=== PATIENT | male | born 1950 | race Caucasian/White ===

== ENCOUNTER 2017-05-08 17:14 | Inpatient (IN) | payer BC, OTHER ==
[2017-05-08 17:19] VITALS: BMI 38.3
--- NOTE | 2017-05-08 17:24 | PDOC ---
History of Present Illness - General History Source: Patient Exam Limitations: No Limitations - History of Present Illness Initial Comments: 67 yo M history HTN, HL, CAD s/p [place] x2 (one in distant past, one 5 years ago) presents with abrupt onset of SOB, started while he was exerting himself lifting something heavy and moving it around. Denies cp, nausea, vomiting, sweating, fever. No cough or recent illness. He contacted Dr. Calderon (his client services assistant is Dr. Olmos), who advised him to present to ED. He has chronic leg ulcers, but has recently noticed progressively worsening BLE edema. He had outpatient DVT studies this week, negative as per Dr. Calderon. <Shweta Dixon - Last Filed: 05/08/17 19:26> <Janey Castle - Last Filed: 05/08/17 20:37> - General Chief Complaint: Shortness of Breath Stated Complaint: SOB Time Seen by Provider: 05/08/17 17:24 Past History - Past Medical History Cardiac Disorders: Yes (X 2) COPD: No HTN: Yes Hypercholesterolemia: Yes - Surgical History Cardiac Surgery: Yes - Suicide/Smoking/Psychosocial Hx Smoking History: Never smoked Hx Alcohol Use: No Drug/Substance Use Hx: No Substance Use Type: None <Shweta Dixon - Last Filed: 05/08/17 19:26> <Janey Castle - Last Filed: 05/08/17 20:37> - Past Medical History Allergies/Adverse Reactions: Allergies Allergy/AdvReac Type Severity Reaction Status Date / Time No Known Allergies Allergy Verified 05/08/17 17:19 Review of Systems - Review of Systems Able to Perform ROS?: Yes Comments:: GENERAL/CONSTITUTIONAL: No fever or chills. No weakness. HEAD, EYES, EARS, NOSE AND THROAT: No change in vision. No ear pain or discharge. No sore throat. CARDIOVASCULAR: No chest pain. +Shortness of breath. RESPIRATORY: No cough, wheezing, or hemoptysis. GASTROINTESTINAL: No nausea, vomiting, diarrhea or constipation. GENITOURINARY: No dysuria, frequency, or change in urination. MUSCULOSKELETAL: No joint or muscle swelling or pain. No neck or back pain. + BLE swellling. SKIN: No rash NEUROLOGIC: No headache, vertigo, loss of consciousness, or change in strength/ sensation. ENDOCRINE: No increased thirst. No abnormal weight change. HEMATOLOGIC/LYMPHATIC: No anemia, easy bleeding, or history of blood clots. ALLERGIC/IMMUNOLOGIC: No hives or skin allergy. <Shweta Dixon - Last Filed: 05/08/17 19:26> *Physical Exam - Vital Signs Last Vital Signs Temp Pulse Resp BP Pulse Ox 98.2 F 83 20 128/79 99 05/08/17 17:15 05/08/17 17:15 05/08/17 17:15 05/08/17 17:15 05/08/17 17:15 - Physical Exam Comments: GENERAL: Awake, alert, and fully oriented. +Mild tachypnea. HEAD: No signs of trauma EYES: PERRLA, EOMI, sclera anicteric, conjunctiva clear ENT: Auricles normal inspection, hearing grossly normal, nares patent, oropharynx clear without exudates. Moist mucosa NECK: Normal ROM, supple, no lymphadenopathy, JVD, or masses LUNGS: +Crackles at bases B/L. Distant lung sounds secondary to body habitus. No wheezes. HEART: Regular rate and rhythm, normal S1 and S2, no murmurs, rubs or gallops ABDOMEN: Soft, nontender, normoactive bowel sounds. No guarding, no rebound. No masses EXTREMITIES: Normal range of motion, 3+ pitting edema to BLE. Patient refused examination of the lower legs, did not want the ulcer dressings removed. No clubbing or cyanosis. No cords, erythema, or tenderness. NEUROLOGICAL: Cranial nerves II through XII grossly intact. Normal speech. Motor and sensation intact. SKIN: Warm, Dry, normal turgor, no rashes or lesions noted. <Shweta Dixon - Last Filed: 05/08/17 19:26> - Vital Signs Last Vital Signs Temp Pulse Resp BP Pulse Ox 98.2 F 83 20 128/79 99 05/08/17 17:15 05/08/17 17:15 05/08/17 17:15 05/08/17 17:15 05/08/17 17:15 <Janey Castle - Last Filed: 05/08/17 20:37> ED Treatment Course - LABORATORY CBC & Chemistry Diagram: 05/08/17 17:55 05/08/17 17:55 <Shweta Dixon - Last Filed: 05/08/17 19:26> - LABORATORY CBC & Chemistry Diagram: 05/08/17 17:55 05/08/17 17:55 - ADDITIONAL ORDERS Additional order review: Laboratory Results 05/08/17 12 17:55 17:55 PT with INR 12.90 H INR 1.14 Sodium 139 Potassium 4.4 Chloride 105 Carbon Dioxide 26 Anion Gap 8 BUN 14 Creatinine 1.0 Creat Clearance w eGFR > 60 Random Glucose 86 Calcium 8.7 Total Bilirubin 0.8 AST 16 ALT 31 Alkaline Phosphatase 86 Creatine Kinase 58 Troponin I 0.02 B-Natriuretic Peptide 1586.62 H Total Protein 6.5 Albumin 3.5 05/08/17 17:55 RBC 3.97 L MCV 91.5 MCHC 33.7 RDW 14.2 MPV 9.1 Neutrophils % 84.2 H Lymphocytes % 5.9 L Monocytes % 7.6 Eosinophils % 2.0 Basophils % 0.3 - Medications Given in the ED: ED Medications Discontinued Medications Generic Name Dose Route Start Last Admin Trade Name Freq PRN Reason Stop Dose Admin Furosemide 40 mg 05/08/17 19:05 05/08/17 19:37 Lasix Injection - IVPUSH 05/08/17 19:06 40 mg ONCE ONE Administration <Janey Castle - Last Filed: 05/08/17 20:37> Medical Decision Making - Medical Decision Making 05/08/17 19:23 Late entry. Patient was sent in by Dr. Calderon for SOB. Found to have pulm venous congestion on XR of chest. Elevated BNP. Will admit for new onset CHF. Lasix 40 mg IVP as per Dr. Calderon. Patient's PMD is Dr. Singh, usually admits to Dr. Carballo, however, Dr. Carballo patients go to hospitalist after 5pm. <Shweta Dixon - Last Filed: 05/08/17 19:26> *DC/Admit/Observation/Transfer <Shweta Dixon - Last Filed: 05/08/17 19:26> - Discharge Dispostion Admit: Yes <Janey Castle - Last Filed: 05/08/17 20:37> Diagnosis at time of Disposition: CHF (congestive heart failure), Dyspnea - Discharge Dispostion Condition at time of disposition: Guarded - Referrals Referrals: Roosevelt Singh MD [Primary Care Provider] -
[2017-05-08 18:04] LABS: BASO % 0.3 % (0-2.0); MCH 30.8 pg (25.7-33.7); MCHC 33.7 g/dl (32.0-35.9); MEAN CELL VOLUME 91.5 fl (80-96); MEAN PLT VOLUME 9.1 fl (7.5-11.1); NEUT % 84.2 % (42.8-82.8); PLATELET COUNT 136 K/MM3 (134-434); RDW 14.2 % (11.9-15.9); WHITE BLOOD COUNT 8.5 K/mm3 (4.0-10.0)
[2017-05-08 18:17] LABS: INR 1.14 (0.82-1.09); PROTHROMBIN TIME (PATIENT) 12.9 SEC (9.98-11.88)
[2017-05-08 18:35] LABS: ALBUMIN 3.5 g/dl (3.4-5.0); ANION GAP 8 (8-16); BILIRUBIN,TOTAL 0.8 mg/dL (0.2-1.0); CALCIUM 8.7 mg/dL (8.5-10.1); CO2 26 mmol/L (21-32); GLUCOSE,RANDOM 86 mg/dL (74-106); SGOT/AST 16 U/L (15-37); SGPT/ALT 31 U/L (12-78); TOT PROT 6.5 g/dl (6.4-8.2)
[2017-05-08 18:39] LABS: ALK PHOS 86 U/L (45-117); CPK 58 IU/L (39-308); TROPONIN I 0.02 ng/ml (0.00-0.05)
[2017-05-08] MEDS ORDERED: FUROSEMIDE 40 MG/4 ML INJECTABLE VIAL IVPUSH ONE (19:05)
[2017-05-08] MEDS ORDERED: FUROSEMIDE 40 MG/4 ML INJECTABLE VIAL ONE (19:33)
--- NOTE | 2017-05-08 21:06 | HP ---
CHIEF COMPLAINT: Acute onset of SOB PCP: Dr. Singh Sap Ppm Consultant: Dr. Olmos HISTORY OF PRESENT ILLNESS: 67 year old M with pmh of HTN, HLD, CAD s/p [place] x2 with several stents placed presents with acute onset SOB 15 hrs prior to admission while exerting himself. Patient contacted Dr. Calderon who covers for Dr. lOmos and told him to come to the ED. Patient denies fever, chills, chest pain, abdominal pain. Patient states he has had increased b/l EDEN over the past few weeks. Patient has chronic leg ulcers for which he follows with a wound clinic. He states he had DVT studies done on but states they were negative. ER course was notable for: (1) VS- unremarkable (2) CBC, CMP unremarkable, elevated BNP (3) D-Dimer 429, CXR reveals congestion Recent Travel: denies PAST MEDICAL HISTORY: as per hpi PAST SURGICAL HISTORY: Stent placement Social History: Smoking: Denies Alcohol: Denies Drugs: Denies Family History: Allergies No Known Allergies Allergy (Verified 05/08/17 17:19) HOME MEDICATIONS: REVIEW OF SYSTEMS CONSTITUTIONAL: Absent: fever, chills, diaphoresis, generalized weakness, malaise, loss of appetite, weight change HEENT: Absent: rhinorrhea, nasal congestion, throat pain, throat swelling, difficulty swallowing, mouth swelling, ear pain, eye pain, visual changes CARDIOVASCULAR: Absent: chest pain, syncope, palpitations, irregular heart rate, lightheadedness , peripheral edema RESPIRATORY: Absent: cough, shortness of breath, dyspnea with exertion, orthopnea, wheezing, stridor, hemoptysis GASTROINTESTINAL: Absent: abdominal pain, abdominal distension, nausea, vomiting, diarrhea, constipation, melena, hematochezia GENITOURINARY: Absent: dysuria, frequency, urgency, hesitancy, hematuria, flank pain, genital pain MUSCULOSKELETAL: Absent: myalgia, arthralgia, joint swelling, back pain, neck pain SKIN: Absent: rash, itching, pallor HEMATOLOGIC/IMMUNOLOGIC: Absent: easy bleeding, easy bruising, lymphadenopathy, frequent infections ENDOCRINE: Absent: unexplained weight gain, unexplained weight loss, heat intolerance, cold intolerance NEUROLOGIC: Absent: headache, focal weakness or paresthesias, dizziness, unsteady gait, seizure, mental status changes, bladder or bowel incontinence PSYCHIATRIC: Absent: anxiety, depression, suicidal or homicidal ideation, hallucinations. PHYSICAL EXAMINATION Vital Signs - 24 hr 05/08/17 17:15 Temperature 98.2 F Pulse Rate 83 Respiratory 20 Rate Blood Pressure 128/79 O2 Sat by Pulse 99 Oximetry (%) GENERAL: Awake, alert, and fully oriented, in no acute distress. HEAD: Normal with no signs of trauma. EYES: Extraocular movements intact, sclera anicteric, conjunctiva clear. No lid lag. EARS, NOSE, THROAT: Oropharynx clear without exudates. Moist mucous membranes. NECK: Normal range of motion, supple without lymphadenopathy, JVD, or masses. LUNGS: Crackles at B/l bases. No wheezes. No accessory muscle use. +Tachypnea HEART: Regular rate and rhythm, normal S1 and S2 without murmur, rub or gallop. ABDOMEN: Soft, nontender, not distended, normoactive bowel sounds, no guarding, no rebound, no masses. No hepatomegaly or splenomegaly. MUSCULOSKELETAL: Normal range of motion at all joints. No bony deformities or tenderness. No CVA tenderness. LOWER EXTREMITIES: No calf tenderness. 2+ pitting edema to BLE. Patient refused examination of the lower legs. Ulcers wrapped NEUROLOGICAL: Cranial nerves II-XII intact. Normal speech. PSYCHIATRIC: Cooperative. Good eye contact. Appropriate mood and affect. SKIN: Warm, dry, normal turgor, no rashes or lesions noted, normal capillary refill. Laboratory Results - last 24 hr 05/08/17 05/08/17 05/08/17 17:55 17:55 17:55 WBC 8.5 RBC 3.97 L Hgb 12.2 Hct 36.4 MCV 91.5 MCH 30.8 MCHC 33.7 RDW 14.2 Plt Count 136 MPV 9.1 Neutrophils % 84.2 H Lymphocytes % 5.9 L Monocytes % 7.6 Eosinophils % 2.0 Basophils % 0.3 PT with INR 12.90 H INR 1.14 Sodium 139 Potassium 4.4 Chloride 105 Carbon Dioxide 26 Anion Gap 8 BUN 14 Creatinine 1.0 Creat Clearance w eGFR > 60 Random Glucose 86 Calcium 8.7 Total Bilirubin 0.8 AST 16 ALT 31 Alkaline Phosphatase 86 Creatine Kinase 58 Troponin I 0.02 B-Natriuretic Peptide 1586.62 H Total Protein 6.5 Albumin 3.5 ASSESSMENT/PLAN: 67 year old M with pmh of HTN, HLD, CAD s/p [place] x2 with several stents placed presents with acute onset SOB 15 hrs prior to admission placed into obs for acute CHF exacerbation. #Acute onset SOB, CHF exacerbation vs possible PE -BNP elevated -Last echo 6 months ago, patient is unsure results -Recent B/l venous duplex performed on , Obtain results from straightening machine feeder -D-Dimer pending, if elevated will obtain CTA -IV lasix 40mg BID -Echocardiogram pending -Strict I/O -Daily Weights -Trend troponins -EKG in AM #HTN, stable -Continue home medications #HLD -Continue lipitor 40 mg po hs #CAD s/p [place] x2 -Continue aspirin 81 mg po daily #GABBY -Continue CPAP #Chronic leg wounds -Recommend wound care consult in the AM #FEN/GI -No fluids at this time -WNL -Sodium controlled diet #PPx -Heparin 5000 U q8h for dvt ppx -No GI ppx Case discussed with team Home meds need to be confirmed Visit type - Emergency Visit Emergency Visit: Yes ED Registration Date: 05/08/17 Care time: The patient presented to the Emergency Department on the above date and was hospitalized for further evaluation of their emergent condition. - New Patient This patient is new to me today: Yes Date on this admission: 05/08/17 - Critical Care Critical Care patient: No
[2017-05-08] MEDS ORDERED: ATORVASTATIN CA 40 MG TABLET (FP) PO SCH (22:00)
--- NOTE | 2017-05-08 22:24 | PN ---
Teaching Attending Note Name of Resident: Duke Christie ATTENDING PHYSICIAN STATEMENT I saw and evaluated the patient. I reviewed the resident's note and discussed the case with the resident. I agree with the resident's findings and plan as documented. SUBJECTIVE: 67 year old male that presents to the ED c/o of rather acute ( 15 HRS ago ) onset of SOB. This is associated with dizziness. He denies chest pain . Denies syncope. PMH is relevant for prior history of CAD, CA with most recent ccah in 2010 , most recent ECHO and stress test 6 month ago . Does not recall history of CHF . He has been having increasing leg edema over the past 3 month , RLE ulcer for which he is managed in wound care center He has history of Obesity, Sleep apnea and arthritis and uses CPAP at home OBJECTIVE: Vital Signs Temperature 98.2 F 05/08/17 17:15 Pulse Rate 88 05/08/17 19:30 Respiratory Rate 20 05/08/17 17:15 Blood Pressure 128/79 05/08/17 17:15 O2 Sat by Pulse Oximetry (%) 100 05/08/17 19:30 HEAD: Normal with no signs of trauma. EYES: Extraocular movements intact, sclera anicteric, conjunctiva clear. No lid lag. EARS, NOSE, THROAT: Oropharynx clear without exudates. Moist mucous membranes. NECK: Normal range of motion, supple without lymphadenopathy, JVD, or masses. LUNGS: Crackles at B/l bases. No wheezes. No accessory muscle use. +Tachypnea HEART: Regular rate and rhythm, normal S1 and S2 without murmur, rub or gallop. ABDOMEN: Soft, nontender, not distended, normoactive bowel sounds, no guarding, no rebound, no masses. No hepatomegaly or splenomegaly. MUSCULOSKELETAL: Normal range of motion at all joints. No bony deformities or tenderness. No CVA tenderness. LOWER EXTREMITIES: No calf tenderness. 2+ pitting edema to BLE. Patient refused examination of the lower legs. Ulcers wrapped. There is an ulcer of RLE that is 2 inches in diameter as per patient NEUROLOGICAL: Cranial nerves II-XII intact. Normal speech. CBC, BMP 05/08/17 17:55 05/08/17 17:55 CXR - mild pulmonary vascular congestion ASSESSMENT AND PLAN: 1. Acute onset of SOB - secondary to acute CHF ( history of CAD ) . PE is also a possibility considering obesity, poor functional status and acute onset of symptoms. - cardiac monitoring - cardiac enzymes - will obtain recent echo - cardiology evaluation - I& O and diurese with IV lasix - Ddimer - US doppler LE - CT chest if dimer is high 2. Sleep apnea - will order CPAP at night 3. RLE wound - wound care consult 4. DVT PPX - heparin SC Discussed with patient in extent
[2017-05-08] MEDS ORDERED: METOPROLOL SUCCINATE 50 MG TAB.SR.24H (FP) ONE (22:46)
[2017-05-08] MEDS ORDERED: HEPARIN NA (PORCINE) 5,000 UNITS/ML 1ML VIAL ONE (22:46)
[2017-05-08] MEDS ORDERED: ATORVASTATIN CA 40 MG TABLET (FP) ONE (22:46)
[2017-05-08] MEDS: HEPARIN NA (PORCINE) 5,000 UNITS/ML 1ML VIAL SQ SCH (22:58)
[2017-05-08] MEDS: METOPROLOL SUCCINATE 25 MG TAB.SR.24H (FP) PO SCH (22:58)
[2017-05-09] MEDS ORDERED: METHADONE HCL 10 MG TABLET PO PRN (00:36)
[2017-05-09] MEDS ORDERED: clonazePAM 0.5 MG TABLET ONE (00:49)
[2017-05-09] MEDS ORDERED: HEPARIN NA (PORCINE) 5,000 UNITS/ML 1ML VIAL ONE (06:02)
[2017-05-09] MEDS ORDERED: FUROSEMIDE 40 MG/4 ML INJECTABLE VIAL ONE (06:02)
[2017-05-09] MEDS: FUROSEMIDE 40 MG/4 ML INJECTABLE VIAL IVPUSH SCH ×2 (06:14→13:38)
[2017-05-09] MEDS: HEPARIN NA (PORCINE) 5,000 UNITS/ML 1ML VIAL SQ SCH ×2 (06:14→13:38)
[2017-05-09 06:23] LABS: BASO % 0.4 % (0-2.0); EOS % 4.9 % (0-4.5); MCH 30.9 pg (25.7-33.7); MCHC 33.6 g/dl (32.0-35.9); MEAN PLT VOLUME 8.7 fl (7.5-11.1); NEUT % 74.8 % (42.8-82.8); PLATELET COUNT 136 K/MM3 (134-434); RDW 14.5 % (11.9-15.9); WHITE BLOOD COUNT 7.4 K/mm3 (4.0-10.0)
[2017-05-09 07:30] LABS: ANION GAP 5 (8-16); CALCIUM 8.2 mg/dL (8.5-10.1); CO2 30 mmol/L (21-32); CREATININE 1.1 mg/dL (0.7-1.3); GLUCOSE,RANDOM 98 mg/dL (74-106); MAGNESIUM 2.3 mg/dL (1.8-2.4); PHOSPHOROUS 3.8 mg/dL (2.5-4.9)
[2017-05-09 07:33] LABS: TROPONIN I < 0.02 ng/ml (0.00-0.05)
--- NOTE | 2017-05-09 09:39 | PN ---
Progress Note (short form) - Note Progress Note: pt seen/ examined in er. chart reviewed. admitted for chf exac denies cp. afebrile on i/v lasix. Vital Signs Temp 98.1 F 05/09/17 06:32 Pulse 61 05/09/17 06:32 Resp 20 05/09/17 06:32 BP 116/66 05/09/17 06:32 Pulse Ox 96 05/09/17 06:32 Intake & Output 05/08/17 05/08/17 05/09/17 11:59 23:59 11:59 Weight 245 lb Other: Height 5 ft 7 in Body Mass Index (BMI) 38.3 Active Medications Aspirin (Asa -) 81 mg PO DAILY [facility] Atorvastatin Calcium (Lipitor -) 40 mg PO HS [facility] Last Admin: 05/08/17 22:58 Dose: 40 mg Clonazepam (Klonopin -) 1 mg PO TID [facility] Last Admin: 05/09/17 05:59 Dose: Not Given Furosemide (Lasix Injection -) 40 mg IVPUSH BID@0600,1400 [facility] Last Admin: 05/09/17 06:14 Dose: 40 mg Heparin Sodium (Porcine) (Heparin -) 5,000 unit SQ TID [facility] Last Admin: 05/09/17 06:14 Dose: 5,000 unit Isosorbide Mononitrate (Imdur -) 60 mg PO DAILY [facility] Methadone HCl (Dolophine -) 10 mg PO DAILY PRN PRN Reason: PAIN Last Admin: 05/09/17 00:53 Dose: 10 mg Metoprolol Succinate (Toprol Xl -) 25 mg PO BID [facility] Last Admin: 05/08/17 22:58 Dose: 25 mg CBC, BMP 05/09/17 05:44 05/09/17 05:44 Physical Exam. Conscious / cooperative--obese neck - no jvd lungs- diminished at bases cvs- s1, s2 rrr Abd- soft/obese EXt- Nikhil Bandage + A/P Chf exac with h/o cad--s/p mi-- several stents. obesity. chronic leg ulcers hypertension continue i/v lasix tele admit echo cardiology to follow. will follow. Problem List - Problems (1) Obesity Code(s): E66.9 - OBESITY, UNSPECIFIED (2) Coronary artery disease Code(s): I25.10 - ATHSCL HEART DISEASE OF [place] CORONARY ARTERY W/O ANG PCTRS (3) CHF (congestive heart failure) Code(s): I50.9 - HEART FAILURE, UNSPECIFIED (4) Dyspnea Code(s): R06.00 - DYSPNEA, UNSPECIFIED
[2017-05-09] MEDS ORDERED: ISOSORBIDE MONONITRATE 60 MG TAB.SR.24H (FP) PO SCH (10:00)
[2017-05-09] MEDS ORDERED: ASPIRIN 81 MG CHEWABLE TABLETS PO SCH (10:00)
[2017-05-09] MEDS: METOPROLOL SUCCINATE 25 MG TAB.SR.24H (FP) PO SCH (10:01)
--- NOTE | 2017-05-09 10:15 | CON.CARD ---
Consult Consult Specialty:: Cardiology Referred by:: ER Reason for Consultation:: SOB/edema - History of Present Illness Chief Complaint: SOB/edema History of Present Illness: 67 year old man with a h/o HTN, HLD, CAD h/o [place] x 2, several years ago and most recently 2012 s/p PCI ANSLEY pLAD and RCA at that time, moderate LV systolic dysfunction at that time, has not been to the office in a few years, last echo 2013. Pt called service yesterday stating that he has had a few day history of severe dyspnea with minimal exertion and approx 1 week of b/l LE. He was seen last week by Vascular Dr. Crum for LE wounds and as per pt had a doppler US that showed no DVT. He had stated that up until late last week he was feeling well (for the past 4 years) and has not had any sob or perez. He was advised to go to the ER yesterday afternoon which he did. He was seen and examined this am in [facility]. He denies any chest pain, no palpitations, no pnd, orthopnea. No ligtheadedness, dizziness, syncope, or near syncope. - History Source History Provided By: Patient, Medical Record Limitations to Obtaining History: No Limitations - Past Medical History Cardio/Vascular: Yes: CAD, HTN, Hyperlipdemia, TX - Past Surgical History Past Surgical History: Yes: Stent - Alcohol/Substance Use Hx Alcohol Use: No - Smoking History Smoking history: Never smoked - Social History ADL: Independent History of Recent Travel: No Home Medications - Allergies Allergies/Adverse Reactions: Allergies Allergy/AdvReac Type Severity Reaction Status Date / Time No Known Allergies Allergy Verified 05/08/17 17:19 - Home Medications Home Medications: Ambulatory Orders Aspirin [ASA -] 81 mg PO DAILY 05/08/17 Atorvastatin Ca [Lipitor] 40 mg PO HS 05/08/17 Clonazepam [Klonopin] 1 mg PO TID 05/08/17 Furosemide [Lasix -] 40 mg PO DAILY 05/08/17 Isosorbide Mononitrate [Imdur -] 60 mg PO DAILY 05/08/17 Methadone [Dolophine -] 10 mg PO DAILY PRN 05/08/17 Methadone [Dolophine -] 10 mg PO Q12H 05/08/17 Metoprolol Succinate [Toprol Xl -] 25 mg PO BID 05/08/17 Family Disease History - Family Disease History Family History: Denies Review of Systems - Review of Systems Constitutional: denies: No Symptoms, Chills, Diaphoresis, Fever, Lethargy, Loss of Appetite, Malaise, Night Sweats, Unintentional Wgt. Loss, Weakness, Other Eyes: denies: No Symptoms, Blind Spots, Blurred Vision, Double Vision, Eye Pain , Floaters, Photophobia, Recent Change in Vision, Other HENT: denies: No Symptoms, Difficult Swallowing, Ear Discharge, Ear Pain, Epistaxis, Gingival Bleeding, Hearing Loss, Mouth Swelling, Nasal Congestion, Ocular Prosthesis, Throat Pain, Toothache, Ringing in Ears, Other Neck: denies: No Symptoms, Decreased ROM, Lumps, Pain on Movement, Stiffness, Swollen Glands, Tenderness, Other Cardiovascular: reports: Edema, Shortness of Breath. denies: No Symptoms, Chest Pain, Palpitations, Other Respiratory: reports: Exercise Intolerance, SOB, SOB on Exertion. denies: No Symptoms, Cough, Hemoptysis, Orthopnea, PND, Snoring, Wheezing, Other Gastrointestinal: denies: No Symptoms, Abdominal Pain, Bloating, Constipation, Diarrhea, Dysphagia, Indigestion, Melena, Nausea, Rectal Bleeding, Vomiting, Vomiting Blood, Other Genitourinary: denies: No Symptoms, Burning, Discharge, Dysuria, Flank Pain, Frequency, Hematuria, Incontinence, Lesions, Menses, Pain, Testicular Mass, Testicular Pain, Testicular Swelling, Urgency, Vaginal Bleeding, Other Breasts: denies: No Symptoms Reported, See HPI, Breast Implants, Discharge from Nipple, Lumps, Pain, Skin Changes, Other Musculoskeletal: denies: No Symptoms, Back Pain, Crepitus, Decreased ROM, Extremity Pain, Joint Pain, Joint Swelling, Muscle Pain, Muscle Cramps, Muscle Weakness, Other Integumentary: denies: No Symptoms, Blister, Bruising, Change in Color, Eczema, Erythema, Incision, Lesions, Lump, Pallor, Pruritis, Rash, Wound, Other Neurological: denies: No Symptoms, Change in LOC, Change in Speech, Confusion, Dizziness, Headache, Incoordination, Numbness, Parasthesia, Pre-Existing Deficit , Seizure, Syncope, Tremors, Unsteady Gait, Weakness, Other Endocrine: denies: No Symptoms, Excessive Sweating, Flushing, Increased Hunger, Increased Thirst, Intolerance to Cold, Intolerance to Heat, Unexplained Weight Gain, Unexplained Weight Loss, Other Hematology/Lymphatic: denies: No Symptoms, Easily Bruised, Excessive Bleeding, Swollen Glands, Other Psychiatric: denies: No Symptoms, Altered Sleep Pattern, Anxiety, Depression, Hallucinations, Panic, Paranoia, Suicidal, Other - Risk Factors Known Risk Factors: Yes: Hypercholesterolemia, Hypertension, Prior TX /Emb Stroke Vital Signs: Vital Signs Temperature 98.1 F 05/09/17 06:32 Pulse Rate 61 05/09/17 06:32 Respiratory Rate 20 05/09/17 06:32 Blood Pressure 116/66 05/09/17 06:32 O2 Sat by Pulse Oximetry (%) 96 05/09/17 06:32 Constitutional: Yes: No Distress, Calm, Obese Eyes: Yes: WNL, Conjunctiva Clear, EOM Intact, PERRL HENT: Yes: WNL, Atraumatic, Normocephalic Neck: Yes: WNL, Supple, Trachea Midline Respiratory: Yes: WNL, Regular, CTA Bilaterally. No: Rales, Rhonchi, Wheezes Gastrointestinal: Yes: WNL, Normal Bowel Sounds, Soft. No: Distention, Tenderness Renal/: Yes: WNL Cardiovascular: Yes: Regular Rate and Rhythm. No: Bradycardia, Tachycardia, Pulse Irregular, Gallop, Rub, Varicosities JVD: No Carotid Bruit: No PMI: Non-Displaced Heart Sounds: Yes: S1, S2. No: Split S2, S3, S4, Clicks, Gallop, Rub, Bruit Murmur: No: Systolic Murmur, Diastolic Murmur Musculoskeletal: Yes: WNL Extremities: Yes: WNL Edema: Yes Edema: LLE: 2+, RLE: 2+ Peripheral Pulses WNL: Yes Peripheral Pulses: 2+ Left Doralis Pedis, 2+ Right Dorsalis Pedis Integumentary: Yes: WNL Neurological: Yes: Alert, Oriented, Cran Nerves II-XII Intact Psychiatric: Yes: Alert, Oriented - Other Data Labs, Other Data: CBC, BMP 05/09/17 05:44 05/09/17 05:44 INR, PTT INR 1.14 (0.82-1.09) 05/08/17 17:55 Troponin, BNP 05/08/17 05/09/17 17:55 05:44 Troponin I 0.02 < 0.02 B-Natriuretic Peptide 1586.62 H Troponin, BNP 05/08/17 05/09/17 17:55 05:44 Troponin I 0.02 < 0.02 B-Natriuretic Peptide 1586.62 H EKG-NSR 61bpm, 1st deg AVB, septal infarct age indeterminate, nonspecific ST abnl, st depressions V5, V6, II, III, aVF Echo: Report Reviewed Prior Cardiac Procedures: PTCA with Stent Imaging - Results Chest X-ray: Report Reviewed, Image Reviewed EKG: Report Reviewed, Image Reviewed Other: Report Reviewed, Image Reviewed (tele-in er, no sig arrhythmias seen) Assessment/Plan 67 year old man with a h/o HTN, HLD, CAD h/o [place] x 2, several years ago and most recently 2013 s/p PCI ANSLEY pLAD and RCA at that time, moderate LV systolic dysfunction at that time, has not been to the office in a few years, last echo 2013. Pt called service yesterday stating that he has had a few day history of severe dyspnea with minimal exertion and approx 1 week of b/l LE. He was seen last week by Vascular Dr. Crum for LE wounds and as per pt had a doppler US that showed no DVT. He had stated that up until late last week he was feeling well (for the past 4 years) and has not had any sob or perez. He was advised to go to the ER yesterday afternoon which he did. He was seen and examined this am in [facility]. He denies any chest pain, no palpitations, no pnd, orthopnea. No ligtheadedness, dizziness, syncope, or near syncope. SOB-likely acute on chronic systolic CHF -echo reviewed from 2012 showed moderate LV systolic dysfunction, unkown LV function from 2012 to 2017 -echo today showed moderate LV systolic dysfunction -plan to continue diuresis with IV Lasix -monitor strict I/Os and daily weights -monitor bun/creat, electrolytes and replete as needed -concern that pt developed recurrent obstructive CAD as etiology of current acute decompensation thus will plan to transfer for cardiac cath during this admission. -cont other current medical regimen, ASA, Toprol, Lipitor CAD-prior TX's as above and PCI's as above -cont ASA, Lipitor, Toprol as above -cardiac cath planned as above -cardiac enzymes wnl thus far -ekg showed abnormalities as listed, septal infarct, nonspecific ST abnl HTN-adequately controlled -cont current medical regimen HLD -cont Lipitor
[2017-05-09] MEDS ORDERED: oxyCODONE HCL 5 MG TABLET PO PRN (15:20)
[2017-05-09] MEDS ORDERED: ACETAMINOPHEN 325 MG TABLET (FP) PO PRN (15:20)
[2017-05-09] MEDS ORDERED: ZINC OXIDE 20% TOPICAL OINTMENT 30 GM TUBE TP SCH (15:30)
[2017-05-09 19:01] VITALS: BP 115/48; PULSE 58; TEMP 98
--- NOTE | 2017-05-10 01:23 | EKG ---
Test Reason : Blood Pressure : / mmHG Vent. Rate : 061 BPM Atrial Rate : 061 BPM P-R Int : 212 ms QRS Dur : 122 ms QT Int : 454 ms P-R-T Axes : 073 089 093 degrees QTc Int : 457 ms SINUS RHYTHM WITH 1ST DEGREE A-V BLOCK SEPTAL INFARCT , AGE UNDETERMINED ABNORMAL ECG WHEN COMPARED WITH ECG OF 08-MAY-2017 17:49, SEPTAL INFARCT IS NOW PRESENT Confirmed by KUSH MCNALLY, ENRIQUE ([id number]) on 05/10/2017 1:23:18 AM Referred By: Confirmed By:ENRIQUE CURRIE MD
--- NOTE | 2017-05-10 01:31 | EKG ---
Test Reason : Blood Pressure : / mmHG Vent. Rate : 072 BPM Atrial Rate : 072 BPM P-R Int : 222 ms QRS Dur : 116 ms QT Int : 404 ms P-R-T Axes : 052 -37 099 degrees QTc Int : 442 ms SINUS RHYTHM WITH 1ST DEGREE A-V BLOCK LEFT AXIS DEVIATION LEFT VENTRICULAR HYPERTROPHY WITH QRS WIDENING ABNORMAL ECG WHEN COMPARED WITH ECG OF 06-OCT-2002 08:38, VENT. RATE HAS INCREASED Confirmed by ENRIQUE CURRIE MD ([id number]) on 05/10/2017 1:31:14 AM Referred By: Confirmed By:ENRIQUE CURRIE MD
--- NOTE | 2017-05-10 10:13 | DS ---
Physical Examination Vital Signs: Vital Signs Temperature 98 F 05/09/17 19:00 Pulse Rate 58 L 05/09/17 19:00 Respiratory Rate 18 05/09/17 19:00 Blood Pressure 115/48 05/09/17 19:00 O2 Sat by Pulse Oximetry (%) 99 05/09/17 10:25 Findings/Remarks: see progress note 05/09 Labs: CBC, BMP 05/09/17 05:44 05/09/17 05:44 Discharge Summary Reason For Visit: CHF DYSPNEA Hospital Course: patient transferred to [facility]--- for further management. Condition: Guarded - Instructions Referrals: Roosevelt Singh MD [Primary Care Provider] - Disposition: TRANSFER ACUTE CARE/OTHER HOSP - Home Medications Comprehensive Discharge Medication List: Ambulatory Orders Aspirin [ASA -] 81 mg PO DAILY 05/08/17 Atorvastatin Ca [Lipitor] 40 mg PO HS 05/08/17 Clonazepam [Klonopin] 1 mg PO TID 05/08/17 Furosemide [Lasix -] 40 mg PO DAILY 05/08/17 Isosorbide Mononitrate [Imdur -] 60 mg PO DAILY 05/08/17 Methadone [Dolophine -] 10 mg PO DAILY PRN 05/08/17 Methadone [Dolophine -] 10 mg PO Q12H 05/08/17 Metoprolol Succinate [Toprol Xl -] 25 mg PO BID 05/08/17
== END 2017-05-09 20:57 | disposition short-term general hospital (02) | DRG 194 ==
LOC: JER 17:14 → JERBED 20:37 → J4S 05-09 11:12
PROVIDERS: ADMIT Internal Medicine; ATTEND Internal Medicine
DX: I11.0 Hypertensive heart disease with heart failure (principal); E78.5 Hyperlipidemia, unspecified; I25.10 Atherosclerotic heart disease of native coronary artery without angina pectoris; Z98.61 Coronary angioplasty status; I50.23 Acute on chronic systolic (congestive) heart failure; E66.9 Obesity, unspecified; Z68.38 Body mass index [BMI] 38.0-38.9, adult; G47.30 Sleep apnea, unspecified
CPT/HCPCS: 36415; 71010-TC; 80048; 80053; 82550; 83036; 83735; 83880; 84100; 84484; 85025; 85379; 85610; 93005; 93010; 93306-TC; 99285-25; J1644

== ENCOUNTER 2018-01-06 15:19 | Inpatient (IN) | payer OTHER ==
[2018-01-06 15:51] VITALS: BMI 37.5
--- NOTE | 2018-01-06 16:08 | PDOC ---
Rapid Medical Evaluation Chief Complaint: Wound Time Seen by Provider: 01/06/18 16:05 Medical Evaluation: Allergies Allergy/AdvReac Type Severity Reaction Status Date / Time No Known Allergies Allergy Verified 01/06/18 15:47 Vital Signs Temp Pulse Resp BP Pulse Ox 98.5 F 66 19 119/58 100 01/06/18 15:47 01/06/18 15:47 01/06/18 15:47 01/06/18 15:47 01/06/18 15:47 01/06/18 16:05 PT presents for admission for IV abx for b/l LLE wounds Exam: VSS, Afebrile Orders: Labs, Cultures, Urine, IV insert Pt to proceed to ED for further evaluation Discharge Disposition - Diagnosis Wound infection - Referrals - Patient Instructions - Post Discharge Activity
--- NOTE | 2018-01-06 17:08 | PDOC ---
History of Present Illness - General Chief Complaint: Wound Stated Complaint: SENT BY DR Brito Seen by Provider: 01/06/18 16:05 History Source: Patient - History of Present Illness Initial Comments: 01/06/18 17:35 Patient is a 67 year old male with a PMH of HLD, CAD (s/p [place] x2), CHF, chronic pain (on methadone) presents to our ED c/o B/L LE pain as well as RLE erythema. Follows @ wound clinic for the last 5 weeks. Recent h/o treatment with Cephalexin with dermatologic allergic reaction. Currently on an antibiotic but cannot recall name. Denies fevers/chills. Notes he was evaluated at wound clinic today and they instructed patient to come to the ED. Patient states he first noted changes to his RLE following a RLE meninscus repair 4 years previous. Five weeks previous he noted purulent discharge from his R calf prompting his visit to the wound clinic. Also notes he had DVT studies two days previous - he is unsure of the result. NKDA Surgical: B/L meniscus repair Social: former smoker, denies toxic habits PMD: Dr. Singh; ID: Dr. Her As per EMR, patient last evaluated in our ED 04/2017 for CHF exacerbation. Past History - Past Medical History Allergies/Adverse Reactions: Allergies Allergy/AdvReac Type Severity Reaction Status Date / Time cephalexin [From Keflex] Allergy Verified 01/06/18 19:49 Home Medications: Ambulatory Orders Aspirin [Aspirin EC] 81 mg PO DAILY 01/06/18 Furosemide [Lasix] 40 mg PO DAILY 01/06/18 Isosorbide Mononitrate [Imdur -] 60 mg PO DAILY 01/06/18 Levothyroxine [Synthroid -] 125 mcg PO DAILY 01/06/18 Metoprolol Tartrate [Lopressor -] 25 mg PO BID 01/06/18 Cardiac Disorders: Yes (X 2) COPD: No HTN: Yes Hypercholesterolemia: Yes - Surgical History Cardiac Surgery: Yes - Suicide/Smoking/Psychosocial Hx Smoking History: Never smoked Hx Alcohol Use: No Drug/Substance Use Hx: No Substance Use Type: None Review of Systems - Review of Systems Constitutional: No: Chills, Fever HEENTM: No: Blurred Vision, Double Vision Respiratory: No: Cough, Shortness of Breath Cardiac (ROS): No: Chest Pain, Lightheadedness, Palpitations, Syncope ABD/GI: No: Constipated, Diarrhea, Nausea, Vomiting : No: Burning, Dysuria Integumentary: Yes: Erythema Neurological: No: Numbness, Tingling *Physical Exam - Vital Signs Last Vital Signs Temp Pulse Resp BP Pulse Ox 98.5 F 66 19 119/58 100 01/06/18 15:47 01/06/18 15:47 01/06/18 15:47 01/06/18 15:47 01/06/18 15:47 - Physical Exam General Appearance: Yes: Nourished, Appropriately Dressed HEENT: positive: EOMI, HAIM Neck: positive: Trachea midline, Supple Respiratory/Chest: positive: Wheezing (Bibasilar wheezing). negative: Labored Respiration, Rapid RR, Crackles, Rales Cardiovascular: positive: S1, S2, Other (B/L LE chronic venous stasis changes) Vascular Pulses: Dorsalis-Pedis (R): 2+, Doralis-Pedis (L): 2+ Gastrointestinal/Abdominal: positive: Normal Bowel Sounds, Soft. negative: Guarding, Rebound Musculoskeletal: negative: CVA Tenderness (R), CVA Tenderness (L) Extremity: positive: Other (RLE chronic venous stasis changes; RLE erythema with two open ulcers on the ventral surface 1-2 cm in diameter; R sided lateral ulcer w/purulent discharge) Neurologic: positive: Fully Oriented, Alert ED Treatment Course - LABORATORY CBC & Chemistry Diagram: 01/06/18 17:20 01/06/18 17:20 Medical Decision Making - Medical Decision Making 01/06/18 19:15 67 year old male with erythematous, edematous, warm RLE extremity superimposed on venous stasis changes. Afebrile, VS unremarkable. H/o failed antibiotic therapy (possible allergic reaction) w/Keflex. Will obtain wound culture in addition to basic labs, blood cultures for presumptive cellulitis changes. 01/06/18 19:44 CBC shows no leukocytosis. Wound culture pending. Paged hospitalist medicine service for admission. 01/06/18 19:45 Tylenol for pain control. CXR pending. EKG shows HR 62, new TWI in V1, new LAD - not consistent with prior ECG dated 04/2107 - will repeat ECG to confirm changes vs. lead placement. 01/06/18 19:48 Patient admitted to inpatient medicine service. Patient counseled on plan of care. Patient signed out to Dr. Adams (Resident) and Dr. Hodges (Attending). *DC/Admit/Observation/Transfer Diagnosis at time of Disposition: Wound infection - Referrals - Patient Instructions - Post Discharge Activity
[2018-01-06 17:57] LABS: BASO % 0.4 % (0-2.0); EOS % 4.3 % (0-4.5); HEMATOCRIT 36.7 % (35.4-49); HEMOGLOBIN 12.5 GM/dL (11.7-16.9); LYMPH % 13.1 % (8-40); MCH 30.2 pg (25.7-33.7); MCHC 34.1 g/dl (32.0-35.9); MEAN CELL VOLUME 88.8 fl (80-96); MEAN PLT VOLUME 8.8 fl (7.5-11.1); NEUT % 74.2 % (42.8-82.8); PLATELET COUNT 163 K/MM3 (134-434); RBC 4.13 M/mm3 (4.00-5.60); RDW 13.8 % (11.9-15.9); WHITE BLOOD COUNT 6.7 K/mm3 (4.0-10.0)
[2018-01-06 18:20] LABS: INR 1.07 (0.83-1.09); PROTHROMBIN TIME (PATIENT) 12.1 SEC (9.7-13.0)
[2018-01-06 18:31] LABS: ALBUMIN 3.9 g/dl (3.4-5.0); ALK PHOS 105 U/L (45-117); ANION GAP 6 (8-16); BILIRUBIN,TOTAL 0.7 mg/dL (0.2-1.0); BLOOD UREA NITROGEN 21 mg/dL (7-18); CALCIUM 8.8 mg/dL (8.5-10.1); CHLORIDE 105 mmol/L (98-107); CO2 30 mmol/L (21-32); CREATININE 1.3 mg/dL (0.7-1.3); GLUCOSE,RANDOM 72 mg/dL (74-106); POTASSIUM 4.5 mmol/L (3.5-5.1); SGOT/AST 20 U/L (15-37); SGPT/ALT 32 U/L (12-78); SODIUM 141 mmol/L (136-145); TOT PROT 6.7 g/dl (6.4-8.2)
[2018-01-06] MEDS ORDERED: ACETAMINOPHEN 1000 MG/100 ML VIAL (NON FORMULARY) IVPB ONE ×2 (18:49→20:07)
[2018-01-06] MEDS ORDERED: VANCOMYCIN 1,000 MG in DEXTROSE 5%-WATER - 250 ML IVPB ONE (18:50)
[2018-01-06] MEDS ORDERED: PIPERACILLIN/TAZOB 3.375 GM 3.375 GM in DEXTROSE 5%-WATER - 50 ML IVPB ONE (18:50)
--- NOTE | 2018-01-06 18:55 | PDOC ---
Attending Attestation - Resident Resident Name: Carina Jean Baptiste - ED Attending Attestation I have performed the following: I have examined & evaluated the patient, The case was reviewed & discussed with the resident, I agree w/resident's findings & plan, Exceptions are as noted - HPI HPI: 01/06/18 18:51 67 yo male with h/o chf, venous stasis, chronic leg wounds followed at wound clinic here c/o bilateral leg swelling, now redness and skin breakdown. was recently treated as outpt with keflex for possible cellulitis but developed a rash. was seen in clinic today, concerned for cellulitis sent for admission and iv antiobiotocs. also c/o leg pain, worse on right. did have doppler on 01/03 which was negative for dvt. pcp is dr. gaines no cp no sob. - Physicial Exam PE: 01/06/18 18:53 awake alert lungs clear bilaterally heart rrr no mrg. bilat lower ext with brawning edema. right leg with lower leg erythema, warmth, small areas of break down 1.5 cm x 1.5 cm. good pulses bilaterally. nuero alert oriented x 3. - Medical Decision Making 01/06/18 18:54 differential: recently r/o dvt , concerns for cellulitis, nosxs of worsening chf. plan cxr labd ekg, cultures. will treat with vanco and zosyn. pt follows with dr. rodríguez. will require admission,
[2018-01-06] MEDS ORDERED: ACETAMINOPHEN INJECTION 100 ML IVPB ONE (19:25)
[2018-01-06] MEDS ORDERED: VANCOMYCIN 1 GRAM (PRE-DOCKED) 1,000 MG/250 ML BAG IVPB ONE (19:25)
--- NOTE | 2018-01-06 19:37 | PN ---
Teaching Attending Note Name of Resident: He Benoit ATTENDING PHYSICIAN STATEMENT I saw and evaluated the patient. I reviewed the resident's note and discussed the case with the resident. I agree with the resident's findings and plan as documented. SUBJECTIVE: Patient is a 67 year old man with a PMH of HLD, CAD (s/p [place] x2), CHF presents to thr ER with complaint of bilateral lower extremity pain as well as RLE erythema. Followed at wound clinic for the last 5 weeks. Recent history of treatment with Cephalexin with dermatologic allergic reaction. Currently on an antibiotic but cannot recall name. Denies fevers/chills. Notes he was evaluated at wound clinic today and they instructed patient to come to the ER. Patient states he first noted changes to his RLE following a RLE meninscus repair 4 years previous. Five weeks previous he noted purulent discharge from his R calf prompting his visit to the wound clinic. OBJECTIVE: Alert Vital Signs Period Temp Pulse Resp BP Sys/Kaufman Pulse Ox Last 24 Hr 98.5 F 66 19 119/58 100 HEENT: No Jaundice, eye redness or discharge, PERRLA, EOMI. Normocephalic, atraumatic. External ears are normal and hearing is grossly intact. No nasal discharge. Neck: Supple, nontender. No palpable adenopathy or thyromegaly. No JVD Chest: Good effort. Clear to auscultation and percussion. Heart: Regular. No S3, rub or murmur Abdomen: Not distended, soft, nontender and no HSM. No rebound or guarding. Normoactive bowel sounds. Ext: Chronic venous dermatitis changes on RLE; Has RLE erythema with ulcers with purulent discharge Skin: Warm and dry. No petechiae, rash or ecchymosis. Neuro: Alert. Oriented x3. CN 2-12 grossly intact. Sensation grossly intact in all four extremities and DTR are symmetric. Current Medications Generic Name Dose Route Start Last Admin Trade Name Freq PRN Reason Stop Dose Admin Vancomycin HCl 1,000 mg/ 250 mls @ 166.667 mls/hr 01/06/18 18:50 01/06/18 19: 35 Dextrose IVPB 01/06/18 20:19 166.667 mls/hr ONCE ONE Administration Protocol Home Medications Medication Instructions Recorded Aspirin [Aspirin EC] 81 mg PO DAILY 01/06/18 Furosemide [Lasix] 40 mg PO DAILY 01/06/18 Isosorbide Mononitrate [Imdur -] 60 mg PO DAILY 01/06/18 Levothyroxine [Synthroid -] 125 mcg PO DAILY 01/06/18 Metoprolol Tartrate [Lopressor -] 25 mg PO BID 01/06/18 Abnormal Lab Results 01/06/18 17:20 Anion Gap 6 L BUN 21 H Random Glucose 72 L D ASSESSMENT AND PLAN: 1. Right leg ulcers with cellulitis - Wound cultures being sent. Will treat with IV vancomycin, provide daily wound care and consult ID, vascular surgery and podiatry. Get doppler scan of his legs. Continue comprehensive care of all his comorbid issues. 2. Obesity - Will provide patient all the necessary assistance , counseling and positive reinforcement to facilitate weight loss. Consult flying shear operator. 3. DVT prophylaxis - Lovenox 40 mg SQ q 24 hours. 4. Advance directives - Full code
[2018-01-06] MEDS ORDERED: PIPERACILLIN/TAZOB 3.375 GM 3.375 GM/50 ML BAG IVPB ONE (19:54)
[2018-01-06] MEDS ORDERED: IBUPROFEN 400 MG TABLET (FP) PO ONE (21:20)
[2018-01-06] MEDS ORDERED: morphine SULFATE 4 MG/ML VIAL ONE (22:10)
[2018-01-06] MEDS ORDERED: morphine SULFATE 4 MG/ML VIAL IVPUSH ONE (22:19)
--- NOTE | 2018-01-06 23:03 | HP ---
CHIEF COMPLAINT: RLE cellulitis PCP: Dr. Param Carballo HISTORY OF PRESENT ILLNESS: 67M w/ pmhx of HLD, CAD (s/p SC x3, stent placement x5), CHF, spondylolisthesis presented to the ED with RLE cellulitis. Pt reports a history of venous stasis in his RLE that started 6 months ago. He states over the past couple of months, his RLE became more red and warm to the touch. Of note, he goes to a weekly wound clinic for a wound on the posterior aspect of his R lower leg. In addition, he reports 2 areas of skin breakdown on his R [place] that developed several weeks ago. He denies n/v, f/c, singh/d, urinary symptoms. Additionally, he reports difficulty having a bowel movement and hard stool. ER course was notable for: (1) 1 dose of Vanc and Zosyn given (2) wound cx pending (3) IV Acetaminophen, 1 dose of Morphine/Lidocaine/Ibuprofen given Recent Travel: PAST MEDICAL HISTORY: HLD CAD (s/p SC x3, stent placement x5) CHF spondylolisthesis PAST SURGICAL HISTORY: b/l meniscus repair anal fistulectomy stent placement x5 Social History: Smoking: Denies Alcohol: Denies Drugs: Denies Family History: Father - SC, at 58 Mother - SC, at 93 Sister - hx of SC, alive and well Allergies cephalexin [From Keflex] Allergy (Verified 01/06/18 19:49) HOME MEDICATIONS: Home Medications Medication Instructions Recorded Aspirin [Aspirin EC] 81 mg PO DAILY 01/06/18 Furosemide [Lasix] 40 mg PO DAILY 01/06/18 Isosorbide Mononitrate [Imdur -] 60 mg PO DAILY 01/06/18 Levothyroxine [Synthroid -] 125 mcg PO DAILY 01/06/18 Metoprolol Tartrate [Lopressor -] 25 mg PO BID 01/06/18 REVIEW OF SYSTEMS CONSTITUTIONAL: Absent: fever, chills, weight loss HEENT: Absent: eye pain, vision changes, headache CARDIOVASCULAR: Absent: chest pain, syncope, palpitations, irregular heart rate RESPIRATORY: Absent: cough, shortness of breath, dyspnea with exertion, orthopnea, wheezing, stridor, hemoptysis GASTROINTESTINAL: Admits to hard stool Absent: abdominal pain, abdominal distension, nausea, vomiting, diarrhea, melena , hematochezia GENITOURINARY: Absent: dysuria, frequency, urgency, hesitancy, hematuria, flank pain, genital pain MUSCULOSKELETAL: chronic back pain, chronic b/l knee pain Absent: myalgia, arthralgia, joint swelling, neck pain SKIN: multiple scabs in bilateral upper extremities Absent: pallor HEMATOLOGIC/IMMUNOLOGIC: Absent: easy bleeding, easy bruising, lymphadenopathy, frequent infections ENDOCRINE: Absent: unexplained weight gain, unexplained weight loss, heat intolerance, cold intolerance NEUROLOGIC: decreased sensation in LLE > RLE Absent: headache, focal weakness or paresthesias, dizziness, unsteady gait, seizure, mental status changes, bladder or bowel incontinence, PHYSICAL EXAMINATION Vital Signs - 24 hr 01/06/18 15:47 Temperature 98.5 F Pulse Rate 66 Respiratory 19 Rate Blood Pressure 119/58 O2 Sat by Pulse 100 Oximetry (%) GENERAL: AAOx3. NAD. Walks with a cane. HEENT: AT/NC. EOMI. Moist mucus membranes. NECK: Supple. No JVD or LAD. LUNGS: CTA B/L. No wheezes, rhonchi, rales noted. HEART: RRR. Normal S1, S2. No murmurs, rubs or gallop noted. ABDOMEN: Soft, nondistended, nontender. Obese. +BS MUSCULOSKELETAL: 5/5 muscle strength b/l u/l extremities. UPPER EXTREMITIES: 2+ pulses, warm, well-perfused. No cyanosis. No clubbing. multiple scabs scattered on b/l extremities. LOWER EXTREMITIES: 2+ pulses, warm, well-perfused. +RLE cellulitis, skin breakdown on posterior R leg, b/l tenderness to palpation in lower legs NEUROLOGICAL: Cranial nerves II-XII intact. Normal speech. Antalgic gait. PSYCHIATRIC: Cooperative. Good eye contact. Appropriate mood and affect. SKIN: +RLE cellulitis, non-draining, nonerythematous wound posterior R leg above Achilles' tendon Laboratory Results - last 24 hr 01/06/18 01/06/18 01/06/18 17:20 17:20 17:20 WBC 6.7 RBC 4.13 Hgb 12.5 Hct 36.7 MCV 88.8 MCH 30.2 MCHC 34.1 RDW 13.8 Plt Count 163 MPV 8.8 Absolute Neuts (auto) 5.0 Neutrophils % 74.2 Lymphocytes % 13.1 Monocytes % 8.0 Eosinophils % 4.3 Basophils % 0.4 Nucleated RBC % 0 PT with INR INR Sodium 141 Potassium 4.5 Chloride 105 Carbon Dioxide 30 Anion Gap 6 L BUN 21 H Creatinine 1.3 Creat Clearance w eGFR 55.40 Random Glucose 72 L D Lactic Acid 1.1 Calcium 8.8 Total Bilirubin 0.7 AST 20 D ALT 32 Alkaline Phosphatase 105 Total Protein 6.7 Albumin 3.9 01/06/18 17:20 WBC RBC Hgb Hct MCV MCH MCHC RDW Plt Count MPV Absolute Neuts (auto) Neutrophils % Lymphocytes % Monocytes % Eosinophils % Basophils % Nucleated RBC % PT with INR 12.10 INR 1.07 Sodium Potassium Chloride Carbon Dioxide Anion Gap BUN Creatinine Creat Clearance w eGFR Random Glucose Lactic Acid Calcium Total Bilirubin AST ALT Alkaline Phosphatase Total Protein Albumin Active Medications Acetaminophen (Tylenol -) 650 mg PO Q6H PRN PRN Reason: PAIN LEVEL 6-10 Aspirin (Ecotrin -) 81 mg PO DAILY [facility]ONG Furosemide (Lasix -) 40 mg PO DAILY [facility] Heparin Sodium (Porcine) (Heparin -) 5,000 unit SQ TID [facility] Vancomycin HCl 1,500 mg/ (Dextrose) 500 mls @ 250 mls/hr IVPB ONCE ONE; Protocol Stop: 01/07/18 21:59 Isosorbide Mononitrate (Imdur -) 60 mg PO DAILY [facility] Levothyroxine Sodium (Synthroid -) 125 mcg PO DAILY@0700 [facility] Metoprolol Tartrate (Lopressor -) 25 mg PO BID [facility] ASSESSMENT/PLAN: 67M w/ pmhx of HLD, CAD s/p MIx3 and stents x5, CHF, spondylolisthesis presented with RLE erythema and pain. #RLE cellulitis; Pt stable, afebrile with no leukocytosis. -1 dose of Vanc/Zosyn given in ED -f/u ID recs -cont Vanc 1500mg IVPB -await blood and wound cx -cont Tylenol 650 mg PO Q6H PRN for pain -doppler of b/l LE recently done on 01/03; f/u report to r/o DVT #CHF -cont Lasix 40 mg PO QD -cont Metoprolol 25 mg PO BID #CAD -cont Aspirin 81 mg PO QD -cont Imdur 60 mg PO QD #Hypothyroidism -cont Levothyroxine 125 mcg PO QD #DVT Ppx -cont Heparin 5000U SQ TID #FEN -no IVf -recheck lytes in AM -low chol diet dispo -admit to med-surg -from home Visit type - Emergency Visit Emergency Visit: Yes ED Registration Date: 01/06/18 Care time: The patient presented to the Emergency Department on the above date and was hospitalized for further evaluation of their emergent condition. - New Patient This patient is new to me today: Yes Date on this admission: 01/07/18 - Critical Care Critical Care patient: No Hospitalist Screening - Colonoscopy Questionnaire Colonoscopy Questionnaire: Colonoscopy Questionnaire - Patient: 50 - 75 years old and never had a screening colonoscopy: Unknown History of colon or rectal polyps, or CA: Unknown History of IBD, Crohn's disease or UC: Unknown History of abdominal radiation therapy as a child: Unknown - Relative: 1 with colon or rectal CA, or polyps at age 60 or younger: Unknown Colon or rectal CA diagnosed at age 45 or younger: Unknown Multiple relatives with colon or rectal CA: Unknown - Outcome: Screening Result: Negative Screen
[2018-01-06] MEDS ORDERED: LIDOCAINE 2.5%/PRILOCAINE 2.5% (5 Gram/TUBE) TP ONE ×2 (23:08→23:09)
[2018-01-07] MEDS ORDERED: ACETAMINOPHEN 325 MG TABLET (FP) PO PRN (02:10)
[2018-01-07] MEDS: LEVOTHYROXINE NA 125 MCG TABLET (FP) PO SCH (06:46)
[2018-01-07] MEDS: HEPARIN NA (PORCINE) 5,000 UNITS/ML 1ML VIAL SQ SCH ×3 (06:46→22:06)
[2018-01-07 07:41] LABS: BASO % 0.2 % (0-2.0); EOS % 5.2 % (0-4.5); HEMATOCRIT 34.9 % (35.4-49); LYMPH % 9.9 % (8-40); MCH 30.7 pg (25.7-33.7); MCHC 34.3 g/dl (32.0-35.9); MEAN CELL VOLUME 89.4 fl (80-96); MONO % 9.7 % (3.8-10.2); PLATELET COUNT 147 K/MM3 (134-434); RBC 3.91 M/mm3 (4.00-5.60); RDW 13.8 % (11.9-15.9)
[2018-01-07 08:58] LABS: ALBUMIN 3.6 g/dl (3.4-5.0); ANION GAP 8 (8-16); BLOOD UREA NITROGEN 21 mg/dL (7-18); CALCIUM 8.7 mg/dL (8.5-10.1); CHLORIDE 105 mmol/L (98-107); CO2 28 mmol/L (21-32); GLUCOSE,RANDOM 89 mg/dL (74-106); POTASSIUM 4.8 mmol/L (3.5-5.1); SODIUM 141 mmol/L (136-145)
[2018-01-07 09:02] LABS: ALK PHOS 95 U/L (45-117); BILIRUBIN,TOTAL 0.8 mg/dL (0.2-1.0); CREATININE 1.4 mg/dL (0.7-1.3); SGOT/AST 21 U/L (15-37); SGPT/ALT 30 U/L (12-78); TOT PROT 6.5 g/dl (6.4-8.2)
[2018-01-07 09:16] LABS: URINE APPEARANCE CLEAR; URINE BILIRUBIN NEGATIVE (<2.0 mg/dL); URINE COLOR YELLOW; URINE GLUCOSE (UA) NEGATIVE (NEGATIVE); URINE KETONE NEGATIVE (NEGATIVE); URINE LEUK ESTERASE NEGATIVE (NEGATIVE); URINE NITRITE NEGATIVE (NEGATIVE); URINE PROTEIN NEGATIVE (NEGATIVE); URINE UROBILINOGEN NEGATIVE mg/dL (0.2-1.0)
--- NOTE | 2018-01-07 10:36 | CON.ID ---
Consult - History of Present Illness History of Present Illness: Asked to evaluate this 67 y.o. male with PMH of CAD s/p GA, CHF, HLD and RLE ulcers presenting with c/o pain/erythema in Rt lower leg that has been progressively worsening. Pt has been following at the wound care clinic for about 2 months for his leg ulcers which had been oozing fluid and has recently been on Keflex. In addition he states he has a long history of facial rash/and generalized pruritis and has been evaluated by dermatology in the past. Pt denies any recent fever or chills and currently denies having any other specific complaints. 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: Alzheimer's, CVA, Dementia, Migraine, Multiple Sclerosis, Peripheral Neuropathy, Parkinson's, Seizure, Syncope, TIA, Vertigo, Other Cardio/Vascular: Yes: CAD, HTN, Hyperlipdemia, GA Pulmonary: No: Asthma, Bronchitis, Cancer, COPD, O2 Dependent, Pneumonia, Previously Intubated, Pulmonary Embolus, Pulmonary Fibrosis, Sleep Apnea, Other Gastrointestinal: No: Ascites, Cancer, Constipation, Crohn's Disease, Diverticulitis, Diverticulosis, Esophageal Varices, Gastritis, GERD, GI Bleed, Hemorrhoids, Hiatal Hernia, Inflamatory Bowel Disease, Irritable Bowel Disease, Pancreatitis, Peptic Ulcer Disease, Ulcerative Colitis, Other Hepatobiliary: No: Cirrhosis, Cholelithiasis, Cholecystitis, Choledocholithiasis , Hepatitis A, Hepatitis B, Hepatitis C, Other Renal/: No: Renal Failure, Renal Inusuff, BPH, Cancer, Hematuria, Hemodialysis , Neurogenic Bladder, Renal Calculi, UTI, Other Heme/Onc: No: Anemia, B12 Deficiency, Bleeding Disorder, Cancer, Current Chemotherapy, Current Radiation Therapy, Hemochromatosis, Hypercoaguable State, Myeloproliferative Synd, Sickle Cell Disease, Sickle Cell Trait, Thrombocytopenia, Other Infectious Disease: Yes: MRSA (RLE wounds) Psych: No: Addictions, Anxiety, Bipolar, Depression, Panic, Psychosis, Schizophrenia, Other Musculoskeletal: No: Bursitis, Chronic low back pain, Hemiparesis, Hemiplegia, Osteoarthritis, Paraplegia, Other Rheumatology: No: Fibromyalgia, Gout, Lupus, Rheumatoid Arthritis, Sarcoidosis, Vasculitis, Other ENT: No: Allergic Rhinitis, Sinusitis, Other Endocrine: No: [place]'s Disease, Maryan's Disease, Diabetes Insipidus, Diabetes Mellitus, Hyperparathyroidism, Hyperthyroidism, Hypothyroidism, Osteopenia, SIADH, Other Dermatology: Yes: Other (facial rash). No: Basal Cell, Cellulitis, Eczema, Melanoma, Psoriasis, Squamous Cell - Past Surgical History Past Surgical History: Yes: Stent - Alcohol/Substance Use Hx Alcohol Use: No - Smoking History Smoking history: Never smoked Have you smoked in the past 12 months: No - Social History ADL: Independent History of Recent Travel: No Home Medications - Allergies Allergies/Adverse Reactions: Allergies Allergy/AdvReac Type Severity Reaction Status Date / Time cephalexin [From Keflex] Allergy Verified 01/06/18 19:49 - Home Medications Home Medications: Ambulatory Orders Aspirin [Aspirin EC] 81 mg PO DAILY 01/06/18 Furosemide [Lasix] 40 mg PO DAILY 01/06/18 Isosorbide Mononitrate [Imdur -] 60 mg PO DAILY 01/06/18 Levothyroxine [Synthroid -] 125 mcg PO DAILY 01/06/18 Metoprolol Tartrate [Lopressor -] 25 mg PO BID 01/06/18 Review of Systems - Review of Systems Constitutional: reports: No Symptoms. denies: Chills, Diaphoresis, Fever, Lethargy, Loss of Appetite, Malaise, Night Sweats, Unintentional Wgt. Loss, Weakness, Other Eyes: reports: No Symptoms. denies: Blind Spots, Blurred Vision, Double Vision , Eye Pain, Floaters, Photophobia, Recent Change in Vision, Other HENT: reports: No Symptoms. denies: Difficult Swallowing, Ear Discharge, Ear Pain, Epistaxis, Gingival Bleeding, Hearing Loss, Mouth Swelling, Nasal Congestion, Ocular Prosthesis, Throat Pain, Toothache, Ringing in Ears, Other Neck: reports: No Symptoms. denies: Decreased ROM, Lumps, Pain on Movement, Stiffness, Swollen Glands, Tenderness, Other Cardiovascular: reports: No Symptoms. denies: Chest Pain, Edema, Palpitations, Shortness of Breath, Other Respiratory: reports: No Symptoms. denies: Cough, Exercise Intolerance, Hemoptysis, Orthopnea, PND, Snoring, SOB, SOB on Exertion, Wheezing, Other Gastrointestinal: reports: No Symptoms. denies: Abdominal Pain, Bloating, Constipation, Diarrhea, Dysphagia, Indigestion, Melena, Nausea, Rectal Bleeding , Vomiting, Vomiting Blood, Other Genitourinary: reports: No Symptoms. denies: Burning, Discharge, Dysuria, Flank Pain, Frequency, Hematuria, Incontinence, Lesions, Menses, Pain, Testicular Mass, Testicular Pain, Testicular Swelling, Urgency, Vaginal Bleeding , Other Breasts: reports: No Symptoms Reported. denies: See HPI, Breast Implants, Discharge from Nipple, Lumps, Pain, Skin Changes, Other Musculoskeletal: reports: No Symptoms. denies: Back Pain, Crepitus, Decreased ROM, Extremity Pain, Joint Pain, Joint Swelling, Muscle Pain, Muscle Cramps, Muscle Weakness, Other Integumentary: reports: Erythema, Pruritis (RLE erythema/warmth/tenderness), Rash Neurological: reports: No Symptoms. denies: Change in LOC, Change in Speech, Confusion, Dizziness, Headache, Incoordination, Numbness, Parasthesia, Pre- Existing Deficit, Seizure, Syncope, Tremors, Unsteady Gait, Weakness, Other Endocrine: reports: No Symptoms. denies: Excessive Sweating, Flushing, Increased Hunger, Increased Thirst, Intolerance to Cold, Intolerance to Heat, Unexplained Weight Gain, Unexplained Weight Loss, Other Hematology/Lymphatic: reports: No Symptoms. denies: Easily Bruised, Excessive Bleeding, Swollen Glands, Other Psychiatric: reports: No Symptoms. denies: Altered Sleep Pattern, Anxiety, Depression, Hallucinations, Panic, Paranoia, Suicidal, Other Physical Exam Vital Signs: Vital Signs Temperature 98.6 F 01/07/18 06:00 Pulse Rate 57 L 01/07/18 06:00 Respiratory Rate 20 01/07/18 06:00 Blood Pressure 106/57 01/07/18 06:00 O2 Sat by Pulse Oximetry (%) 97 01/07/18 02:29 Constitutional: Yes: No Distress, Calm HENT: Yes: Atraumatic Neck: Yes: Supple Cardiovascular: Yes: Regular Rate and Rhythm Respiratory: Yes: CTA Bilaterally Gastrointestinal: Yes: Normal Bowel Sounds, Soft Renal/: Yes: WNL Breast(s): Yes: WNL Musculoskeletal: Yes: WNL Extremities: Yes: Erythema (RLE erythema, mildly warm to touch, +tenderness RLE currently dry/scabbed) Edema: Yes Edema: RLE: 1+ Peripheral Pulses WNL: Yes Integumentary: Yes: Rash (facial rash/flaking scant maculopapular rash UE/LE) Neurological: Yes: Alert, Oriented Psychiatric: Yes: Alert, Oriented Labs: CBC, BMP 01/07/18 07:00 01/07/18 07:00 Imaging - Results Chest X-ray: Report Reviewed Problem List - Problems (1) Cellulitis Code(s): L03.90 - CELLULITIS, UNSPECIFIED (2) Wound infection Code(s): T14.8XXA - OTHER INJURY OF UNSPECIFIED BODY REGION, INITIAL ENCOUNTER; L08.9 - LOCAL INFECTION OF THE SKIN AND SUBCUTANEOUS TISSUE, UNSP (3) CHF (congestive heart failure) Code(s): I50.9 - HEART FAILURE, UNSPECIFIED (4) Coronary artery disease Code(s): I25.10 - ATHSCL HEART DISEASE OF [place] CORONARY ARTERY W/O ANG PCTRS (5) Obesity Code(s): E66.9 - OBESITY, UNSPECIFIED Assessment/Plan 67 y.o. male with CAD s/p GA/stent, CHF, HLD, LE ulcers presenting with RLE erythema,warmth, tenderness and draining ulcers. Generalized rash likely due to cephalexin allergy. RLE Cellulitis Chronic RLE ulcers -- continue Vancomycin IV -- monitor renal function, Vancomycin trough prior to 4th dose -- ketoconazole cream to facial rash -- LE dopplers -- wound care will f/u Thank you
--- NOTE | 2018-01-07 10:46 | PN ---
Physical Exam: SUBJECTIVE: Patient seen and examined Patient is feeling well but c/o having itchy skin and c/o of his gate. OBJECTIVE: Vital Signs Temperature 98.6 F 01/07/18 06:00 Pulse Rate 57 L 01/07/18 06:00 Respiratory Rate 20 01/07/18 06:00 Blood Pressure 106/57 01/07/18 06:00 O2 Sat by Pulse Oximetry (%) 97 01/07/18 02:29 GENERAL: The patient is awake, alert, and fully oriented, in no acute distress. HEAD: Normal with no signs of trauma. EYES: PERRL, extraocular movements intact, sclera anicteric, conjunctiva clear. ENT: Ears normal, oropharynx clear without exudates, moist mucous membranes. NECK: Trachea midline, full range of motion, supple. LUNGS: Breath sounds equal, clear to auscultation bilaterally, no wheezes, no crackles, no accessory muscle use. HEART: Regular rate and rhythm, S1, S2 without murmur, rub or gallop. ABDOMEN: Soft, nontender, nondistended, normoactive bowel sounds, no guarding, no rebound, no hepatosplenomegaly, no masses. EXTREMITIES: 2+ pulses, warm, 3 plus edema of LEs, RLE fungus crust on his lesion. and gacial seborrhic dermatitis. NEUROLOGICAL: Cranial nerves II through XII grossly intact. Normal speech, gait is unsteady. PSYCH: Normal mood, normal affect. SKIN: Warm, dry, normal turgor, positive for seborric dermatitis CBCD WBC 7.0 K/mm3 (4.0-10.0) 01/07/18 07:00 RBC 3.91 M/mm3 (4.00-5.60) L 01/07/18 07:00 Hgb 12.0 GM/dL (11.7-16.9) 01/07/18 07:00 Hct 34.9 % (35.4-49) L 01/07/18 07:00 MCV 89.4 fl (80-96) 01/07/18 07:00 MCHC 34.3 g/dl (32.0-35.9) 01/07/18 07:00 RDW 13.8 % (11.9-15.9) 01/07/18 07:00 Plt Count 147 K/MM3 (134-434) 01/07/18 07:00 MPV 9.0 fl (7.5-11.1) 01/07/18 07:00 CMP Sodium 141 mmol/L (136-145) 01/07/18 07:00 Potassium 4.8 mmol/L (3.5-5.1) 01/07/18 07:00 Chloride 105 mmol/L (98-107) 01/07/18 07:00 Carbon Dioxide 28 mmol/L (21-32) 01/07/18 07:00 Anion Gap 8 (8-16) 01/07/18 07:00 BUN 21 mg/dL (7-18) H 01/07/18 07:00 Creatinine 1.4 mg/dL (0.7-1.3) H 01/07/18 07:00 Creat Clearance w eGFR 50.86 (>60) 01/07/18 07:00 Random Glucose 89 mg/dL (74-106) D 01/07/18 07:00 Calcium 8.7 mg/dL (8.5-10.1) 01/07/18 07:00 Total Bilirubin 0.8 mg/dL (0.2-1.0) 01/07/18 07:00 AST 21 U/L (15-37) 01/07/18 07:00 ALT 30 U/L (12-78) 01/07/18 07:00 Alkaline Phosphatase 95 U/L (45-117) D 01/07/18 07:00 Total Protein 6.5 g/dl (6.4-8.2) 01/07/18 07:00 Albumin 3.6 g/dl (3.4-5.0) 01/07/18 07:00 Active Medications Generic Name Dose Route Start Last Admin Trade Name Freq PRN Reason Stop Dose Admin Acetaminophen 650 mg 01/07/18 02:10 Tylenol - PO Q6H PRN PAIN LEVEL 6-10 Aspirin 81 mg 01/07/18 10:00 Ecotrin - PO DAILY TONG Furosemide 40 mg 01/07/18 10:00 Lasix - PO DAILY TONG Heparin Sodium (Porcine) 5,000 unit 01/07/18 06:00 01/07/18 06:46 Heparin - SQ 5,000 unit TID TONG Administration Vancomycin HCl 1,500 mg/ 500 mls @ 250 mls/hr 01/07/18 20:00 Dextrose IVPB 01/07/18 21:59 ONCE ONE Protocol Isosorbide Mononitrate 60 mg 01/07/18 10:00 Imdur - PO DAILY [facility]1983 Levothyroxine Sodium 125 mcg 01/07/18 07:00 01/07/18 06:46 Synthroid - PO 125 mcg DAILY@0700 TONG Administration Metoprolol Tartrate 25 mg 01/07/18 10:00 Lopressor - PO BID [facility] Home Medications Medication Instructions Recorded Aspirin [Aspirin EC] 81 mg PO DAILY 01/06/18 Furosemide [Lasix] 40 mg PO DAILY 01/06/18 Isosorbide Mononitrate [Imdur -] 60 mg PO DAILY 01/06/18 Levothyroxine [Synthroid -] 125 mcg PO DAILY 01/06/18 Metoprolol Tartrate [Lopressor -] 25 mg PO BID 01/06/18 ASSESSMENT/PLAN: Patient is a 67 year old man with a PMH of HLD, CAD (s/p [place] x2), CHF presents to [facility] ER c/o having bilateral lower extremity pain as well as RLE erythema. # Right leg ulcers with cellulitis - On IV abx as per Jacky Vazquez. Wound cultures are pending, Ux and Bx is pending, daily wound care and consult ID, vascular surgery and podiatry. 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 # Gait unsteadiness: neuro evaluation as per primary. #ARF cr 1.4 will monitor . #Hx of Hypothyroidism on levoxyl continue # Obesity - discussed weight loss. Dietary consulted. DVT prophylaxis - Lovenox 40 mg SQ q 24 hours. Advance directives - Full code Patient is a patient of Dr.Singh Virgen. Doppler result is pending Visit type - Emergency Visit Emergency Visit: Yes ED Registration Date: 01/06/18 Care time: The patient presented to the Emergency Department on the above date and was hospitalized for further evaluation of their emergent condition. - New Patient This patient is new to me today: Yes Date on this admission: 01/07/18 - Critical Care Critical Care patient: No - Discharge Referral Referred to [facility] Med [facility].C.: No
[2018-01-07] MEDS: FUROSEMIDE 40 MG TABLET (FP) PO SCH (11:30)
[2018-01-07] MEDS: ISOSORBIDE MONONITRATE 60 MG TAB.SR.24H (FP) PO SCH (11:30)
[2018-01-07] MEDS: ASPIRIN COATED 81 MG TABLET.EC PO SCH (11:30)
[2018-01-07] MEDS: METOPROLOL TARTRATE 25 MG TABLET (FP) PO SCH ×2 (11:30→22:06)
[2018-01-07] MEDS: VANCOMYCIN 1,500 MG in DEXTROSE 5%-WATER - 500 ML IVPB SCH (18:30)
[2018-01-07] MEDS ORDERED: VANCOMYCIN 1,000 MG in DEXTROSE 5%-WATER - 250 ML IVPB ONE (18:50)
--- NOTE | 2018-01-07 18:59 | EKG ---
Test Reason : Blood Pressure : / mmHG Vent. Rate : 061 BPM Atrial Rate : 061 BPM P-R Int : 244 ms QRS Dur : 120 ms QT Int : 464 ms P-R-T Axes : 061 -36 -12 degrees QTc Int : 467 ms SINUS RHYTHM WITH 1ST DEGREE A-V BLOCK LEFT AXIS DEVIATION LEFT VENTRICULAR HYPERTROPHY WITH QRS WIDENING NONSPECIFIC ST ABNORMALITY ABNORMAL ECG WHEN COMPARED WITH ECG OF 09-MAY-2017 09:33, QRS AXIS SHIFTED LEFT CRITERIA FOR SEPTAL INFARCT ARE NO LONGER PRESENT ST NOW DEPRESSED IN INFERIOR LEADS Confirmed by MD MARIA GUADALUPE, RAMONA ([id number]) on 01/07/2018 6:59:37 PM Referred By: Confirmed By:RAMONA LERMA MD
--- NOTE | 2018-01-07 19:01 | EKG ---
Test Reason : Blood Pressure : / mmHG Vent. Rate : 062 BPM Atrial Rate : 062 BPM P-R Int : 244 ms QRS Dur : 120 ms QT Int : 484 ms P-R-T Axes : 066 -34 -23 degrees QTc Int : 491 ms SINUS RHYTHM WITH 1ST DEGREE A-V BLOCK LEFT AXIS DEVIATION LEFT VENTRICULAR HYPERTROPHY WITH QRS WIDENING NONSPECIFIC ST ABNORMALITY ABNORMAL ECG WHEN COMPARED WITH ECG OF 09-MAY-2017 09:33, QRS AXIS SHIFTED LEFT CRITERIA FOR SEPTAL INFARCT ARE NO LONGER PRESENT ST NOW DEPRESSED IN INFERIOR LEADS NONSPECIFIC T WAVE ABNORMALITY NO LONGER EVIDENT IN LATERAL LEADS Confirmed by MD MARIA GUADALUPE, RAMONA ([id number]) on 01/07/2018 7:01:29 PM Referred By: Confirmed By:RAMONA LERMA MD
[2018-01-07] MEDS ORDERED: VANCOMYCIN 1,500 MG in DEXTROSE 5%-WATER - 500 ML IVPB ONE (20:00)
[2018-01-07] MEDS: DOCUSATE SODIUM 100 MG CAPSULE (FP) PO SCH (22:06)
[2018-01-08] MEDS: HEPARIN NA (PORCINE) 5,000 UNITS/ML 1ML VIAL SQ SCH ×3 (06:50→22:44)
[2018-01-08] MEDS: LEVOTHYROXINE NA 125 MCG TABLET (FP) PO SCH (06:50)
[2018-01-08] MEDS ORDERED: MINERAL OIL/PET HY-PHL TOPICAL OINTMENT 454 GM JAR TP SCH (10:00)
[2018-01-08] MEDS: METOPROLOL TARTRATE 25 MG TABLET (FP) PO SCH ×2 (10:41→22:44)
[2018-01-08] MEDS: ISOSORBIDE MONONITRATE 60 MG TAB.SR.24H (FP) PO SCH (10:41)
[2018-01-08] MEDS: FUROSEMIDE 40 MG TABLET (FP) PO SCH (10:41)
[2018-01-08] MEDS: ASPIRIN COATED 81 MG TABLET.EC PO SCH (10:41)
--- NOTE | 2018-01-08 10:56 | PN ---
Progress Note, Physician History of Present Illness: Pt seen/ examined . Chart reviewed awake and comfortable - Current Medication List Current Medications: Active Medications Acetaminophen (Tylenol -) 650 mg PO Q6H PRN PRN Reason: PAIN LEVEL 6-10 Aspirin (Ecotrin -) 81 mg PO DAILY [facility] Last Admin: 01/08/18 10:41 Dose: 81 mg Docusate Sodium (Colace -) 300 mg PO HS [facility] Last Admin: 01/07/18 22:06 Dose: 300 mg Emollient Ointment (Aquaphor -) 1 applic TP BID [facility] Last Admin: 01/08/18 10:40 Dose: 1 appful Furosemide (Lasix -) 40 mg PO DAILY [facility] Last Admin: 01/08/18 10:41 Dose: 40 mg Heparin Sodium (Porcine) (Heparin -) 5,000 unit SQ TID [facility] Last Admin: 01/08/18 06:50 Dose: 5,000 unit Vancomycin HCl 1,500 mg/ (Dextrose) 500 mls @ 250 mls/hr IVPB Q24H [facility]; Protocol Last Admin: 01/07/18 18:30 Dose: 250 mls/hr Isosorbide Mononitrate (Imdur -) 60 mg PO DAILY [facility] Last Admin: 01/08/18 10:41 Dose: 60 mg Levothyroxine Sodium (Synthroid -) 125 mcg PO DAILY@0700 [facility] Last Admin: 01/08/18 06:50 Dose: 125 mcg Metoprolol Tartrate (Lopressor -) 25 mg PO BID [facility] Last Admin: 01/08/18 10:41 Dose: 25 mg - Objective Vital Signs: Vital Signs Temperature 98.6 F 01/08/18 09:00 Pulse Rate 60 01/08/18 09:00 Respiratory Rate 18 01/08/18 09:00 Blood Pressure 150/70 01/08/18 09:00 O2 Sat by Pulse Oximetry (%) 97 01/07/18 02:29 Constitutional: Yes: No Distress, Obese Eyes: Yes: Conjunctiva Clear Neck: Yes: Supple Cardiovascular: Yes: Regular Rate and Rhythm Respiratory: Yes: Diminished Gastrointestinal: Yes: Soft, Abdomen, Obese Extremities: Yes: Erythema (Right lower extremity--- ulcers/and venous stasis) Edema: LLE: 1+, RLE: 1+ Neurological: Yes: Alert Labs: CBC, BMP 01/07/18 07:00 01/07/18 07:00 INR, PTT INR 1.07 (0.83-1.09) 01/06/18 17:20 - ....Imaging Chest X-ray: Report Reviewed EKG: Report Reviewed Problem List - Problems (1) Cellulitis Code(s): L03.90 - CELLULITIS, UNSPECIFIED (2) Wound infection Code(s): T14.8XXA - OTHER INJURY OF UNSPECIFIED BODY REGION, INITIAL ENCOUNTER; L08.9 - LOCAL INFECTION OF THE SKIN AND SUBCUTANEOUS TISSUE, UNSP (3) Coronary artery disease Code(s): I25.10 - ATHSCL HEART DISEASE OF [place] CORONARY ARTERY W/O ANG PCTRS (4) Obesity Code(s): E66.9 - OBESITY, UNSPECIFIED Assessment/Plan discussed with patient continue antibiotics Local care Continue Lasix Follow-up labs Patient also would like to see manager nicu Daily out of bed to chair Ultrasound of lower extremities----rule out DVT Patient also reports he is on methadone 10 mg twice a day for many years--- continue Will follow DVT prophylaxis
[2018-01-08] MEDS: METHADONE HCL 10 MG TABLET PO SCH ×2 (12:45→22:43)
--- NOTE | 2018-01-08 14:00 | PN ---
Progress Note, Physician History of Present Illness: Pt c/o pain in RLE. Remains afebrile, without acute distress. Wishes to see a medical equipment repair technician for skin lesions including on his face. - Current Medication List Current Medications: Active Medications Acetaminophen (Tylenol -) 650 mg PO Q6H PRN PRN Reason: PAIN LEVEL 6-10 Aspirin (Ecotrin -) 81 mg PO DAILY REPLACED BY [facility] Last Admin: 01/08/18 10:41 Dose: 81 mg Docusate Sodium (Colace -) 300 mg PO HS REPLACED BY [facility] Last Admin: 01/07/18 22:06 Dose: 300 mg Emollient Ointment (Aquaphor -) 1 applic TP DAILY REPLACED BY [facility] Furosemide (Lasix -) 40 mg PO DAILY REPLACED BY [facility] Last Admin: 01/08/18 10:41 Dose: 40 mg Heparin Sodium (Porcine) (Heparin -) 5,000 unit SQ TID REPLACED BY [facility] Last Admin: 01/08/18 06:50 Dose: 5,000 unit Vancomycin HCl 1,500 mg/ (Dextrose) 500 mls @ 250 mls/hr IVPB Q24H REPLACED BY [facility]; Protocol Last Admin: 01/07/18 18:30 Dose: 250 mls/hr Isosorbide Mononitrate (Imdur -) 60 mg PO DAILY REPLACED BY [facility] Last Admin: 01/08/18 10:41 Dose: 60 mg Levothyroxine Sodium (Synthroid -) 125 mcg PO DAILY@0700 REPLACED BY [facility] Last Admin: 01/08/18 06:50 Dose: 125 mcg Methadone HCl (Dolophine -) 10 mg PO Q12H REPLACED BY [facility] Last Admin: 01/08/18 12:45 Dose: 10 mg Metoprolol Tartrate (Lopressor -) 25 mg PO BID REPLACED BY [facility] Last Admin: 01/08/18 10:41 Dose: 25 mg - Objective Vital Signs: Vital Signs Temperature 98.6 F 01/08/18 09:00 Pulse Rate 60 01/08/18 09:00 Respiratory Rate 18 01/08/18 09:00 Blood Pressure 150/70 01/08/18 09:00 O2 Sat by Pulse Oximetry (%) 97 01/07/18 02:29 Constitutional: Yes: No Distress Cardiovascular: Yes: Regular Rate and Rhythm Respiratory: Yes: Regular Gastrointestinal: Yes: Normal Bowel Sounds, Soft Edema: Yes (b/l LE) Integumentary: Yes: Erythema (RLE erythema/mild warmth/tenderness, lesions appear dry) Neurological: Yes: Alert, Oriented Labs: CBC, BMP 01/07/18 07:00 01/07/18 07:00 INR, PTT INR 1.07 (0.83-1.09) 01/06/18 17:20 Microbiology 01/06/18 17:55 Leg - Right Lower Gram Stain - Final 01/06/18 17:55 Leg - Right Lower Wound Culture - Preliminary Staphylococcus Latex Coag Pos 01/07/18 07:00 Urine - Urine Clean Catch Urine Culture - Final NO GROWTH OBTAINED 01/06/18 17:20 Blood - Peripheral Venous Blood Culture - Preliminary NO GROWTH OBTAINED AFTER 24 HOURS, INCUBATION TO CONTINUE FOR 4 DAYS. 01/06/18 17:20 Blood - Peripheral Venous Blood Culture - Preliminary NO GROWTH OBTAINED AFTER 24 HOURS, INCUBATION TO CONTINUE FOR 4 DAYS. Problem List - Problems (1) Cellulitis Code(s): L03.90 - CELLULITIS, UNSPECIFIED (2) Wound infection Code(s): T14.8XXA - OTHER INJURY OF UNSPECIFIED BODY REGION, INITIAL ENCOUNTER; L08.9 - LOCAL INFECTION OF THE SKIN AND SUBCUTANEOUS TISSUE, UNSP (3) CHF (congestive heart failure) Code(s): I50.9 - HEART FAILURE, UNSPECIFIED (4) Coronary artery disease Code(s): I25.10 - ATHSCL HEART DISEASE OF [place] CORONARY ARTERY W/O ANG PCTRS (5) Obesity Code(s): E66.9 - OBESITY, UNSPECIFIED Assessment/Plan 67 y.o. male with CAD s/p VT/stent, CHF, HLD, LE ulcers presenting with RLE erythema,warmth, tenderness and draining ulcers. Generalized rash possibly due to cephalexin allergy RLE Cellulitis Chronic RLE ulcers - Staph isolated in wound cultures -- continue Vancomycin IV -- monitor renal function, creatinine slightly elevated since yesterday - follow Vancomycin level -- wound culture isolating Staph, f/u susceptibilities -- ketoconazole cream order -- pt requesting dermatology evaluation of skin -- LE dopplers -- wound care
[2018-01-08] MEDS: VANCOMYCIN 1,500 MG in DEXTROSE 5%-WATER - 500 ML IVPB SCH (18:41)
[2018-01-08] MEDS: DOCUSATE SODIUM 100 MG CAPSULE (FP) PO SCH (22:44)
[2018-01-09] MEDS: LEVOTHYROXINE NA 125 MCG TABLET (FP) PO SCH (07:14)
[2018-01-09] MEDS: HEPARIN NA (PORCINE) 5,000 UNITS/ML 1ML VIAL SQ SCH ×3 (07:15→21:16)
[2018-01-09 08:47] LABS: BASO % 0.4 % (0-2.0); EOS % 7.1 % (0-4.5); HEMATOCRIT 32.2 % (35.4-49); HEMOGLOBIN 11.5 GM/dL (11.7-16.9); LYMPH % 15.5 % (8-40); MCHC 35.6 g/dl (32.0-35.9); MEAN PLT VOLUME 9.1 fl (7.5-11.1); MONO % 8.9 % (3.8-10.2); NEUT % 68.1 % (42.8-82.8); PLATELET COUNT 119 K/MM3 (134-434); RBC 3.71 M/mm3 (4.00-5.60); RDW 13.7 % (11.9-15.9); WHITE BLOOD COUNT 4.1 K/mm3 (4.0-10.0)
[2018-01-09 09:05] LABS: ALBUMIN 3.4 g/dl (3.4-5.0); ANION GAP 8 (8-16); BLOOD UREA NITROGEN 24 mg/dL (7-18); CALCIUM 8.3 mg/dL (8.5-10.1); CHLORIDE 104 mmol/L (98-107); CO2 27 mmol/L (21-32); GLUCOSE,RANDOM 89 mg/dL (74-106); POTASSIUM 4.3 mmol/L (3.5-5.1); SODIUM 139 mmol/L (136-145)
[2018-01-09 09:17] LABS: ALK PHOS 88 U/L (45-117); BILIRUBIN,TOTAL 0.5 mg/dL (0.2-1.0); CREATININE 1.1 mg/dL (0.7-1.3); SGOT/AST 18 U/L (15-37); SGPT/ALT 27 U/L (12-78); TOT PROT 6.2 g/dl (6.4-8.2)
--- NOTE | 2018-01-09 10:48 | PN ---
Progress Note (short form) - Note Progress Note: Comfortable says takes methadone 3 times/ day for pain-- Confirmed with hs pmd Dr. Singh Vital Signs Temp 98.0 F 01/09/18 10:00 Pulse 50 L 01/09/18 10:00 Resp 18 01/09/18 10:00 BP 114/70 01/09/18 10:00 Pulse Ox 96 01/09/18 05:17 Intake & Output 01/08/18 01/08/18 01/09/18 11:59 23:59 11:59 Intake Total 580 1500 200 Output Total 602 400 300 Balance -22 1100 -100 Weight 240 lb Intake: IVPB 500 Oral 580 1000 200 Output: Urine 602 400 300 Void 602 400 300 Other: Voiding Method Urinal Urinal # Unmeasured Voids Void 1 Bowel Movement No No No Height 5 ft 7 in Body Mass Index (BMI) 37.5 Active Medications Acetaminophen (Tylenol -) 650 mg PO Q6H PRN PRN Reason: PAIN LEVEL 6-10 Aspirin (Ecotrin -) 81 mg PO DAILY [facility] Last Admin: 01/08/18 10:41 Dose: 81 mg Docusate Sodium (Colace -) 300 mg PO [facility] Last Admin: 01/08/18 22:44 Dose: 300 mg Emollient Ointment (Aquaphor -) 1 applic TP DAILY [facility] Furosemide (Lasix -) 40 mg PO DAILY [facility] Last Admin: 01/08/18 10:41 Dose: 40 mg Heparin Sodium (Porcine) (Heparin -) 5,000 unit SQ TID [facility] Last Admin: 01/09/18 07:15 Dose: 5,000 unit Vancomycin HCl 1,500 mg/ (Dextrose) 500 mls @ 250 mls/hr IVPB Q24H [facility]; Protocol Last Admin: 01/08/18 18:41 Dose: 250 mls/hr Isosorbide Mononitrate (Imdur -) 60 mg PO DAILY [facility] Last Admin: 01/08/18 10:41 Dose: 60 mg Levothyroxine Sodium (Synthroid -) 125 mcg PO DAILY@0700 [facility] Last Admin: 01/09/18 07:14 Dose: 125 mcg Methadone HCl (Dolophine -) 10 mg PO TID [facility] Metoprolol Tartrate (Lopressor -) 25 mg PO BID [facility] Last Admin: 01/08/18 22:44 Dose: 25 mg CBC, BMP 08/20/18 07:30 01/09/18 07:30 Microbiology 01/06/18 17:20 Blood Culture - Preliminary Blood - Peripheral Venous NO GROWTH OBTAINED AFTER 48 HOURS, INCUBATION TO CONTINUE FOR 3 DAYS. 01/06/18 17:20 Blood Culture - Preliminary Blood - Peripheral Venous NO GROWTH OBTAINED AFTER 48 HOURS, INCUBATION TO CONTINUE FOR 3 DAYS. 01/06/18 17:55 Gram Stain - Final Leg - Right Lower Wound Culture - Preliminary Staphylococcus Latex Coag Pos 01/07/18 07:00 Urine Culture - Final Urine - Urine Clean Catch NO GROWTH OBTAINED u/s -ve for dvt' Physical Exam. Constitutional: Yes: No Distress, Obese Eyes: Yes: Conjunctiva Clear Neck: Yes: Supple Cardiovascular: Yes: Regular Rate and Rhythm Respiratory: Yes: Diminished Gastrointestinal: Yes: Soft, Abdomen, Obese Extremities: Yes: Erythema (Right lower extremity--- ulcers/and venous stasis) Edema: LLE: 1+, RLE: 1+ Neurological: Yes: Alert - ....Imaging Chest X-ray: Report Reviewed EKG: Report Reviewed Problem List - Problems (1) Cellulitis Code(s): L03.90 - CELLULITIS, UNSPECIFIED (2) Wound infection Code(s): T14.8XXA - OTHER INJURY OF UNSPECIFIED BODY REGION, INITIAL ENCOUNTER; L08.9 - LOCAL INFECTION OF THE SKIN AND SUBCUTANEOUS TISSUE, UNSP (3) Coronary artery disease Code(s): I25.10 - ATHSCL HEART DISEASE OF [place] CORONARY ARTERY W/O ANG PCTRS (4) Obesity Code(s): E66.9 - OBESITY, UNSPECIFIED Assessment/Plan Continue present care continue antibiotics Local care Continue Lasix Will follow DVT prophylaxis Problem List - Problems (1) Cellulitis Code(s): L03.90 - CELLULITIS, UNSPECIFIED (2) Wound infection Code(s): T14.8XXA - OTHER INJURY OF UNSPECIFIED BODY REGION, INITIAL ENCOUNTER; L08.9 - LOCAL INFECTION OF THE SKIN AND SUBCUTANEOUS TISSUE, UNSP (3) Coronary artery disease Code(s): I25.10 - ATHSCL HEART DISEASE OF [place] CORONARY ARTERY W/O ANG PCTRS (4) Obesity Code(s): E66.9 - OBESITY, UNSPECIFIED
[2018-01-09] MEDS: ISOSORBIDE MONONITRATE 60 MG TAB.SR.24H (FP) PO SCH (11:05)
[2018-01-09] MEDS: MINERAL OIL/PET HY-PHL TOPICAL OINTMENT 454 GM JAR TP SCH (11:05)
[2018-01-09] MEDS: ASPIRIN COATED 81 MG TABLET.EC PO SCH (11:05)
[2018-01-09] MEDS: METOPROLOL TARTRATE 25 MG TABLET (FP) PO SCH ×2 (11:05→21:16)
[2018-01-09] MEDS: FUROSEMIDE 40 MG TABLET (FP) PO SCH (11:05)
[2018-01-09] MEDS: METHADONE HCL 10 MG TABLET PO SCH ×4 (11:06→21:16)
--- NOTE | 2018-01-09 12:24 | PN ---
Progress Note, Physician History of Present Illness: patient stable redness slightly better - Current Medication List Current Medications: Active Medications Acetaminophen (Tylenol -) 650 mg PO Q6H PRN PRN Reason: PAIN LEVEL 6-10 Aspirin (Ecotrin -) 81 mg PO DAILY [facility] Last Admin: 01/09/18 11:05 Dose: 81 mg Docusate Sodium (Colace -) 300 mg PO HS [facility] Last Admin: 01/08/18 22:44 Dose: 300 mg Emollient Ointment (Aquaphor -) 1 applic TP DAILY [facility] Last Admin: 01/09/18 11:05 Dose: 1 appful Furosemide (Lasix -) 40 mg PO DAILY [facility] Last Admin: 01/09/18 11:05 Dose: 40 mg Heparin Sodium (Porcine) (Heparin -) 5,000 unit SQ TID [facility] Last Admin: 01/09/18 07:15 Dose: 5,000 unit Vancomycin HCl 1,500 mg/ (Dextrose) 500 mls @ 250 mls/hr IVPB Q24H [facility]; Protocol Last Admin: 01/08/18 18:41 Dose: 250 mls/hr Isosorbide Mononitrate (Imdur -) 60 mg PO DAILY [facility] Last Admin: 01/09/18 11:05 Dose: 60 mg Levothyroxine Sodium (Synthroid -) 125 mcg PO DAILY@0700 [facility] Last Admin: 01/09/18 07:14 Dose: 125 mcg Methadone HCl (Dolophine -) 10 mg PO TID [facility] Metoprolol Tartrate (Lopressor -) 25 mg PO BID [facility] Last Admin: 01/09/18 11:05 Dose: 25 mg - Objective Vital Signs: Vital Signs Temperature 98.0 F 01/09/18 10:00 Pulse Rate 50 L 01/09/18 10:00 Respiratory Rate 18 01/09/18 10:00 Blood Pressure 114/70 01/09/18 10:00 O2 Sat by Pulse Oximetry (%) 96 01/09/18 05:17 Constitutional: Yes: Calm, Mild Distress, Obese Cardiovascular: Yes: Regular Rate and Rhythm Respiratory: Yes: Regular, CTA Bilaterally Gastrointestinal: Yes: Normal Bowel Sounds, Soft Musculoskeletal: Yes: WNL Extremities: Yes: Erythema, Other Integumentary: Yes: Erythema, Venous Stasis Changes, Other Neurological: Yes: Alert, Oriented Psychiatric: Yes: Alert, Oriented Labs: CBC, BMP 01/09/18 07:30 01/09/18 07:30 INR, PTT INR 1.07 (0.83-1.09) 01/06/18 17:20 Assessment/Plan Problem List - Problems (1) Cellulitis Code(s): L03.90 - CELLULITIS, UNSPECIFIED (2) Wound infection Code(s): T14.8XXA - OTHER INJURY OF UNSPECIFIED BODY REGION, INITIAL ENCOUNTER; L08.9 - LOCAL INFECTION OF THE SKIN AND SUBCUTANEOUS TISSUE, UNSP (3) CHF (congestive heart failure) Code(s): I50.9 - HEART FAILURE, UNSPECIFIED (4) Coronary artery disease Code(s): I25.10 - ATHSCL HEART DISEASE OF [place] CORONARY ARTERY W/O ANG PCTRS (5) Obesity Code(s): E66.9 - OBESITY, UNSPECIFIED Assessment/Plan 67 y.o. male with CAD s/p DE/stent, CHF, HLD, LE ulcers presenting with RLE erythema,warmth, tenderness and draining ulcers. Generalized rash possibly due to cephalexin allergy RLE Cellulitis Chronic RLE ulcers - Staph isolated in wound cultures -- continue Vancomycin IV -- monitor renal function, creatinine slightly elevated since yesterday - follow Vancomycin level -- wound culture isolating Staph, f/u susceptibilities -- ketoconazole cream order -- pt requesting dermatology evaluation of skin -- LE dopplers -- wound care will check vanco level tomorrow
[2018-01-09] MEDS: VANCOMYCIN 1,500 MG in DEXTROSE 5%-WATER - 500 ML IVPB SCH (18:43)
[2018-01-09] MEDS: DOCUSATE SODIUM 100 MG CAPSULE (FP) PO SCH (21:16)
[2018-01-10] MEDS: METHADONE HCL 10 MG TABLET PO SCH ×3 (06:29→22:23)
[2018-01-10] MEDS: LEVOTHYROXINE NA 125 MCG TABLET (FP) PO SCH (06:30)
[2018-01-10] MEDS: HEPARIN NA (PORCINE) 5,000 UNITS/ML 1ML VIAL SQ SCH ×3 (06:30→22:25)
--- NOTE | 2018-01-10 08:56 | PN ---
Progress Note (short form) - Note Progress Note: Pt see/ examined with BILINGUAL PATIENT SUPPORT CASEWORKER Radha Case discussed comfortable Vital Signs Temp 97.5 F L 01/10/18 07:14 Pulse 53 L 01/10/18 07:14 Resp 20 01/10/18 07:14 BP 114/56 01/10/18 07:14 Pulse Ox 98 01/09/18 21:00 Intake & Output 01/09/18 01/09/18 01/10/18 11:59 23:59 11:59 Intake Total 200 1140 120 Output Total 300 200 Balance -100 940 120 Intake: IVPB 500 Oral 200 640 120 Output: Urine 300 200 Void 300 200 Other: Voiding Method Urinal Urinal # Unmeasured Voids Void 1 Bowel Movement No Yes No Active Medications Acetaminophen (Tylenol -) 650 mg PO Q6H PRN PRN Reason: PAIN LEVEL 6-10 Aspirin (Ecotrin -) 81 mg PO DAILY [facility] Last Admin: 01/09/18 11:05 Dose: 81 mg Docusate Sodium (Colace -) 300 mg PO HS [facility] Last Admin: 01/09/18 21:16 Dose: 300 mg Emollient Ointment (Aquaphor -) 1 applic TP DAILY [facility] Last Admin: 01/09/18 11:05 Dose: 1 appful Furosemide (Lasix -) 40 mg PO DAILY [facility] Last Admin: 01/09/18 11:05 Dose: 40 mg Heparin Sodium (Porcine) (Heparin -) 5,000 unit SQ TID [facility] Last Admin: 01/10/18 06:30 Dose: 5,000 unit Vancomycin HCl 1,500 mg/ (Dextrose) 500 mls @ 250 mls/hr IVPB Q24H [facility]; Protocol Last Admin: 01/09/18 18:43 Dose: 250 mls/hr Isosorbide Mononitrate (Imdur -) 60 mg PO DAILY [facility] Last Admin: 01/09/18 11:05 Dose: 60 mg Levothyroxine Sodium (Synthroid -) 125 mcg PO DAILY@0700 [facility] Last Admin: 01/10/18 06:30 Dose: 125 mcg Methadone HCl (Dolophine -) 10 mg PO TID [facility] Last Admin: 01/10/18 06:29 Dose: 10 mg Metoprolol Tartrate (Lopressor -) 25 mg PO BID [facility] Last Admin: 01/09/18 21:16 Dose: 25 mg Polyethylene Glycol (Miralax (For Daily Use) -) 17 gm PO DAILY PRN PRN Reason: CONSTIPATION CBC, BMP 01/09/18 07:30 01/09/18 07:30 Microbiology 01/06/18 17:20 Blood Culture - Preliminary Blood - Peripheral Venous NO GROWTH OBTAINED AFTER 72 HOURS, INCUBATION TO CONTINUE FOR 2 DAYS. 01/06/18 17:20 Blood Culture - Preliminary Blood - Peripheral Venous NO GROWTH OBTAINED AFTER 72 HOURS, INCUBATION TO CONTINUE FOR 2 DAYS. 01/06/18 17:55 Gram Stain - Final Leg - Right Lower Wound Culture - Final Mr Rowell Aureus Physical Exam. Constitutional: Yes: No Distress, Obese Eyes: Yes: Conjunctiva Clear Neck: Yes: Supple Cardiovascular: Yes: Regular Rate and Rhythm Respiratory: Yes: Diminished Gastrointestinal: Yes: Soft, Abdomen, Obese Extremities: Yes: Erythema (Right lower extremity--- ulcers/and venous stasis) Edema: LLE: 1+, RLE: 1+ Neurological: Yes: Alert - ....Imaging Chest X-ray: Report Reviewed EKG: Report Reviewed Assessment/Plan RLE cellulitis CAD- h/o stenting chronic systolic CHF htn constipation antibiotics lasix Contact precautions i/d to follow will follow - Problem List - Problems (1) Cellulitis Code(s): L03.90 - CELLULITIS, UNSPECIFIED (2) Wound infection Code(s): T14.8XXA - OTHER INJURY OF UNSPECIFIED BODY REGION, INITIAL ENCOUNTER; L08.9 - LOCAL INFECTION OF THE SKIN AND SUBCUTANEOUS TISSUE, UNSP (3) Coronary artery disease Code(s): I25.10 - ATHSCL HEART DISEASE OF [place] CORONARY ARTERY W/O ANG PCTRS (4) Obesity Code(s): E66.9 - OBESITY, UNSPECIFIED
[2018-01-10] MEDS ORDERED: PT OWN MED DRAWER 7, Y5N ONE (10:43)
[2018-01-10] MEDS: ASPIRIN COATED 81 MG TABLET.EC PO SCH (10:51)
[2018-01-10] MEDS: ISOSORBIDE MONONITRATE 60 MG TAB.SR.24H (FP) PO SCH (10:51)
[2018-01-10] MEDS: FUROSEMIDE 40 MG TABLET (FP) PO SCH (10:51)
[2018-01-10] MEDS: METOPROLOL TARTRATE 25 MG TABLET (FP) PO SCH ×2 (10:51→22:23)
[2018-01-10] MEDS: POLYETHYLENE GLYCOL 3350 119 GM BTL PO PRN (10:52)
[2018-01-10] MEDS: MINERAL OIL/PET HY-PHL TOPICAL OINTMENT 454 GM JAR TP SCH (10:54)
--- NOTE | 2018-01-10 12:08 | PN ---
Progress Note, Physician History of Present Illness: patient stable doing well rash clearing up still with facial rash - Current Medication List Current Medications: Active Medications Acetaminophen (Tylenol -) 650 mg PO Q6H PRN PRN Reason: PAIN LEVEL 6-10 Aspirin (Ecotrin -) 81 mg PO DAILY [facility] Last Admin: 01/10/18 10:51 Dose: 81 mg Docusate Sodium (Colace -) 300 mg PO HS [facility] Last Admin: 01/09/18 21:16 Dose: 300 mg Emollient Ointment (Aquaphor -) 1 applic TP DAILY [facility] Last Admin: 01/10/18 10:54 Dose: 1 applic Furosemide (Lasix -) 40 mg PO DAILY [facility] Last Admin: 01/10/18 10:51 Dose: 40 mg Heparin Sodium (Porcine) (Heparin -) 5,000 unit SQ TID [facility] Last Admin: 01/10/18 06:30 Dose: 5,000 unit Vancomycin HCl 1,500 mg/ (Dextrose) 500 mls @ 250 mls/hr IVPB Q24H [facility]; Protocol Last Admin: 01/09/18 18:43 Dose: 250 mls/hr Isosorbide Mononitrate (Imdur -) 60 mg PO DAILY [facility] Last Admin: 01/10/18 10:51 Dose: 60 mg Levothyroxine Sodium (Synthroid -) 125 mcg PO DAILY@0700 [facility] Last Admin: 01/10/18 06:30 Dose: 125 mcg Methadone HCl (Dolophine -) 10 mg PO TID [facility] Last Admin: 01/10/18 06:29 Dose: 10 mg Metoprolol Tartrate (Lopressor -) 25 mg PO BID [facility] Last Admin: 01/10/18 10:51 Dose: 25 mg Polyethylene Glycol (Miralax (For Daily Use) -) 17 gm PO DAILY PRN PRN Reason: CONSTIPATION Last Admin: 01/10/18 10:52 Dose: 17 grams - Objective Vital Signs: Vital Signs Temperature 97.5 F L 01/10/18 07:14 Pulse Rate 53 L 01/10/18 07:14 Respiratory Rate 20 01/10/18 07:14 Blood Pressure 114/56 01/10/18 07:14 O2 Sat by Pulse Oximetry (%) 98 01/09/18 21:00 Constitutional: Yes: No Distress, Calm, Obese Cardiovascular: Yes: Regular Rate and Rhythm Respiratory: Yes: Regular, CTA Bilaterally Gastrointestinal: Yes: Normal Bowel Sounds, Soft Musculoskeletal: Yes: WNL Extremities: Yes: Other Neurological: Yes: Alert, Oriented Psychiatric: Yes: Alert, Oriented Labs: CBC, BMP 01/09/18 07:30 01/09/18 07:30 INR, PTT INR 1.07 (0.83-1.09) 01/06/18 17:20 Assessment/Plan Problem List - Problems (1) Cellulitis Code(s): L03.90 - CELLULITIS, UNSPECIFIED (2) Wound infection Code(s): T14.8XXA - OTHER INJURY OF UNSPECIFIED BODY REGION, INITIAL ENCOUNTER; L08.9 - LOCAL INFECTION OF THE SKIN AND SUBCUTANEOUS TISSUE, UNSP (3) CHF (congestive heart failure) Code(s): I50.9 - HEART FAILURE, UNSPECIFIED (4) Coronary artery disease Code(s): I25.10 - ATHSCL HEART DISEASE OF [place] CORONARY ARTERY W/O ANG PCTRS (5) Obesity Code(s): E66.9 - OBESITY, UNSPECIFIED Assessment/Plan 67 y.o. male with CAD s/p [place]/stent, CHF, HLD, LE ulcers presenting with RLE erythema,warmth, tenderness and draining ulcers. Generalized rash possibly due to cephalexin allergy RLE Cellulitis Chronic RLE ulcers - Staph isolated in wound cultures -- continue Vancomycin IV -- wound care rest as per the team patient stable
--- NOTE | 2018-01-10 13:14 | PN ---
Progress Note (short form) - Note Progress Note: patient seen this am along with Dr Haris SCHAEFFER pain better c/o constipation Vital Signs Period Temp Pulse Resp BP Sys/Kaufman Pulse Ox Last 24 Hr 97.4 F-98.7 F 51-55 18-20 114-143/56-68 98 Active Medications Acetaminophen (Tylenol -) 650 mg PO Q6H PRN PRN Reason: PAIN LEVEL 6-10 Aspirin (Ecotrin -) 81 mg PO DAILY [facility] Last Admin: 01/10/18 10:51 Dose: 81 mg Docusate Sodium (Colace -) 300 mg PO HS [facility] Last Admin: 01/09/18 21:16 Dose: 300 mg Emollient Ointment (Aquaphor -) 1 applic TP DAILY [facility] Last Admin: 01/10/18 10:54 Dose: 1 applic Furosemide (Lasix -) 40 mg PO DAILY [facility] Last Admin: 01/10/18 10:51 Dose: 40 mg Heparin Sodium (Porcine) (Heparin -) 5,000 unit SQ TID [facility] Last Admin: 01/10/18 06:30 Dose: 5,000 unit Vancomycin HCl 1,500 mg/ (Dextrose) 500 mls @ 250 mls/hr IVPB Q24H [facility]; Protocol Last Admin: 01/09/18 18:43 Dose: 250 mls/hr Isosorbide Mononitrate (Imdur -) 60 mg PO DAILY [facility] Last Admin: 01/10/18 10:51 Dose: 60 mg Levothyroxine Sodium (Synthroid -) 125 mcg PO DAILY@0700 [facility] Last Admin: 01/10/18 06:30 Dose: 125 mcg Methadone HCl (Dolophine -) 10 mg PO TID [facility] Last Admin: 01/10/18 06:29 Dose: 10 mg Metoprolol Tartrate (Lopressor -) 25 mg PO BID [facility] Last Admin: 01/10/18 10:51 Dose: 25 mg Polyethylene Glycol (Miralax (For Daily Use) -) 17 gm PO DAILY PRN PRN Reason: CONSTIPATION Last Admin: 01/10/18 10:52 Dose: 17 grams CBC,CMP WBC 4.1 K/mm3 (4.0-10.0) 01/09/18 07:30 RBC 3.71 M/mm3 (4.00-5.60) L 01/09/18 07:30 Hgb 11.5 GM/dL (11.7-16.9) L 01/09/18 07:30 Hct 32.2 % (35.4-49) L 01/09/18 07:30 MCV 87.0 fl (80-96) 01/09/18 07:30 MCH 31.0 pg (25.7-33.7) 01/09/18 07:30 MCHC 35.6 g/dl (32.0-35.9) 01/09/18 07:30 RDW 13.7 % (11.9-15.9) 01/09/18 07:30 Plt Count 119 K/MM3 (134-434) L 01/09/18 07:30 MPV 9.1 fl (7.5-11.1) 01/09/18 07:30 Absolute Neuts (auto) 2.8 K/mm3 (1.5-8.0) 01/09/18 07:30 Neutrophils % 68.1 % (42.8-82.8) 01/09/18 07:30 Lymphocytes % 15.5 % (8-40) D 01/09/18 07:30 Monocytes % 8.9 % (3.8-10.2) 01/09/18 07:30 Eosinophils % 7.1 % (0-4.5) H 01/09/18 07:30 Basophils % 0.4 % (0-2.0) 01/09/18 07:30 Nucleated RBC % 0 % (0-0) 01/09/18 07:30 Sodium 139 mmol/L (136-145) 01/09/18 07:30 Potassium 4.3 mmol/L (3.5-5.1) 01/09/18 07:30 Chloride 104 mmol/L (98-107) 01/09/18 07:30 Carbon Dioxide 27 mmol/L (21-32) 01/09/18 07:30 Anion Gap 8 (8-16) 01/09/18 07:30 BUN 24 mg/dL (7-18) H 01/09/18 07:30 Creatinine 1.1 mg/dL (0.7-1.3) 01/09/18 07:30 Creat Clearance w eGFR > 60 (>60) 01/09/18 07:30 Random Glucose 89 mg/dL (74-106) 01/09/18 07:30 Lactic Acid 1.1 mmol/L (0.0-2.0) 01/06/18 17:20 Calcium 8.3 mg/dL (8.5-10.1) L 01/09/18 07:30 Total Bilirubin 0.5 mg/dL (0.2-1.0) 01/09/18 07:30 AST 18 U/L (15-37) 01/09/18 07:30 ALT 27 U/L (12-78) 01/09/18 07:30 Alkaline Phosphatase 88 U/L (45-117) 01/09/18 07:30 Total Protein 6.2 g/dl (6.4-8.2) L 01/09/18 07:30 Albumin 3.4 g/dl (3.4-5.0) 01/09/18 07:30 TSH 0.20 uIU/ml (0.358-3.74) L 01/09/18 07:30 Physical Exam. Constitutional: Yes: No Distress, Obese Eyes: Yes: Conjunctiva Clear Neck: Yes: Supple Cardiovascular: Yes: Regular Rate and Rhythm Respiratory: Yes: Diminished Gastrointestinal: Yes: Soft, Abdomen, Obese Extremities: Yes: Erythema (Right lower extremity--- ulcers/and venous stasis) Edema: LLE: 1+, RLE: 1+ Neurological: Yes: Alert - ....Imaging Chest X-ray: Report Reviewed EKG: Report Reviewed Problem List - Problems (1) Cellulitis Code(s): L03.90 - CELLULITIS, UNSPECIFIED (2) Wound infection Code(s): T14.8XXA - OTHER INJURY OF UNSPECIFIED BODY REGION, INITIAL ENCOUNTER; L08.9 - LOCAL INFECTION OF THE SKIN AND SUBCUTANEOUS TISSUE, UNSP (3) Coronary artery disease Code(s): I25.10 - ATHSCL HEART DISEASE OF [place] CORONARY ARTERY W/O ANG PCTRS (4) Obesity Code(s): E66.9 - OBESITY, UNSPECIFIED Assessment/Plan RLE cellulitis CAD- h/o stenting chronic systolic CHF htn constipation antibiotics lasix Contact precautions -
[2018-01-10] MEDS ORDERED: IBUPROFEN 600 MG TABLET (FP) PO ONE (19:00)
[2018-01-10] MEDS: VANCOMYCIN 1,500 MG in DEXTROSE 5%-WATER - 500 ML IVPB SCH (19:14)
[2018-01-10] MEDS: DOCUSATE SODIUM 100 MG CAPSULE (FP) PO SCH (22:23)
[2018-01-11] MEDS: METHADONE HCL 10 MG TABLET PO SCH ×3 (05:46→22:53)
[2018-01-11] MEDS: HEPARIN NA (PORCINE) 5,000 UNITS/ML 1ML VIAL SQ SCH ×3 (05:49→22:55)
[2018-01-11] MEDS: LEVOTHYROXINE NA 125 MCG TABLET (FP) PO SCH (06:40)
--- NOTE | 2018-01-11 08:45 | PN ---
Progress Note (short form) - Note Progress Note: patient seen this am RLE pain better requesting motrin for pain also requesting letter for job- stating he is staying in hospital also concern of rash in his wrists Vital Signs Period Temp Pulse Resp BP Sys/Kaufman Pulse Ox Last 24 Hr 97.4 F-98.7 F 51-55 18-20 114-143/56-68 98 Active Medications Acetaminophen (Tylenol -) 650 mg PO Q6H PRN PRN Reason: PAIN LEVEL 6-10 Aspirin (Ecotrin -) 81 mg PO DAILY [facility] Last Admin: 01/10/18 10:51 Dose: 81 mg Docusate Sodium (Colace -) 300 mg PO HS [facility] Last Admin: 01/10/18 22:23 Dose: 300 mg Emollient Ointment (Aquaphor -) 1 applic TP DAILY [facility] Last Admin: 01/10/18 10:54 Dose: 1 applic Furosemide (Lasix -) 40 mg PO DAILY [facility] Last Admin: 01/10/18 10:51 Dose: 40 mg Heparin Sodium (Porcine) (Heparin -) 5,000 unit SQ TID [facility] Last Admin: 01/11/18 05:49 Dose: 5,000 unit Vancomycin HCl 1,500 mg/ (Dextrose) 500 mls @ 250 mls/hr IVPB Q24H [facility]; Protocol Last Admin: 01/10/18 19:14 Dose: 250 mls/hr Ibuprofen (Motrin -) 400 mg PO BID PRN PRN Reason: PAIN LEVEL 1-5 Stop: 01/13/18 22:00 Isosorbide Mononitrate (Imdur -) 60 mg PO DAILY [facility] Last Admin: 01/10/18 10:51 Dose: 60 mg Levothyroxine Sodium (Synthroid -) 125 mcg PO DAILY@0700 [facility] Last Admin: 01/11/18 06:40 Dose: 125 mcg Methadone HCl (Dolophine -) 10 mg PO TID [facility] Last Admin: 01/11/18 05:46 Dose: 10 mg Metoprolol Tartrate (Lopressor -) 25 mg PO BID [facility] Last Admin: 01/10/18 22:23 Dose: 25 mg Polyethylene Glycol (Miralax (For Daily Use) -) 17 gm PO DAILY PRN PRN Reason: CONSTIPATION Last Admin: 01/10/18 10:52 Dose: 17 grams Triamcinolone Acetonide (Aristocort 0.1% Cream -) 1 applic TP BID [facility] CBC,CMP WBC 4.1 K/mm3 (4.0-10.0) 01/09/18 07:30 RBC 3.71 M/mm3 (4.00-5.60) L 01/09/18 07:30 Hgb 11.5 GM/dL (11.7-16.9) L 01/09/18 07:30 Hct 32.2 % (35.4-49) L 01/09/18 07:30 MCV 87.0 fl (80-96) 01/09/18 07:30 MCH 31.0 pg (25.7-33.7) 01/09/18 07:30 MCHC 35.6 g/dl (32.0-35.9) 01/09/18 07:30 RDW 13.7 % (11.9-15.9) 01/09/18 07:30 Plt Count 119 K/MM3 (134-434) L 01/09/18 07:30 MPV 9.1 fl (7.5-11.1) 01/09/18 07:30 Absolute Neuts (auto) 2.8 K/mm3 (1.5-8.0) 01/09/18 07:30 Neutrophils % 68.1 % (42.8-82.8) 01/09/18 07:30 Lymphocytes % 15.5 % (8-40) D 01/09/18 07:30 Monocytes % 8.9 % (3.8-10.2) 01/09/18 07:30 Eosinophils % 7.1 % (0-4.5) H 01/09/18 07:30 Basophils % 0.4 % (0-2.0) 01/09/18 07:30 Nucleated RBC % 0 % (0-0) 01/09/18 07:30 Sodium 139 mmol/L (136-145) 01/09/18 07:30 Potassium 4.3 mmol/L (3.5-5.1) 01/09/18 07:30 Chloride 104 mmol/L (98-107) 01/09/18 07:30 Carbon Dioxide 27 mmol/L (21-32) 01/09/18 07:30 Anion Gap 8 (8-16) 01/09/18 07:30 BUN 24 mg/dL (7-18) H 01/09/18 07:30 Creatinine 1.1 mg/dL (0.7-1.3) 01/09/18 07:30 Creat Clearance w eGFR > 60 (>60) 01/09/18 07:30 Random Glucose 89 mg/dL (74-106) 01/09/18 07:30 Lactic Acid 1.1 mmol/L (0.0-2.0) 01/06/18 17:20 Calcium 8.3 mg/dL (8.5-10.1) L 01/09/18 07:30 Total Bilirubin 0.5 mg/dL (0.2-1.0) 01/09/18 07:30 AST 18 U/L (15-37) 01/09/18 07:30 ALT 27 U/L (12-78) 01/09/18 07:30 Alkaline Phosphatase 88 U/L (45-117) 01/09/18 07:30 Total Protein 6.2 g/dl (6.4-8.2) L 01/09/18 07:30 Albumin 3.4 g/dl (3.4-5.0) 01/09/18 07:30 TSH 0.20 uIU/ml (0.358-3.74) L 01/09/18 07:30 Physical Exam. Constitutional: Yes: No Distress, Obese Eyes: Yes: Conjunctiva Clear Neck: Yes: Supple Cardiovascular: Yes: Regular Rate and Rhythm Respiratory: Yes: Diminished Gastrointestinal: Yes: Soft, Abdomen, Obese Extremities: Yes: Erythema (Right lower extremity--- ulcers/and venous stasis) Edema: LLE: 1+, RLE: 1+, redness resolving Neurological: Yes: Alert, oriented rash - macular- both wrists, few, c/o itching - ....Imaging Chest X-ray: Report Reviewed EKG: Report Reviewed Problem List - Problems (1) Cellulitis Code(s): L03.90 - CELLULITIS, UNSPECIFIED (2) Wound infection Code(s): T14.8XXA - OTHER INJURY OF UNSPECIFIED BODY REGION, INITIAL ENCOUNTER; L08.9 - LOCAL INFECTION OF THE SKIN AND SUBCUTANEOUS TISSUE, UNSP (3) Coronary artery disease Code(s): I25.10 - ATHSCL HEART DISEASE OF [place] CORONARY ARTERY W/O ANG PCTRS (4) Obesity Code(s): E66.9 - OBESITY, UNSPECIFIED Assessment/Plan RLE cellulitis CAD- h/o stenting chronic systolic CHF htn constipation rash- ? contact dermatitis from wrist bands trial of traimcinolone cream dermatology eval pending- to recall-discussed with nursing antibiotics lasix Contact precautions cbc, cmp, vanco trough today evening monitor plts motrin low dose for pain prn letter signed for job discussed with dr keys
[2018-01-11] MEDS: ASPIRIN COATED 81 MG TABLET.EC PO SCH (11:18)
[2018-01-11] MEDS: ISOSORBIDE MONONITRATE 60 MG TAB.SR.24H (FP) PO SCH (11:18)
[2018-01-11] MEDS: FUROSEMIDE 40 MG TABLET (FP) PO SCH (11:18)
[2018-01-11] MEDS: IBUPROFEN 400 MG TABLET (FP) PO PRN (11:18)
[2018-01-11] MEDS: TRIAMCINOLONE ACET 0.1% CREAM 15 GM TUBE TP SCH ×2 (11:19→23:01)
[2018-01-11] MEDS: METOPROLOL TARTRATE 25 MG TABLET (FP) PO SCH ×2 (11:19→22:54)
[2018-01-11] MEDS: MINERAL OIL/PET HY-PHL TOPICAL OINTMENT 454 GM JAR TP SCH (11:21)
[2018-01-11] MEDS: POLYETHYLENE GLYCOL 3350 119 GM BTL PO PRN (11:22)
--- NOTE | 2018-01-11 11:38 | PN ---
Progress Note, Physician History of Present Illness: patient complaining of leg pain leg slightly swollen tender no warmth vanco level noted--vanco level was collected wrongly - Current Medication List Current Medications: Active Medications Acetaminophen (Tylenol -) 650 mg PO Q6H PRN PRN Reason: PAIN LEVEL 6-10 Aspirin (Ecotrin -) 81 mg PO DAILY [facility] Last Admin: 01/11/18 11:18 Dose: 81 mg Docusate Sodium (Colace -) 300 mg PO HS [facility] Last Admin: 01/10/18 22:23 Dose: 300 mg Emollient Ointment (Aquaphor -) 1 applic TP DAILY [facility] Last Admin: 01/11/18 11:21 Dose: 1 applic Furosemide (Lasix -) 40 mg PO DAILY [facility] Last Admin: 01/11/18 11:18 Dose: 40 mg Heparin Sodium (Porcine) (Heparin -) 5,000 unit SQ TID [facility] Last Admin: 01/11/18 05:49 Dose: 5,000 unit Ibuprofen (Motrin -) 400 mg PO Q12H PRN PRN Reason: PAIN LEVEL 1-5 Last Admin: 01/11/18 11:18 Dose: 400 mg Isosorbide Mononitrate (Imdur -) 60 mg PO DAILY [facility] Last Admin: 01/11/18 11:18 Dose: 60 mg Levothyroxine Sodium (Synthroid -) 125 mcg PO DAILY@0700 [facility] Last Admin: 01/11/18 06:40 Dose: 125 mcg Methadone HCl (Dolophine -) 10 mg PO TID [facility] Last Admin: 01/11/18 05:46 Dose: 10 mg Metoprolol Tartrate (Lopressor -) 25 mg PO BID [facility] Last Admin: 01/11/18 11:19 Dose: 25 mg Polyethylene Glycol (Miralax (For Daily Use) -) 17 gm PO DAILY PRN PRN Reason: CONSTIPATION Last Admin: 01/11/18 11:22 Dose: 17 grams Triamcinolone Acetonide (Aristocort 0.1% Cream -) 1 applic TP BID [facility] Last Admin: 01/11/18 11:19 Dose: 1 applic - Objective Vital Signs: Vital Signs Temperature 97.6 F 01/11/18 06:00 Pulse Rate 51 L 01/11/18 06:00 Respiratory Rate 18 01/11/18 06:00 Blood Pressure 121/59 01/11/18 06:00 O2 Sat by Pulse Oximetry (%) 98 01/10/18 21:00 Constitutional: Yes: Calm, Mild Distress Cardiovascular: Yes: Regular Rate and Rhythm Respiratory: Yes: Regular, CTA Bilaterally Gastrointestinal: Yes: Normal Bowel Sounds, Soft Musculoskeletal: Yes: Other Extremities: Yes: Other (pain in the rt calf muscles) Integumentary: Yes: Other (patients skin is improving) Neurological: Yes: Alert, Oriented Psychiatric: Yes: Alert, Oriented Labs: CBC, BMP 01/09/18 07:30 01/09/18 07:30 INR, PTT INR 1.07 (0.83-1.09) 01/06/18 17:20 Assessment/Plan Problem List - Problems (1) Cellulitis Code(s): L03.90 - CELLULITIS, UNSPECIFIED (2) Wound infection Code(s): T14.8XXA - OTHER INJURY OF UNSPECIFIED BODY REGION, INITIAL ENCOUNTER; L08.9 - LOCAL INFECTION OF THE SKIN AND SUBCUTANEOUS TISSUE, UNSP (3) CHF (congestive heart failure) Code(s): I50.9 - HEART FAILURE, UNSPECIFIED (4) Coronary artery disease Code(s): I25.10 - ATHSCL HEART DISEASE OF [place] CORONARY ARTERY W/O ANG PCTRS (5) Obesity Code(s): E66.9 - OBESITY, UNSPECIFIED Assessment/Plan 67 y.o. male with CAD s/p [place]/stent, CHF, HLD, LE ulcers presenting with RLE erythema,warmth, tenderness and draining ulcers. Generalized rash possibly due to cephalexin allergy RLE Cellulitis Chronic RLE ulcers - Staph isolated in wound cultures -- continue Vancomycin IV -- wound care will order a ct scan of he leg repeat vanco trough once we have vanco level will decide further management
[2018-01-11 20:16] LABS: HEMATOCRIT 38.2 % (35.4-49); HEMOGLOBIN 13.2 GM/dL (11.7-16.9); MCH 30.8 pg (25.7-33.7); MCHC 34.6 g/dl (32.0-35.9); MEAN PLT VOLUME 9.3 fl (7.5-11.1); PLATELET COUNT 175 K/MM3 (134-434); RBC 4.29 M/mm3 (4.00-5.60); RDW 13.8 % (11.9-15.9); WHITE BLOOD COUNT 5.3 K/mm3 (4.0-10.0)
[2018-01-11] MEDS ORDERED: PT OWN MED DRAWER 7, Y5N ONE (22:36)
[2018-01-11] MEDS: VANCOMYCIN 1,500 MG in DEXTROSE 5%-WATER - 500 ML IVPB SCH (22:52)
[2018-01-11] MEDS: DOCUSATE SODIUM 100 MG CAPSULE (FP) PO SCH (22:54)
[2018-01-12] MEDS: METHADONE HCL 10 MG TABLET PO SCH ×3 (06:41→21:38)
[2018-01-12] MEDS: LEVOTHYROXINE NA 125 MCG TABLET (FP) PO SCH (06:41)
[2018-01-12] MEDS: HEPARIN NA (PORCINE) 5,000 UNITS/ML 1ML VIAL SQ SCH ×3 (06:42→21:39)
[2018-01-12] MEDS: FUROSEMIDE 40 MG TABLET (FP) PO SCH (10:39)
[2018-01-12] MEDS: METOPROLOL TARTRATE 25 MG TABLET (FP) PO SCH ×2 (10:39→21:39)
[2018-01-12] MEDS: ISOSORBIDE MONONITRATE 60 MG TAB.SR.24H (FP) PO SCH (10:39)
[2018-01-12] MEDS: ASPIRIN COATED 81 MG TABLET.EC PO SCH (10:39)
[2018-01-12] MEDS: TRIAMCINOLONE ACET 0.1% CREAM 15 GM TUBE TP SCH ×2 (10:40→21:44)
[2018-01-12] MEDS: POLYETHYLENE GLYCOL 3350 119 GM BTL PO PRN (10:41)
--- NOTE | 2018-01-12 10:42 | PN ---
Progress Note (short form) - Note Progress Note: comfortable anxious Vital Signs Temp 98.2 F 01/12/18 07:34 Pulse 48 L 01/12/18 07:34 Resp 20 01/12/18 07:34 BP 132/60 01/12/18 07:34 Pulse Ox 94 L 01/12/18 07:25 Intake & Output 01/11/18 01/11/18 01/12/18 11:59 23:59 11:59 Intake Total 0 1800 Output Total 1100 Balance 0 700 Intake: IV 0 Saline Lock 0 IVPB 500 Oral 1300 Output: Urine 1100 Void 1100 Other: Voiding Method Urinal Urinal Bowel Movement No No Active Medications Acetaminophen (Tylenol -) 650 mg PO Q6H PRN PRN Reason: PAIN LEVEL 6-10 Aspirin (Ecotrin -) 81 mg PO DAILY [facility] Last Admin: 01/11/18 11:18 Dose: 81 mg Docusate Sodium (Colace -) 300 mg PO HS [facility] Last Admin: 01/11/18 22:54 Dose: 300 mg Emollient Ointment (Aquaphor -) 1 applic TP DAILY [facility] Last Admin: 01/11/18 11:21 Dose: 1 applic Furosemide (Lasix -) 40 mg PO DAILY [facility] Last Admin: 01/11/18 11:18 Dose: 40 mg Heparin Sodium (Porcine) (Heparin -) 5,000 unit SQ TID [facility] Last Admin: 01/12/18 06:42 Dose: 5,000 unit Vancomycin HCl 1,500 mg/ (Dextrose) 500 mls @ 250 mls/hr IVPB Q24H [facility]; Protocol Last Admin: 01/11/18 22:52 Dose: 250 mls/hr Ibuprofen (Motrin -) 400 mg PO Q12H PRN PRN Reason: PAIN LEVEL 1-5 Last Admin: 01/11/18 11:18 Dose: 400 mg Isosorbide Mononitrate (Imdur -) 60 mg PO DAILY [facility] Last Admin: 01/11/18 11:18 Dose: 60 mg Levothyroxine Sodium (Synthroid -) 125 mcg PO DAILY@0700 [facility] Last Admin: 01/12/18 06:41 Dose: 125 mcg Methadone HCl (Dolophine -) 10 mg PO TID [facility] Last Admin: 01/12/18 06:41 Dose: 10 mg Metoprolol Tartrate (Lopressor -) 25 mg PO BID [facility] Last Admin: 08/22/18 22:54 Dose: 25 mg Polyethylene Glycol (Miralax (For Daily Use) -) 17 gm PO DAILY PRN PRN Reason: CONSTIPATION Last Admin: 01/11/18 11:22 Dose: 17 grams Triamcinolone Acetonide (Aristocort 0.1% Cream -) 1 applic TP BID [facility] Last Admin: 01/11/18 23:01 Dose: 1 applic CBC, BMP 01/11/18 19:20 01/09/18 07:30 Microbiology 01/06/18 17:20 Blood Culture - Final Blood - Peripheral Venous NO GROWTH AFTER 5 DAYS INCUBATION 01/06/18 17:20 Blood Culture - Final Blood - Peripheral Venous NO GROWTH AFTER [address] -- lower extremity=--Pending report Physical Exam. Constitutional: Yes: No Distress,Comfortable. Eyes: Yes: Conjunctiva Clear Neck: Yes: Supple Cardiovascular: Yes: Regular Rate and Rhythm Respiratory: Yes: Diminished Gastrointestinal: Yes: Soft, Abdomen, Obese Extremities: Yes: Erythema (Right lower extremity--- ulcers/and venous stasis) Edema: LLE: 1+, RLE: 1+, redness resolving Neurological: Yes: Alert, oriented rash - macular- both wrists, few, c/o itching - ....Imaging Chest X-ray: Report Reviewed EKG: Report Reviewed Problem List - Problems (1) Cellulitis Code(s): L03.90 - CELLULITIS, UNSPECIFIED (2) Wound infection Code(s): T14.8XXA - OTHER INJURY OF UNSPECIFIED BODY REGION, INITIAL ENCOUNTER; L08.9 - LOCAL INFECTION OF THE SKIN AND SUBCUTANEOUS TISSUE, UNSP (3) Coronary artery disease Code(s): I25.10 - ATHSCL HEART DISEASE OF [place] CORONARY ARTERY W/O ANG PCTRS (4) Obesity Code(s): E66.9 - OBESITY, UNSPECIFIED Assessment/Plan overall stable 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 local care will discs with i/d Problem List - Problems (1) Cellulitis Code(s): L03.90 - CELLULITIS, UNSPECIFIED (2) Wound infection Code(s): T14.8XXA - OTHER INJURY OF UNSPECIFIED BODY REGION, INITIAL ENCOUNTER; L08.9 - LOCAL INFECTION OF THE SKIN AND SUBCUTANEOUS TISSUE, UNSP (3) Coronary artery disease Code(s): I25.10 - ATHSCL HEART DISEASE OF [place] CORONARY ARTERY W/O ANG PCTRS (4) Obesity Code(s): E66.9 - OBESITY, UNSPECIFIED
[2018-01-12] MEDS: IBUPROFEN 400 MG TABLET (FP) PO PRN (10:44)
--- NOTE | 2018-01-12 13:50 | PN ---
Progress Note, Physician History of Present Illness: stable still with leg swelling and pain erythema improving vanco trough noted - Current Medication List Current Medications: Active Medications Acetaminophen (Tylenol -) 650 mg PO Q6H PRN PRN Reason: PAIN LEVEL 6-10 Aspirin (Ecotrin -) 81 mg PO DAILY [facility] Last Admin: 01/12/18 10:39 Dose: 81 mg Docusate Sodium (Colace -) 300 mg PO HS [facility] Last Admin: 01/11/18 22:54 Dose: 300 mg Emollient Ointment (Aquaphor -) 1 applic TP DAILY [facility] Last Admin: 01/11/18 11:21 Dose: 1 applic Furosemide (Lasix -) 40 mg PO DAILY [facility] Last Admin: 01/12/18 10:39 Dose: 40 mg Heparin Sodium (Porcine) (Heparin -) 5,000 unit SQ TID [facility] Last Admin: 01/12/18 06:42 Dose: 5,000 unit Vancomycin HCl 1,500 mg/ (Dextrose) 500 mls @ 250 mls/hr IVPB Q24H [facility]; Protocol Last Admin: 01/11/18 22:52 Dose: 250 mls/hr Ibuprofen (Motrin -) 400 mg PO Q12H PRN PRN Reason: PAIN LEVEL 1-5 Last Admin: 01/12/18 10:44 Dose: 400 mg Isosorbide Mononitrate (Imdur -) 60 mg PO DAILY [facility] Last Admin: 01/12/18 10:39 Dose: 60 mg Levothyroxine Sodium (Synthroid -) 125 mcg PO DAILY@0700 [facility] Last Admin: 01/12/18 06:41 Dose: 125 mcg Methadone HCl (Dolophine -) 10 mg PO TID [facility] Last Admin: 01/12/18 06:41 Dose: 10 mg Metoprolol Tartrate (Lopressor -) 25 mg PO BID [facility] Last Admin: 01/12/18 10:39 Dose: 25 mg Polyethylene Glycol (Miralax (For Daily Use) -) 17 gm PO DAILY PRN PRN Reason: CONSTIPATION Last Admin: 01/12/18 10:41 Dose: 17 grams Triamcinolone Acetonide (Aristocort 0.1% Cream -) 1 applic TP BID [facility] Last Admin: 01/12/18 10:40 Dose: 1 applic - Objective Vital Signs: Vital Signs Temperature 98.2 F 01/12/18 07:34 Pulse Rate 48 L 01/12/18 07:34 Respiratory Rate 20 01/12/18 07:34 Blood Pressure 132/60 01/12/18 07:34 O2 Sat by Pulse Oximetry (%) 94 L 01/12/18 07:25 Constitutional: Yes: No Distress, Calm Cardiovascular: Yes: Regular Rate and Rhythm Respiratory: Yes: Regular, CTA Bilaterally Gastrointestinal: Yes: Normal Bowel Sounds, Soft Musculoskeletal: Yes: WNL Extremities: Yes: Erythema, Other Neurological: Yes: Alert, Oriented Psychiatric: Yes: Alert, Oriented Labs: CBC, BMP 01/11/18 19:20 01/09/18 07:30 INR, PTT INR 1.07 (0.83-1.09) 01/06/18 17:20 - ....Imaging Cat Scan: Report Reviewed, Image Reviewed Assessment/Plan Problem List - Problems (1) Cellulitis Code(s): L03.90 - CELLULITIS, UNSPECIFIED (2) Wound infection Code(s): T14.8XXA - OTHER INJURY OF UNSPECIFIED BODY REGION, INITIAL ENCOUNTER; L08.9 - LOCAL INFECTION OF THE SKIN AND SUBCUTANEOUS TISSUE, UNSP (3) CHF (congestive heart failure) Code(s): I50.9 - HEART FAILURE, UNSPECIFIED (4) Coronary artery disease Code(s): I25.10 - ATHSCL HEART DISEASE OF [place] CORONARY ARTERY W/O ANG PCTRS (5) Obesity Code(s): E66.9 - OBESITY, UNSPECIFIED Assessment/Plan 67 y.o. male with CAD s/p [place]/stent, CHF, HLD, LE ulcers presenting with RLE erythema,warmth, tenderness and draining ulcers. Generalized rash possibly due to cephalexin allergy RLE Cellulitis Chronic RLE ulcers - Staph isolated in wound cultures -- continue Vancomycin IV -- wound care if patients leg swelling does not improve will broaden the coverage
[2018-01-12] MEDS: MINERAL OIL/PET HY-PHL TOPICAL OINTMENT 454 GM JAR TP SCH (14:00)
[2018-01-12] MEDS: VANCOMYCIN 1,500 MG in DEXTROSE 5%-WATER - 500 ML IVPB SCH (21:33)
[2018-01-12] MEDS: DOCUSATE SODIUM 100 MG CAPSULE (FP) PO SCH (21:40)
[2018-01-13] MEDS: LEVOTHYROXINE NA 125 MCG TABLET (FP) PO SCH (06:28)
[2018-01-13] MEDS: METHADONE HCL 10 MG TABLET PO SCH ×3 (06:28→22:56)
[2018-01-13] MEDS: HEPARIN NA (PORCINE) 5,000 UNITS/ML 1ML VIAL SQ SCH ×2 (06:28→15:14)
[2018-01-13] MEDS ORDERED: POLYETHYLENE GLYCOL 3350 119 GM BTL PO SCH (10:00)
--- NOTE | 2018-01-13 10:19 | PN ---
Progress Note (short form) - Note Progress Note: comfortable anxious no distress Vital Signs Temp 98.5 F 01/12/18 22:00 Pulse 57 L 01/12/18 22:00 Resp 22 01/12/18 22:00 BP 121/66 01/12/18 22:00 Pulse Ox 94 L 01/12/18 21:00 Intake & Output 01/12/18 01/12/18 01/13/18 11:59 23:59 11:59 Intake Total 200 Output Total 2300 Balance -2300 200 Intake: IVPB 200 Output: Urine 2300 Void 2300 Other: Voiding Method Urinal Bowel Movement No No No Body Mass Index (BMI) 37.5 Active Medications Acetaminophen (Tylenol -) 650 mg PO Q6H PRN PRN Reason: PAIN LEVEL 6-10 Aspirin (Ecotrin -) 81 mg PO DAILY [facility] Last Admin: 01/12/18 10:39 Dose: 81 mg Docusate Sodium (Colace -) 300 mg PO HS [facility] Last Admin: 01/12/18 21:40 Dose: 300 mg Emollient Ointment (Aquaphor -) 1 applic TP DAILY [facility] Last Admin: 01/12/18 14:00 Dose: 1 applic Furosemide (Lasix -) 40 mg PO DAILY [facility] Last Admin: 01/12/18 10:39 Dose: 40 mg Heparin Sodium (Porcine) (Heparin -) 5,000 unit SQ TID [facility] Last Admin: 01/13/18 06:28 Dose: 5,000 unit Vancomycin HCl 1,500 mg/ (Dextrose) 500 mls @ 250 mls/hr IVPB Q24H [facility]; Protocol Last Admin: 01/12/18 21:33 Dose: 250 mls/hr Ibuprofen (Motrin -) 400 mg PO Q12H PRN PRN Reason: PAIN LEVEL 1-5 Last Admin: 01/12/18 10:44 Dose: 400 mg Isosorbide Mononitrate (Imdur -) 60 mg PO DAILY [facility] Last Admin: 01/12/18 10:39 Dose: 60 mg Levothyroxine Sodium (Synthroid -) 125 mcg PO DAILY@0700 [facility] Last Admin: 01/13/18 06:28 Dose: 125 mcg Methadone HCl (Dolophine -) 10 mg PO TID [facility] Last Admin: 01/13/18 06:28 Dose: 10 mg Metoprolol Tartrate (Lopressor -) 25 mg PO BID [facility] Last Admin: 01/12/18 21:39 Dose: 25 mg Polyethylene Glycol (Miralax (For Daily Use) -) 17 gm PO DAILY [facility] Triamcinolone Acetonide (Aristocort 0.1% Cream -) 1 applic TP BID [facility] Last Admin: 01/12/18 21:44 Dose: 1 applic CBC, BMP 01/11/18 19:20 01/09/18 07:30 Physical Exam. Constitutional: Yes: No Distress,Comfortable. Eyes: Yes: Conjunctiva Clear Neck: Yes: Supple Cardiovascular: Yes: Regular Rate and Rhythm Respiratory: Yes: Diminished Gastrointestinal: Yes: Soft, Abdomen, Obese Extremities: Yes: Erythema (Right lower extremity--- ulcers/and venous stasis) Edema: LLE: 1+, RLE: 1+, redness resolving Neurological: Yes: Alert, oriented rash - macular- both wrists, few, c/o itching Assessment/Plan overall stable abx discussed with i/d-- will follow local care will follow Problem List - Problems (1) Cellulitis Code(s): L03.90 - CELLULITIS, UNSPECIFIED (2) Wound infection Code(s): T14.8XXA - OTHER INJURY OF UNSPECIFIED BODY REGION, INITIAL ENCOUNTER; L08.9 - LOCAL INFECTION OF THE SKIN AND SUBCUTANEOUS TISSUE, UNSP (3) Coronary artery disease Code(s): I25.10 - ATHSCL HEART DISEASE OF [place] CORONARY ARTERY W/O ANG PCTRS (4) Obesity Code(s): E66.9 - OBESITY, UNSPECIFIED
[2018-01-13] MEDS ORDERED: PT OWN MED DRAWER 7, Y5N ONE (11:32)
[2018-01-13] MEDS: MINERAL OIL/PET HY-PHL TOPICAL OINTMENT 454 GM JAR TP SCH (11:40)
[2018-01-13] MEDS: TRIAMCINOLONE ACET 0.1% CREAM 15 GM TUBE TP SCH ×2 (11:40→22:55)
[2018-01-13] MEDS: ISOSORBIDE MONONITRATE 60 MG TAB.SR.24H (FP) PO SCH (11:41)
[2018-01-13] MEDS: ASPIRIN COATED 81 MG TABLET.EC PO SCH (11:41)
[2018-01-13] MEDS: IBUPROFEN 400 MG TABLET (FP) PO PRN (11:41)
[2018-01-13] MEDS: FUROSEMIDE 40 MG TABLET (FP) PO SCH (11:41)
[2018-01-13] MEDS: METOPROLOL TARTRATE 25 MG TABLET (FP) PO SCH ×2 (11:41→22:56)
--- NOTE | 2018-01-13 12:36 | PN ---
Progress Note, Physician History of Present Illness: stable still with leg swelling and pain erythema improving patient wound mrsa - Current Medication List Current Medications: Active Medications Acetaminophen (Tylenol -) 650 mg PO Q6H PRN PRN Reason: PAIN LEVEL 6-10 Aspirin (Ecotrin -) 81 mg PO DAILY [facility] Last Admin: 01/13/18 11:41 Dose: 81 mg Docusate Sodium (Colace -) 300 mg PO HS [facility] Last Admin: 01/12/18 21:40 Dose: 300 mg Emollient Ointment (Aquaphor -) 1 applic TP DAILY [facility] Last Admin: 01/13/18 11:40 Dose: Not Given Furosemide (Lasix -) 40 mg PO DAILY [facility] Last Admin: 01/13/18 11:41 Dose: 40 mg Heparin Sodium (Porcine) (Heparin -) 5,000 unit SQ TID [facility] Last Admin: 01/13/18 06:28 Dose: 5,000 unit Vancomycin HCl 1,500 mg/ (Dextrose) 500 mls @ 250 mls/hr IVPB Q24H [facility]; Protocol Last Admin: 01/12/18 21:33 Dose: 250 mls/hr Ibuprofen (Motrin -) 400 mg PO Q12H PRN PRN Reason: PAIN LEVEL 1-5 Last Admin: 01/13/18 11:41 Dose: 400 mg Isosorbide Mononitrate (Imdur -) 60 mg PO DAILY [facility] Last Admin: 01/13/18 11:41 Dose: 60 mg Levothyroxine Sodium (Synthroid -) 125 mcg PO DAILY@0700 [facility] Last Admin: 01/13/18 06:28 Dose: 125 mcg Methadone HCl (Dolophine -) 10 mg PO TID [facility] Last Admin: 01/13/18 06:28 Dose: 10 mg Metoprolol Tartrate (Lopressor -) 25 mg PO BID [facility] Last Admin: 01/13/18 11:41 Dose: 25 mg Polyethylene Glycol (Miralax (For Daily Use) -) 17 gm PO DAILY [facility] Last Admin: 01/13/18 11:41 Dose: 17 gm Triamcinolone Acetonide (Aristocort 0.1% Cream -) 1 applic TP BID [facility] Last Admin: 01/13/18 11:40 Dose: 1 applic - Objective Vital Signs: Vital Signs Temperature 98.3 F 01/13/18 10:00 Pulse Rate 76 01/13/18 10:00 Respiratory Rate 16 01/13/18 10:00 Blood Pressure 119/71 01/13/18 10:00 O2 Sat by Pulse Oximetry (%) 94 L 01/12/18 21:00 Constitutional: Yes: No Distress, Calm Cardiovascular: Yes: Regular Rate and Rhythm Respiratory: Yes: Regular, CTA Bilaterally Gastrointestinal: Yes: Normal Bowel Sounds, Soft Musculoskeletal: Yes: WNL Extremities: Yes: Other Integumentary: Yes: Rash, Other Neurological: Yes: Alert, Oriented Psychiatric: Yes: Alert, Oriented Labs: CBC, BMP 01/11/18 19:20 01/09/18 07:30 INR, PTT INR 1.07 (0.83-1.09) 01/06/18 17:20 Assessment/Plan Problem List - Problems (1) Cellulitis Code(s): L03.90 - CELLULITIS, UNSPECIFIED (2) Wound infection Code(s): T14.8XXA - OTHER INJURY OF UNSPECIFIED BODY REGION, INITIAL ENCOUNTER; L08.9 - LOCAL INFECTION OF THE SKIN AND SUBCUTANEOUS TISSUE, UNSP (3) CHF (congestive heart failure) Code(s): I50.9 - HEART FAILURE, UNSPECIFIED (4) Coronary artery disease Code(s): I25.10 - ATHSCL HEART DISEASE OF [place] CORONARY ARTERY W/O ANG PCTRS (5) Obesity Code(s): E66.9 - OBESITY, UNSPECIFIED Assessment/Plan 67 y.o. male with CAD s/p [place]/stent, CHF, HLD, LE ulcers presenting with RLE erythema,warmth, tenderness and draining ulcers. Generalized rash possibly due to cephalexin allergy RLE Cellulitis Chronic RLE ulcers - Staph isolated in wound cultures -- continue Vancomycin IV -- wound care swelling has improved tenderness still improving
[2018-01-13] MEDS ORDERED: PICC LINE 8 ML FLUSH PROTOCOL IVPUSH PRN (14:57)
[2018-01-13] MEDS ORDERED: ENOXAPARIN NA (PORCINE) 40 MG/0.4 ML DISP.SYRIN SQ SCH (16:00)
[2018-01-13] MEDS ORDERED: VANCOMYCIN 1,500 MG in DEXTROSE 5%-WATER - 500 ML IVPB ONE (17:00)
[2018-01-13 21:45] VITALS: BP 137/61; PULSE 56; TEMP 98.1
[2018-01-13] MEDS: DOCUSATE SODIUM 100 MG CAPSULE (FP) PO SCH (22:56)
--- NOTE | 2018-01-16 10:00 | DS ---
Physical Examination Vital Signs: Vital Signs Temperature 98.1 F 01/13/18 18:00 Pulse Rate 56 L 01/13/18 18:00 Respiratory Rate 18 01/13/18 18:00 Blood Pressure 137/61 01/13/18 18:00 O2 Sat by Pulse Oximetry (%) 94 L 01/13/18 09:00 Findings/Remarks: see progress note 01/13/18 Labs: CBC, BMP 01/11/18 19:20 01/09/18 07:30 Discharge Summary Reason For Visit: CELLULITIS Hospital Course: admitted for cellulitis treated with abx picc line inserted pt d/c on i/v abx-- home - arrangements made pt to follow with his pmd. Condition: Improved - Instructions Disposition: HOME - Home Medications Comprehensive Discharge Medication List: Ambulatory Orders Aspirin [Aspirin EC] 81 mg PO DAILY 01/06/18 Furosemide [Lasix] 40 mg PO DAILY 01/06/18 Isosorbide Mononitrate [Imdur -] 60 mg PO DAILY 01/06/18 Levothyroxine [Synthroid -] 125 mcg PO DAILY 01/06/18 Metoprolol Tartrate [Lopressor -] 25 mg PO BID 01/06/18
== END 2018-01-13 22:58 | disposition home or self-care (01) | DRG 383 ==
LOC: JER 15:19 → JERBED 19:48 → J8W 01-07 00:48
PROVIDERS: ADMIT Internal Medicine; ATTEND Internal Medicine
PROC: 02HV33Z Insertion of Infusion Device into Superior Vena Cava, Percutaneous Approach (ICD-10-PCS; principal; 2018-01-13)
PROC: B518ZZA Fluoroscopy of Superior Vena Cava, Guidance (ICD-10-PCS; 2018-01-13)
DX: L03.115 Cellulitis of right lower limb (principal); I50.22 Chronic systolic (congestive) heart failure; E78.5 Hyperlipidemia, unspecified; I25.2 Old myocardial infarction; L97.818 Non-pressure chronic ulcer of other part of right lower leg with other specified severity; Z68.37 Body mass index [BMI] 37.0-37.9, adult; E66.8 Other obesity; M43.00 Spondylolysis, site unspecified; E03.9 Hypothyroidism, unspecified; S81.801A Unspecified open wound, right lower leg, initial encounter; B95.61 Methicillin susceptible Staphylococcus aureus infection as the cause of diseases classified elsewhere; L08.9 Local infection of the skin and subcutaneous tissue, unspecified; N17.9 Acute kidney failure, unspecified; R26.81 Unsteadiness on feet; L21.9 Seborrheic dermatitis, unspecified; K59.00 Constipation, unspecified; I25.10 Atherosclerotic heart disease of native coronary artery without angina pectoris; I11.0 Hypertensive heart disease with heart failure; Z95.5 Presence of coronary angioplasty implant and graft
CPT/HCPCS: 36415; 36569; 71045-TC-FY; 73700-TC-RT; 80048; 80053; 81003; 83605; 84443; 85025; 85027; 85610; 87040; 87070; 87086; 87186; 87205; 93005; 93010; 93970-TC; 94660; 97116-GP; 97162-GP; 99285-25; C1751; G0480; J0131; J1644

== ENCOUNTER → 2018-01-20 | Day surgery (SDC) | payer OTHER | END | disposition home or self-care (01) | LOC: JRADIR 11:31 | PROVIDERS: ATTEND Internal Medicine | PROC: 02HV33Z Insertion of Infusion Device into Superior Vena Cava, Percutaneous Approach (ICD-10-PCS; principal; 2018-01-20) | DX: Z79.2 Long term (current) use of antibiotics (principal); R78.81 Bacteremia | CPT/HCPCS: 36569; 77001-TC-FY; C1751 ==

== ENCOUNTER 2018-04-14 07:28 | Inpatient (IN) | payer OTHER ==
--- NOTE | 2018-04-14 08:14 | PDOC ---
Attending Attestation - Resident Resident Name: Cecille Joseph - ED Attending Attestation I have performed the following: I have examined & evaluated the patient, The case was reviewed & discussed with the resident, I agree w/resident's findings & plan, Exceptions are as noted - HPI HPI: 04/14/18 08:10 68y M HL, CAD sp stents, CHF, presents with worsening RLE redness/celluitis and LLE wound x 2 weeks. Was recently admitted for MRSA cellulitis on vancomycin in december. Pt follows up at Wound care with dr. Her, was told to come in for IV abx on tuesday. Pt notes increased pain to the LLE and RLE. Pt denies any fever/chlls, n/v, cp, sob, Pt had a fall several weeks ago, and notes some mild lower back pain, unchanged from prior. no associated numnbess/tingling/weakness, urinary or bowel incontinence. - Physicial Exam PE: 04/14/18 08:29 GENERAL: The patient is awake, alert, and fully oriented, Nontoxic - in no acute distress. HEAD: Normocephalic, atraumatic. EYES: extraocular movements intact, sclera anicteric, conjunctiva clear. ENT: Normal voice, Moist mucous membranes. NECK: Normal range of motion, supple LUNGS: Breath sounds equal, clear to auscultation bilaterally. No wheezes, no rhonchi, no rales. HEART: Regular rate and rhythm, normal S1 and S2 without murmur, rub or gallop. ABDOMEN: Soft, nontender, no rebound/guarding, obese abdomen EXTREMITIES: Normal range of motion, bl LE edema, +erythema on RLE with mild warmth, +open wound on L [place] wiht surrounding eryema and tenderness, no streaking noted. +scant serous discharge NEUROLOGICAL: No facial assymetry, Normal speech, moving all 4 extremities spontaneously and symmetrically PSYCH: Normal mood, normal affect. SKIN: Warm, Dry, normal turgor, - Medical Decision Making 04/14/18 08:32 suspect cellulitis will r/o dvt woill obtain blood work, cx will start vanc zosyn anticipate admission for iv abx
[2018-04-14] MEDS ORDERED: VANCOMYCIN 1,500 MG in DEXTROSE 5%-WATER - 500 ML IVPB ONE (08:27)
[2018-04-14] MEDS ORDERED: ACETAMINOPHEN 1000 MG/100 ML VIAL (NON FORMULARY) IVPB ONE (08:32)
--- NOTE | 2018-04-14 08:32 | PDOC ---
History of Present Illness - General Chief Complaint: Edema Stated Complaint: PCP SENT Time Seen by Provider: 04/14/18 07:39 - History of Present Illness Initial Comments: 04/14/18 08:36 Patient is a 68 year old male with past medical history of HLD, CAD (s/p [place] x 3 , stent placement x5), CHF and spondylolisthesis, presented with worsening right leg wound and swelling, and a new-onset left lower leg wound and redness that started 2 weeks ago. Patient was recently admitted in December for RLE cellulitis, which was positive for MRSA. He was treated with IV vancomycin. Patient reports improvement of the cellulitis since he was discharged, until about 2 weeks ago where he noted worsening of the redness and swelling of the RLE and now present on the left lower leg. Denies fever, chills, headaches, dizziness, nausea, vomiting, chest pain, SOB, palpitations, abdominal pain, bowel or bladder incontinence, numbness or weakness. Past History - Past Medical History Allergies/Adverse Reactions: Allergies Allergy/AdvReac Type Severity Reaction Status Date / Time cephalexin [From Keflex] Allergy Verified 04/14/18 07:39 lactose AdvReac Verified 04/14/18 07:41 Home Medications: Ambulatory Orders Aspirin [Aspirin EC] 81 mg PO DAILY 01/06/18 Furosemide [Lasix] 40 mg PO DAILY 01/06/18 Isosorbide Mononitrate [Imdur -] 60 mg PO DAILY 01/06/18 Levothyroxine [Synthroid -] 125 mcg PO DAILY 01/06/18 Metoprolol Tartrate [Lopressor -] 25 mg PO BID 01/06/18 Atorvastatin Ca [Lipitor] 40 mg PO HS 04/14/18 Clopidogrel Bisulfate [Plavix -] 75 mg PO DAILY 04/14/18 Lactaid 2 tab PO ASDIR PRN 04/14/18 Multivitamin [Multiple Vitamins] 1 each PO DAILY 04/14/18 Cardiac Disorders: Yes (X 2) COPD: No HTN: Yes Hypercholesterolemia: Yes - Surgical History Cardiac Surgery: Yes - Suicide/Smoking/Psychosocial Hx Smoking History: Unknown if ever smoked Have you smoked in the past 12 months: No 'Breaking Loose' booklet given: 01/07/18 Hx Alcohol Use: No Drug/Substance Use Hx: No Substance Use Type: None Review of Systems - Review of Systems Constitutional: No: Chills, Fever, Night Sweats, Weakness HEENTM: No: Eye Pain, Blurred Vision, Double Vision, Nose Congestion, Difficulty Swallowing Respiratory: No: Cough, Shortness of Breath Cardiac (ROS): No: Chest Pain, Palpitations ABD/GI: No: Abdominal Distended, Blood Streaked Bowels, Constipated, Diarrhea : No: Burning, Dysuria Musculoskeletal: Yes: Back Pain Integumentary: Yes: See HPI Neurological: No: Headache, Numbness, Tingling, Weakness *Physical Exam - Vital Signs Last Vital Signs Temp Pulse Resp BP Pulse Ox 97.9 F 60 18 121/60 99 04/14/18 07:39 04/14/18 07:39 04/14/18 07:39 04/14/18 07:39 04/14/18 07:39 - Physical Exam General Appearance: Yes: Obese. No: Apparent Distress HEENT: positive: EOMI, HAIM, Normal ENT Inspection, Pharynx Normal Neck: positive: Trachea midline, Normal Thyroid, Supple Respiratory/Chest: positive: Lungs Clear, Normal Breath Sounds Cardiovascular: positive: Regular Rhythm, Regular Rate, S1, S2 Gastrointestinal/Abdominal: positive: Normal Bowel Sounds, Soft. negative: Distended, Tenderness ED Treatment Course - LABORATORY CBC & Chemistry Diagram: 04/14/18 08:25 04/14/18 08:25 - RADIOLOGY Radiology Studies Ordered: Category Date Time Status CHEST - PA [RAD] Stat Radiology 04/14/18 08:25 Ordered LEG TIB/FIB-LEFT [RAD] Stat Radiology 04/14/18 08:23 Ordered LEG TIB/FIB-RIGHT [RAD] Stat Radiology 04/14/18 08:23 Ordered DUPLEX VASCUL US-1 LEG [US] Stat Ultrasound 04/14/18 08:29 Ordered Medical Decision Making - Medical Decision Making 04/14/18 08:53 Patient is a 68 year old male with past medical history of HLD, CAD (s/p [place] x 3 , stent placement x5), CHF and spondylolisthesis, presented with worsening right leg wound and swelling, and a new-onset left lower leg wound and redness that started 2 weeks ago. Patient was recently admitted in December for RLE cellulitis, which was positive for MRSA. He was treated with IV vancomycin. General: awake, alert, oriented, not in acute distress Head: no signs of head trauma HEENT: PERRLA, EOMI, +erythema, nontender wound on the R orbital area Neck: supple, trachea midline without LAD Lung: clear to auscultation bilaterally Heart: regular rate and rhythm, S1/S2 normal Abdomen: soft, nontender, nondistended, NABS Upper extremities: erythema, multiple scabs scattered LUE>RUE RLE: +circumferential erythema, warmth, tenderness with scant serous-draining wounds extending from above the level of the Achilles tendon to below the knee, +decreased sensation on the area LLE: +circumferential erythema, warmth, tenderness extending from above the level of the Achilles tendon to midway between knee and foot, +open bleeding wound on the anterior [place] DDx: include but not limited to bilateral LE cellulitis, DVT, osteomyelitis Plan> CBC CMP Lactic acid CXR EKG UA, urine culture blood cultures wound culture b/l xray of LE RLE duplex us IV vancomycin 1500mg IV tylenol for pain 04/14/18 10:[address] Carballo/Dr. De La Vega for admission 04/14/18 13:38 *DC/Admit/Observation/Transfer Diagnosis at time of Disposition: ИРИНА (acute kidney injury) Cellulitis Qualifiers: Site of cellulitis: extremity Site of cellulitis of extremity: lower extremity Laterality: right Qualified Code(s): L03.115 - Cellulitis of right lower limb - Discharge Dispostion Condition at time of disposition: Stable Decision to Admit order: Yes - Referrals - Patient Instructions - Post Discharge Activity
[2018-04-14] MEDS ORDERED: VANCOMYCIN 500 MG VIAL (RESTRICTED TO ID ONLY) ONE (08:33)
[2018-04-14] MEDS ORDERED: VANCOMYCIN 1 GRAM (PRE-DOCKED) 1,000 MG/250 ML BAG IVPB ONE (08:33)
[2018-04-14] MEDS ORDERED: ACETAMINOPHEN INJECTION 100 ML IVPB ONE (08:34)
[2018-04-14 08:59] LABS: HEMATOCRIT 32.2 % (35.4-49); HEMOGLOBIN 11.6 GM/dL (11.7-16.9); MCH 31.9 pg (25.7-33.7); MCHC 36.1 g/dl (32.0-35.9); MEAN CELL VOLUME 88.4 fl (80-96); MEAN PLT VOLUME 8.9 fl (7.5-11.1); PLATELET COUNT 150 K/MM3 (134-434); RBC 3.64 M/mm3 (4.00-5.60); RDW 14.1 % (11.9-15.9); WHITE BLOOD COUNT 5.5 K/mm3 (4.0-10.0)
[2018-04-14] MEDS ORDERED: PIPERACILLIN/TAZOB 3.375 GM 3.375 GM in DEXTROSE 5%-WATER - 50 ML IVPB ONE (09:17)
[2018-04-14] MEDS ORDERED: PIPERACILLIN/TAZOB 3.375 GM 3.375 GM/50 ML BAG IVPB ONE (09:24)
--- NOTE | 2018-04-14 09:54 | EKG ---
Test Reason : Blood Pressure : / mmHG Vent. Rate : 064 BPM Atrial Rate : 064 BPM P-R Int : 256 ms QRS Dur : 128 ms QT Int : 476 ms P-R-T Axes : 064 -34 084 degrees QTc Int : 491 ms SINUS RHYTHM WITH 1ST DEGREE A-V BLOCK POSSIBLE LEFT ATRIAL ENLARGEMENT LEFT AXIS DEVIATION LEFT VENTRICULAR HYPERTROPHY WITH QRS WIDENING AND REPOLARIZATION ABNORMALITY CANNOT RULE OUT SEPTAL INFARCT , AGE UNDETERMINED ABNORMAL ECG Confirmed by OBED OLMOS MD ([id number]) on 04/14/2018 9:54:09 AM Referred By: Confirmed By:OBED OLMOS MD
[2018-04-14 10:16] LABS: ALBUMIN 3.6 g/dl (3.4-5.0); ALK PHOS 118 U/L (45-117); ANION GAP 10 MMOL/L (8-16); BILIRUBIN,TOTAL 0.5 mg/dL (0.2-1); BLOOD UREA NITROGEN 34 mg/dL (7-18); CALCIUM 8.6 mg/dL (8.5-10.1); CHLORIDE 99 mmol/L (98-107); CO2 28 mmol/L (21-32); CREATININE 1.4 mg/dL (0.55-1.3); GLUCOSE,RANDOM 89 mg/dL (74-106); POTASSIUM 3.9 mmol/L (3.5-5.1); SGOT/AST 18 U/L (15-37); SGPT/ALT 25 U/L (13-61); SODIUM 136 mmol/L (136-145); TOT PROT 6.3 g/dl (6.4-8.2)
--- NOTE | 2018-04-14 11:07 | HP ---
Admitting History and Physical - Primary Care Physician PCP: Roosevelt Singh - Admission Chief Complaint: right leg cellulitits History of Present Illness: ER HISTORY 04/14/18 08:36 Patient is a 68 year old male with past medical history of HLD, CAD (s/p [place] x 3 , stent placement x5), CHF and spondylolisthesis, presented with worsening right leg wound and swelling, and a new-onset left lower leg wound and redness that started 2 weeks ago. Patient was recently admitted in December for RLE cellulitis, which was positive for MRSA. He was treated with IV vancomycin. Patient reports improvement of the cellulitis since he was discharged, until about 2 weeks ago where he noted worsening of the redness and swelling of the RLE and now present on the left lower leg. Denies fever, chills, headaches, dizziness, nausea, vomiting, chest pain, SOB, palpitations, abdominal pain, bowel or bladder incontinence, numbness or weakness. Pt examined by me in ER- Examined with Dr Her - ID- admitted for worsening right leg cellulitis- right leg more swollen , erythematous and oozing. Denies fever and chills. History Source: Patient Limitations to Obtaining History: No Limitations - Past Medical History Cardiovascular: Yes: CAD, HTN, [place], Hyperlipdemia Infectious Disease: Yes: MRSA (RLE wounds) Dermatology: Yes: Other (facial rash). No: Basal Cell, Cellulitis, Eczema, Melanoma, Psoriasis, Squamous Cell - Past Surgical History Past Surgical History: Yes: Stent - Smoking History Smoking history: Unknown if ever smoked Have you smoked in the past 12 months: No - Alcohol/Substance Use Hx Alcohol Use: No - Social History ADL: Independent History of Recent Travel: No Home Medications - Allergies Allergies/Adverse Reactions: Allergies Allergy/AdvReac Type Severity Reaction Status Date / Time cephalexin [From Keflex] Allergy Verified 04/14/18 07:39 lactose AdvReac Verified 04/14/18 07:41 - Home Medications Home Medications: Ambulatory Orders Aspirin [Aspirin EC] 81 mg PO DAILY 01/06/18 Furosemide [Lasix] 40 mg PO DAILY 01/06/18 Isosorbide Mononitrate [Imdur -] 60 mg PO DAILY 01/06/18 Levothyroxine [Synthroid -] 125 mcg PO DAILY 01/06/18 Metoprolol Tartrate [Lopressor -] 25 mg PO BID 01/06/18 Atorvastatin Ca [Lipitor] 40 mg PO HS 04/14/18 Clopidogrel Bisulfate [Plavix -] 75 mg PO DAILY 04/14/18 Lactaid 2 tab PO ASDIR PRN 04/14/18 Multivitamin [Multiple Vitamins] 1 each PO DAILY 04/14/18 Review of Systems - Review of Systems Constitutional: denies: Chills, Fever Integumentary: reports: Erythema, Rash, Wound Physical Examination Vital Signs: Vital Signs Temperature 97.9 F 04/14/18 07:39 Pulse Rate 60 04/14/18 07:39 Respiratory Rate 18 04/14/18 07:39 Blood Pressure 121/60 04/14/18 07:39 O2 Sat by Pulse Oximetry (%) 99 04/14/18 07:39 Constitutional: Yes: No Distress, Calm Cardiovascular: Yes: Regular Rate and Rhythm Respiratory: Yes: CTA Bilaterally Gastrointestinal: Yes: Normal Bowel Sounds, Soft, Abdomen, Obese. No: Tenderness Extremities: Yes: Erythema Edema: Yes Edema: LLE: 2+, RLE: 3+ Neurological: Yes: Alert, Oriented Labs: CBC, BMP 04/14/18 08:25 04/14/18 08:25 Imaging - Results Chest X-ray: Image Reviewed (no infiltrates) X-ray: Report Reviewed Ultrasound: Report Reviewed EKG: Image Reviewed (NSR) Problem List - Problems (1) Peripheral vascular disease Assessment/Plan: Previous study - Navix noted may need Vascular evaluation after inflammation is less Code(s): I73.9 - PERIPHERAL VASCULAR DISEASE, UNSPECIFIED (2) ИРИНА (acute kidney injury) Assessment/Plan: Hold off Lasix monitor renal function Code(s): N17.9 - ACUTE KIDNEY FAILURE, UNSPECIFIED (3) Cellulitis Assessment/Plan: spoke with ID IV antibiotics Wound cultures, blood cultures drawn Code(s): L03.90 - CELLULITIS, UNSPECIFIED Qualifiers: Site of cellulitis: extremity Site of cellulitis of extremity: lower extremity Laterality: right Qualified Code(s): L03.115 - Cellulitis of right lower limb (4) Coronary artery disease Assessment/Plan: clinically stable on meds DVT prophylaxis-- Heparin sc Code(s): I25.10 - ATHSCL HEART DISEASE OF [place] CORONARY ARTERY W/O ANG PCTRS
[2018-04-14] MEDS ORDERED: LACTAID PO PRN (11:24)
[2018-04-14] MEDS ORDERED: ERTAPENEM SODIUM 1 GM in SODIUM CHLORIDE 50 ML IVPB SCH (11:45)
[2018-04-14] MEDS ORDERED: oxyCODONE HCL 5 MG TABLET ONE (12:06)
[2018-04-14] MEDS: oxyCODONE HCL 5 MG TABLET PO PRN (12:09)
[2018-04-14 12:31] LABS: ANISOCYTOSIS 1+; MACROCYTOSIS 0; PLATELET ESTIMATE NORMAL
[2018-04-14] MEDS: ERTAPENEM SODIUM 1 GM in SODIUM CHLORIDE 50 ML IVPB SCH (17:27)
[2018-04-14] MEDS ORDERED: oxyCODONE HCL 5 MG TABLET PO ONE (19:15)
[2018-04-14] MEDS: METOPROLOL TARTRATE 25 MG TABLET (FP) PO SCH (21:50)
[2018-04-14] MEDS: ATORVASTATIN CA 40 MG TABLET (FP) PO SCH (21:50)
[2018-04-14] MEDS: DOCUSATE SODIUM 100 MG CAPSULE (FP) PO SCH ×2 (21:50)
[2018-04-14] MEDS: HEPARIN NA (PORCINE) 5,000 UNITS/ML 1ML VIAL SQ SCH (22:03)
[2018-04-15] MEDS: oxyCODONE HCL 5 MG TABLET PO PRN (01:39)
[2018-04-15] MEDS: DOCUSATE SODIUM 100 MG CAPSULE (FP) PO SCH ×3 (06:41→23:07)
[2018-04-15] MEDS: LEVOTHYROXINE NA 125 MCG TABLET (FP) PO SCH (06:41)
--- NOTE | 2018-04-15 07:34 | CON.ID ---
Consult Consult Specialty:: infectious diseases Referred by:: Reyna Rivas Reason for Consultation:: b/l cellulitis of the leg,rash - History of Present Illness Chief Complaint: swelling and redness of the leg History of Present Illness: 68 year old male with past medical history of HLD, CAD (s/p [place] x 3, stent placement x5), CHF and spondylolisthesis, presented with worsening right leg wound and swelling, and a new-onset left lower leg wound and redness that started 2 weeks ago. Patient was recently admitted in December for RLE cellulitis , which was positive for MRSA. He was treated with IV vancomycin. Patient reports improvement of the cellulitis since he was discharged, until about 2 weeks ago where he noted worsening of the redness and swelling of the RLE and now present on the left lower leg. Denies fever, chills, headaches, dizziness, nausea, vomiting, chest pain, SOB, palpitations, abdominal pain, bowel or bladder incontinence, numbness or weakness. also of note is the discharge of the wound from the leg and small blisters on the rt leg - History Source History Provided By: Patient Limitations to Obtaining History: No Limitations - Past Medical History Cardio/Vascular: Yes: CAD, HTN, [place], Hyperlipdemia Infectious Disease: Yes: MRSA (RLE wounds) Dermatology: Yes: Other (facial rash). No: Basal Cell, Cellulitis, Eczema, Melanoma, Psoriasis, Squamous Cell - Past Surgical History Past Surgical History: Yes: Stent - Alcohol/Substance Use Hx Alcohol Use: No - Smoking History Smoking history: Unknown if ever smoked Have you smoked in the past 12 months: No Aproximately how many cigarettes per day: 0 If you are a former smoker, when did you quit?: jun 2010 - Social History ADL: Independent History of Recent Travel: No Home Medications - Allergies Allergies/Adverse Reactions: Allergies Allergy/AdvReac Type Severity Reaction Status Date / Time cephalexin [From Keflex] Allergy Verified 04/14/18 07:39 lactose AdvReac Verified 04/14/18 07:41 - Home Medications Home Medications: Ambulatory Orders Aspirin [Aspirin EC] 81 mg PO DAILY 01/06/18 Furosemide [Lasix] 40 mg PO DAILY 01/06/18 Isosorbide Mononitrate [Imdur -] 60 mg PO DAILY 01/06/18 Levothyroxine [Synthroid -] 125 mcg PO DAILY 01/06/18 Metoprolol Tartrate [Lopressor -] 25 mg PO BID 01/06/18 Atorvastatin Ca [Lipitor] 40 mg PO HS 04/14/18 Clopidogrel Bisulfate [Plavix -] 75 mg PO DAILY 04/14/18 Lactaid 2 tab PO ASDIR PRN 04/14/18 Multivitamin [Multiple Vitamins] 1 each PO DAILY 04/14/18 Review of Systems - Review of Systems Constitutional: reports: No Symptoms Eyes: reports: No Symptoms HENT: reports: No Symptoms Neck: reports: No Symptoms Cardiovascular: reports: No Symptoms Respiratory: reports: No Symptoms Gastrointestinal: reports: No Symptoms Genitourinary: reports: No Symptoms Musculoskeletal: reports: Other Integumentary: reports: Blister, Change in Color, Erythema, Rash (all over face and back), Other (redness of both legs) Neurological: reports: No Symptoms Endocrine: reports: No Symptoms Hematology/Lymphatic: reports: No Symptoms Psychiatric: reports: No Symptoms Physical Exam Vital Signs: Vital Signs Temperature 98.1 F 04/15/18 07:17 Pulse Rate 65 04/15/18 07:17 Respiratory Rate 18 04/15/18 07:17 Blood Pressure 120/77 04/15/18 07:17 O2 Sat by Pulse Oximetry (%) 96 04/14/18 21:00 Constitutional: Yes: Well Nourished, Calm, Mild Distress Eyes: Yes: Conjunctiva Clear HENT: Yes: Atraumatic, Normocephalic Neck: Yes: Supple, Trachea Midline Cardiovascular: Yes: Regular Rate and Rhythm Respiratory: Yes: Regular, CTA Bilaterally Gastrointestinal: Yes: Normal Bowel Sounds, Soft Musculoskeletal: Yes: WNL Extremities: Yes: Erythema (of both legs), Other (swelling and redness with small blisters of rt leg) Edema: RLE: 1+ Integumentary: Yes: Erythema (b/l lower ext), Rash (on the face and back) Wound/Incision: Yes: Other (minimal oozing from the rt leg) Neurological: Yes: Alert, Oriented Psychiatric: Yes: Alert, Oriented Labs: CBC, BMP 04/14/18 08:25 04/14/18 08:25 Imaging - Results Chest X-ray: Report Reviewed, Image Reviewed X-ray: Report Reviewed, Image Reviewed Assessment/Plan Problem List - Problems (1) Peripheral vascular disease Code(s): I73.9 - PERIPHERAL VASCULAR DISEASE, UNSPECIFIED (2) ИРИНА (acute kidney injury) Code(s): N17.9 - ACUTE KIDNEY FAILURE, UNSPECIFIED (3) Cellulitis Code(s): L03.90 - CELLULITIS, UNSPECIFIED Qualifiers: Site of cellulitis: extremity Site of cellulitis of extremity: lower extremity Laterality: right Qualified Code(s): L03.115 - Cellulitis of right lower limb (4) Coronary artery disease DVT prophylaxis-- Heparin sc Code(s): I25.10 - ATHSCL HEART DISEASE OF [place] CORONARY ARTERY W/O ANG PCTRS plan will start iv abx on the patient await for all cx reports elevation of the leg rest as per the teams
[2018-04-15 09:07] LABS: BASO % 0.5 % (0-2.0); EOS % 8.7 % (0-4.5); HEMATOCRIT 33.6 % (35.4-49); HEMOGLOBIN 12.1 GM/dL (11.7-16.9); LYMPH % 9.4 % (8-40); MCH 31.8 pg (25.7-33.7); MCHC 36.1 g/dl (32.0-35.9); MEAN CELL VOLUME 88.1 fl (80-96); MEAN PLT VOLUME 8.9 fl (7.5-11.1); NEUT % 73.4 % (42.8-82.8); PLATELET COUNT 150 K/MM3 (134-434); RBC 3.81 M/mm3 (4.00-5.60); RDW 13.9 % (11.9-15.9); WHITE BLOOD COUNT 5.4 K/mm3 (4.0-10.0)
[2018-04-15 10:05] LABS: ALBUMIN 3.9 g/dl (3.4-5.0); ALK PHOS 125 U/L (45-117); ANION GAP 10 MMOL/L (8-16); BILIRUBIN,TOTAL 0.9 mg/dL (0.2-1); BLOOD UREA NITROGEN 25 mg/dL (7-18); CALCIUM 8.8 mg/dL (8.5-10.1); CHLORIDE 97 mmol/L (98-107); CO2 30 mmol/L (21-32); CREATININE 1.4 mg/dL (0.55-1.3); GLUCOSE,RANDOM 96 mg/dL (74-106); POTASSIUM 3.6 mmol/L (3.5-5.1); SGOT/AST 17 U/L (15-37); SGPT/ALT 22 U/L (13-61); SODIUM 137 mmol/L (136-145); TOT PROT 6.9 g/dl (6.4-8.2)
[2018-04-15] MEDS: ERTAPENEM SODIUM 1 GM in SODIUM CHLORIDE 50 ML IVPB SCH (10:25)
[2018-04-15] MEDS: ISOSORBIDE MONONITRATE 60 MG TAB.SR.24H (FP) PO SCH (10:26)
[2018-04-15] MEDS: ASPIRIN COATED 81 MG TABLET.EC PO SCH (10:26)
[2018-04-15] MEDS: MULTIVITAMINS (DAILY MVI) TABLET (FP) PO SCH (10:26)
[2018-04-15] MEDS: METOPROLOL TARTRATE 25 MG TABLET (FP) PO SCH ×2 (10:26→23:07)
[2018-04-15] MEDS: CLOPIDOGREL BISULFATE 75 MG TABLET (FP) PO SCH (10:26)
[2018-04-15] MEDS: HEPARIN NA (PORCINE) 5,000 UNITS/ML 1ML VIAL SQ SCH ×2 (10:29→23:07)
--- NOTE | 2018-04-15 12:30 | PN ---
Progress Note, Physician History of Present Illness: Pt seen and examined, events noted. With RLE edema/erythema, LLE ulcers with mild pain. c/o rash developing in LUE/RUE with pruritis. Remains afebrile. - Current Medication List Current Medications: Active Medications Aspirin (Ecotrin -) 81 mg PO DAILY [facility] Last Admin: 04/15/18 10:26 Dose: 81 mg Atorvastatin Calcium (Lipitor -) 40 mg PO HS [facility] Last Admin: 04/14/18 21:50 Dose: 40 mg Clopidogrel Bisulfate (Plavix -) 75 mg PO DAILY [facility] Last Admin: 04/15/18 10:26 Dose: 75 mg Docusate Sodium (Colace -) 100 mg PO TID [facility] Last Admin: 04/15/18 06:41 Dose: 100 mg Heparin Sodium (Porcine) (Heparin -) 5,000 unit SQ BID [facility] Last Admin: 04/15/18 10:29 Dose: 5,000 unit Ertapenem 1 gm/ Sodium (Chloride) 50 mls @ 100 mls/hr IVPB DAILY [facility]; Protocol Last Admin: 04/15/18 10:25 Dose: 100 mls/hr Isosorbide Mononitrate (Imdur -) 60 mg PO DAILY [facility] Last Admin: 04/15/18 10:26 Dose: 60 mg Levothyroxine Sodium (Synthroid -) 125 mcg PO AM [facility] Last Admin: 04/15/18 06:41 Dose: 125 mcg Metoprolol Tartrate (Lopressor -) 25 mg PO BID [facility] Last Admin: 04/15/18 10:26 Dose: 25 mg Multivitamins/Minerals/Vitamin C (Tab-A-Vit -) 1 tab PO DAILY [facility] Last Admin: 04/15/18 10:26 Dose: 1 tab Oxycodone HCl (Roxicodone -) 10 mg PO Q8H PRN PRN Reason: PAIN LEVEL 6-10 Last Admin: 04/15/18 01:39 Dose: 10 mg - Objective Vital Signs: Vital Signs Temperature 98.5 F 04/15/18 10:21 Pulse Rate 66 04/15/18 10:21 Respiratory Rate 18 04/15/18 10:21 Blood Pressure 111/65 04/15/18 10:21 O2 Sat by Pulse Oximetry (%) 96 04/14/18 21:00 Constitutional: Yes: No Distress, Calm Cardiovascular: Yes: Regular Rate and Rhythm Respiratory: Yes: Regular Gastrointestinal: Yes: Normal Bowel Sounds, Soft, Abdomen, Obese Extremities: Yes: Erythema (RLE erythema/warmth) Edema: Yes Edema: RLE: 1+ Integumentary: Yes: Erythema (RLE edema/erythema LLE mild erythema, ulcers with drainage) Neurological: Yes: Alert, Oriented Psychiatric: Yes: Alert, Oriented Labs: CBC, BMP 04/15/18 08:00 04/15/18 08:00 Microbiology 04/14/18 08:25 Wound Gram Stain - Final 04/14/18 08:25 Wound Wound Culture - Preliminary Presumptive Mrsa (Pbp2a Pos) 04/14/18 07:30 Blood - Peripheral Venous Blood Culture - Preliminary NO GROWTH OBTAINED AFTER 24 HOURS, INCUBATION TO CONTINUE FOR 4 DAYS. 04/14/18 08:25 Blood - Peripheral Venous Blood Culture - Preliminary NO GROWTH OBTAINED AFTER 24 HOURS, INCUBATION TO CONTINUE FOR 4 DAYS. 04/14/18 12:20 Urine - Urine Clean Catch Urine Culture - Final NO GROWTH OBTAINED Problem List - Problems (1) ИРИНА (acute kidney injury) Code(s): N17.9 - ACUTE KIDNEY FAILURE, UNSPECIFIED (2) Cellulitis Code(s): L03.90 - CELLULITIS, UNSPECIFIED Qualifiers: Site of cellulitis: extremity Site of cellulitis of extremity: lower extremity Laterality: right Qualified Code(s): L03.115 - Cellulitis of right lower limb (3) Peripheral vascular disease Code(s): I73.9 - PERIPHERAL VASCULAR DISEASE, UNSPECIFIED (4) CHF (congestive heart failure) Code(s): I50.9 - HEART FAILURE, UNSPECIFIED (5) Coronary artery disease Code(s): I25.10 - ATHSCL HEART DISEASE OF [place] CORONARY ARTERY W/O ANG PCTRS (6) Wound infection Code(s): T14.8XXA - OTHER INJURY OF UNSPECIFIED BODY REGION, INITIAL ENCOUNTER; L08.9 - LOCAL INFECTION OF THE SKIN AND SUBCUTANEOUS TISSUE, UNSP Assessment/Plan Recurrent RLE cellulitis LLE infected ulcer/cellulitis Rash - possible drug allergy CAD s/p [place] HTN HLD ИРИНА -- wound culture result noted +MRSA -- d/c Ertapenem -- will adjust dose of Vancomycin with close monitoring of renal function -- Vancomycin Trough prior to 4th dose, and daily BMP -- continue wound care
--- NOTE | 2018-04-15 12:39 | PN ---
Progress Note (short form) - Note Progress Note: c/o itching - ?due to ertapenum Vital Signs - 24 hr 04/14/18 04/14/18 04/14/18 14:21 15:43 16:22 Temperature 97.7 F Pulse Rate 54 L Pulse Rate [ 57 L Right Radial] Respiratory 18 20 Rate Blood Pressure 118/79 Blood Pressure 115/61 [Left Arm] O2 Sat by Pulse 98 96 Oximetry (%) 04/14/18 04/14/18 04/15/18 19:04 21:00 07:17 Temperature 98.0 F 98.1 F Pulse Rate 63 65 Pulse Rate [ Right Radial] Respiratory 18 18 Rate Blood Pressure 127/74 120/77 Blood Pressure [Left Arm] O2 Sat by Pulse 96 Oximetry (%) 04/15/18 10:21 Temperature 98.5 F Pulse Rate 66 Pulse Rate [ Right Radial] Respiratory 18 Rate Blood Pressure 111/65 Blood Pressure [Left Arm] O2 Sat by Pulse Oximetry (%) Current Medications Generic Name Dose Route Start Last Admin Trade Name Freq PRN Reason Stop Dose Admin Aspirin 81 mg 04/15/18 10:00 04/15/18 10:26 Ecotrin - PO 81 mg DAILY TONG Administration Atorvastatin Calcium 40 mg 04/14/18 22:00 04/14/18 21:50 Lipitor - PO 40 mg HS TONG Administration Clopidogrel Bisulfate 75 mg 04/15/18 10:00 04/15/18 10:26 Plavix - PO 75 mg DAILY TONG Administration Docusate Sodium 100 mg 04/14/18 14:00 04/15/18 06:41 Colace - PO 100 mg TID TONG Administration Heparin Sodium (Porcine) 5,000 unit 04/14/18 22:00 04/15/18 10:29 Heparin - SQ 5,000 unit BID TONG Administration Vancomycin HCl 1,000 mg in 250 mls @ 166.667 mls/hr 04/15/18 12:45 Vancomycin (Pre-Docked) IVPB Q12H [facility] Protocol Isosorbide Mononitrate 60 mg 04/15/18 10:00 04/15/18 10:26 Imdur - PO 60 mg DAILY TONG Administration Levothyroxine Sodium 125 mcg 04/15/18 07:00 04/15/18 06:41 Synthroid - PO 125 mcg AM TONG Administration Metoprolol Tartrate 25 mg 04/14/18 22:00 04/15/18 10:26 Lopressor - PO 25 mg BID TONG Administration Multivitamins/Minerals/Vitamin C 1 tab 04/15/18 10:00 04/15/18 10:26 Tab-A-Vit - PO 1 tab DAILY TONG Administration Oxycodone HCl 10 mg 04/14/18 11:44 04/15/18 01:39 Roxicodone - PO 10 mg Q8H PRN Administration PAIN LEVEL 6-10 Laboratory Results - last 24 hr 04/15/18 04/15/18 08:00 08:00 WBC 5.4 RBC 3.81 L Hgb 12.1 Hct 33.6 L MCV 88.1 MCH 31.8 MCHC 36.1 H RDW 13.9 Plt Count 150 MPV 8.9 Absolute Neuts (auto) 3.9 Neutrophils % 73.4 Lymphocytes % 9.4 D Monocytes % 8.0 Eosinophils % 8.7 H Basophils % 0.5 Nucleated RBC % 0 Sodium 137 Potassium 3.6 Chloride 97 L Carbon Dioxide 30 Anion Gap 10 BUN 25 H Creatinine 1.4 H Creat Clearance w eGFR 50.70 Random Glucose 96 Calcium 8.8 Total Bilirubin 0.9 AST 17 ALT 22 Alkaline Phosphatase 125 H Total Protein 6.9 Albumin 3.9 S1 S2 RRR Lungs clear Abd- soft,obese, NT edema+ rash on elbows PLAN IV Vanco BID spoke with ID renal function about the same continue with meds Problem List - Problems (1) Peripheral vascular disease Code(s): I73.9 - PERIPHERAL VASCULAR DISEASE, UNSPECIFIED (2) ИРИНА (acute kidney injury) Code(s): N17.9 - ACUTE KIDNEY FAILURE, UNSPECIFIED (3) Cellulitis Code(s): L03.90 - CELLULITIS, UNSPECIFIED Qualifiers: Site of cellulitis: extremity Site of cellulitis of extremity: lower extremity Laterality: right Qualified Code(s): L03.115 - Cellulitis of right lower limb (4) Coronary artery disease Code(s): I25.10 - ATHSCL HEART DISEASE OF [place] CORONARY ARTERY W/O ANG PCTRS
[2018-04-15] MEDS: VANCOMYCIN 1 GRAM (PRE-DOCKED) 1,000 MG/250 ML BAG IVPB SCH (13:39)
[2018-04-15] MEDS: ATORVASTATIN CA 40 MG TABLET (FP) PO SCH (23:06)
[2018-04-16] MEDS: VANCOMYCIN 1 GRAM (PRE-DOCKED) 1,000 MG/250 ML BAG IVPB SCH ×2 (00:38→11:58)
[2018-04-16] MEDS: DOCUSATE SODIUM 100 MG CAPSULE (FP) PO SCH ×3 (06:39→23:16)
[2018-04-16] MEDS: LEVOTHYROXINE NA 125 MCG TABLET (FP) PO SCH (06:39)
[2018-04-16 08:39] LABS: BASO % 0.7 % (0-2.0); EOS % 7.2 % (0-4.5); HEMOGLOBIN 12.7 GM/dL (11.7-16.9); LYMPH % 12.9 % (8-40); MCH 29.8 pg (25.7-33.7); MCHC 33.3 g/dl (32.0-35.9); MEAN CELL VOLUME 89.3 fl (80-96); MEAN PLT VOLUME 8.8 fl (7.5-11.1); MONO % 8.3 % (3.8-10.2); NEUT % 70.9 % (42.8-82.8); PLATELET COUNT 172 K/MM3 (134-434); RBC 4.26 M/mm3 (4.00-5.60); WHITE BLOOD COUNT 6.9 K/mm3 (4.0-10.0)
[2018-04-16 09:11] LABS: ANION GAP 11 MMOL/L (8-16); BLOOD UREA NITROGEN 22 mg/dL (7-18); CALCIUM 8.9 mg/dL (8.5-10.1); CHLORIDE 101 mmol/L (98-107); CO2 27 mmol/L (21-32); CREATININE 1.3 mg/dL (0.55-1.3); GLUCOSE,RANDOM 85 mg/dL (74-106); SODIUM 139 mmol/L (136-145)
--- NOTE | 2018-04-16 09:17 | PN ---
Progress Note (short form) - Note Progress Note: c/o itching over body rash is more today no SOB - ?due to ertapenum Vital Signs - 24 hr 04/15/18 04/15/18 04/15/18 18:00 21:00 23:50 Temperature 98.0 F Pulse Rate 96 H 55 L Respiratory 20 20 20 Rate Blood Pressure 107/57 L 134/72 O2 Sat by Pulse 96 Oximetry (%) 04/16/18 04/16/18 04/16/18 06:00 09:00 14:27 Temperature 98.5 F 98.5 F 98.2 F Pulse Rate 53 L 55 L 62 Respiratory 20 20 20 Rate Blood Pressure 114/68 120/59 L 102/52 L O2 Sat by Pulse 93 L Oximetry (%) Current Medications Generic Name Dose Route Start Last Admin Trade Name Freq PRN Reason Stop Dose Admin Aspirin 81 mg 04/15/18 10:00 04/16/18 10:21 Ecotrin - PO 81 mg DAILY TONG Administration Atorvastatin Calcium 40 mg 04/14/18 22:00 04/15/18 23:06 Lipitor - PO 40 mg HS TONG Administration Clopidogrel Bisulfate 75 mg 04/15/18 10:00 04/16/18 10:21 Plavix - PO 75 mg DAILY TONG Administration Diphenhydramine HCl 25 mg 04/16/18 09:16 04/16/18 10:21 Benadryl - PO 25 mg Q6H PRN Administration FOR ITCHING Docusate Sodium 100 mg 04/14/18 14:00 04/16/18 13:17 Colace - PO 100 mg TID TONG Administration Heparin Sodium (Porcine) 5,000 unit 04/14/18 22:00 04/16/18 10:21 Heparin - SQ 5,000 unit BID TONG Administration Vancomycin HCl 1,000 mg in 250 mls @ 166.667 mls/hr 04/15/18 12:45 04/16/18 11:58 Vancomycin (Pre-Docked) IVPB 166.667 mls/hr Q12H TONG Administration Protocol Isosorbide Mononitrate 60 mg 04/15/18 10:00 04/16/18 10:21 Imdur - PO 60 mg DAILY TONG Administration Levothyroxine Sodium 125 mcg 04/15/18 07:00 04/16/18 06:39 Synthroid - PO 125 mcg AM TONG Administration Metoprolol Tartrate 25 mg 04/14/18 22:00 04/16/18 10:35 Lopressor - PO Not Given BID TONG Multivitamins/Minerals/Vitamin C 1 tab 04/16/18 10:36 Tab-A-Vit - PO HS [facility] Oxycodone HCl 10 mg 04/14/18 11:44 04/15/18 01:39 Roxicodone - PO 10 mg Q8H PRN Administration PAIN LEVEL 6-10 Laboratory Results - last 24 hr 04/16/18 04/16/18 08:05 08:05 WBC 6.9 RBC 4.26 Hgb 12.7 Hct 38.0 MCV 89.3 MCH 29.8 MCHC 33.3 RDW 14.0 Plt Count 172 MPV 8.8 Absolute Neuts (auto) 4.9 Neutrophils % 70.9 Lymphocytes % 12.9 D Monocytes % 8.3 Eosinophils % 7.2 H Basophils % 0.7 Nucleated RBC % 0 Sodium 139 Potassium 4.0 Chloride 101 Carbon Dioxide 27 Anion Gap 11 BUN 22 H Creatinine 1.3 Creat Clearance w eGFR 55.23 Random Glucose 85 Calcium 8.9 S1 S2 RRR Lungs clear Abd- soft,obese, NT edema+ jered wrap erythematous spots over body PLAN IV Vanco BID renal function improving Vascular eval jered wrap continue with meds Problem List - Problems (1) Peripheral vascular disease Code(s): I73.9 - PERIPHERAL VASCULAR DISEASE, UNSPECIFIED (2) ИРИНА (acute kidney injury) Code(s): N17.9 - ACUTE KIDNEY FAILURE, UNSPECIFIED (3) Cellulitis Code(s): L03.90 - CELLULITIS, UNSPECIFIED Qualifiers: Site of cellulitis: extremity Site of cellulitis of extremity: lower extremity Laterality: right Qualified Code(s): L03.115 - Cellulitis of right lower limb (4) Coronary artery disease Code(s): I25.10 - ATHSCL HEART DISEASE OF [place] CORONARY ARTERY W/O ANG PCTRS
[2018-04-16] MEDS ORDERED: PT OWN MED DRAWER 7, Y5N ONE ×2 (10:16→22:59)
[2018-04-16] MEDS: ASPIRIN COATED 81 MG TABLET.EC PO SCH (10:21)
[2018-04-16] MEDS: ISOSORBIDE MONONITRATE 60 MG TAB.SR.24H (FP) PO SCH (10:21)
[2018-04-16] MEDS: CLOPIDOGREL BISULFATE 75 MG TABLET (FP) PO SCH (10:21)
[2018-04-16] MEDS: HEPARIN NA (PORCINE) 5,000 UNITS/ML 1ML VIAL SQ SCH ×2 (10:21→23:16)
[2018-04-16] MEDS: diphenhydrAMINE HCL 25 MG CAPSULE (FP) PO PRN ×2 (10:21→23:17)
[2018-04-16] MEDS: METOPROLOL TARTRATE 25 MG TABLET (FP) PO SCH ×2 (10:35→23:15)
[2018-04-16] MEDS: MULTIVITAMINS (DAILY MVI) TABLET (FP) PO SCH ×2 (10:44→23:11)
--- NOTE | 2018-04-16 13:39 | PN ---
Progress Note, Physician History of Present Illness: patient has developed rash over the body no an drug reaction - Current Medication List Current Medications: Active Medications Aspirin (Ecotrin -) 81 mg PO DAILY [facility] Last Admin: 04/16/18 10:21 Dose: 81 mg Atorvastatin Calcium (Lipitor -) 40 mg PO HS [facility] Last Admin: 04/15/18 23:06 Dose: 40 mg Clopidogrel Bisulfate (Plavix -) 75 mg PO DAILY [facility] Last Admin: 04/16/18 10:21 Dose: 75 mg Diphenhydramine HCl (Benadryl -) 25 mg PO Q6H PRN PRN Reason: FOR ITCHING Last Admin: 04/16/18 10:21 Dose: 25 mg Docusate Sodium (Colace -) 100 mg PO TID [facility] Last Admin: 04/16/18 13:17 Dose: 100 mg Heparin Sodium (Porcine) (Heparin -) 5,000 unit SQ BID [facility] Last Admin: 04/16/18 10:21 Dose: 5,000 unit Vancomycin HCl (Vancomycin (Pre-Docked)) 1,000 mg in 250 mls @ 166.667 mls/hr IVPB Q12H [facility]; Protocol Last Admin: 04/16/18 11:58 Dose: 166.667 mls/hr Isosorbide Mononitrate (Imdur -) 60 mg PO DAILY [facility] Last Admin: 04/16/18 10:21 Dose: 60 mg Levothyroxine Sodium (Synthroid -) 125 mcg PO AM [facility] Last Admin: 04/16/18 06:39 Dose: 125 mcg Metoprolol Tartrate (Lopressor -) 25 mg PO BID [facility] Last Admin: 04/16/18 10:35 Dose: Not Given Multivitamins/Minerals/Vitamin C (Tab-A-Vit -) 1 tab PO [facility] Oxycodone HCl (Roxicodone -) 10 mg PO Q8H PRN PRN Reason: PAIN LEVEL 6-10 Last Admin: 04/15/18 01:39 Dose: 10 mg - Objective Vital Signs: Vital Signs Temperature 98.5 F 04/16/18 06:00 Pulse Rate 53 L 04/16/18 06:00 Respiratory Rate 20 04/16/18 06:00 Blood Pressure 114/68 04/16/18 06:00 O2 Sat by Pulse Oximetry (%) 96 11/24/18 21:00 Constitutional: Yes: No Distress, Calm, Obese Cardiovascular: Yes: Regular Rate and Rhythm Respiratory: Yes: Regular, CTA Bilaterally Gastrointestinal: Yes: Normal Bowel Sounds, Soft Musculoskeletal: Yes: WNL Extremities: Yes: Erythema, Other Integumentary: Yes: Erythema (angriness a little better) Psychiatric: Yes: Alert, Oriented Labs: CBC, BMP 04/16/18 08:05 04/16/18 08:05 Assessment/Plan Problem List - Problems (1) Peripheral vascular disease Code(s): I73.9 - PERIPHERAL VASCULAR DISEASE, UNSPECIFIED (2) ИРИНА (acute kidney injury) Code(s): N17.9 - ACUTE KIDNEY FAILURE, UNSPECIFIED (3) Cellulitis Code(s): L03.90 - CELLULITIS, UNSPECIFIED Qualifiers: Site of cellulitis: extremity Site of cellulitis of extremity: lower extremity Laterality: right Qualified Code(s): L03.115 - Cellulitis of right lower limb (4) Coronary artery disease DVT prophylaxis-- Heparin sc Code(s): I25.10 - ATHSCL HEART DISEASE OF [place] CORONARY ARTERY W/O ANG PCTRS plan continue iv abx will also start antifungal close monitoring of rash rest as per the team worry if the rash is ifungal
[2018-04-16] MEDS: ATORVASTATIN CA 40 MG TABLET (FP) PO SCH (23:16)
[2018-04-16] MEDS: oxyCODONE HCL 5 MG TABLET PO PRN (23:17)
[2018-04-17] MEDS: VANCOMYCIN 1 GRAM (PRE-DOCKED) 1,000 MG/250 ML BAG IVPB SCH ×2 (00:15→12:58)
[2018-04-17] MEDS: LEVOTHYROXINE NA 125 MCG TABLET (FP) PO SCH (06:33)
[2018-04-17] MEDS: DOCUSATE SODIUM 100 MG CAPSULE (FP) PO SCH ×3 (06:33→22:54)
[2018-04-17] MEDS: ISOSORBIDE MONONITRATE 60 MG TAB.SR.24H (FP) PO SCH (09:35)
[2018-04-17] MEDS: CLOPIDOGREL BISULFATE 75 MG TABLET (FP) PO SCH (09:35)
[2018-04-17] MEDS: HEPARIN NA (PORCINE) 5,000 UNITS/ML 1ML VIAL SQ SCH ×2 (09:35→22:54)
[2018-04-17] MEDS: diphenhydrAMINE HCL 25 MG CAPSULE (FP) PO PRN (09:35)
[2018-04-17] MEDS: ASPIRIN COATED 81 MG TABLET.EC PO SCH (09:35)
[2018-04-17] MEDS: METOPROLOL TARTRATE 25 MG TABLET (FP) PO SCH ×2 (09:38→22:54)
--- NOTE | 2018-04-17 10:30 | PN ---
Progress Note, Physician History of Present Illness: stable no new issues swelling decreasing - Current Medication List Current Medications: Active Medications Aspirin (Ecotrin -) 81 mg PO DAILY [facility] Last Admin: 04/17/18 09:35 Dose: 81 mg Atorvastatin Calcium (Lipitor -) 40 mg PO HS [facility] Last Admin: 04/16/18 23:16 Dose: 40 mg Clopidogrel Bisulfate (Plavix -) 75 mg PO DAILY [facility] Last Admin: 04/17/18 09:35 Dose: 75 mg Diphenhydramine HCl (Benadryl -) 25 mg PO Q6H PRN PRN Reason: FOR ITCHING Last Admin: 04/17/18 09:35 Dose: 25 mg Docusate Sodium (Colace -) 100 mg PO TID [facility] Last Admin: 04/17/18 06:33 Dose: 100 mg Heparin Sodium (Porcine) (Heparin -) 5,000 unit SQ BID [facility] Last Admin: 04/17/18 09:35 Dose: 5,000 unit Vancomycin HCl (Vancomycin (Pre-Docked)) 1,000 mg in 250 mls @ 166.667 mls/hr IVPB Q12H [facility]; Protocol Last Admin: 04/17/18 00:15 Dose: 166.667 mls/hr Isosorbide Mononitrate (Imdur -) 60 mg PO DAILY [facility] Last Admin: 04/17/18 09:35 Dose: 60 mg Levothyroxine Sodium (Synthroid -) 125 mcg PO AM [facility] Last Admin: 04/17/18 06:33 Dose: 125 mcg Metoprolol Tartrate (Lopressor -) 25 mg PO BID [facility] Last Admin: 04/17/18 09:38 Dose: Not Given Multivitamins/Minerals/Vitamin C (Tab-A-Vit -) 1 tab PO HS [facility] Last Admin: 04/16/18 23:11 Dose: 1 tab Oxycodone HCl (Roxicodone -) 10 mg PO Q8H PRN PRN Reason: PAIN LEVEL 6-10 Last Admin: 04/16/18 23:17 Dose: 10 mg - Objective Vital Signs: Vital Signs Temperature 97.5 F L 04/17/18 06:00 Pulse Rate 53 L 04/17/18 06:00 Respiratory Rate 20 04/17/18 06:00 Blood Pressure 121/58 L 04/17/18 06:00 O2 Sat by Pulse Oximetry (%) 95 04/16/18 21:00 Constitutional: Yes: No Distress, Calm, Obese Cardiovascular: Yes: S1, S2 Respiratory: Yes: Regular, CTA Bilaterally Gastrointestinal: Yes: Normal Bowel Sounds, Soft Musculoskeletal: Yes: Other Extremities: Yes: Erythema (improving), Other Neurological: Yes: Alert, Oriented Psychiatric: Yes: Alert, Oriented Labs: CBC, BMP 04/16/18 08:05 04/16/18 08:05 Assessment/Plan Problem List - Problems (1) Peripheral vascular disease Code(s): I73.9 - PERIPHERAL VASCULAR DISEASE, UNSPECIFIED (2) ИРИНА (acute kidney injury) Code(s): N17.9 - ACUTE KIDNEY FAILURE, UNSPECIFIED (3) Cellulitis Code(s): L03.90 - CELLULITIS, UNSPECIFIED Qualifiers: Site of cellulitis: extremity Site of cellulitis of extremity: lower extremity Laterality: right Qualified Code(s): L03.115 - Cellulitis of right lower limb (4) Coronary artery disease DVT prophylaxis-- Heparin sc Code(s): I25.10 - ATHSCL HEART DISEASE OF [place] CORONARY ARTERY W/O ANG PCTRS 5 rash plan continue iv abx will get skin biopsy r/o vasculitis rest as per the team
--- NOTE | 2018-04-17 11:25 | PN ---
Progress Note (short form) - Note Progress Note: pt seen/ examined chart reviewed discussed with Dr. Her Skin biopsy planned -- Dr. Louise consulted. complains of back pain - says has chronic issues -- also says currently taking methadone 10 mg from his pmd. Also says not helping and would like to take oxycontin 40 mg bid -- had worked in past. denies any urinary trouble. afebrile itching/ rash better Vital Signs Temp 98.3 F 04/17/18 09:00 Pulse 56 L 04/17/18 09:00 Resp 18 04/17/18 09:00 BP 129/56 L 04/17/18 09:00 Pulse Ox 95 04/16/18 21:00 Intake & Output 04/16/18 04/16/18 04/17/18 11:59 23:59 11:59 Intake Total 315 730 100 Output Total 600 300 Balance 315 130 -200 Intake: IVPB 250 Oral 315 480 100 Output: Urine 600 300 Void 600 300 Other: Voiding Method Toilet Toilet # Unmeasured Voids Void 2 Bowel Movement Yes # Bowel Movements 1 Physical Exam. alert/ awake. S1 S2 RRR Lungs clear Abd- soft,obese, NT edema+ jered wrap rash + PLAN abx skin biopsy IV Vanco BID Vascular eval jered wrap continue with meds pt wants to start lasix 40 mg daily-- monitor renal function Will consult pain management Will speak with his pmd also will follow Problem List - Problems (1) Back pain Code(s): M54.9 - DORSALGIA, UNSPECIFIED (2) Cellulitis Code(s): L03.90 - CELLULITIS, UNSPECIFIED Qualifiers: Site of cellulitis: extremity Site of cellulitis of extremity: lower extremity Laterality: right Qualified Code(s): L03.115 - Cellulitis of right lower limb (3) Peripheral vascular disease Code(s): I73.9 - PERIPHERAL VASCULAR DISEASE, UNSPECIFIED (4) Coronary artery disease Code(s): I25.10 - ATHSCL HEART DISEASE OF [place] CORONARY ARTERY W/O ANG PCTRS (5) Obesity Code(s): E66.9 - OBESITY, UNSPECIFIED (6) Wound infection Code(s): T14.8XXA - OTHER INJURY OF UNSPECIFIED BODY REGION, INITIAL ENCOUNTER; L08.9 - LOCAL INFECTION OF THE SKIN AND SUBCUTANEOUS TISSUE, UNSP
--- NOTE | 2018-04-17 12:32 | CONSULT ---
- Consultation REQUESTING PROVIDER: CONSULT REQUEST: We have been asked to surgically evaluate this patient for bilateral leg swelling/ulcer PCP:Param Carballo HISTORY OF PRESENT ILLNESS: Vascular team was contacted to evaluate pt for bilateral leg swelling and ulcer. Pt states that he has a history of leg ulcers coming and going, that he goes to the wound clinic and see's Dr. Her. Pt states that he has had compression dressings and stockings in the past, but has not worn them recently. Pt states his newest ulcer is on his LLE. Pt denies h/o of vascular disease, but had been told he had venous insufficiency in the past. Former smoker quit 2010, smoked 1ppd. PMHx: CAD s/p ND, HTN, HLD, hypothyroidism Home Medications Medication Instructions Recorded Aspirin [Aspirin EC] 81 mg PO DAILY 01/06/18 Furosemide [Lasix] 40 mg PO DAILY 01/06/18 Isosorbide Mononitrate [Imdur -] 60 mg PO DAILY 01/06/18 Levothyroxine [Synthroid -] 125 mcg PO DAILY 01/06/18 Metoprolol Tartrate [Lopressor -] 25 mg PO BID 01/06/18 Atorvastatin Ca [Lipitor] 40 mg PO HS 04/14/18 Clopidogrel Bisulfate [Plavix -] 75 mg PO DAILY 04/14/18 Lactaid 2 tab PO ASDIR PRN 04/14/18 Multivitamin [Multiple Vitamins] 1 each PO DAILY 04/14/18 Allergies Allergy/AdvReac Type Severity Reaction Status Date / Time cephalexin [From Keflex] Allergy Verified 04/14/18 07:39 lactose AdvReac Verified 04/14/18 07:41 PHYSICAL EXAM: GENERAL: Awake, alert, and fully oriented, in no acute distress. HEAD: Normal with no signs of trauma. EYES: PERRL, sclera anicteric, conjunctiva clear. NECK: Normal ROM LUNGS: Clear to auscultation bilat anteriorly. No wheezes, and no crackles. No accessory muscle use. HEART: Regular rate and rhythm. No murmurs UPPER EXTREMITIES: 2+ pulses, warm, well-perfused. No cyanosis. Cap refill <2 seconds. No peripheral edema. LOWER EXTREMITIES: dopplarable pulses, warm, well-perfused. +2 edema bilaterally , erythema noted on RLE lower leg. LLE shows 1 cm ulcer on anterior [place]. NEUROLOGICAL: Normal speech, gait not observed. PSYCH: Cooperative. Good eye contact. Appropriate mood and affect. SKIN: Warm, dry, normal turgor, no rashes or lesions noted. Vital Signs Temperature 98.3 F 04/17/18 09:00 Pulse Rate 56 L 04/17/18 09:00 Respiratory Rate 18 04/17/18 09:00 Blood Pressure 129/56 L 04/17/18 09:00 O2 Sat by Pulse Oximetry (%) 95 04/16/18 21:00 Lab Results WBC 6.9 K/mm3 (4.0-10.0) 04/16/18 08:05 RBC 4.26 M/mm3 (4.00-5.60) 04/16/18 08:05 Hgb 12.7 GM/dL (11.7-16.9) 04/16/18 08:05 Hct 38.0 % (35.4-49) 04/16/18 08:05 MCV 89.3 fl (80-96) 04/16/18 08:05 MCHC 33.3 g/dl (32.0-35.9) 04/16/18 08:05 RDW 14.0 % (11.9-15.9) 04/16/18 08:05 Plt Count 172 K/MM3 (134-434) 04/16/18 08:05 Sodium 139 mmol/L (136-145) 04/16/18 08:05 Potassium 4.0 mmol/L (3.5-5.1) 04/16/18 08:05 Chloride 101 mmol/L (98-107) 04/16/18 08:05 Carbon Dioxide 27 mmol/L (21-32) 04/16/18 08:05 Anion Gap 11 MMOL/L (8-16) 04/16/18 08:05 BUN 22 mg/dL (7-18) H 04/16/18 08:05 Creatinine 1.3 mg/dL (0.55-1.3) 04/16/18 08:05 Random Glucose 85 mg/dL (74-106) 04/16/18 08:05 Calcium 8.9 mg/dL (8.5-10.1) 04/16/18 08:05 Problem List - Problems (1) Venous stasis ulcer Assessment/Plan: Plan -recommend compression dressings, leg elevation. -abx as per ID -follow up with wound care clinic as outpatient. Code(s): I83.009 - VARICOSE VEINS OF UNSP LOWER EXTREMITY W ULCER OF UNSP SITE; L97.909 - NON-PRS CHRONIC ULC UNSP PRT OF UNSP LOW LEG W UNSP SEVERITY
[2018-04-17] MEDS ORDERED: PT OWN MED DRAWER 7, Y5N ONE (12:34)
[2018-04-17] MEDS: FUROSEMIDE 40 MG TABLET (FP) PO SCH (12:59)
--- NOTE | 2018-04-17 17:48 | CONSULT ---
Consult Consult Specialty:: Pain Management Reason for Consultation:: Back Pain - History of Present Illness Chief Complaint: Back pain History of Present Illness: 68 yr old make with h/o [id number] LBP and was taking high dosage of opioid in past ( 5-6 Yrs ago). He states that he fell and back pain got worse 03/01. He was being treated with oxycodone for pain and Abx for leg Cellulitis and MRSA. - History Source History Provided By: Patient Limitations to Obtaining History: No Limitations - Past Medical History Cardio/Vascular: Yes: CAD, HTN, Hyperlipdemia, [place] Infectious Disease: Yes: MRSA (RLE wounds) Dermatology: Yes: Other (facial rash). No: Basal Cell, Cellulitis, Eczema, Melanoma, Psoriasis, Squamous Cell - Past Surgical History Past Surgical History: Yes: Stent - Alcohol/Substance Use Hx Alcohol Use: No - Smoking History Smoking history: Unknown if ever smoked Have you smoked in the past 12 months: No Aproximately how many cigarettes per day: 0 If you are a former smoker, when did you quit?: jun 2010 - Social History ADL: Independent History of Recent Travel: No Home Medications - Allergies Allergies/Adverse Reactions: Allergies Allergy/AdvReac Type Severity Reaction Status Date / Time cephalexin [From Keflex] Allergy Verified 04/14/18 07:39 lactose AdvReac Verified 04/14/18 07:41 - Home Medications Home Medications: Ambulatory Orders Aspirin [Aspirin EC] 81 mg PO DAILY 01/06/18 Furosemide [Lasix] 40 mg PO DAILY 01/06/18 Isosorbide Mononitrate [Imdur -] 60 mg PO DAILY 01/06/18 Levothyroxine [Synthroid -] 125 mcg PO DAILY 01/06/18 Metoprolol Tartrate [Lopressor -] 25 mg PO BID 01/06/18 Atorvastatin Ca [Lipitor] 40 mg PO HS 04/14/18 Clopidogrel Bisulfate [Plavix -] 75 mg PO DAILY 04/14/18 Lactaid 2 tab PO ASDIR PRN 04/14/18 Multivitamin [Multiple Vitamins] 1 each PO DAILY 04/14/18 Review of Systems - Review of Systems Constitutional: reports: No Symptoms Eyes: reports: No Symptoms HENT: reports: No Symptoms Neck: reports: No Symptoms Cardiovascular: reports: No Symptoms Respiratory: reports: No Symptoms Gastrointestinal: reports: No Symptoms Genitourinary: reports: No Symptoms Musculoskeletal: reports: Back Pain Integumentary: reports: Rash Neurological: reports: No Symptoms Pain Intensity: 10 Physical Exam Vital Signs: Vital Signs Temperature 98.7 F 04/17/18 15:43 Pulse Rate 63 04/17/18 15:43 Respiratory Rate 20 04/17/18 15:43 Blood Pressure 109/47 L 04/17/18 15:43 O2 Sat by Pulse Oximetry (%) 99 04/17/18 09:00 Constitutional: Yes: Well Nourished, Obese Eyes: Yes: WNL HENT: Yes: WNL Neck: Yes: WNL Musculoskeletal: Yes: Back Pain Extremities: Yes: WNL Edema: No Integumentary: Yes: Rash Neurological: Yes: WNL ...Motor Strength: WNL Psychiatric: Yes: WNL Labs: CBC, BMP 04/16/18 08:05 04/16/18 08:05 Current Medications Generic Name Dose Route Start Last Admin Trade Name Freq PRN Reason Stop Dose Admin Aspirin 81 mg 04/15/18 10:00 04/17/18 09:35 Ecotrin - PO 81 mg DAILY TONG Administration Atorvastatin Calcium 40 mg 04/14/18 22:00 04/16/18 23:16 Lipitor - PO 40 mg HS TONG Administration Clopidogrel Bisulfate 75 mg 04/15/18 10:00 04/17/18 09:35 Plavix - PO 75 mg DAILY TONG Administration Diphenhydramine HCl 25 mg 04/16/18 09:16 04/17/18 09:35 Benadryl - PO 25 mg Q6H PRN Administration FOR ITCHING Docusate Sodium 100 mg 04/14/18 14:00 04/17/18 13:00 Colace - PO 100 mg TID TONG Administration Furosemide 40 mg 04/17/18 11:45 04/17/18 12:59 Lasix - PO 40 mg DAILY TONG Administration Heparin Sodium (Porcine) 5,000 unit 04/14/18 22:00 04/17/18 09:35 Heparin - SQ 5,000 unit BID TONG Administration Vancomycin HCl 1,000 mg in 250 mls @ 166.667 mls/hr 04/15/18 12:45 04/17/18 12:58 Vancomycin (Pre-Docked) IVPB 166.667 mls/hr Q12H TONG Administration Protocol Isosorbide Mononitrate 60 mg 04/15/18 10:00 04/17/18 09:35 Imdur - PO 60 mg DAILY TONG Administration Levothyroxine Sodium 125 mcg 04/15/18 07:00 04/17/18 06:33 Synthroid - PO 125 mcg AM TONG Administration Metoprolol Tartrate 25 mg 04/14/18 22:00 04/17/18 09:38 Lopressor - PO Not Given BID TONG Multivitamins/Minerals/Vitamin C 1 tab 04/16/18 10:36 04/16/18 23:11 Tab-A-Vit - PO 1 tab HS TONG Administration Oxycodone HCl 10 mg 04/14/18 11:44 04/16/18 23:17 Roxicodone - PO 10 mg Q8H PRN Administration PAIN LEVEL 6-10 Problem List - Problems (1) Spondylolisthesis Code(s): M43.10 - SPONDYLOLISTHESIS, SITE UNSPECIFIED Qualifiers: Spinal region: lumbosacral Qualified Code(s): M43.17 - Spondylolisthesis, lumbosacral region Assessment/Plan Discussed in detali and answered all his question. 1. continue current care 2. Lidoderm patch 3.Toradol 30 mg IM BID PRN 4. Physical therapy eval if cleared from Medical team 5. X-ray of L-S spine . 6. please call me if pain does not get better. Thank you very much for allowing to participate in his treatment. Dr. Hernandez [phone].
[2018-04-17] MEDS: LIDOCAINE 5% TOPICAL PATCH TP SCH (18:33)
[2018-04-17] MEDS: ATORVASTATIN CA 40 MG TABLET (FP) PO SCH (22:54)
[2018-04-17] MEDS: MULTIVITAMINS (DAILY MVI) TABLET (FP) PO SCH (22:54)
[2018-04-17] MEDS: LIDOCAINE PATCH REMOVAL MC SCH (22:54)
[2018-04-18] MEDS: VANCOMYCIN 1 GRAM (PRE-DOCKED) 1,000 MG/250 ML BAG IVPB SCH ×2 (00:17→13:22)
[2018-04-18] MEDS: LEVOTHYROXINE NA 125 MCG TABLET (FP) PO SCH (06:51)
[2018-04-18] MEDS: DOCUSATE SODIUM 100 MG CAPSULE (FP) PO SCH ×3 (06:51→21:32)
[2018-04-18] MEDS: ASPIRIN COATED 81 MG TABLET.EC PO SCH (10:36)
[2018-04-18] MEDS: ISOSORBIDE MONONITRATE 60 MG TAB.SR.24H (FP) PO SCH (10:36)
[2018-04-18] MEDS: LIDOCAINE 5% TOPICAL PATCH TP SCH (10:36)
[2018-04-18] MEDS: METOPROLOL TARTRATE 25 MG TABLET (FP) PO SCH ×2 (10:36→21:31)
[2018-04-18] MEDS: FUROSEMIDE 40 MG TABLET (FP) PO SCH (10:36)
[2018-04-18] MEDS: CLOPIDOGREL BISULFATE 75 MG TABLET (FP) PO SCH (10:37)
[2018-04-18] MEDS: oxyCODONE HCL 5 MG TABLET PO PRN (10:37)
[2018-04-18] MEDS: HEPARIN NA (PORCINE) 5,000 UNITS/ML 1ML VIAL SQ SCH ×2 (10:37→21:32)
--- NOTE | 2018-04-18 11:14 | PN ---
Progress Note (short form) - Note Progress Note: c/o back pain Xray LS spine done Seen by DR Hernandez Vital Signs - 24 hr 04/17/18 04/17/18 04/17/18 15:43 21:00 22:00 Temperature 98.7 F 97.8 F Pulse Rate 63 59 L Respiratory 20 20 20 Rate Blood Pressure 109/47 L 124/76 O2 Sat by Pulse 99 Oximetry (%) 04/18/18 04/18/18 06:00 09:00 Temperature 98.3 F 98.3 F Pulse Rate 55 L 57 L Respiratory 20 18 Rate Blood Pressure 135/76 140/76 O2 Sat by Pulse Oximetry (%) Current Medications Generic Name Dose Route Start Last Admin Trade Name Freq PRN Reason Stop Dose Admin Aspirin 81 mg 04/15/18 10:00 04/18/18 10:36 Ecotrin - PO 81 mg DAILY TONG Administration Atorvastatin Calcium 40 mg 04/14/18 22:00 04/17/18 22:54 Lipitor - PO 40 mg HS TONG Administration Clopidogrel Bisulfate 75 mg 04/15/18 10:00 04/18/18 10:37 Plavix - PO 75 mg DAILY TONG Administration Cyclobenzaprine HCl 5 mg 04/18/18 14:00 Cyclobenzaprine Hcl PO TID TONG Diphenhydramine HCl 25 mg 04/16/18 09:16 04/17/18 09:35 Benadryl - PO 25 mg Q6H PRN Administration FOR ITCHING Docusate Sodium 100 mg 04/14/18 14:00 04/18/18 06:51 Colace - PO 100 mg TID TONG Administration Furosemide 40 mg 04/17/18 11:45 04/18/18 10:36 Lasix - PO 40 mg DAILY TONG Administration Heparin Sodium (Porcine) 5,000 unit 04/14/18 22:00 04/18/18 10:37 Heparin - SQ 5,000 unit BID TONG Administration Vancomycin HCl 1,000 mg in 250 mls @ 166.667 mls/hr 04/15/18 12:45 04/18/18 00:17 Vancomycin (Pre-Docked) IVPB 166.667 mls/hr Q12H TONG Administration Protocol Isosorbide Mononitrate 60 mg 04/15/18 10:00 04/18/18 10:36 Imdur - PO 60 mg DAILY TONG Administration Levothyroxine Sodium 125 mcg 11/24/18 07:00 04/18/18 06:51 Synthroid - PO 125 mcg AM TONG Administration Lidocaine 1 patch 04/17/18 18:00 04/18/18 10:36 Lidoderm Patch - TP 1 patch DAILY TONG Administration Metoprolol Tartrate 25 mg 04/14/18 22:00 04/18/18 10:36 Lopressor - PO 25 mg BID TONG Administration Miscellaneous 1 each 04/17/18 22:00 04/17/18 22:54 Lidoderm Patch Removal MC 1 each DAILY@2200 TONG Administration Multivitamins/Minerals/Vitamin C 1 tab 04/16/18 10:36 04/17/18 22:54 Tab-A-Vit - PO 1 tab HS TONG Administration Laboratory Results - last 24 hr 04/17/18 11:20 Vancomycin Pre-Dose 17.7 L S1 S2 RRR Lungs clear Abd- soft,obese, NT edema+ jered wrap erythematous spots decreased PLAN IV Vanco BID spoke with ID today-- will need skin biopsy to R/O Vasculitis pain control-- start Flexeril jered wrap continue with meds Problem List - Problems (1) Peripheral vascular disease Code(s): I73.9 - PERIPHERAL VASCULAR DISEASE, UNSPECIFIED (2) ИРИНА (acute kidney injury) Code(s): N17.9 - ACUTE KIDNEY FAILURE, UNSPECIFIED (3) Cellulitis Code(s): L03.90 - CELLULITIS, UNSPECIFIED Qualifiers: Site of cellulitis: extremity Site of cellulitis of extremity: lower extremity Laterality: right Qualified Code(s): L03.115 - Cellulitis of right lower limb (4) Coronary artery disease Code(s): I25.10 - ATHSCL HEART DISEASE OF [place] CORONARY ARTERY W/O ANG PCTRS
--- NOTE | 2018-04-18 12:50 | PN ---
Progress Note, Physician History of Present Illness: stable no new issues swelling decreasing - Current Medication List Current Medications: Active Medications Atorvastatin Calcium (Lipitor -) 40 mg PO HS [facility] Last Admin: 04/17/18 22:54 Dose: 40 mg Cyclobenzaprine HCl (Flexeril -) 5 mg PO TID [facility] Diphenhydramine HCl (Benadryl -) 25 mg PO Q6H PRN PRN Reason: FOR ITCHING Last Admin: 04/17/18 09:35 Dose: 25 mg Docusate Sodium (Colace -) 100 mg PO TID [facility] Last Admin: 04/18/18 06:51 Dose: 100 mg Furosemide (Lasix -) 40 mg PO DAILY [facility] Last Admin: 04/18/18 10:36 Dose: 40 mg Heparin Sodium (Porcine) (Heparin -) 5,000 unit SQ BID [facility] Last Admin: 04/18/18 10:37 Dose: 5,000 unit Vancomycin HCl (Vancomycin (Pre-Docked)) 1,000 mg in 250 mls @ 166.667 mls/hr IVPB Q12H [facility]; Protocol Last Admin: 04/18/18 00:17 Dose: 166.667 mls/hr Isosorbide Mononitrate (Imdur -) 60 mg PO DAILY [facility] Last Admin: 04/18/18 10:36 Dose: 60 mg Levothyroxine Sodium (Synthroid -) 125 mcg PO AM [facility] Last Admin: 04/18/18 06:51 Dose: 125 mcg Lidocaine (Lidoderm Patch -) 1 patch TP DAILY [facility] Last Admin: 04/18/18 10:36 Dose: 1 patch Metoprolol Tartrate (Lopressor -) 25 mg PO BID [facility] Last Admin: 04/18/18 10:36 Dose: 25 mg Miscellaneous (Lidoderm Patch Removal) 1 each MC DAILY@2200 [facility] Last Admin: 04/17/18 22:54 Dose: 1 each Multivitamins/Minerals/Vitamin C (Tab-A-Vit -) 1 tab PO HS [facility] Last Admin: 04/17/18 22:54 Dose: 1 tab - Objective Vital Signs: Vital Signs Temperature 98.3 F 04/18/18 09:00 Pulse Rate 57 L 04/18/18 09:00 Respiratory Rate 18 04/18/18 09:00 Blood Pressure 140/76 04/18/18 09:00 O2 Sat by Pulse Oximetry (%) 99 04/17/18 21:00 Constitutional: Yes: No Distress, Calm Cardiovascular: Yes: S1, S2 Respiratory: Yes: Regular, CTA Bilaterally Gastrointestinal: Yes: Normal Bowel Sounds, Soft Musculoskeletal: Yes: WNL Extremities: Yes: Erythema, Other Neurological: Yes: Alert, Oriented Psychiatric: Yes: Alert, Oriented Labs: CBC, BMP 04/16/18 08:05 04/16/18 08:05 Assessment/Plan Problem List - Problems (1) Peripheral vascular disease Code(s): I73.9 - PERIPHERAL VASCULAR DISEASE, UNSPECIFIED (2) ИРИНА (acute kidney injury) Code(s): N17.9 - ACUTE KIDNEY FAILURE, UNSPECIFIED (3) Cellulitis Code(s): L03.90 - CELLULITIS, UNSPECIFIED Qualifiers: Site of cellulitis: extremity Site of cellulitis of extremity: lower extremity Laterality: right Qualified Code(s): L03.115 - Cellulitis of right lower limb (4) Coronary artery disease DVT prophylaxis-- Heparin sc Code(s): I25.10 - ATHSCL HEART DISEASE OF [place] CORONARY ARTERY W/O ANG PCTRS 5 rash plan continue iv abx mrsa noted cellulittis improving rest as per the team
[2018-04-18] MEDS: CYCLOBENZAPRINE HCL 10 MG TABLET (FP) PO SCH ×2 (13:25→21:32)
[2018-04-18] MEDS: MULTIVITAMINS (DAILY MVI) TABLET (FP) PO SCH (21:32)
[2018-04-18] MEDS: ATORVASTATIN CA 40 MG TABLET (FP) PO SCH (21:32)
[2018-04-18] MEDS: LIDOCAINE PATCH REMOVAL MC SCH (21:33)
[2018-04-19] MEDS: VANCOMYCIN 1 GRAM (PRE-DOCKED) 1,000 MG/250 ML BAG IVPB SCH ×2 (00:03→12:19)
[2018-04-19] MEDS: DOCUSATE SODIUM 100 MG CAPSULE (FP) PO SCH ×3 (06:19→23:03)
[2018-04-19] MEDS: LEVOTHYROXINE NA 125 MCG TABLET (FP) PO SCH (06:19)
[2018-04-19] MEDS: CYCLOBENZAPRINE HCL 10 MG TABLET (FP) PO SCH ×3 (06:19→23:00)
[2018-04-19 08:31] LABS: ANION GAP 7 MMOL/L (8-16); BLOOD UREA NITROGEN 21 mg/dL (7-18); CALCIUM 8.6 mg/dL (8.5-10.1); CHLORIDE 104 mmol/L (98-107); CO2 26 mmol/L (21-32); CREATININE 1.2 mg/dL (0.55-1.3); GLUCOSE,RANDOM 90 mg/dL (74-106); POTASSIUM 4.2 mmol/L (3.5-5.1); SODIUM 138 mmol/L (136-145)
[2018-04-19] MEDS: LIDOCAINE 5% TOPICAL PATCH TP SCH (09:17)
[2018-04-19] MEDS: METOPROLOL TARTRATE 25 MG TABLET (FP) PO SCH ×2 (09:17→23:03)
[2018-04-19] MEDS: ISOSORBIDE MONONITRATE 60 MG TAB.SR.24H (FP) PO SCH (09:17)
[2018-04-19] MEDS: FUROSEMIDE 40 MG TABLET (FP) PO SCH (09:18)
[2018-04-19] MEDS: HEPARIN NA (PORCINE) 5,000 UNITS/ML 1ML VIAL SQ SCH ×2 (09:25→23:05)
--- NOTE | 2018-04-19 11:09 | PN ---
Progress Note (short form) - Note Progress Note: c/o back pain Xray LS spine noted and explained to pt Vital Signs - 24 hr 04/18/18 04/18/18 04/18/18 14:25 18:30 21:00 Temperature 97.2 F L 98.1 F Pulse Rate 64 58 L 64 Respiratory 22 H 22 H 20 Rate Blood Pressure 131/98 130/67 122/62 O2 Sat by Pulse 97 Oximetry (%) 04/19/18 04/19/18 06:00 09:37 Temperature 98.3 F 98.2 F Pulse Rate 57 L 57 L Respiratory 20 20 Rate Blood Pressure 132/54 L 132/63 O2 Sat by Pulse Oximetry (%) Current Medications Generic Name Dose Route Start Last Admin Trade Name Freq PRN Reason Stop Dose Admin Atorvastatin Calcium 40 mg 04/14/18 22:00 04/18/18 21:32 Lipitor - PO 40 mg HS TONG Administration Cyclobenzaprine HCl 5 mg 04/18/18 14:00 04/19/18 06:19 Flexeril - PO 5 mg TID TONG Administration Diphenhydramine HCl 25 mg 04/16/18 09:16 04/17/18 09:35 Benadryl - PO 25 mg Q6H PRN Administration FOR ITCHING Docusate Sodium 100 mg 04/14/18 14:00 04/19/18 06:19 Colace - PO 100 mg TID TONG Administration Furosemide 40 mg 04/17/18 11:45 04/19/18 09:18 Lasix - PO 40 mg DAILY TONG Administration Heparin Sodium (Porcine) 5,000 unit 04/14/18 22:00 04/19/18 09:25 Heparin - SQ 5,000 unit BID TONG Administration Vancomycin HCl 1,000 mg in 250 mls @ 166.667 mls/hr 04/15/18 12:45 04/19/18 00:03 Vancomycin (Pre-Docked) IVPB 166.667 mls/hr Q12H TONG Administration Protocol Isosorbide Mononitrate 60 mg 04/15/18 10:00 04/19/18 09:17 Imdur - PO 60 mg DAILY TONG Administration Levothyroxine Sodium 125 mcg 04/15/18 07:00 04/19/18 06:19 Synthroid - PO 125 mcg AM TONG Administration Lidocaine 1 patch 04/17/18 18:00 04/19/18 09:17 Lidoderm Patch - TP 1 patch DAILY [facility]ONG Administration Metoprolol Tartrate 25 mg 04/14/18 22:00 04/19/18 09:17 Lopressor - PO 25 mg BID TONG Administration Miscellaneous 1 each 04/17/18 22:00 04/18/18 21:33 Lidoderm Patch Removal MC 1 each DAILY@2200 TONG Administration Multivitamins/Minerals/Vitamin C 1 tab 04/16/18 10:36 04/18/18 21:32 Tab-A-Vit - PO 1 tab HS [facility]G Administration Laboratory Results - last 24 hr 04/19/18 06:15 Sodium 138 Potassium 4.2 Chloride 104 Carbon Dioxide 26 Anion Gap 7 L BUN 21 H Creatinine 1.2 Creat Clearance w eGFR > 60 Random Glucose 90 Calcium 8.6 S1 S2 RRR Lungs clear Abd- soft,obese, NT edema+ jered wrap PLAN IV Vanco BID no need for skin biopsy-- culture positive for MRSA add Toradol jered wrap continue with meds Problem List - Problems (1) Peripheral vascular disease Code(s): I73.9 - PERIPHERAL VASCULAR DISEASE, UNSPECIFIED (2) ИРИНА (acute kidney injury) Code(s): N17.9 - ACUTE KIDNEY FAILURE, UNSPECIFIED (3) Cellulitis Code(s): L03.90 - CELLULITIS, UNSPECIFIED Qualifiers: Site of cellulitis: extremity Site of cellulitis of extremity: lower extremity Laterality: right Qualified Code(s): L03.115 - Cellulitis of right lower limb (4) Coronary artery disease Code(s): I25.10 - ATHSCL HEART DISEASE OF [place] CORONARY ARTERY W/O ANG PCTRS
--- NOTE | 2018-04-19 12:50 | PN ---
Progress Note, Physician History of Present Illness: back pain very severe rest patient stable increasing rash - Current Medication List Current Medications: Active Medications Atorvastatin Calcium (Lipitor -) 40 mg PO HS [facility] Last Admin: 04/18/18 21:32 Dose: 40 mg Cyclobenzaprine HCl (Flexeril -) 5 mg PO TID [facility] Last Admin: 04/19/18 06:19 Dose: 5 mg Diphenhydramine HCl (Benadryl -) 25 mg PO Q6H PRN PRN Reason: FOR ITCHING Last Admin: 04/17/18 09:35 Dose: 25 mg Docusate Sodium (Colace -) 100 mg PO TID [facility] Last Admin: 04/19/18 06:19 Dose: 100 mg Furosemide (Lasix -) 40 mg PO DAILY [facility] Last Admin: 04/19/18 09:18 Dose: 40 mg Heparin Sodium (Porcine) (Heparin -) 5,000 unit SQ BID [facility] Last Admin: 04/19/18 09:25 Dose: 5,000 unit Vancomycin HCl (Vancomycin (Pre-Docked)) 1,000 mg in 250 mls @ 166.667 mls/hr IVPB Q12H [facility]; Protocol Last Admin: 04/19/18 12:19 Dose: 166.667 mls/hr Isosorbide Mononitrate (Imdur -) 60 mg PO DAILY [facility] Last Admin: 04/19/18 09:17 Dose: 60 mg Levothyroxine Sodium (Synthroid -) 125 mcg PO AM [facility] Last Admin: 04/19/18 06:19 Dose: 125 mcg Lidocaine (Lidoderm Patch -) 1 patch TP DAILY [facility] Last Admin: 04/19/18 09:17 Dose: 1 patch Metoprolol Tartrate (Lopressor -) 25 mg PO BID [facility] Last Admin: 04/19/18 09:17 Dose: 25 mg Miscellaneous (Lidoderm Patch Removal) 1 each MC DAILY@2200 [facility] Last Admin: 04/18/18 21:33 Dose: 1 each Multivitamins/Minerals/Vitamin C (Tab-A-Vit -) 1 tab PO HS [facility] Last Admin: 04/18/18 21:32 Dose: 1 tab - Objective Vital Signs: Vital Signs Temperature 98.2 F 04/19/18 09:37 Pulse Rate 57 L 04/19/18 09:37 Respiratory Rate 20 04/19/18 09:37 Blood Pressure 132/63 04/19/18 09:37 O2 Sat by Pulse Oximetry (%) 97 04/18/18 21:00 Constitutional: Yes: Calm, Severe Distress (back pain), Obese Cardiovascular: Yes: S1, S2 Respiratory: Yes: Regular, Poor Air Entry (bases) Gastrointestinal: Yes: Normal Bowel Sounds, Soft Musculoskeletal: Yes: Back Pain Extremities: Yes: Erythema (erythema improving), Other (rash) Neurological: Yes: Alert, Oriented Psychiatric: Yes: Alert, Oriented Labs: CBC, BMP 04/16/18 08:05 04/19/18 06:15 Assessment/Plan Problem List - Problems (1) Peripheral vascular disease Code(s): I73.9 - PERIPHERAL VASCULAR DISEASE, UNSPECIFIED (2) ИРИНА (acute kidney injury) Code(s): N17.9 - ACUTE KIDNEY FAILURE, UNSPECIFIED (3) Cellulitis Code(s): L03.90 - CELLULITIS, UNSPECIFIED Qualifiers: Site of cellulitis: extremity Site of cellulitis of extremity: lower extremity Laterality: right Qualified Code(s): L03.115 - Cellulitis of right lower limb (4) Coronary artery disease DVT prophylaxis-- Heparin sc Code(s): I25.10 - ATHSCL HEART DISEASE OF [place] CORONARY ARTERY W/O ANG PCTRS 5 rash plan continue iv abx mrsa noted cellulittis improving rest as per the team will check vanco level wound care
[2018-04-19] MEDS ORDERED: KETOROLAC TROMETHAMINE 30 MG/1 ML VIAL IM ONE (15:45)
[2018-04-19] MEDS: KETOROLAC TROMETHAMINE 30 MG/1 ML VIAL IM SCH (19:04)
[2018-04-19] MEDS: MULTIVITAMINS (DAILY MVI) TABLET (FP) PO SCH (23:03)
[2018-04-19] MEDS: LIDOCAINE PATCH REMOVAL MC SCH (23:03)
[2018-04-19] MEDS: ATORVASTATIN CA 40 MG TABLET (FP) PO SCH (23:03)
[2018-04-20] MEDS: VANCOMYCIN 1 GRAM (PRE-DOCKED) 1,000 MG/250 ML BAG IVPB SCH ×2 (00:03→12:30)
[2018-04-20] MEDS: KETOROLAC TROMETHAMINE 30 MG/1 ML VIAL IM SCH ×3 (01:01→18:59)
[2018-04-20] MEDS: DOCUSATE SODIUM 100 MG CAPSULE (FP) PO SCH ×3 (06:30→23:04)
[2018-04-20] MEDS: LEVOTHYROXINE NA 125 MCG TABLET (FP) PO SCH (06:30)
[2018-04-20] MEDS: CYCLOBENZAPRINE HCL 10 MG TABLET (FP) PO SCH ×3 (06:30→23:06)
[2018-04-20] MEDS: FUROSEMIDE 40 MG TABLET (FP) PO SCH (09:20)
--- NOTE | 2018-04-20 11:35 | CON.ORTH ---
Consult Reason for Consultation:: LBP - Past Medical History Cardio/Vascular: Yes: CAD, HTN, Hyperlipdemia, [place] Infectious Disease: Yes: MRSA (RLE wounds) Dermatology: Yes: Other (facial rash). No: Basal Cell, Cellulitis, Eczema, Melanoma, Psoriasis, Squamous Cell - Past Surgical History Past Surgical History: Yes: Stent - Alcohol/Substance Use Hx Alcohol Use: No - Smoking History Smoking history: Unknown if ever smoked Have you smoked in the past 12 months: No Aproximately how many cigarettes per day: 0 If you are a former smoker, when did you quit?: jun 2010 - Social History ADL: Independent History of Recent Travel: No Home Medications - Allergies Allergies/Adverse Reactions: Allergies Allergy/AdvReac Type Severity Reaction Status Date / Time cephalexin [From Keflex] Allergy Verified 04/14/18 07:39 lactose AdvReac Verified 04/14/18 07:41 - Home Medications Home Medications: Ambulatory Orders Aspirin [Aspirin EC] 81 mg PO DAILY 01/06/18 Furosemide [Lasix] 40 mg PO DAILY 01/06/18 Isosorbide Mononitrate [Imdur -] 60 mg PO DAILY 01/06/18 Levothyroxine [Synthroid -] 125 mcg PO DAILY 01/06/18 Metoprolol Tartrate [Lopressor -] 25 mg PO BID 01/06/18 Atorvastatin Ca [Lipitor] 40 mg PO HS 04/14/18 Clopidogrel Bisulfate [Plavix -] 75 mg PO DAILY 04/14/18 Lactaid 2 tab PO ASDIR PRN 04/14/18 Multivitamin [Multiple Vitamins] 1 each PO DAILY 04/14/18 Physical Exam for Ortho Vital Signs: Vital Signs Temperature 98.2 F 04/20/18 11:17 Pulse Rate 64 04/20/18 11:17 Respiratory Rate 20 04/20/18 11:17 Blood Pressure 115/54 L 04/20/18 11:17 O2 Sat by Pulse Oximetry (%) 100 04/19/18 21:00 Labs: CBC, BMP 04/16/18 08:05 04/19/18 06:15 - Lower Extremity Leg: Yes: Left, Right (b/l LE wound- + MSRA) - Affected Extremity Neuro/Vascular Assessment: Yes: Warm, [place], Normal Sensation (LS spine- mild ttp , decr rom, - slr, reflexes intact, nvi) Imaging - Results X-ray: Report Reviewed, Image Reviewed Assessment/Plan 68 year old male with past medical history of HLD, CAD (s/p [place] x 3, stent placement x5), CHF and spondylolisthesis, admitted for b/l LE MRSA infections. Pt also states that 2 weeks ago he fell. Since then he has been having LBP. He has a history of lumbar spine issues. He does feel that the pain has improved slightly. Denies any numbness, tingling, bowel/bladder dysfunction. a/p L5-S1 spondylolisthesis with severe DDD Discussed diagnosis and treatment in detail with the pt given active MRSA infection, invasive treatment would not be recommended ( injection/surgery) PT eval, wbat pain control Recommend neurosurgery consult if pain does not improve d/w Dr. Ceja re-consult prn
[2018-04-20] MEDS: LIDOCAINE 5% TOPICAL PATCH TP SCH (11:50)
[2018-04-20] MEDS: METOPROLOL TARTRATE 25 MG TABLET (FP) PO SCH ×2 (11:50→23:05)
[2018-04-20] MEDS: ISOSORBIDE MONONITRATE 60 MG TAB.SR.24H (FP) PO SCH (11:50)
[2018-04-20] MEDS: HEPARIN NA (PORCINE) 5,000 UNITS/ML 1ML VIAL SQ SCH ×2 (11:50→23:05)
--- NOTE | 2018-04-20 11:56 | PN ---
Progress Note (short form) - Note Progress Note: c/o back pain Xray LS spine noted and explained to pt Spoke with Ortho PA Pt also has worsening rash-- painful around eyes, arms and legs Vital Signs - 24 hr 04/19/18 04/19/18 04/19/18 14:40 19:19 21:00 Temperature 97.6 F 98.6 F Pulse Rate 60 57 L Respiratory 20 20 18 Rate Blood Pressure 127/55 L 119/63 O2 Sat by Pulse 100 Oximetry (%) 04/19/18 04/20/18 04/20/18 22:00 06:00 11:17 Temperature 98.2 F 98.2 F Pulse Rate 64 56 L 64 Respiratory 18 18 20 Rate Blood Pressure 134/68 152/70 115/54 L O2 Sat by Pulse Oximetry (%) Current Medications Generic Name Dose Route Start Last Admin Trade Name Freq PRN Reason Stop Dose Admin Atorvastatin Calcium 40 mg 04/14/18 22:00 04/19/18 23:03 Lipitor - PO 40 mg HS TOGN Administration Chlorhexidine Gluconate 1 applic 04/20/18 22:00 Hibiclens For Decolonization - TP HS TONG Cyclobenzaprine HCl 5 mg 04/18/18 14:00 04/20/18 06:30 Flexeril - PO 5 mg TID TONG Administration Diphenhydramine HCl 25 mg 04/16/18 09:16 04/17/18 09:35 Benadryl - PO 25 mg Q6H PRN Administration FOR ITCHING Docusate Sodium 100 mg 04/14/18 14:00 04/20/18 06:30 Colace - PO 100 mg TID TONG Administration Furosemide 40 mg 04/17/18 11:45 04/19/18 09:18 Lasix - PO 40 mg DAILY [facility]ONG Administration Heparin Sodium (Porcine) 5,000 unit 04/14/18 22:00 04/19/18 23:05 Heparin - SQ 5,000 unit BID TONG Administration Vancomycin HCl 1,000 mg in 250 mls @ 166.667 mls/hr 04/15/18 12:45 04/20/18 00:03 Vancomycin (Pre-Docked) IVPB 166.667 mls/hr Q12H [facility] Administration Protocol Isosorbide Mononitrate 60 mg 04/15/18 10:00 04/19/18 09:17 Imdur - PO 60 mg DAILY TONG Administration Ketorolac Tromethamine 30 mg 04/19/18 18:00 04/20/18 01:01 Toradol Injection - IM 04/24/18 17:59 30 mg Q8H-IV TONG Administration Levothyroxine Sodium 125 mcg 04/15/18 07:00 04/20/18 06:30 Synthroid - PO 125 mcg AM [facility]ONG Administration Lidocaine 1 patch 04/17/18 18:00 04/19/18 09:17 Lidoderm Patch - TP 1 patch DAILY [facility]ONG Administration Metoprolol Tartrate 25 mg 04/14/18 22:00 04/19/18 23:03 Lopressor - PO 25 mg BID TONG Administration Miscellaneous 1 each 04/17/18 22:00 04/19/18 23:03 Lidoderm Patch Removal MC 1 each DAILY@2200 TONG Administration Multivitamins/Minerals/Vitamin C 1 tab 04/16/18 10:36 04/19/18 23:03 Tab-A-Vit - PO 1 tab HS TONG Administration Oxycodone HCl 10 mg 04/20/18 10:22 Roxicodone - PO Q4H PRN PAIN LEVEL 6-10 rash- erythema and swelling noted around eyes S1 S2 RRR Lungs clear Abd- soft,obese, NT edema+ jered wrap PLAN IV Vanco BID Derm consult Ortho eval noted Pain control no need for skin biopsy-- culture positive for MRSA add Toradol jered wrap continue with meds Problem List - Problems (1) Peripheral vascular disease Code(s): I73.9 - PERIPHERAL VASCULAR DISEASE, UNSPECIFIED (2) ИРИНА (acute kidney injury) Code(s): N17.9 - ACUTE KIDNEY FAILURE, UNSPECIFIED (3) Cellulitis Code(s): L03.90 - CELLULITIS, UNSPECIFIED Qualifiers: Site of cellulitis: extremity Site of cellulitis of extremity: lower extremity Laterality: right Qualified Code(s): L03.115 - Cellulitis of right lower limb (4) Coronary artery disease Code(s): I25.10 - ATHSCL HEART DISEASE OF [place] CORONARY ARTERY W/O ANG PCTRS
--- NOTE | 2018-04-20 13:45 | PN ---
Progress Note, Physician History of Present Illness: doing well no issues back pain better - Current Medication List Current Medications: Active Medications Atorvastatin Calcium (Lipitor -) 40 mg PO HS [facility] Last Admin: 04/19/18 23:03 Dose: 40 mg Chlorhexidine Gluconate (Hibiclens For Decolonization -) 1 applic TP HS [facility] Cyclobenzaprine HCl (Flexeril -) 5 mg PO TID [facility] Last Admin: 04/20/18 06:30 Dose: 5 mg Diphenhydramine HCl (Benadryl -) 25 mg PO Q6H PRN PRN Reason: FOR ITCHING Last Admin: 04/17/18 09:35 Dose: 25 mg Docusate Sodium (Colace -) 100 mg PO TID [facility] Last Admin: 04/20/18 06:30 Dose: 100 mg Heparin Sodium (Porcine) (Heparin -) 5,000 unit SQ BID [facility] Last Admin: 04/20/18 11:50 Dose: 5,000 unit Isosorbide Mononitrate (Imdur -) 60 mg PO DAILY [facility] Last Admin: 04/20/18 11:50 Dose: 60 mg Ketorolac Tromethamine (Toradol Injection -) 30 mg IM Q8H-IV [facility] Stop: 04/24/18 17:59 Last Admin: 04/20/18 11:55 Dose: 30 mg Levothyroxine Sodium (Synthroid -) 125 mcg PO AM [facility] Last Admin: 04/20/18 06:30 Dose: 125 mcg Lidocaine (Lidoderm Patch -) 1 patch TP DAILY [facility] Last Admin: 04/20/18 11:50 Dose: 1 patch Metoprolol Tartrate (Lopressor -) 25 mg PO BID [facility] Last Admin: 04/20/18 11:50 Dose: 25 mg Miscellaneous (Lidoderm Patch Removal) 1 each MC DAILY@2200 [facility] Last Admin: 04/19/18 23:03 Dose: 1 each Multivitamins/Minerals/Vitamin C (Tab-A-Vit -) 1 tab PO HS [facility] Last Admin: 04/19/18 23:03 Dose: 1 tab Oxycodone HCl (Roxicodone -) 10 mg PO Q4H PRN PRN Reason: PAIN LEVEL 6-10 - Objective Vital Signs: Vital Signs Temperature 98.2 F 04/20/18 11:17 Pulse Rate 64 11/29/18 11:17 Respiratory Rate 20 04/20/18 11:17 Blood Pressure 115/54 L 04/20/18 11:17 O2 Sat by Pulse Oximetry (%) 100 04/19/18 21:00 Constitutional: Yes: No Distress, Calm Cardiovascular: Yes: Regular Rate and Rhythm Respiratory: Yes: Regular, CTA Bilaterally Gastrointestinal: Yes: Normal Bowel Sounds, Soft Musculoskeletal: Yes: WNL Extremities: Yes: WNL Integumentary: Yes: Rash Neurological: Yes: Alert, Oriented Psychiatric: Yes: Alert, Oriented Labs: CBC, BMP 04/16/18 08:05 04/19/18 06:15 Assessment/Plan Problem List - Problems (1) Peripheral vascular disease Code(s): I73.9 - PERIPHERAL VASCULAR DISEASE, UNSPECIFIED (2) ИРИНА (acute kidney injury) Code(s): N17.9 - ACUTE KIDNEY FAILURE, UNSPECIFIED (3) Cellulitis Code(s): L03.90 - CELLULITIS, UNSPECIFIED Qualifiers: Site of cellulitis: extremity Site of cellulitis of extremity: lower extremity Laterality: right Qualified Code(s): L03.115 - Cellulitis of right lower limb (4) Coronary artery disease DVT prophylaxis-- Heparin sc Code(s): I25.10 - ATHSCL HEART DISEASE OF [place] CORONARY ARTERY W/O ANG PCTRS 5 rash plan continue iv abx mrsa noted cellulitis improving rest as per the team will check vanco level tomorrow wound care
[2018-04-20] MEDS: oxyCODONE HCL 5 MG TABLET PO PRN ×2 (16:31→23:17)
[2018-04-20] MEDS: ATORVASTATIN CA 40 MG TABLET (FP) PO SCH (23:04)
[2018-04-20] MEDS: MULTIVITAMINS (DAILY MVI) TABLET (FP) PO SCH (23:04)
[2018-04-20] MEDS: LIDOCAINE PATCH REMOVAL MC SCH (23:05)
[2018-04-21] MEDS: oxyCODONE HCL 5 MG TABLET PO PRN ×3 (03:14→21:31)
[2018-04-21] MEDS: KETOROLAC TROMETHAMINE 30 MG/1 ML VIAL IM SCH ×2 (03:20→10:58)
[2018-04-21] MEDS: DOCUSATE SODIUM 100 MG CAPSULE (FP) PO SCH ×3 (06:16→21:31)
[2018-04-21] MEDS: CYCLOBENZAPRINE HCL 10 MG TABLET (FP) PO SCH ×3 (06:16→21:29)
[2018-04-21] MEDS: LEVOTHYROXINE NA 125 MCG TABLET (FP) PO SCH (06:16)
[2018-04-21] MEDS: CHLORHEXIDINE GLUCONATE 4% CLEANSER FOR DECOLONIZATION TP SCH ×2 (06:27→21:01)
[2018-04-21] MEDS: HEPARIN NA (PORCINE) 5,000 UNITS/ML 1ML VIAL SQ SCH ×3 (11:04→21:32)
[2018-04-21] MEDS: LIDOCAINE 5% TOPICAL PATCH TP SCH (11:05)
[2018-04-21] MEDS: METOPROLOL TARTRATE 25 MG TABLET (FP) PO SCH ×3 (11:05→21:30)
[2018-04-21] MEDS: ISOSORBIDE MONONITRATE 60 MG TAB.SR.24H (FP) PO SCH ×2 (11:05→11:56)
--- NOTE | 2018-04-21 11:42 | PN ---
Progress Note (short form) - Note Progress Note: pt seen/ examined chart reviewed complains of back pain Vital Signs Temp 97.9 F 04/21/18 06:00 Pulse 56 L 04/21/18 06:00 Resp 22 H 04/21/18 06:00 BP 135/74 04/21/18 06:00 Pulse Ox 100 04/19/18 21:00 Intake & Output 04/20/18 04/20/18 04/21/18 11:59 23:59 11:59 Intake Total 900 1360 420 Output Total 015 536 5888 Balance 300 960 -780 Weight 218 lb 14.4 oz 218 lb 232 lb 14.4 oz Intake: IVPB 250 Oral 650 1360 420 Output: Urine 983 262 5062 Void 051 846 9408 Other: Voiding Method Urinal Toilet Toilet # Unmeasured Voids Void 2 Bowel Movement No No No # Bowel Movements 1 Height 5 ft 7 in Body Mass Index (BMI) 34.1 Weight Measurement Method Standing Scale Standing Scale Active Medications Atorvastatin Calcium (Lipitor -) 40 mg PO HS [facility] Last Admin: 04/20/18 23:04 Dose: 40 mg Chlorhexidine Gluconate (Hibiclens For Decolonization -) 1 applic TP HS [facility] Last Admin: 04/21/18 06:27 Dose: 1 applic Cyclobenzaprine HCl (Flexeril -) 5 mg PO TID [facility] Last Admin: 04/21/18 06:16 Dose: 5 mg Diphenhydramine HCl (Benadryl -) 25 mg PO Q6H PRN PRN Reason: FOR ITCHING Last Admin: 04/17/18 09:35 Dose: 25 mg Docusate Sodium (Colace -) 100 mg PO TID [facility] Last Admin: 04/21/18 06:16 Dose: 100 mg Heparin Sodium (Porcine) (Heparin -) 5,000 unit SQ BID [facility] Last Admin: 04/21/18 11:04 Dose: Not Given Isosorbide Mononitrate (Imdur -) 60 mg PO DAILY [facility] Last Admin: 04/21/18 11:05 Dose: Not Given Ketorolac Tromethamine (Toradol Injection -) 30 mg IM Q8H-IV [facility] Stop: 04/24/18 17:59 Last Admin: 04/21/18 10:58 Dose: 30 mg Levothyroxine Sodium (Synthroid -) 125 mcg PO AM [facility] Last Admin: 04/21/18 06:16 Dose: 125 mcg Lidocaine (Lidoderm Patch -) 1 patch TP DAILY [facility] Last Admin: 04/21/18 11:05 Dose: 1 patch Metoprolol Tartrate (Lopressor -) 25 mg PO BID [facility] Last Admin: 04/21/18 11:05 Dose: Not Given Miscellaneous (Lidoderm Patch Removal) 1 each MC DAILY@2200 [facility] Last Admin: 04/20/18 23:05 Dose: 1 each Multivitamins/Minerals/Vitamin C (Tab-A-Vit -) 1 tab PO HS [facility] Last Admin: 04/20/18 23:04 Dose: 1 tab Oxycodone HCl (Roxicodone -) 10 mg PO Q4H PRN PRN Reason: PAIN LEVEL 6-10 Last Admin: 04/21/18 03:14 Dose: 10 mg CBC, BMP 04/16/18 08:05 04/19/18 06:15 Physical Exam S1 S2 RRR Lungs clear Abd- soft,obese, NT edema+ jered wrap PLAN IV Vanco-- per level Derm consult- pending Ortho eval noted Pain control pain consult jered wrap continue with meds will follow Problem List - Problems (1) Back pain Code(s): M54.9 - DORSALGIA, UNSPECIFIED (2) Cellulitis Code(s): L03.90 - CELLULITIS, UNSPECIFIED Qualifiers: Site of cellulitis: extremity Site of cellulitis of extremity: lower extremity Laterality: right Qualified Code(s): L03.115 - Cellulitis of right lower limb (3) Peripheral vascular disease Code(s): I73.9 - PERIPHERAL VASCULAR DISEASE, UNSPECIFIED (4) Coronary artery disease Code(s): I25.10 - ATHSCL HEART DISEASE OF [place] CORONARY ARTERY W/O ANG PCTRS (5) Obesity Code(s): E66.9 - OBESITY, UNSPECIFIED (6) Wound infection Code(s): T14.8XXA - OTHER INJURY OF UNSPECIFIED BODY REGION, INITIAL ENCOUNTER; L08.9 - LOCAL INFECTION OF THE SKIN AND SUBCUTANEOUS TISSUE, UNSP
--- NOTE | 2018-04-21 13:05 | PN ---
Progress Note, Physician History of Present Illness: stable no complaints except sever back pain rash improving - Current Medication List Current Medications: Active Medications Atorvastatin Calcium (Lipitor -) 40 mg PO HS [facility] Last Admin: 04/20/18 23:04 Dose: 40 mg Chlorhexidine Gluconate (Hibiclens For Decolonization -) 1 applic TP HS [facility] Last Admin: 04/21/18 06:27 Dose: 1 applic Cyclobenzaprine HCl (Flexeril -) 5 mg PO TID [facility] Last Admin: 04/21/18 06:16 Dose: 5 mg Diphenhydramine HCl (Benadryl -) 25 mg PO Q6H PRN PRN Reason: FOR ITCHING Last Admin: 04/17/18 09:35 Dose: 25 mg Docusate Sodium (Colace -) 100 mg PO TID [facility] Last Admin: 04/21/18 06:16 Dose: 100 mg Heparin Sodium (Porcine) (Heparin -) 5,000 unit SQ BID [facility] Last Admin: 04/21/18 11:55 Dose: 5,000 unit Isosorbide Mononitrate (Imdur -) 60 mg PO DAILY [facility] Last Admin: 04/21/18 11:56 Dose: 60 mg Ketorolac Tromethamine (Toradol Injection -) 30 mg IVPUSH Q8H-IV [facility] Stop: 04/24/18 17:59 Levothyroxine Sodium (Synthroid -) 125 mcg PO AM [facility] Last Admin: 04/21/18 06:16 Dose: 125 mcg Lidocaine (Lidoderm Patch -) 1 patch TP DAILY [facility] Last Admin: 04/21/18 11:05 Dose: 1 patch Metoprolol Tartrate (Lopressor -) 25 mg PO BID [facility] Last Admin: 04/21/18 11:56 Dose: 25 mg Miscellaneous (Lidoderm Patch Removal) 1 each [facility] DAILY@2200 [facility] Last Admin: 04/20/18 23:05 Dose: 1 each Multivitamins/Minerals/Vitamin C (Tab-A-Vit -) 1 tab PO HS [facility] Last Admin: 04/20/18 23:04 Dose: 1 tab Oxycodone HCl (Roxicodone -) 10 mg PO Q4H PRN PRN Reason: PAIN LEVEL 6-10 Last Admin: 04/21/18 03:14 Dose: 10 mg - Objective Vital Signs: Vital Signs Temperature 98.1 F 04/21/18 11:54 Pulse Rate 56 L 04/21/18 11:54 Respiratory Rate 20 04/21/18 11:54 Blood Pressure 138/76 04/21/18 11:54 O2 Sat by Pulse Oximetry (%) 100 04/19/18 21:00 Constitutional: Yes: No Distress, Calm, Obese Cardiovascular: Yes: Regular Rate and Rhythm Respiratory: Yes: Regular, CTA Bilaterally Gastrointestinal: Yes: Normal Bowel Sounds, Soft Musculoskeletal: Yes: Back Pain (severe), Other Extremities: Yes: WNL Integumentary: Yes: Rash (improving) Neurological: Yes: Alert, Oriented Psychiatric: Yes: Alert, Oriented Labs: CBC, BMP 04/16/18 08:05 04/19/18 06:15 Assessment/Plan Problem List - Problems (1) Peripheral vascular disease Code(s): I73.9 - PERIPHERAL VASCULAR DISEASE, UNSPECIFIED (2) ИРИНА (acute kidney injury) Code(s): N17.9 - ACUTE KIDNEY FAILURE, UNSPECIFIED (3) Cellulitis Code(s): L03.90 - CELLULITIS, UNSPECIFIED Qualifiers: Site of cellulitis: extremity Site of cellulitis of extremity: lower extremity Laterality: right Qualified Code(s): L03.115 - Cellulitis of right lower limb (4) Coronary artery disease DVT prophylaxis-- Heparin sc Code(s): I25.10 - ATHSCL HEART DISEASE OF [place] CORONARY ARTERY W/O ANG PCTRS 5 rash plan continue iv abx cellulitis and rash improving monitor closely rest as per the team pain mgmt
[2018-04-21] MEDS: VANCOMYCIN 1,250 MG in DEXTROSE 5%-WATER - 250 ML IVPB SCH (16:25)
[2018-04-21] MEDS: KETOROLAC TROMETHAMINE 30 MG/1 ML VIAL IVPUSH SCH ×2 (18:00→19:06)
[2018-04-21] MEDS: ATORVASTATIN CA 40 MG TABLET (FP) PO SCH (21:30)
[2018-04-21] MEDS: MULTIVITAMINS (DAILY MVI) TABLET (FP) PO SCH (21:31)
[2018-04-21] MEDS: LIDOCAINE PATCH REMOVAL MC SCH (21:32)
[2018-04-22] MEDS: KETOROLAC TROMETHAMINE 30 MG/1 ML VIAL IVPUSH SCH ×3 (01:23→17:05)
[2018-04-22] MEDS: CYCLOBENZAPRINE HCL 10 MG TABLET (FP) PO SCH ×3 (06:17→22:03)
[2018-04-22] MEDS: LEVOTHYROXINE NA 125 MCG TABLET (FP) PO SCH (06:18)
[2018-04-22] MEDS: DOCUSATE SODIUM 100 MG CAPSULE (FP) PO SCH ×3 (06:18→22:04)
[2018-04-22] MEDS: oxyCODONE HCL 5 MG TABLET PO PRN ×3 (06:18→22:04)
[2018-04-22] MEDS: ISOSORBIDE MONONITRATE 60 MG TAB.SR.24H (FP) PO SCH (09:41)
[2018-04-22] MEDS: METOPROLOL TARTRATE 25 MG TABLET (FP) PO SCH ×2 (09:41→22:04)
[2018-04-22] MEDS: LIDOCAINE 5% TOPICAL PATCH TP SCH (09:42)
[2018-04-22] MEDS: HEPARIN NA (PORCINE) 5,000 UNITS/ML 1ML VIAL SQ SCH ×2 (09:44→22:03)
--- NOTE | 2018-04-22 12:02 | PN ---
Progress Note (short form) - Note Progress Note: pt seen/ examined pain better with i/v toradol-- but still there Vital Signs Temp 98.2 F 04/22/18 10:05 Pulse 58 L 04/22/18 10:05 Resp 20 04/22/18 10:05 BP 141/66 04/22/18 10:05 Pulse Ox 96 04/21/18 21:00 Intake & Output 04/21/18 04/22/18 04/22/18 23:59 11:59 23:59 Intake Total 680 480 Balance 680 480 Intake: IVPB 250 Oral 430 480 Other: Voiding Method Toilet Toilet # Unmeasured Voids Void 1 1 Bowel Movement No No Active Medications Atorvastatin Calcium (Lipitor -) 40 mg PO HS [facility] Last Admin: 04/21/18 21:30 Dose: 40 mg Chlorhexidine Gluconate (Hibiclens For Decolonization -) 1 applic TP HS [facility] Last Admin: 04/21/18 21:01 Dose: Not Given Cyclobenzaprine HCl (Flexeril -) 5 mg PO TID [facility] Last Admin: 04/22/18 06:17 Dose: 5 mg Diphenhydramine HCl (Benadryl -) 25 mg PO Q6H PRN PRN Reason: FOR ITCHING Last Admin: 04/17/18 09:35 Dose: 25 mg Docusate Sodium (Colace -) 100 mg PO TID [facility] Last Admin: 04/22/18 06:18 Dose: 100 mg Heparin Sodium (Porcine) (Heparin -) 5,000 unit SQ BID [facility] Last Admin: 04/22/18 09:44 Dose: 5,000 unit Vancomycin HCl 1,250 mg/ (Dextrose) 250 mls @ 166.667 mls/hr IVPB Q24H [facility]; Protocol Last Admin: 04/21/18 16:25 Dose: 166.667 mls/hr Isosorbide Mononitrate (Imdur -) 60 mg PO DAILY [facility] Last Admin: 04/22/18 09:41 Dose: 60 mg Ketorolac Tromethamine (Toradol Injection -) 30 mg IVPUSH Q8H-IV [facility] Stop: 04/24/18 17:59 Last Admin: 04/22/18 09:42 Dose: 30 mg Levothyroxine Sodium (Synthroid -) 125 mcg PO AM [facility] Last Admin: 04/22/18 06:18 Dose: 125 mcg Lidocaine (Lidoderm Patch -) 1 patch TP DAILY [facility] Last Admin: 04/22/18 09:42 Dose: 1 patch Metoprolol Tartrate (Lopressor -) 25 mg PO BID [facility] Last Admin: 04/22/18 09:41 Dose: 25 mg Miscellaneous (Lidoderm Patch Removal) 1 each [facility] DAILY@2200 [facility] Last Admin: 04/21/18 21:32 Dose: 1 each Multivitamins/Minerals/Vitamin C (Tab-A-Vit -) 1 tab PO HS [facility] Last Admin: 04/21/18 21:31 Dose: 1 tab Oxycodone HCl (Roxicodone -) 10 mg PO Q4H PRN PRN Reason: PAIN LEVEL 6-10 Last Admin: 04/22/18 06:18 Dose: 10 mg CBC, BMP 04/16/18 08:05 04/19/18 06:15 Physical S1 S2 RRR Lungs clear Abd- soft,obese, NT edema+ jered wrap PLAN IV Vanco Derm consult Pain control will order mri l-s spine pain management to follow jered wrap continue with meds will follow Problem List - Problems (1) Back pain Code(s): M54.9 - DORSALGIA, UNSPECIFIED (2) Cellulitis Code(s): L03.90 - CELLULITIS, UNSPECIFIED Qualifiers: Site of cellulitis: extremity Site of cellulitis of extremity: lower extremity Laterality: right Qualified Code(s): L03.115 - Cellulitis of right lower limb (3) Peripheral vascular disease Code(s): I73.9 - PERIPHERAL VASCULAR DISEASE, UNSPECIFIED (4) Coronary artery disease Code(s): I25.10 - ATHSCL HEART DISEASE OF [place] CORONARY ARTERY W/O ANG PCTRS (5) Obesity Code(s): E66.9 - OBESITY, UNSPECIFIED (6) Wound infection Code(s): T14.8XXA - OTHER INJURY OF UNSPECIFIED BODY REGION, INITIAL ENCOUNTER; L08.9 - LOCAL INFECTION OF THE SKIN AND SUBCUTANEOUS TISSUE, UNSP
[2018-04-22] MEDS: VANCOMYCIN 1,250 MG in DEXTROSE 5%-WATER - 250 ML IVPB SCH (12:33)
[2018-04-22] MEDS: MULTIVITAMINS (DAILY MVI) TABLET (FP) PO SCH (22:03)
[2018-04-22] MEDS: ATORVASTATIN CA 40 MG TABLET (FP) PO SCH (22:04)
[2018-04-22] MEDS: CHLORHEXIDINE GLUCONATE 4% CLEANSER FOR DECOLONIZATION TP SCH (22:05)
[2018-04-22] MEDS: LIDOCAINE PATCH REMOVAL MC SCH (22:06)
[2018-04-23] MEDS: KETOROLAC TROMETHAMINE 30 MG/1 ML VIAL IVPUSH SCH ×3 (02:07→18:39)
[2018-04-23] MEDS: oxyCODONE HCL 5 MG TABLET PO PRN ×4 (06:30→23:05)
[2018-04-23] MEDS: CYCLOBENZAPRINE HCL 10 MG TABLET (FP) PO SCH ×3 (06:30→23:04)
[2018-04-23] MEDS: LEVOTHYROXINE NA 125 MCG TABLET (FP) PO SCH (06:30)
[2018-04-23] MEDS: DOCUSATE SODIUM 100 MG CAPSULE (FP) PO SCH ×3 (06:30→23:05)
[2018-04-23 08:00] LABS: BASO % 0.7 % (0-2.0); EOS % 6.6 % (0-4.5); HEMATOCRIT 33.7 % (35.4-49); HEMOGLOBIN 11.3 GM/dL (11.7-16.9); LYMPH % 13.5 % (8-40); MCH 29.8 pg (25.7-33.7); MCHC 33.5 g/dl (32.0-35.9); MEAN PLT VOLUME 8.7 fl (7.5-11.1); NEUT % 64.2 % (42.8-82.8); PLATELET COUNT 114 K/MM3 (134-434); RBC 3.78 M/mm3 (4.00-5.60); RDW 13.6 % (11.9-15.9); WHITE BLOOD COUNT 3.9 K/mm3 (4.0-10.0)
[2018-04-23 08:30] LABS: ALBUMIN 3.2 g/dl (3.4-5.0); ALK PHOS 99 U/L (45-117); ANION GAP 8 MMOL/L (8-16); BILIRUBIN,TOTAL 0.5 mg/dL (0.2-1); BLOOD UREA NITROGEN 26 mg/dL (7-18); CALCIUM 8.3 mg/dL (8.5-10.1); CHLORIDE 108 mmol/L (98-107); CO2 25 mmol/L (21-32); CREATININE 1.2 mg/dL (0.55-1.3); GLUCOSE,RANDOM 92 mg/dL (74-106); POTASSIUM 4.1 mmol/L (3.5-5.1); SGOT/AST 23 U/L (15-37); SGPT/ALT 36 U/L (13-61); SODIUM 141 mmol/L (136-145); TOT PROT 5.8 g/dl (6.4-8.2)
[2018-04-23 09:03] LABS: ERYTHROCYTE SEDIMENTATION RATE 21 mm/hr (0-20)
[2018-04-23] MEDS: HEPARIN NA (PORCINE) 5,000 UNITS/ML 1ML VIAL SQ SCH ×2 (09:34→23:05)
[2018-04-23] MEDS: METOPROLOL TARTRATE 25 MG TABLET (FP) PO SCH ×2 (09:35→23:05)
[2018-04-23] MEDS: ISOSORBIDE MONONITRATE 60 MG TAB.SR.24H (FP) PO SCH (09:35)
[2018-04-23] MEDS: LIDOCAINE 5% TOPICAL PATCH TP SCH (09:36)
--- NOTE | 2018-04-23 12:01 | PN ---
Progress Note (short form) - Note Progress Note: sitting in chair overall condition same mri done today - report pending Vital Signs Temp 98.2 F 04/23/18 09:00 Pulse 62 04/23/18 09:00 Resp 20 04/23/18 09:00 BP 128/72 04/23/18 09:00 Pulse Ox 95 04/22/18 21:00 Intake & Output 04/22/18 04/23/18 04/23/18 23:59 11:59 23:59 Intake Total 860 780 Output Total 1000 400 Balance -140 380 Intake: Oral 860 780 Output: Urine 1000 400 Void 1000 400 Other: Voiding Method Toilet Toilet # Unmeasured Voids Void 1 1 Bowel Movement Yes No Active Medications Atorvastatin Calcium (Lipitor -) 40 mg PO HS [facility] Last Admin: 04/22/18 22:04 Dose: 40 mg Chlorhexidine Gluconate (Hibiclens For Decolonization -) 1 applic TP [facility] Last Admin: 04/22/18 22:05 Dose: Not Given Cyclobenzaprine HCl (Flexeril -) 5 mg PO TID [facility] Last Admin: 04/23/18 06:30 Dose: 5 mg Diphenhydramine HCl (Benadryl -) 25 mg PO Q6H PRN PRN Reason: FOR ITCHING Last Admin: 04/17/18 09:35 Dose: 25 mg Docusate Sodium (Colace -) 100 mg PO TID [facility] Last Admin: 04/23/18 06:30 Dose: 100 mg Heparin Sodium (Porcine) (Heparin -) 5,000 unit SQ BID [facility] Last Admin: 04/23/18 09:34 Dose: 5,000 unit Vancomycin HCl 1,250 mg/ (Dextrose) 250 mls @ 166.667 mls/hr IVPB Q24H [facility]; Protocol Last Admin: 04/22/18 12:33 Dose: 166.667 mls/hr Isosorbide Mononitrate (Imdur -) 60 mg PO DAILY [facility] Last Admin: 04/23/18 09:35 Dose: 60 mg Ketorolac Tromethamine (Toradol Injection -) 30 mg IVPUSH Q8H-IV [facility] Stop: 04/24/18 17:59 Last Admin: 04/23/18 09:36 Dose: 30 mg Levothyroxine Sodium (Synthroid -) 125 mcg PO AM [facility] Last Admin: 04/23/18 06:30 Dose: 125 mcg Lidocaine (Lidoderm Patch -) 1 patch TP DAILY [facility] Last Admin: 04/23/18 09:36 Dose: 1 patch Metoprolol Tartrate (Lopressor -) 25 mg PO BID [facility] Last Admin: 04/23/18 09:35 Dose: 25 mg Miscellaneous (Lidoderm Patch Removal) 1 each [facility] DAILY@2200 [facility] Last Admin: 04/22/18 22:06 Dose: 1 each Multivitamins/Minerals/Vitamin C (Tab-A-Vit -) 1 tab PO HS [facility] Last Admin: 04/22/18 22:03 Dose: 1 tab Oxycodone HCl (Roxicodone -) 10 mg PO Q4H PRN PRN Reason: PAIN LEVEL 6-10 CBC, BMP 04/23/18 06:35 04/23/18 06:35 mri - done - pending report . Physical S1 S2 RRR Lungs clear Abd- soft,obese, NT edema+ jered wrap PLAN IV Vanco Derm consult- pending Pain control mri l-s spine -- will review report when available. pain management to follow jered wrap continue with meds will follow. i/d to follow Problem List - Problems (1) Back pain Code(s): M54.9 - DORSALGIA, UNSPECIFIED (2) Cellulitis Code(s): L03.90 - CELLULITIS, UNSPECIFIED Qualifiers: Site of cellulitis: extremity Site of cellulitis of extremity: lower extremity Laterality: right Qualified Code(s): L03.115 - Cellulitis of right lower limb (3) Peripheral vascular disease Code(s): I73.9 - PERIPHERAL VASCULAR DISEASE, UNSPECIFIED (4) Coronary artery disease Code(s): I25.10 - ATHSCL HEART DISEASE OF [place] CORONARY ARTERY W/O ANG PCTRS (5) Obesity Code(s): E66.9 - OBESITY, UNSPECIFIED (6) Wound infection Code(s): T14.8XXA - OTHER INJURY OF UNSPECIFIED BODY REGION, INITIAL ENCOUNTER; L08.9 - LOCAL INFECTION OF THE SKIN AND SUBCUTANEOUS TISSUE, UNSP
[2018-04-23] MEDS: VANCOMYCIN 1,250 MG in DEXTROSE 5%-WATER - 250 ML IVPB SCH (12:33)
--- NOTE | 2018-04-23 13:49 | PN ---
Progress Note, Physician History of Present Illness: continues to ahve back pain says it has made him non functional - Current Medication List Current Medications: Active Medications Atorvastatin Calcium (Lipitor -) 40 mg PO HS [facility] Last Admin: 04/22/18 22:04 Dose: 40 mg Chlorhexidine Gluconate (Hibiclens For Decolonization -) 1 applic TP HS [facility] Last Admin: 04/22/18 22:05 Dose: Not Given Cyclobenzaprine HCl (Flexeril -) 5 mg PO TID [facility] Last Admin: 04/23/18 06:30 Dose: 5 mg Diphenhydramine HCl (Benadryl -) 25 mg PO Q6H PRN PRN Reason: FOR ITCHING Last Admin: 04/17/18 09:35 Dose: 25 mg Docusate Sodium (Colace -) 100 mg PO TID [facility] Last Admin: 04/23/18 06:30 Dose: 100 mg Heparin Sodium (Porcine) (Heparin -) 5,000 unit SQ BID [facility] Last Admin: 04/23/18 09:34 Dose: 5,000 unit Vancomycin HCl 1,250 mg/ (Dextrose) 250 mls @ 166.667 mls/hr IVPB Q24H [facility]; Protocol Last Admin: 04/23/18 12:33 Dose: 166.667 mls/hr Isosorbide Mononitrate (Imdur -) 60 mg PO DAILY [facility] Last Admin: 04/23/18 09:35 Dose: 60 mg Ketorolac Tromethamine (Toradol Injection -) 30 mg IVPUSH Q8H-IV [facility] Stop: 04/24/18 17:59 Last Admin: 04/23/18 09:36 Dose: 30 mg Levothyroxine Sodium (Synthroid -) 125 mcg PO AM [facility] Last Admin: 04/23/18 06:30 Dose: 125 mcg Lidocaine (Lidoderm Patch -) 1 patch TP DAILY [facility] Last Admin: 04/23/18 09:36 Dose: 1 patch Metoprolol Tartrate (Lopressor -) 25 mg PO BID [facility] Last Admin: 04/23/18 09:35 Dose: 25 mg Miscellaneous (Lidoderm Patch Removal) 1 each [facility] DAILY@2200 [facility] Last Admin: 04/22/18 22:06 Dose: 1 each Multivitamins/Minerals/Vitamin C (Tab-A-Vit -) 1 tab PO HS [facility] Last Admin: 04/22/18 22:03 Dose: 1 tab Oxycodone HCl (Roxicodone -) 10 mg PO Q4H PRN PRN Reason: PAIN LEVEL 6-10 Last Admin: 04/23/18 12:33 Dose: 10 mg - Objective Vital Signs: Vital Signs Temperature 98.2 F 04/23/18 09:00 Pulse Rate 62 04/23/18 09:00 Respiratory Rate 20 04/23/18 09:00 Blood Pressure 128/72 04/23/18 09:00 O2 Sat by Pulse Oximetry (%) 95 04/22/18 21:00 Constitutional: Yes: Calm, Moderate Distress, Obese Cardiovascular: Yes: Regular Rate and Rhythm Respiratory: Yes: Regular, CTA Bilaterally Gastrointestinal: Yes: Normal Bowel Sounds, Soft Musculoskeletal: Yes: Back Pain (severe) Integumentary: Yes: Rash (resolving) Neurological: Yes: Alert, Oriented Psychiatric: Yes: Alert, Oriented Labs: CBC, BMP 04/23/18 06:35 04/23/18 06:35 Assessment/Plan Problem List - Problems (1) Peripheral vascular disease Code(s): I73.9 - PERIPHERAL VASCULAR DISEASE, UNSPECIFIED (2) ИРИНА (acute kidney injury) Code(s): N17.9 - ACUTE KIDNEY FAILURE, UNSPECIFIED (3) Cellulitis Code(s): L03.90 - CELLULITIS, UNSPECIFIED Qualifiers: Site of cellulitis: extremity Site of cellulitis of extremity: lower extremity Laterality: right Qualified Code(s): L03.115 - Cellulitis of right lower limb (4) Coronary artery disease DVT prophylaxis-- Heparin sc Code(s): I25.10 - ATHSCL HEART DISEASE OF [place] CORONARY ARTERY W/O ANG PCTRS 5 rash plan continue iv abx cellulitis and rash improving monitor closely rest as per the team pain mgmt
[2018-04-23] MEDS: ATORVASTATIN CA 40 MG TABLET (FP) PO SCH (23:05)
[2018-04-23] MEDS: MULTIVITAMINS (DAILY MVI) TABLET (FP) PO SCH (23:05)
[2018-04-23] MEDS: LIDOCAINE PATCH REMOVAL MC SCH (23:06)
[2018-04-23] MEDS: CHLORHEXIDINE GLUCONATE 4% CLEANSER FOR DECOLONIZATION TP SCH (23:06)
[2018-04-24] MEDS: KETOROLAC TROMETHAMINE 30 MG/1 ML VIAL IVPUSH SCH ×4 (02:13→16:54)
[2018-04-24] MEDS: DOCUSATE SODIUM 100 MG CAPSULE (FP) PO SCH ×4 (06:19→23:15)
[2018-04-24] MEDS: LEVOTHYROXINE NA 125 MCG TABLET (FP) PO SCH (06:19)
[2018-04-24] MEDS: CYCLOBENZAPRINE HCL 10 MG TABLET (FP) PO SCH ×4 (06:19→23:15)
[2018-04-24] MEDS: oxyCODONE HCL 5 MG TABLET PO PRN ×3 (06:20→19:37)
[2018-04-24] MEDS: METOPROLOL TARTRATE 25 MG TABLET (FP) PO SCH ×2 (10:39→23:13)
[2018-04-24] MEDS: ISOSORBIDE MONONITRATE 60 MG TAB.SR.24H (FP) PO SCH (10:39)
[2018-04-24] MEDS: LIDOCAINE 5% TOPICAL PATCH TP SCH (10:40)
[2018-04-24] MEDS: HEPARIN NA (PORCINE) 5,000 UNITS/ML 1ML VIAL SQ SCH ×2 (10:40→23:16)
--- NOTE | 2018-04-24 13:33 | PN ---
Progress Note (short form) - Note Progress Note: patient seen and examined Mood labile Frustrated with back pain afebrile Vital Signs Temp 97.7 F 04/24/18 11:50 Pulse 58 L 04/24/18 10:38 Resp 20 04/24/18 10:38 BP 131/61 04/24/18 10:38 Pulse Ox 96 04/23/18 21:00 Intake & Output 04/23/18 04/24/18 04/24/18 23:59 11:59 23:59 Intake Total 1410 200 Output Total 1750 500 Balance -340 -300 Intake: IVPB 250 Oral 1160 200 Output: Urine 1750 500 Void 1750 500 Other: Voiding Method Toilet Toilet Bowel Movement No Active Medications Atorvastatin Calcium (Lipitor -) 40 mg PO HS [facility] Last Admin: 04/23/18 23:05 Dose: 40 mg Chlorhexidine Gluconate (Hibiclens For Decolonization -) 1 applic TP HS [facility] Last Admin: 04/23/18 23:06 Dose: Not Given Cyclobenzaprine HCl (Flexeril -) 5 mg PO TID [facility] Last Admin: 04/24/18 06:19 Dose: 5 mg Diphenhydramine HCl (Benadryl -) 25 mg PO Q6H PRN PRN Reason: FOR ITCHING Last Admin: 04/17/18 09:35 Dose: 25 mg Docusate Sodium (Colace -) 100 mg PO TID [facility] Last Admin: 04/24/18 06:19 Dose: 100 mg Heparin Sodium (Porcine) (Heparin -) 5,000 unit SQ BID [facility] Last Admin: 04/24/18 10:40 Dose: 5,000 unit Vancomycin HCl 1,250 mg/ (Dextrose) 250 mls @ 166.667 mls/hr IVPB Q24H [facility]; Protocol Last Admin: 04/23/18 12:33 Dose: 166.667 mls/hr Isosorbide Mononitrate (Imdur -) 60 mg PO DAILY [facility] Last Admin: 04/24/18 10:39 Dose: 60 mg Ketorolac Tromethamine (Toradol Injection -) 30 mg IVPUSH Q8H-IV [facility] Stop: 04/24/18 17:59 Last Admin: 04/24/18 10:53 Dose: Not Given Levothyroxine Sodium (Synthroid -) 125 mcg PO AM [facility] Last Admin: 04/24/18 06:19 Dose: 125 mcg Lidocaine (Lidoderm Patch -) 1 patch TP DAILY [facility] Last Admin: 04/24/18 10:40 Dose: 1 patch Metoprolol Tartrate (Lopressor -) 25 mg PO BID [facility] Last Admin: 04/24/18 10:39 Dose: 25 mg Miscellaneous (Lidoderm Patch Removal) 1 each [facility] DAILY@2200 [facility] Last Admin: 04/23/18 23:06 Dose: 1 each Multivitamins/Minerals/Vitamin C (Tab-A-Vit -) 1 tab PO HS [facility] Last Admin: 04/23/18 23:05 Dose: 1 tab Oxycodone HCl (Roxicodone -) 10 mg PO Q4H PRN PRN Reason: PAIN LEVEL 6-10 Last Admin: 04/24/18 06:20 Dose: 10 mg CBC, BMP 04/23/18 06:35 04/23/18 06:35 mri - report reviewed Physical S1 S2 RRR Lungs clear Abd- soft,obese, NT edema+ jered wrap PLAN discussed in detail with patient MRI also reviewed and discussed--- patient has issues with the spine I also spoke with Dr. Hernandez-- he will come later today--- to reassess Continue Present care for now Patient in agreement with the above IV Vanco --As per ID Derm consult- jered wrap continue with meds will follow. 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 Problem List - Problems (1) Back pain Code(s): M54.9 - DORSALGIA, UNSPECIFIED (2) Cellulitis Code(s): L03.90 - CELLULITIS, UNSPECIFIED Qualifiers: Site of cellulitis: extremity Site of cellulitis of extremity: lower extremity Laterality: right Qualified Code(s): L03.115 - Cellulitis of right lower limb (3) Peripheral vascular disease Code(s): I73.9 - PERIPHERAL VASCULAR DISEASE, UNSPECIFIED (4) Coronary artery disease Code(s): I25.10 - ATHSCL HEART DISEASE OF [place] CORONARY ARTERY W/O ANG PCTRS (5) Obesity Code(s): E66.9 - OBESITY, UNSPECIFIED (6) Wound infection Code(s): T14.8XXA - OTHER INJURY OF UNSPECIFIED BODY REGION, INITIAL ENCOUNTER; L08.9 - LOCAL INFECTION OF THE SKIN AND SUBCUTANEOUS TISSUE, UNSP
[2018-04-24] MEDS: VANCOMYCIN 1,250 MG in DEXTROSE 5%-WATER - 250 ML IVPB SCH ×2 (14:09→17:02)
--- NOTE | 2018-04-24 15:26 | PN ---
Progress Note, Physician History of Present Illness: pain main issues back pain not allowing him to function according to him cellulitis decreasing rash decreasing - Current Medication List Current Medications: Active Medications Atorvastatin Calcium (Lipitor -) 40 mg PO HS [facility] Last Admin: 04/23/18 23:05 Dose: 40 mg Chlorhexidine Gluconate (Hibiclens For Decolonization -) 1 applic TP HS [facility] Last Admin: 04/23/18 23:06 Dose: Not Given Cyclobenzaprine HCl (Flexeril -) 5 mg PO TID [facility] Last Admin: 04/24/18 14:08 Dose: Not Given Diphenhydramine HCl (Benadryl -) 25 mg PO Q6H PRN PRN Reason: FOR ITCHING Last Admin: 04/17/18 09:35 Dose: 25 mg Docusate Sodium (Colace -) 100 mg PO TID [facility] Last Admin: 04/24/18 14:08 Dose: Not Given Heparin Sodium (Porcine) (Heparin -) 5,000 unit SQ BID [facility] Last Admin: 04/24/18 10:40 Dose: 5,000 unit Vancomycin HCl 1,250 mg/ (Dextrose) 250 mls @ 166.667 mls/hr IVPB Q24H [facility]; Protocol Last Admin: 04/24/18 14:09 Dose: Not Given Isosorbide Mononitrate (Imdur -) 60 mg PO DAILY [facility] Last Admin: 04/24/18 10:39 Dose: 60 mg Ketorolac Tromethamine (Toradol Injection -) 30 mg IVPUSH Q8H-IV [facility] Stop: 04/24/18 17:59 Last Admin: 04/24/18 10:53 Dose: Not Given Levothyroxine Sodium (Synthroid -) 125 mcg PO AM [facility] Last Admin: 04/24/18 06:19 Dose: 125 mcg Lidocaine (Lidoderm Patch -) 1 patch TP DAILY [facility] Last Admin: 04/24/18 10:40 Dose: 1 patch Metoprolol Tartrate (Lopressor -) 25 mg PO BID [facility] Last Admin: 04/24/18 10:39 Dose: 25 mg Miscellaneous (Lidoderm Patch Removal) 1 each [facility] DAILY@2200 [facility] Last Admin: 04/23/18 23:06 Dose: 1 each Multivitamins/Minerals/Vitamin C (Tab-A-Vit -) 1 tab PO HS [facility] Last Admin: 04/23/18 23:05 Dose: 1 tab Oxycodone HCl (Roxicodone -) 10 mg PO Q4H PRN PRN Reason: PAIN LEVEL 6-10 Last Admin: 04/24/18 06:20 Dose: 10 mg - Objective Vital Signs: Vital Signs Temperature 97.7 F 04/24/18 11:50 Pulse Rate 58 L 04/24/18 10:38 Respiratory Rate 20 04/24/18 10:38 Blood Pressure 131/61 04/24/18 10:38 O2 Sat by Pulse Oximetry (%) 96 04/23/18 21:00 Constitutional: Yes: Calm, Moderate Distress, Obese Cardiovascular: Yes: S1, S2 Respiratory: Yes: Regular, CTA Bilaterally Gastrointestinal: Yes: Normal Bowel Sounds, Soft Musculoskeletal: Yes: Back Pain Extremities: Yes: Erythema (improving), Other Integumentary: Yes: Rash (improving) Neurological: Yes: Alert, Oriented Psychiatric: Yes: Alert, Oriented Labs: CBC, BMP 04/23/18 06:35 04/23/18 06:35 Assessment/Plan Problem List - Problems (1) Peripheral vascular disease Code(s): I73.9 - PERIPHERAL VASCULAR DISEASE, UNSPECIFIED (2) ИРИНА (acute kidney injury) Code(s): N17.9 - ACUTE KIDNEY FAILURE, UNSPECIFIED (3) Cellulitis Code(s): L03.90 - CELLULITIS, UNSPECIFIED Qualifiers: Site of cellulitis: extremity Site of cellulitis of extremity: lower extremity Laterality: right Qualified Code(s): L03.115 - Cellulitis of right lower limb (4) Coronary artery disease DVT prophylaxis-- Heparin sc Code(s): I25.10 - ATHSCL HEART DISEASE OF [place] CORONARY ARTERY W/O ANG PCTRS 5 rash plan continue iv abx cellulitis and rash improving monitor closely rest as per the team pain mgmt
--- NOTE | 2018-04-24 20:30 | PN ---
Progress Note, Physician Chief Complaint: 68 yr old male still c/po pain 03/01 but taking oxycodone 20 mg Twice a day. But keep on asking for Oxycontin 40 mg Twie a day . He was getting IV toradol also. - Current Medication List Current Medications: Active Medications Atorvastatin Calcium (Lipitor -) 40 mg PO HS [facility] Last Admin: 04/23/18 23:05 Dose: 40 mg Chlorhexidine Gluconate (Hibiclens For Decolonization -) 1 applic TP HS [facility] Last Admin: 04/23/18 23:06 Dose: Not Given Cyclobenzaprine HCl (Flexeril -) 5 mg PO TID [facility] Last Admin: 04/24/18 15:19 Dose: 5 mg Diphenhydramine HCl (Benadryl -) 25 mg PO Q6H PRN PRN Reason: FOR ITCHING Last Admin: 04/17/18 09:35 Dose: 25 mg Docusate Sodium (Colace -) 100 mg PO TID [facility] Last Admin: 04/24/18 15:19 Dose: 100 mg Heparin Sodium (Porcine) (Heparin -) 5,000 unit SQ BID [facility] Last Admin: 04/24/18 10:40 Dose: 5,000 unit Vancomycin HCl 1,250 mg/ (Dextrose) 250 mls @ 166.667 mls/hr IVPB Q24H [facility]; Protocol Last Admin: 04/24/18 17:02 Dose: 166.667 mls/hr Isosorbide Mononitrate (Imdur -) 60 mg PO DAILY [facility] Last Admin: 04/24/18 10:39 Dose: 60 mg Levothyroxine Sodium (Synthroid -) 125 mcg PO AM [facility] Last Admin: 04/24/18 06:19 Dose: 125 mcg Lidocaine (Lidoderm Patch -) 1 patch TP DAILY [facility] Last Admin: 04/24/18 10:40 Dose: 1 patch Metoprolol Tartrate (Lopressor -) 25 mg PO BID [facility] Last Admin: 04/24/18 10:39 Dose: 25 mg Miscellaneous (Lidoderm Patch Removal) 1 each [facility] DAILY@2200 [facility] Last Admin: 04/23/18 23:06 Dose: 1 each Multivitamins/Minerals/Vitamin C (Tab-A-Vit -) 1 tab PO HS [facility] Last Admin: 04/23/18 23:05 Dose: 1 tab Oxycodone HCl (Roxicodone -) 10 mg PO Q4H PRN PRN Reason: PAIN LEVEL 6-10 Last Admin: 04/24/18 19:37 Dose: 10 mg - Objective Vital Signs: Vital Signs Temperature 98.5 F 04/24/18 18:00 Pulse Rate 56 L 04/24/18 18:00 Respiratory Rate 20 04/24/18 18:00 Blood Pressure 159/74 04/24/18 18:00 O2 Sat by Pulse Oximetry (%) 96 04/23/18 21:00 Constitutional: Yes: Well Nourished Eyes: Yes: WNL HENT: Yes: WNL Neck: Yes: WNL Musculoskeletal: Yes: Back Pain Extremities: Yes: Other (bilateral leg swelling and dressing present) Edema: Yes Neurological: Yes: WNL Labs: CBC, BMP 04/23/18 06:35 04/23/18 06:35 Problem List - Problems (1) Spondylolisthesis Code(s): M43.10 - SPONDYLOLISTHESIS, SITE UNSPECIFIED Qualifiers: Spinal region: lumbosacral Qualified Code(s): M43.17 - Spondylolisthesis, lumbosacral region Assessment/Plan Discussed in detali and answered all his question. 1. continue current care 2. Lidoderm patch 3.Toradol 30 mg IM BID PRN 4. Physical therapy eval if cleared from Medical team 5. X-ray of L-S spine . 6. please call me if pain does not get better. Thank you very much for allowing to participate in his treatment. Dr. Hernandez [phone]. 04/24/2018. Discussed in detail and answered all questions. 1. D/c Toradool 2. D/C Roxicodone Oxycontin 10 mg po BID continue PT Consult with Psych. He does not want Psych eval Thank you very much.
[2018-04-24] MEDS ORDERED: PT OWN MED DRAWER 7, Y5N ONE (22:53)
[2018-04-24] MEDS: ATORVASTATIN CA 40 MG TABLET (FP) PO SCH (23:13)
[2018-04-24] MEDS: MULTIVITAMINS (DAILY MVI) TABLET (FP) PO SCH (23:14)
[2018-04-24] MEDS: LIDOCAINE PATCH REMOVAL MC SCH (23:16)
[2018-04-24] MEDS: oxyCODONE HCL 10 MG SUSTAINED ACTING TABLET PO SCH (23:18)
[2018-04-24] MEDS: CHLORHEXIDINE GLUCONATE 4% CLEANSER FOR DECOLONIZATION TP SCH (23:18)
[2018-04-25] MEDS: DOCUSATE SODIUM 100 MG CAPSULE (FP) PO SCH ×3 (06:08→22:41)
[2018-04-25] MEDS: LEVOTHYROXINE NA 125 MCG TABLET (FP) PO SCH (06:08)
[2018-04-25] MEDS: CYCLOBENZAPRINE HCL 10 MG TABLET (FP) PO SCH ×3 (06:08→22:48)
[2018-04-25] MEDS: LIDOCAINE 5% TOPICAL PATCH TP SCH (10:59)
[2018-04-25] MEDS: ISOSORBIDE MONONITRATE 60 MG TAB.SR.24H (FP) PO SCH (10:59)
[2018-04-25] MEDS: oxyCODONE HCL 10 MG SUSTAINED ACTING TABLET PO SCH ×2 (10:59→22:49)
[2018-04-25] MEDS: METOPROLOL TARTRATE 25 MG TABLET (FP) PO SCH ×2 (10:59→22:41)
[2018-04-25] MEDS: HEPARIN NA (PORCINE) 5,000 UNITS/ML 1ML VIAL SQ SCH ×2 (11:00→22:49)
[2018-04-25] MEDS ORDERED: PICC LINE 8 ML FLUSH PROTOCOL IVPUSH PRN (13:10)
--- NOTE | 2018-04-25 13:12 | DS ---
Physical Examination Vital Signs: Vital Signs Temperature 97.8 F 04/25/18 10:57 Pulse Rate 57 L 04/25/18 10:57 Respiratory Rate 20 04/25/18 10:57 Blood Pressure 119/56 L 04/25/18 10:57 O2 Sat by Pulse Oximetry (%) 97 04/24/18 21:00 Constitutional: Yes: Calm, Mild Distress Cardiovascular: Yes: Regular Rate and Rhythm Respiratory: Yes: CTA Bilaterally Gastrointestinal: Yes: Normal Bowel Sounds, Soft, Abdomen, Obese. No: Tenderness Extremities: Yes: Erythema (decreased) Edema: Yes Edema: LLE: 1+, RLE: 1+ Labs: CBC, BMP 04/23/18 06:35 04/23/18 06:35 Discharge Summary Reason For Visit: CELLULITIS Current Active Problems ИРИНА (acute kidney injury) (Acute) Back pain (Acute) Cellulitis (Acute) Peripheral vascular disease (Acute) Spondylolisthesis (Acute) Venous stasis ulcer (Acute) Hospital Course: Admitted for cellulitis, also has back pain Seen by ID, Pain management Has MRSA wound Will need 12 more days of iv Vanco and afterwards will need PO doxycyline upon dc from rehab needs to followup with DR Her- ID and PMD after dc from [facility] spine MRI done was seen by ortho,pain management for back pain He has acute on subacute compression fracture-- had a recent fall prior to hospital admission Neurosurgeon consulted for pain relief. Meds recommended and ordered. Will need physical therapy , meds for pain , iv antibiotics for cellulitis stable for dc to [facility] Condition: Stable - Instructions Referrals: Param Carballo MD [Primary Care Provider] - Disposition: [facility]FWAY FACILITY - Home Medications Comprehensive Discharge Medication List: Ambulatory Orders Aspirin [Aspirin EC] 81 mg PO DAILY 01/06/18 Furosemide [Lasix] 40 mg PO DAILY 01/06/18 Isosorbide Mononitrate [Imdur -] 60 mg PO DAILY 01/06/18 Levothyroxine [Synthroid -] 125 mcg PO DAILY 01/06/18 Metoprolol Tartrate [Lopressor -] 25 mg PO BID 01/06/18 Atorvastatin Ca [Lipitor] 40 mg PO HS 04/14/18 Clopidogrel Bisulfate [Plavix -] 75 mg PO DAILY 04/14/18 Lactaid 2 tab PO ASDIR PRN 11/23/18 Multivitamin [Multiple Vitamins] 1 each PO DAILY 04/14/18
--- NOTE | 2018-04-25 13:33 | PN ---
Progress Note, Physician - Current Medication List Current Medications: Active Medications Atorvastatin Calcium (Lipitor -) 40 mg PO HS [facility] Last Admin: 04/24/18 23:13 Dose: 40 mg Chlorhexidine Gluconate (Hibiclens For Decolonization -) 1 applic TP HS [facility] Last Admin: 04/24/18 23:18 Dose: 1 applic Cyclobenzaprine HCl (Flexeril -) 5 mg PO TID [facility] Last Admin: 04/25/18 06:08 Dose: 5 mg Diphenhydramine HCl (Benadryl -) 25 mg PO Q6H PRN PRN Reason: FOR ITCHING Last Admin: 04/17/18 09:35 Dose: 25 mg Docusate Sodium (Colace -) 100 mg PO TID [facility] Last Admin: 04/25/18 06:08 Dose: 100 mg Heparin Sodium (Porcine) (Heparin -) 5,000 unit SQ BID [facility] Last Admin: 04/25/18 11:00 Dose: 5,000 unit IV Flush (Picc Line Flush) 8 ml IVPUSH PRN PRN PRN Reason: Protocol Vancomycin HCl 1,250 mg/ (Dextrose) 250 mls @ 166.667 mls/hr IVPB Q24H [facility]; Protocol Last Admin: 04/24/18 17:02 Dose: 166.667 mls/hr Isosorbide Mononitrate (Imdur -) 60 mg PO DAILY [facility] Last Admin: 04/25/18 10:59 Dose: 60 mg Levothyroxine Sodium (Synthroid -) 125 mcg PO AM [facility] Last Admin: 04/25/18 06:08 Dose: 125 mcg Lidocaine (Lidoderm Patch -) 1 patch TP DAILY [facility] Last Admin: 04/25/18 10:59 Dose: 1 patch Metoprolol Tartrate (Lopressor -) 25 mg PO BID [facility] Last Admin: 04/25/18 10:59 Dose: 25 mg Miscellaneous (Lidoderm Patch Removal) 1 each MC DAILY@2200 [facility] Last Admin: 04/24/18 23:16 Dose: 1 each Multivitamins/Minerals/Vitamin C (Tab-A-Vit -) 1 tab PO HS [facility] Last Admin: 04/24/18 23:14 Dose: 1 tab Oxycodone HCl (Oxycontin -) 10 mg PO BID [facility] Last Admin: 04/25/18 10:59 Dose: 10 mg - Objective Vital Signs: Vital Signs Temperature 97.8 F 04/25/18 10:57 Pulse Rate 57 L 04/25/18 10:57 Respiratory Rate 20 04/25/18 10:57 Blood Pressure 119/56 L 04/25/18 10:57 O2 Sat by Pulse Oximetry (%) 97 04/24/18 21:00 Labs: CBC, BMP 04/23/18 06:35 04/23/18 06:35
[2018-04-25] MEDS: VANCOMYCIN 1,250 MG in DEXTROSE 5%-WATER - 250 ML IVPB SCH (14:38)
--- NOTE | 2018-04-25 15:37 | PN ---
Progress Note (short form) - Note Progress Note: NEUROSURGERY CONSULT DICTATED History obtained Chart reviewed Pt examined H/o HLD, CAD (s/p [place] x 3, stent placement x5), CHF and L5-S1 spondylolisthesis c /o worsening right leg wound and swelling, and a new-onset left lower leg wound and redness x 2 weeks. [place] RLE cellulitis was positive for MRSA and treated with Vanco. Denies fever, chills, bowel or bladder incontinence, numbness or weakness. + B feet paresthesia. PE: AF, VSS HEENT- NC/AT; Neck- supple; Cor- RR; Lngs- CTA B; Abd- benign; Ext- b LE chronic venous changes and wounds CN- intact; Motor-4+-5 except R EHL/TA/inv/ev/gastroc 4-; Sensation- decreased LT/PP R L5-S1; DTR- hyporeflexia B UE/LE Back- tender LS junction > L1 LS spine x-rays- L1 vertebral fx; grade II L5-S1 spondylolisthesis LS spine MRI- acute-subcaute L1 vertebral fx with sup endplate depression by 25% ; mild stenosis; L5-S1 grade II spondylolisthesis from spondylolysis b L5; Broad based and central disc bulge L3-4 and L4-5 with mild L3-4 central and B L4 -5 lateral recess and foramenal stenosis; R L4-5 foramenal disc herniation Acute-subacute L1 vertebral fx s/p mechanical fall L5-S1 grade II chronic spondylolisthesis; radiculopathy vs peripheral neuropathy distal B LE R > L ON oxycontin 10 mg bid; can be titrated up to 20 mg bid (narcotic pain meds justified given recent vertebral fx and effectiveness of the medication previously) Add Lyrica 25 mg mg tid Check Hg A1C Consider TLSO brace for immobilization, will likely need semi-custom molded TLSO rather tthan off the shelf device given body his habitus No neurosurgical intervention indicated in a patient with concurrent LE cellulitis
[2018-04-25] MEDS ORDERED: GABAPENTIN 300 MG CAPSULE (FP) PO SCH (16:00)
[2018-04-25 16:35] LABS: INR 1.12 (0.83-1.09); PROTHROMBIN TIME (PATIENT) 13.2 SEC (9.7-13.0)
--- NOTE | 2018-04-25 18:32 | CONS ---
DATE OF CONSULTATION: 04/25/2018 CHIEF COMPLAINT: Intractable axial mechanical back pain. HISTORY OF PRESENT ILLNESS: The patient is a 68-year-old, right-handed male with history of obesity, hypercholesterolemia, coronary artery disease status post stent placement, congestive heart failure, chronic L5-S1 spondylolisthesis, who was treated previously for right lower extremity cellulitis about 3-4 months ago. Starting a couple of weeks ago, he developed bilateral lower extremity wound and redness. He is being treated currently for possible MRSA cellulitis. He also complains of bilateral foot paresthesia but no weakness or numbness by report. He has no bowel or bladder dysfunction. He has no current fever, rigors, or chills. He stated that his lower back pain was under control for many years until his fall about 3 weeks ago when in the laundry room. He fell backwards on his buttock. PAST MEDICAL HISTORY: Significant for obesity, coronary artery disease, hypercholesterolemia, congestive heart failure, L5-S1 spondylolisthesis. CURRENT MEDICATIONS: Include multivitamin, Imdur, OxyContin, Synthroid, Lipitor , Flexeril, Colace, Lidoderm patch, subcutaneous heparin, vancomycin. ALLERGIES: KEFLEX. SOCIAL HISTORY: He does not smoke, only drinks alcohol socially. 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 He lives with family. REVIEW OF SYSTEMS: Otherwise negative for constitutional, head and neck, cardiovascular, pulmonary, gastrointestinal, genitourinary, endocrinological, neurological, and psychological problems except for the above. PHYSICAL EXAMINATION: Vital Signs: Temperature is 98.4, blood pressure is 138/78, with pulse rate of 58. HEENT: Examination shows him to be normocephalic, atraumatic, anicteric. Neck: Supple with no carotid bruit. Coronary: Examination demonstrated regular rhythm. Lungs: Clear bilaterally. Abdomen: Obese but benign. Extremities: Examination shows edema of the lower extremities. There are chronic venous changes to the lower extremities. He has wounds which are wrapped. Neurologic: He is awake, alert, and oriented x4. Cranial nerve examination is intact 2-12. Motor examination shows 4+ to 5/5 strength, except right foot dorsiflexion and plantar flexion including extensor hallucis longus, tibialis anterior, foot inversion, foot eversion, and gastrocnemius which are 3-4-. Sensory examination shows diminished pinprick and light touch sensation of right L5 and S1 distribution. Deep tendon reflexes are hyporeflexic throughout. Lower Back: Examination shows tenderness in the lumbosacral junction bilaterally. He also has tenderness, less tenderness at L1. LABORATORY: Examination shows a white blood cell count of 3.9, hemoglobin is 11.3, and platelet count is 114,000. ESR is 21. Serum sodium is 141, potassium is 4.1. BUN of 26 and creatinine 1.2. Glucose is 92. X-ray of the lumbar spine demonstrated L5 compression deformity and grade 2 L5- S1 spondylolisthesis with marked degenerative disk space narrowing. There is mild spondylosis throughout. MRI of the lumbar spine demonstrated acute vertebral fracture of L1 with approximately 30% reduction of vertebral body height. There is slight bowing of the posterior vertebral cortex with mild spinal stenosis. There is L3-4 and L4-5 broad-base and central disk bulge with mild stenosis. There is also mild central stenosis. There is also moderate recess stenosis at L4-5. There is right L4-5 foraminal disk protrusion. L5-S1 spondylolisthesis is noted which results in [id number] bilateral L5-S1 foraminal stenosis. IMPRESSION: 1. Acute L1 vertebral fracture with approximately 30% reduction of vertebral column height. 2. Chronic L5-S1 spondylolisthesis with associated L5 spondylosis with chronic lower back pain. 3. Obesity. 4. Coronary artery disease. 5. Hypercholesterolemia. 6. Bilateral lower extremity cellulitis. RECOMMENDATIONS: The patient presents with increasing lower back pain of approximately 3 weeks' duration. He had fallen backwards in the laundry room at home. He has paresthesias in both feet. On my examination, he has weakness of right foot dorsiflexion and plantar flexion, and he is numb in his right lower extremity on the left in the L5-S1 distribution. Is hyporeflexic throughout. He also has concurrent bilateral lower extremity cellulitis and is being treated with IV antibiotic. Therefore, no neurosurgical intervention is indicated nor recommended. His pain control could be better achieved. He was just started on OxyContin 10 mg twice a day. Previously, he was on OxyContin 40 mg twice a day for his chronic lower back pain but not recently. The medication had worked well with him in the past. One can titrate the medication up to 20 mg twice a day. He does understand the potential side effects of narcotic pain killer and possible dependence. Given his acute-subacute fracture, it is rational and reasonable to be on a short course of a few weeks of narcotic pain killers, however. A TLSO brace can also be considered. He will need a semi-custom TLSO because of his body habitus. I also added Lyrica 25 mg 3 times a day for better pain control and for his possible peripheral neuropathy and right lower extremity radicular symptoms. The above was discussed with the patient at bedside. Weight reduction was discussed as well. Followup LS spine x rays to monitor the vertebral stature/alignment at L1 is recommended in 2-3 weeks or so. All questions were answered. Tiara EARL/[id number] MTDD
[2018-04-25] MEDS: ATORVASTATIN CA 40 MG TABLET (FP) PO SCH (22:41)
[2018-04-25] MEDS: CHLORHEXIDINE GLUCONATE 4% CLEANSER FOR DECOLONIZATION TP SCH (22:49)
[2018-04-25] MEDS: LIDOCAINE PATCH REMOVAL MC SCH (22:49)
[2018-04-25] MEDS: PREGABALIN 25 MG CAPSULE PO SCH (22:49)
[2018-04-25] MEDS: MULTIVITAMINS (DAILY MVI) TABLET (FP) PO SCH (22:51)
[2018-04-26] MEDS: PREGABALIN 25 MG CAPSULE PO SCH ×3 (05:30→21:20)
[2018-04-26] MEDS: CYCLOBENZAPRINE HCL 10 MG TABLET (FP) PO SCH ×3 (05:30→21:17)
[2018-04-26] MEDS: DOCUSATE SODIUM 100 MG CAPSULE (FP) PO SCH ×3 (05:30→21:17)
[2018-04-26] MEDS: LEVOTHYROXINE NA 125 MCG TABLET (FP) PO SCH (06:09)
--- NOTE | 2018-04-26 09:29 | PN ---
Progress Note (short form) - Note Progress Note: NEUROSURGERY Pain 11/29 last night, 01/30 this am H/o HLD, CAD (s/p [place] x 3, stent placement x5), CHF and L5-S1 spondylolisthesis c /o worsening right leg wound and swelling, and a new-onset left lower leg wound and redness x 2 weeks. [place] RLE cellulitis was positive for MRSA and treated with Vanco. Denies fever, chills, bowel or bladder incontinence, numbness or weakness. + B feet paresthesia. PE: AF, VSS HEENT- NC/AT; Neck- supple; Cor- RR; Lngs- CTA B; Abd- benign; Ext- b LE chronic venous changes and wounds CN- intact; Motor-4+-5 except R EHL/TA/inv/ev/gastroc 3-4-; Sensation- decreased LT/PP R L5-S1; DTR- hyporeflexia B UE/LE Back- tender LS junction > L1 Hg A1C 5.1; CRP 0.3 LS spine x-rays- L1 vertebral fx; grade II L5-S1 spondylolisthesis LS spine MRI- acute-subcaute L1 vertebral fx with sup endplate depression by 25% , edema; mild stenosis; L5-S1 grade II spondylolisthesis from spondylolysis B L5 ; Broad based and central disc bulge L3-4 and L4-5 with mild L3-4 central and B L4-5 lateral recess and foramenal stenosis; R L4-5 foramenal disc herniation Acute-subacute L1 vertebral fx s/p mechanical fall L5-S1 grade II spondylolisthesis; radiculopathy vs peripheral neuropathy distal B LE R > L On oxycontin 20 mg bid; can be titrated up to max dose of 40 mg bid (narcotic pain meds justified given recent L1 vertebral fx and effectiveness of the medication previously); could take a couple days for extended release meds to equilibrate Added Lyrica 25 mg mg tid Consider TLSO brace for immobilization, will likely need semi-custom molded TLSO rather than off the shelf brace given body his habitus No neurosurgical intervention indicated in a patient with concurrent LE cellulitis F/U LS spine x rays in 2-3 weeks to assess L1 stature and spinal alignment If not able to ambulate, consider SNF for rehab, otherwise home iv abx with home PT
[2018-04-26] MEDS ORDERED: PT OWN MED DRAWER 7, Y5N ONE (09:56)
[2018-04-26] MEDS: LIDOCAINE 5% TOPICAL PATCH TP SCH (09:59)
[2018-04-26] MEDS: oxyCODONE HCL 10 MG SUSTAINED ACTING TABLET PO SCH ×2 (09:59→21:17)
[2018-04-26] MEDS: ISOSORBIDE MONONITRATE 60 MG TAB.SR.24H (FP) PO SCH (10:00)
[2018-04-26] MEDS: HEPARIN NA (PORCINE) 5,000 UNITS/ML 1ML VIAL SQ SCH ×2 (10:00→21:17)
[2018-04-26] MEDS: METOPROLOL TARTRATE 25 MG TABLET (FP) PO SCH ×2 (10:00→21:17)
--- NOTE | 2018-04-26 12:04 | PN ---
Progress Note (short form) - Note Progress Note: Pt has appealed discharge refusing picc line Spoke with social service liaison, bilingual case manager, nursing staff and ID Pt refused to be see by me--will ask the hospitalist group to take over Neurosurgeon recommendations noted-- meds ordered Problem List - Problems (1) Peripheral vascular disease Code(s): I73.9 - PERIPHERAL VASCULAR DISEASE, UNSPECIFIED (2) ИРИНА (acute kidney injury) Code(s): N17.9 - ACUTE KIDNEY FAILURE, UNSPECIFIED (3) Cellulitis Code(s): L03.90 - CELLULITIS, UNSPECIFIED Qualifiers: Site of cellulitis: extremity Site of cellulitis of extremity: lower extremity Laterality: right Qualified Code(s): L03.115 - Cellulitis of right lower limb (4) Coronary artery disease Code(s): I25.10 - ATHSCL HEART DISEASE OF [place] CORONARY ARTERY W/O ANG PCTRS
--- NOTE | 2018-04-26 12:49 | PN ---
Progress Note, Physician - Current Medication List Current Medications: Active Medications Atorvastatin Calcium (Lipitor -) 40 mg PO HS [facility] Last Admin: 04/25/18 22:41 Dose: 40 mg Chlorhexidine Gluconate (Hibiclens For Decolonization -) 1 applic TP HS [facility] Last Admin: 04/25/18 22:49 Dose: 1 applic Cyclobenzaprine HCl (Flexeril -) 5 mg PO TID [facility] Last Admin: 04/26/18 05:30 Dose: 5 mg Diphenhydramine HCl (Benadryl -) 25 mg PO Q6H PRN PRN Reason: FOR ITCHING Last Admin: 04/17/18 09:35 Dose: 25 mg Docusate Sodium (Colace -) 100 mg PO TID [facility] Last Admin: 04/26/18 05:30 Dose: 100 mg Heparin Sodium (Porcine) (Heparin -) 5,000 unit SQ BID [facility] Last Admin: 04/26/18 10:00 Dose: 5,000 unit IV Flush (Picc Line Flush) 8 ml IVPUSH PRN PRN PRN Reason: Protocol Vancomycin HCl 1,250 mg/ (Dextrose) 250 mls @ 166.667 mls/hr IVPB Q24H [facility]; Protocol Last Admin: 04/25/18 14:38 Dose: 166.667 mls/hr Isosorbide Mononitrate (Imdur -) 60 mg PO DAILY [facility] Last Admin: 04/26/18 10:00 Dose: 60 mg Levothyroxine Sodium (Synthroid -) 125 mcg PO AM [facility] Last Admin: 04/26/18 06:09 Dose: 125 mcg Lidocaine (Lidoderm Patch -) 1 patch TP DAILY [facility] Last Admin: 04/26/18 09:59 Dose: 1 patch Metoprolol Tartrate (Lopressor -) 25 mg PO BID [facility] Last Admin: 04/26/18 10:00 Dose: 25 mg Miscellaneous (Lidoderm Patch Removal) 1 each MC DAILY@2200 [facility] Last Admin: 04/25/18 22:49 Dose: 1 each Multivitamins/Minerals/Vitamin C (Tab-A-Vit -) 1 tab PO HS [facility] Last Admin: 04/25/18 22:51 Dose: 1 tab Oxycodone HCl (Oxycontin -) 20 mg PO BID [facility] Last Admin: 04/26/18 09:59 Dose: 20 mg Pregabalin (Lyrica -) 25 mg PO TID [facility] Last Admin: 04/26/18 05:30 Dose: 25 mg - Objective Vital Signs: Vital Signs Temperature 97.9 F 04/26/18 06:00 Pulse Rate 54 L 04/26/18 06:00 Respiratory Rate 20 04/26/18 06:00 Blood Pressure 112/48 L 04/26/18 06:00 O2 Sat by Pulse Oximetry (%) 97 04/25/18 10:50 Labs: CBC, BMP 04/23/18 06:35 04/23/18 06:35 INR, PTT INR 1.12 (0.83-1.09) H 04/25/18 15:10
[2018-04-26] MEDS: VANCOMYCIN 1,250 MG in DEXTROSE 5%-WATER - 250 ML IVPB SCH (18:14)
[2018-04-26 20:46] LABS: BASO % 0.4 % (0-2.0); EOS % 7.1 % (0-4.5); HEMATOCRIT 31.8 % (35.4-49); HEMOGLOBIN 11.5 GM/dL (11.7-16.9); LYMPH % 12.4 % (8-40); MCH 31.9 pg (25.7-33.7); MCHC 36.1 g/dl (32.0-35.9); MEAN CELL VOLUME 88.4 fl (80-96); MONO % 11.5 % (3.8-10.2); NEUT % 68.6 % (42.8-82.8); PLATELET COUNT 153 K/MM3 (134-434); RDW 14.1 % (11.9-15.9); WHITE BLOOD COUNT 4.3 K/mm3 (4.0-10.0)
[2018-04-26] MEDS: ATORVASTATIN CA 40 MG TABLET (FP) PO SCH (21:17)
[2018-04-26] MEDS: MULTIVITAMINS (DAILY MVI) TABLET (FP) PO SCH (21:17)
[2018-04-26 21:20] LABS: ANION GAP 9 MMOL/L (8-16); BLOOD UREA NITROGEN 22 mg/dL (7-18); CALCIUM 7.8 mg/dL (8.5-10.1); CHLORIDE 106 mmol/L (98-107); CO2 27 mmol/L (21-32); CREATININE 1.2 mg/dL (0.55-1.3); GLUCOSE,RANDOM 90 mg/dL (74-106); POTASSIUM 3.9 mmol/L (3.5-5.1); SODIUM 141 mmol/L (136-145)
[2018-04-26] MEDS: CHLORHEXIDINE GLUCONATE 4% CLEANSER FOR DECOLONIZATION TP SCH (22:22)
[2018-04-26] MEDS: LIDOCAINE PATCH REMOVAL MC SCH (22:41)
[2018-04-26 22:59] LABS: ERYTHROCYTE SEDIMENTATION RATE 16 mm/hr (0-20)
[2018-04-27] MEDS: PREGABALIN 25 MG CAPSULE PO SCH ×2 (06:22→13:09)
[2018-04-27] MEDS: CYCLOBENZAPRINE HCL 10 MG TABLET (FP) PO SCH ×2 (06:22→13:09)
[2018-04-27] MEDS: LEVOTHYROXINE NA 125 MCG TABLET (FP) PO SCH (06:22)
[2018-04-27] MEDS: DOCUSATE SODIUM 100 MG CAPSULE (FP) PO SCH ×2 (06:22→13:08)
[2018-04-27] MEDS: METOPROLOL TARTRATE 25 MG TABLET (FP) PO SCH (10:10)
[2018-04-27] MEDS: ISOSORBIDE MONONITRATE 60 MG TAB.SR.24H (FP) PO SCH (10:10)
[2018-04-27] MEDS: LIDOCAINE 5% TOPICAL PATCH TP SCH (10:10)
[2018-04-27] MEDS: oxyCODONE HCL 10 MG SUSTAINED ACTING TABLET PO SCH (10:10)
[2018-04-27] MEDS: HEPARIN NA (PORCINE) 5,000 UNITS/ML 1ML VIAL SQ SCH (10:10)
[2018-04-27 10:38] VITALS: BMI 36.3
--- NOTE | 2018-04-27 11:18 | PN ---
Progress Note, Physician History of Present Illness: patient stable back pain main issue - Current Medication List Current Medications: Active Medications Atorvastatin Calcium (Lipitor -) 40 mg PO HS [facility] Last Admin: 04/26/18 21:17 Dose: 40 mg Chlorhexidine Gluconate (Hibiclens For Decolonization -) 1 applic TP HS [facility] Last Admin: 04/26/18 22:22 Dose: Not Given Cyclobenzaprine HCl (Flexeril -) 5 mg PO TID [facility] Last Admin: 04/27/18 06:22 Dose: 5 mg Diphenhydramine HCl (Benadryl -) 25 mg PO Q6H PRN PRN Reason: FOR ITCHING Last Admin: 04/17/18 09:35 Dose: 25 mg Docusate Sodium (Colace -) 100 mg PO TID [facility] Last Admin: 04/27/18 06:22 Dose: 100 mg Heparin Sodium (Porcine) (Heparin -) 5,000 unit SQ BID [facility] Last Admin: 04/27/18 10:10 Dose: 5,000 unit IV Flush (Picc Line Flush) 8 ml IVPUSH PRN PRN PRN Reason: Protocol Vancomycin HCl 1,250 mg/ (Dextrose) 250 mls @ 166.667 mls/hr IVPB Q24H [facility]; Protocol Last Admin: 04/26/18 18:14 Dose: 166.667 mls/hr Isosorbide Mononitrate (Imdur -) 60 mg PO DAILY [facility] Last Admin: 04/27/18 10:10 Dose: 60 mg Levothyroxine Sodium (Synthroid -) 125 mcg PO AM [facility] Last Admin: 04/27/18 06:22 Dose: 125 mcg Lidocaine (Lidoderm Patch -) 1 patch TP DAILY [facility] Last Admin: 04/27/18 10:10 Dose: 1 patch Metoprolol Tartrate (Lopressor -) 25 mg PO BID [facility] Last Admin: 04/27/18 10:10 Dose: 25 mg Miscellaneous (Lidoderm Patch Removal) 1 each MC DAILY@2200 [facility] Last Admin: 04/26/18 22:41 Dose: 1 each Multivitamins/Minerals/Vitamin C (Tab-A-Vit -) 1 tab PO HS [facility] Last Admin: 04/26/18 21:17 Dose: 1 tab Oxycodone HCl (Oxycontin -) 20 mg PO BID [facility] Last Admin: 04/27/18 10:10 Dose: 20 mg Pregabalin (Lyrica -) 25 mg PO TID [facility] Last Admin: 04/27/18 06:22 Dose: 25 mg - Objective Vital Signs: Vital Signs Temperature 98.2 F 04/27/18 06:00 Pulse Rate 59 L 04/27/18 06:00 Respiratory Rate 18 04/27/18 06:00 Blood Pressure 120/67 04/27/18 06:00 O2 Sat by Pulse Oximetry (%) 100 04/26/18 21:00 Constitutional: Yes: No Distress, Calm Respiratory: Yes: Regular Gastrointestinal: Yes: Normal Bowel Sounds, Soft Musculoskeletal: Yes: Back Pain Extremities: Yes: WNL Neurological: Yes: Alert, Oriented Labs: CBC, BMP 04/26/18 19:25 04/26/18 19:25 INR, PTT INR 1.12 (0.83-1.09) H 04/25/18 15:10 Assessment/Plan Problem List - Problems (1) Peripheral vascular disease Code(s): I73.9 - PERIPHERAL VASCULAR DISEASE, UNSPECIFIED (2) ИРИНА (acute kidney injury) Code(s): N17.9 - ACUTE KIDNEY FAILURE, UNSPECIFIED (3) Cellulitis Code(s): L03.90 - CELLULITIS, UNSPECIFIED Qualifiers: Site of cellulitis: extremity Site of cellulitis of extremity: lower extremity Laterality: right Qualified Code(s): L03.115 - Cellulitis of right lower limb (4) Coronary artery disease DVT prophylaxis-- Heparin sc Code(s): I25.10 - ATHSCL HEART DISEASE OF [place] CORONARY ARTERY W/O ANG PCTRS 5 rash plan continue iv abx patient needs to continue 10 more days of vanco iv then doxy 100 mg bid po for another 10 days monitor cbc bmp rest as per the team
--- NOTE | 2018-04-27 12:49 | PN ---
Progress Note (short form) - Note Progress Note: NEUROSURGERY Pain still present, but better PE: AF, VSS HEENT- NC/AT; Neck- supple; Cor- RR; Lngs- CTA B; Abd- benign; Ext- b LE chronic venous changes and wounds CN- intact; Motor-4+-5 except R EHL/TA/inv/ev/gastroc 4-; Sensation- decreased LT/PP R L5-S1; DTR- hyporeflexia B UE/LE Back- tender LS junction > L1 LS spine x-rays- L1 vertebral fx; grade II L5-S1 spondylolisthesis LS spine MRI- acute-subcaute L1 vertebral fx with sup endplate depression by 25% , edema; mild stenosis; L5-S1 grade II spondylolisthesis from spondylolysis B L5 ; Broad based and central disc bulge L3-4 and L4-5 with mild L3-4 central and B L4-5 lateral recess and foramenal stenosis; R L4-5 foramenal disc herniation Acute-subacute L1 vertebral fx s/p mechanical fall L5-S1 grade II spondylolisthesis; radiculopathy vs peripheral neuropathy distal B LE R > L On oxycontin 20 mg bid; can be titrated up to max dose of 40 mg bid (narcotic pain meds justified given recent L1 vertebral fx and effectiveness of the medication previously); could take a couple days for extended release meds to equilibrate; may need up to 3 months of meds and should be tapered off over 1-2 weeks when pain better in order to avoid withdrawal symptoms Could onsider TLSO brace for immobilization, will likely need semi-custom molded TLSO rather than off the shelf brace given body his habitus, Pt aware No neurosurgical intervention indicated in a patient with concurrent LE cellulitis F/U LS spine x rays in 2-3 weeks to assess L1 stature and spinal alignment If not able to ambulate, consider SNF for rehab, otherwise home iv abx with home PT
[2018-04-27] MEDS ORDERED: oxyCODONE HCL 10 MG SUSTAINED ACTING TABLET PO SCH (12:50)
[2018-04-27] MEDS ORDERED: oxyCODONE HCL 10 MG SUSTAINED ACTING TABLET PO ONE (12:54)
[2018-04-27] MEDS: VANCOMYCIN 1,250 MG in DEXTROSE 5%-WATER - 250 ML IVPB SCH (13:08)
[2018-04-27] MEDS ORDERED: PT OWN MED DRAWER 7, Y5N ONE (13:47)
[2018-04-27 18:58] VITALS: BP 112/51; PULSE 59; TEMP 98.1
== END 2018-04-27 18:30 | DRG 603 ==
LOC: JER 07:28 → JERBED 11:50 → J5S 15:35
PROVIDERS: ADMIT Internal Medicine; ATTEND Internal Medicine
DX: L03.115 Cellulitis of right lower limb (principal); N17.9 Acute kidney failure, unspecified; L97.909 Non-pressure chronic ulcer of unspecified part of unspecified lower leg with unspecified severity; M84.48XA Pathological fracture, other site, initial encounter for fracture; L03.116 Cellulitis of left lower limb; I73.9 Peripheral vascular disease, unspecified; I25.10 Atherosclerotic heart disease of native coronary artery without angina pectoris; Z98.61 Coronary angioplasty status; M43.17 Spondylolisthesis, lumbosacral region; E78.5 Hyperlipidemia, unspecified; M54.9 Dorsalgia, unspecified; I83.009 Varicose veins of unspecified lower extremity with ulcer of unspecified site; E66.9 Obesity, unspecified; Z68.36 Body mass index [BMI] 36.0-36.9, adult; I10 Essential (primary) hypertension
CPT/HCPCS: 36415; 36569; 71045-TC-FY; 72100-TC-FY; 72148-TC; 73590-TC-LT-FY; 73590-TC-RT-FY; 77001-TC-FY; 80048; 80053; 83036; 83605; 85025; 85610; 85651; 86140; 87040; 87070; 87086; 87186; 87205; 93005; 93010; 93970-TC; 97116-GP; 97161-GP; 99284-25; C1751; G0480; J0131; J1644

== ENCOUNTER 2018-11-03 07:56 | Inpatient (IN) | payer OTHER, MEDICARE ==
[2018-11-03 08:08] VITALS: BMI 37.5
--- NOTE | 2018-11-03 08:24 | PDOC ---
History of Present Illness - General Chief Complaint: Wound Stated Complaint: R/O INFECTION / WOUND CARE Time Seen by Provider: 11/03/18 08:15 History Source: Patient Exam Limitations: No Limitations - History of Present Illness Initial Comments: 11/03/18 08:23 CHIEF COMPLAINT: Leg pain HISTORY OF PRESENT ILLNESS: This is a 68-year-old male with HLD, CAD (s/p VT x 3 , stent placement x5), CHF, spondylolisthesis, right rotator cuff tear, hypothyroidism, and chronic venous insufficiency with admission in 2018 for MRSA ulcer of the lower extremity. He has been following [facility] and has had several rounds of IV antibiotics at home, the last about 6 months ago. He reports that he is scheduled for a procedure next week with Dr. Louise to address his venous insufficiency. He however has developed new right lower extremity ulcerations which he reports are draining, with significant surrounding redness and tenderness. He has been on Bactrim x 5-6 days but reports the redness and pain are worsening. His legs are actually less swollen than normal. He endorses fatigue but denies fevers/chills, night sweats, and all other systemic symptoms. PCP: Dr. Zac Salas ID: The patient previously followed with Dr. Her but does not wish to continue. 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 Olmos Former smoker quit 2010, smoked 1ppd. Lives alone, 2017. Walks with a walker, able to do ADLs but no housework. 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 Vital signs on arrival are all within normal limits (T 99.0 orally). REVIEW OF SYSTEMS: GENERAL/CONSTITUTIONAL: No fever or chills. No weakness. No weight change. HEAD, EYES, EARS, NOSE AND THROAT: No change in vision. No ear pain or discharge. No sore throat. CARDIOVASCULAR: No chest pain or palpitations. RESPIRATORY: No cough, wheezing, or shortness of breath. GASTROINTESTINAL: No nausea, vomiting, diarrhea or constipation. GENITOURINARY: No dysuria, frequency, or change in urination. MUSCULOSKELETAL: No joint or muscle swelling or pain. No neck or back pain. SKIN: See HPI. NEUROLOGIC: No headache, vertigo, loss of consciousness, or loss of sensation. PSYCHIATRIC: No depression or anxiety. ENDOCRINE: No increased thirst. No abnormal weight change. HEMATOLOGIC/LYMPHATIC: No anemia, easy bleeding, or history of blood clots. ALLERGIC/IMMUNOLOGIC: Has had Keflex numerous times "with no untoward effects", denies allergy - had "minor rash" with last usage PHYSICAL EXAM: GENERAL: The patient is awake, alert, and fully oriented, in no acute distress. HEAD: Normal with no signs of trauma. ENT: Pupils equal, round and reactive to light, extraocular movements intact, sclera anicteric, conjunctiva clear. Neck supple. LUNGS: Clear to auscultation bilaterally. Normal excursion. No respiratory distress or use of accessory muscles. CV: RRR, S1/S2, no MRG. Cap refill < 2 sec. ABDOMEN: Soft, non-distended, non-tender. EXTREMITIES: RLE with 2 x 2 cm shallow ulcerations over mid-tibia, no drainage. 15cm x 15cm warm, tender, oscar erythema surrounding ulcerations. Mild calf tenderness. DP/PT pulses 1+ bilaterally. Scattered papular/nodular rash to bilateral lower extremities. NEUROLOGICAL: Normal speech, normal gait. CN II-XII grossly intact. PSYCH: Normal mood, normal affect. SKIN: Warm, dry, normal turgor. 11/03/18 09:19 Past History - Past Medical History Allergies/Adverse Reactions: Allergies Allergy/AdvReac Type Severity Reaction Status Date / Time cephalexin [From Keflex] Allergy Verified 11/03/18 08:04 Home Medications: Ambulatory Orders Aspirin [Aspirin EC] 81 mg PO DAILY 01/06/18 Isosorbide Mononitrate [Imdur -] 90 mg PO DAILY 01/06/18 Levothyroxine [Synthroid -] 125 mcg PO DAILY 01/06/18 Metoprolol Tartrate [Lopressor -] 25 mg PO BID 01/06/18 Atorvastatin Ca [Lipitor] 40 mg PO HS 04/14/18 Clopidogrel Bisulfate [Plavix -] 75 mg PO DAILY 04/14/18 Multivitamin [Multiple Vitamins] 1 each PO HS 04/14/18 oxyCODONE SR [Oxycontin] 20 mg PO BID #20 tab.er.12h MDD 2 04/27/18 Bactrim Ds Tablet 1 tab PO BID 09/28/18 Docusate Sodium [Colace] 100 mg PO DAILY 11/03/18 Furosemide [Lasix -] 40 mg PO DAILY 11/03/18 Cancer: No Cardiac Disorders: Yes (mi x2 in 1997and 2010 cardiac stents) CVA: No COPD: No Dementia: No Diabetes: No GI Disorders: Yes (gerd, lactose intoloerance) Disorders: No HTN: Yes Hypercholesterolemia: Yes Liver Disease: No Seizures: No Thyroid Disease: Yes (hypothyroid) - Surgical History Abdominal Surgery: No Appendectomy: No Cardiac Surgery: Yes (cardiac stents) Cholecystectomy: No Lung Surgery: No Orthopedic Surgery: Yes (injections for back pain b./l knee torn miniscus surgery repair) - Immunization History Immunization Up to Date: Yes - Suicide/Smoking/Psychosocial Hx Smoking History: Never smoked Have you smoked in the past 12 months: No Number of Cigarettes Smoked Daily: 0 If you are a former smoker, when did you quit?: jun 2010 Cigars Per Day: 0 'Breaking Loose' booklet given: 01/07/18 Hx Alcohol Use: No Drug/Substance Use Hx: No Substance Use Type: None Hx Substance Use Treatment: No *Physical Exam - Vital Signs Last Vital Signs Temp Pulse Resp BP Pulse Ox 99.0 F 72 17 133/77 96 11/03/18 08:05 11/03/18 08:05 11/03/18 08:05 11/03/18 08:05 11/03/18 08:05 Medical Decision Making - Medical Decision Making 11/03/18 08:56 A/P: 68-year-old male with chronic venous insufficiency and ulcers, now with cellulitis failing outpatient Bactrim. 1. Labs including CBC, CMP, ESR, blood cultures 2. X-ray right tib-fib/fib to rule out gas-forming bacteria, initial evaluation for osteomyelitis 3. Right lower extremity duplex to rule out DVT 4. ID consultation 5. Reassess 11/03/18 10:[address] Shirley who recommends Vancomycin and admission. Accepted by Dr. Salas. *DC/Admit/Observation/Transfer Diagnosis at time of Disposition: Cellulitis - Discharge Dispostion Condition at time of disposition: Guarded Decision to Admit order: Yes - Referrals - Patient Instructions - Post Discharge Activity
[2018-11-03] MEDS ORDERED: VANCOMYCIN 1,000 MG in DEXTROSE 5%-WATER - 250 ML IVPB ONE (09:19)
--- NOTE | 2018-11-03 10:47 | CON.ID ---
Consult Consult Specialty:: infectious disease Referred by:: dr licona Reason for Consultation:: erythema and pain RLE - History of Present Illness Chief Complaint: worsening pain RLE History of Present Illness: 68 yo man with PH of CAD, venous stasis with recurrent MRSA infection- treated in December with vanocmycin via PICC line and again in 05/09 with vancomycin via picc line he reports ulcers RLE had healed and swelling had improved note from Mid september in woundcare notes he had fluid filled blisters both legs yesterday he was seen in wound care with erythema and pain surrounding 2 shallow open ulcer of the RLE and he was advised admission he has been taking bactrim bid for lst 5 days (prescribed by [facility]) no fevers or chills - History Source History Provided By: Patient, Medical Record Limitations to Obtaining History: No Limitations - Past Medical History Cardio/Vascular: Yes: CAD, HTN, Hyperlipdemia, [place] Infectious Disease: Yes: MRSA (RLE wounds) Musculoskeletal: Yes: Other (L1 vertebral fracture) Dermatology: Yes: Other (facial rash). 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 Place of : [facility] History of Recent Travel: No Home Medications - Allergies Allergies/Adverse Reactions: Allergies Allergy/AdvReac Type Severity Reaction Status Date / Time cephalexin [From Keflex] Allergy Verified 11/03/18 08:04 - Home Medications Home Medications: Ambulatory Orders Aspirin [Aspirin EC] 81 mg PO DAILY 01/06/18 Isosorbide Mononitrate [Imdur -] 90 mg PO DAILY 01/06/18 Levothyroxine [Synthroid -] 125 mcg PO DAILY 01/06/18 Metoprolol Tartrate [Lopressor -] 25 mg PO BID 01/06/18 Atorvastatin Ca [Lipitor] 40 mg PO HS 04/14/18 Clopidogrel Bisulfate [Plavix -] 75 mg PO DAILY 04/14/18 Multivitamin [Multiple Vitamins] 1 each PO HS 04/14/18 oxyCODONE SR [Oxycontin] 20 mg PO BID #20 tab.er.12h MDD 2 04/27/18 Bactrim Ds Tablet 1 tab PO BID 09/28/18 Docusate Sodium [Colace] 100 mg PO DAILY 11/03/18 Furosemide [Lasix -] 40 mg PO DAILY 11/03/18 Family Disease History - Family Disease History Family History: Denies Review of Systems - Review of Systems Constitutional: reports: No Symptoms. denies: Chills, Diaphoresis, Fever Eyes: reports: No Symptoms HENT: reports: No Symptoms Neck: reports: No Symptoms Cardiovascular: reports: No Symptoms Respiratory: reports: No Symptoms Gastrointestinal: reports: No Symptoms Genitourinary: reports: No Symptoms Breasts: reports: No Symptoms Reported Musculoskeletal: reports: Back Pain (has a L1 vertebral fracture after a fall in 2018), Extremity Pain (RLE) Integumentary: reports: Wound Physical Exam Vital Signs: Vital Signs Temperature 99.0 F 11/03/18 08:05 Pulse Rate 72 11/03/18 08:05 Respiratory Rate 17 11/03/18 08:05 Blood Pressure 133/77 11/03/18 08:05 O2 Sat by Pulse Oximetry (%) 96 11/03/18 08:05 Constitutional: Yes: Well Nourished, No Distress, Obese Eyes: Yes: Conjunctiva Clear HENT: Yes: Atraumatic, Normocephalic Neck: Yes: Supple, Trachea Midline Cardiovascular: Yes: Regular Rate and Rhythm Respiratory: Yes: Regular, CTA Bilaterally Gastrointestinal: Yes: Normal Bowel Sounds, Soft, Abdomen, Obese. No: Tenderness, Epigastrium ...Rectal Exam: Yes: Deferred Extremities: Yes: Other (bilateral venous stasis changes, 2 2cm shallow ulcers right tibia- no drainage, _+erythema, tender to palpation) Psychiatric: Yes: Alert, Oriented Labs: CBC, BMP 11/03/18 10:15 11/03/18 10:15 Problem List - Problems (1) Cellulitis Code(s): L03.90 - CELLULITIS, UNSPECIFIED (2) ИРИНА (acute kidney injury) Code(s): N17.9 - ACUTE KIDNEY FAILURE, UNSPECIFIED (3) Venous stasis ulcer Code(s): I83.009 - VARICOSE VEINS OF UNSP LOWER EXTREMITY W ULCER OF UNSP SITE; L97.909 - NON-PRS CHRONIC ULC UNSP PRT OF UNSP LOW LEG W UNSP SEVERITY (4) MRSA (methicillin resistant Staphylococcus aureus) colonization Code(s): Z22.322 - CARRIER OR SUSPECTED CARRIER OF METHICILLIN RESIS STAPH Assessment/Plan continue vancomycin ирина may be due to bactrim? f/u cultures f/u imaging- xray and duplex f/u labs mrsa contact isolation
[2018-11-03 10:55] LABS: BASO % 0.4 % (0-2.0); EOS % 7.2 % (0-4.5); LYMPH % 12.4 % (8-40); MCH 29.9 pg (25.7-33.7); MCHC 33.2 g/dl (32.0-35.9); MEAN CELL VOLUME 89.8 fl (80-96); MEAN PLT VOLUME 9.2 fl (7.5-11.1); MONO % 8.8 % (3.8-10.2); NEUT % 71.2 % (42.8-82.8); PLATELET COUNT 169 K/MM3 (134-434); RBC 4.34 M/mm3 (4.00-5.60); RDW 14.8 % (11.9-15.9)
[2018-11-03 11:10] LABS: ALBUMIN 3.8 g/dl (3.4-5.0); BILIRUBIN,TOTAL 0.2 mg/dL (0.2-1); CALCIUM 9.1 mg/dL (8.5-10.1); CREATININE 1.6 mg/dL (0.55-1.3); N-TERMINAL BNP 300.2 pg/ml (5-125); POTASSIUM 4.2 mmol/L (3.5-5.1); TOT PROT 6.8 g/dl (6.4-8.2)
[2018-11-03] MEDS ORDERED: VANCOMYCIN 1 GRAM (PRE-DOCKED) 1,000 MG/250 ML BAG IVPB ONE (12:18)
--- NOTE | 2018-11-03 17:59 | PN ---
Progress Note (short form) - Note Progress Note: Vascular Surgery Pt seen and examined. Doing well. complains of bl lower ext swelling, left greater than right. He also has a rash on both legs he claims started last week. 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 No open wounds. leg elevation IV antibiotics Dell Louise DO
--- NOTE | 2018-11-03 18:10 | HP ---
Admitting History and Physical - Primary Care Physician PCP: Zac Salas - Admission Chief Complaint: Leg infection History of Present Illness: Pt with known Hx/o PVD, MRSA leg wound, seen in [facility] and noticed to have right leg ulcer and cellulitis and referred to ER for admission. History Source: Patient Limitations to Obtaining History: No Limitations - Past Medical History Cardiovascular: Yes: CAD, HTN, Hyperlipdemia, [place] Infectious Disease: Yes: MRSA (RLE wounds) Musculoskeletal: Yes: Other (L1 vertebral fracture) Dermatology: Yes: Other (facial rash). 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 History of Recent Travel: No Home Medications - Allergies Allergies/Adverse Reactions: Allergies Allergy/AdvReac Type Severity Reaction Status Date / Time cephalexin [From Keflex] Allergy Verified 11/03/18 08:04 - Home Medications Home Medications: Ambulatory Orders Aspirin [Aspirin EC] 81 mg PO DAILY 01/06/18 Isosorbide Mononitrate [Imdur -] 90 mg PO DAILY 01/06/18 Levothyroxine [Synthroid -] 125 mcg PO DAILY 01/06/18 Metoprolol Tartrate [Lopressor -] 25 mg PO BID 01/06/18 Atorvastatin Ca [Lipitor] 40 mg PO HS 04/14/18 Clopidogrel Bisulfate [Plavix -] 75 mg PO DAILY 04/14/18 Multivitamin [Multiple Vitamins] 1 each PO HS 04/14/18 oxyCODONE SR [Oxycontin] 20 mg PO BID #20 tab.er.12h MDD 2 04/27/18 Bactrim Ds Tablet 1 tab PO BID 09/28/18 Docusate Sodium [Colace] 100 mg PO DAILY 11/03/18 Furosemide [Lasix -] 40 mg PO DAILY 11/03/18 Review of Systems - Review of Systems Constitutional: denies: Chills, Fever Eyes: denies: Blurred Vision, Double Vision HENT: denies: Ear Discharge, Nasal Congestion, Throat Pain Neck: denies: Pain on Movement, Stiffness Cardiovascular: reports: Palpitations. denies: Chest Pain, Edema Respiratory: denies: Cough, SOB, Wheezing Gastrointestinal: denies: Abdominal Pain, Diarrhea, Vomiting Genitourinary: denies: Burning, Dysuria Musculoskeletal: denies: Back Pain, Joint Swelling Integumentary: reports: Change in Color (in right leg), Rash, Wound Neurological: denies: Change in LOC, Change in Speech Endocrine: denies: Excessive Sweating, Intolerance to Cold Hematology/Lymphatic: denies: Easily Bruised, Excessive Bleeding Psychiatric: denies: Anxiety, Depression Physical Examination Vital Signs: Vital Signs Temperature 97.9 F 11/03/18 15:50 Pulse Rate 68 11/03/18 15:50 Respiratory Rate 20 11/03/18 15:50 Blood Pressure 122/57 L 11/03/18 15:50 O2 Sat by Pulse Oximetry (%) 98 11/03/18 15:50 Constitutional: Yes: No Distress, Calm Eyes: Yes: Conjunctiva Clear, EOM Intact HENT: No: Epistaxis, Pharyngeal Erythema, Rhinnorhea Neck: Yes: Trachea Midline. No: Lymphadenopathy Cardiovascular: Yes: Regular Rate and Rhythm, S1, S2 Respiratory: Yes: Regular, CTA Bilaterally. No: Rales Gastrointestinal: Yes: Normal Bowel Sounds, Soft, Abdomen, Obese. No: Tenderness ...Rectal Exam: Yes: Deferred Musculoskeletal: No: Back Pain, Joint Swelling Extremities: Yes: Erythema (of right leg, associated with calor, pain with palpation, 2 cm diameter stage 2 ulcer) Neurological: Yes: Alert, Oriented, Other (motor and sensory symmetric in UE/LE / face.) Psychiatric: Yes: Alert, Oriented Labs: CBC, BMP 11/03/18 10:15 11/03/18 10:15 Imaging - Results X-ray: Report Reviewed Ultrasound: Report Reviewed Problem List - Problems (1) Cellulitis Code(s): L03.90 - CELLULITIS, UNSPECIFIED (2) ИРИНА (acute kidney injury) Code(s): N17.9 - ACUTE KIDNEY FAILURE, UNSPECIFIED (3) MRSA (methicillin resistant staph aureus) culture positive Code(s): Z22.322 - CARRIER OR SUSPECTED CARRIER OF METHICILLIN RESIS STAPH (4) Back pain Code(s): M54.9 - DORSALGIA, UNSPECIFIED (5) Coronary artery disease Code(s): I25.10 - ATHSCL HEART DISEASE OF [place] CORONARY ARTERY W/O ANG PCTRS (6) Wound infection Code(s): T14.8XXA - OTHER INJURY OF UNSPECIFIED BODY REGION, INITIAL ENCOUNTER; L08.9 - LOCAL INFECTION OF THE SKIN AND SUBCUTANEOUS TISSUE, UNSP Assessment/Plan IV abtx ID consult Vasc Sx consult IVF AM labs Case was d/w pt's nurse.
[2018-11-03] MEDS: ATORVASTATIN CA 40 MG TABLET (FP) PO SCH (21:38)
[2018-11-03] MEDS: oxyCODONE HCL 10 MG SUSTAINED ACTING TABLET PO SCH (21:38)
[2018-11-03] MEDS: METOPROLOL TARTRATE 25 MG TABLET (FP) PO SCH (21:38)
[2018-11-03] MEDS: MULTIVITAMINS (DAILY MVI) TABLET (FP) PO SCH (21:39)
[2018-11-03] MEDS: SODIUM CHLORIDE 1,000 ML IV SCH (23:49)
[2018-11-04] MEDS: LEVOTHYROXINE NA 125 MCG TABLET (FP) PO SCH (06:35)
[2018-11-04] MEDS ORDERED: oxyCODONE HCL 10 MG SUSTAINED ACTING TABLET PO SCH (10:00)
[2018-11-04] MEDS ORDERED: ISOSORBIDE MONONITRATE 60 MG TAB.SR.24H (FP) PO SCH (10:00)
[2018-11-04] MEDS ORDERED: ISOSORBIDE MONONITRATE 30 MG TAB.SR.24H (FP) PO ONE (11:10)
[2018-11-04] MEDS ORDERED: ISOSORBIDE MONONITRATE 60 MG TAB.SR.24H (FP) PO ONE (11:10)
[2018-11-04] MEDS: ISOSORBIDE MONONITRATE 30 MG, ISOSORBIDE MONONITRATE 60 MG PO SCH (11:19)
[2018-11-04] MEDS: DOCUSATE SODIUM 100 MG CAPSULE (FP) PO SCH (11:19)
[2018-11-04] MEDS: ASPIRIN COATED 81 MG TABLET.EC PO SCH (11:19)
[2018-11-04] MEDS: FUROSEMIDE 40 MG TABLET (FP) PO SCH (11:20)
[2018-11-04] MEDS: METOPROLOL TARTRATE 25 MG TABLET (FP) PO SCH ×2 (11:20→21:53)
[2018-11-04] MEDS: VANCOMYCIN 1 GRAM (PRE-DOCKED) 1,000 MG/250 ML BAG IVPB SCH (11:20)
[2018-11-04] MEDS: CLOPIDOGREL BISULFATE 75 MG TABLET (FP) PO SCH (11:20)
--- NOTE | 2018-11-04 12:19 | PN ---
Progress Note, Physician History of Present Illness: Pt w/onfever, chills, legs pain, CP, SOB, abd pain, diarrhea. - Current Medication List Current Medications: Active Medications Aspirin (Ecotrin -) 81 mg PO DAILY [facility] Last Admin: 11/04/18 11:19 Dose: 81 mg Atorvastatin Calcium (Lipitor -) 40 mg PO HS [facility] Last Admin: 11/03/18 21:38 Dose: 40 mg Clopidogrel Bisulfate (Plavix -) 75 mg PO DAILY [facility] Last Admin: 11/04/18 11:20 Dose: 75 mg Docusate Sodium (Colace -) 100 mg PO DAILY [facility] Last Admin: 11/04/18 11:19 Dose: 100 mg Furosemide (Lasix -) 40 mg PO DAILY [facility] Last Admin: 11/04/18 11:20 Dose: 40 mg Vancomycin HCl (Vancomycin (Pre-Docked)) 1,000 mg in 250 mls @ 166.667 mls/hr IVPB Q24H [facility]; Protocol Last Admin: 11/04/18 11:20 Dose: 166.667 mls/hr Sodium Chloride (Normal Saline -) 1,000 mls @ 42 mls/hr IV ASDIR [facility] Last Admin: 11/03/18 23:49 Dose: 42 mls/hr Isosorbide Mononitrate 30 mg/ (Isosorbide Mononitrate 60 mg) 90 mg PO DAILY [facility] Last Admin: 11/04/18 11:19 Dose: 90 mg Levothyroxine Sodium (Synthroid -) 125 mcg PO DAILY@0700 [facility] Last Admin: 11/04/18 06:35 Dose: 125 mcg Metoprolol Tartrate (Lopressor -) 25 mg PO BID [facility] Last Admin: 11/04/18 11:20 Dose: 25 mg Multivitamins/Minerals/Vitamin C (Tab-A-Vit -) 1 tab PO HS [facility] Last Admin: 11/03/18 21:39 Dose: 1 tab Oxycodone HCl (Oxycontin -) 30 mg PO BID [facility] Last Admin: 11/04/18 11:25 Dose: 30 mg - Objective Vital Signs: Vital Signs Temperature 98.2 F 11/04/18 05:00 Pulse Rate 61 11/04/18 05:00 Respiratory Rate 20 11/03/18 22:50 Blood Pressure 126/64 11/04/18 05:00 O2 Sat by Pulse Oximetry (%) 98 06/14/19 15:50 Constitutional: Yes: No Distress, Calm Cardiovascular: Yes: Regular Rate and Rhythm, S1, S2 Respiratory: Yes: Regular, CTA Bilaterally. No: Rales Gastrointestinal: Yes: Normal Bowel Sounds, Soft, Abdomen, Obese. No: Tenderness Extremities: Yes: Erythema (colored is darker, minimumcalor, no pain with palpation) Neurological: Yes: Alert, Oriented Labs: CBC, BMP 11/03/18 10:15 11/03/18 10:15 Problem List - Problems (1) Cellulitis Code(s): L03.90 - CELLULITIS, UNSPECIFIED (2) ИРИНА (acute kidney injury) Code(s): N17.9 - ACUTE KIDNEY FAILURE, UNSPECIFIED (3) MRSA (methicillin resistant staph aureus) culture positive Code(s): Z22.322 - CARRIER OR SUSPECTED CARRIER OF METHICILLIN RESIS STAPH (4) Back pain Code(s): M54.9 - DORSALGIA, UNSPECIFIED (5) Coronary artery disease Code(s): I25.10 - ATHSCL HEART DISEASE OF [place] CORONARY ARTERY W/O ANG PCTRS (6) Wound infection Code(s): T14.8XXA - OTHER INJURY OF UNSPECIFIED BODY REGION, INITIAL ENCOUNTER; L08.9 - LOCAL INFECTION OF THE SKIN AND SUBCUTANEOUS TISSUE, UNSP Assessment/Plan IV abtx ID, Vasc Sx consults are appreciated IVf Monitor today labs AM labs Case was d/w pt's nurse.
[2018-11-04 13:04] LABS: HEMATOCRIT 40.2 % (35.4-49); HEMOGLOBIN 13.6 GM/dL (11.7-16.9); MCH 30.2 pg (25.7-33.7); MCHC 33.8 g/dl (32.0-35.9); MEAN CELL VOLUME 89.5 fl (80-96); MEAN PLT VOLUME 8.6 fl (7.5-11.1); PLATELET COUNT 177 K/MM3 (134-434); RBC 4.49 M/mm3 (4.00-5.60); WHITE BLOOD COUNT 7.5 K/mm3 (4.0-10.0)
--- NOTE | 2018-11-04 13:13 | PN ---
Progress Note (short form) - Note Progress Note: leg is improved he has a pustular scattered rash both legs Vital Signs Period Temp Pulse Resp BP Sys/Kaufman Pulse Ox Last 24 Hr 97.9 F-98.2 F 61-69 20-20 102-136/57-84 97-98 Microbiology 11/03/18 15:30 Nares - Mrsa Screen - Right MRSA Screen - Final NO MRSA ISOLATED 11/03/18 10:30 Blood - Peripheral Venous Blood Culture - Preliminary NO GROWTH OBTAINED AFTER 24 HOURS, INCUBATION TO CONTINUE FOR 4 DAYS. 11/03/18 10:15 Blood - Peripheral Venous Blood Culture - Preliminary NO GROWTH OBTAINED AFTER 24 HOURS, INCUBATION TO CONTINUE FOR 4 DAYS. 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
[2018-11-04 13:25] LABS: ALBUMIN 3.8 g/dl (3.4-5.0); BILIRUBIN,TOTAL 0.5 mg/dL (0.2-1); BLOOD UREA NITROGEN 24.8 mg/dL (7-18); CALCIUM 9.1 mg/dL (8.5-10.1); CREATININE 1.4 mg/dL (0.55-1.3); POTASSIUM 4.6 mmol/L (3.5-5.1); TOT PROT 6.9 g/dl (6.4-8.2)
[2018-11-04 14:30] LABS: ERYTHROCYTE SEDIMENTATION RATE 18 mm/hr (0-20)
[2018-11-04] MEDS: oxyCODONE HCL 10 MG SUSTAINED ACTING TABLET PO SCH (14:36)
[2018-11-04] MEDS: ACETAMINOPHEN 325 MG TABLET (FP) PO PRN (19:46)
[2018-11-04] MEDS ORDERED: oxyCODONE HCL 10 MG SUSTAINED ACTING TABLET PO ONE (21:00)
[2018-11-04] MEDS: ATORVASTATIN CA 40 MG TABLET (FP) PO SCH (21:53)
[2018-11-04] MEDS: MULTIVITAMINS (DAILY MVI) TABLET (FP) PO SCH (21:53)
[2018-11-05] MEDS ORDERED: oxyCODONE HCL 10 MG SUSTAINED ACTING TABLET PO SCH (06:00)
[2018-11-05] MEDS: LEVOTHYROXINE NA 125 MCG TABLET (FP) PO SCH (06:18)
[2018-11-05] MEDS: SODIUM CHLORIDE 1,000 ML IV SCH (06:18)
[2018-11-05 07:29] LABS: HEMATOCRIT 38.2 % (35.4-49); HEMOGLOBIN 12.8 GM/dL (11.7-16.9); MCH 29.9 pg (25.7-33.7); MCHC 33.6 g/dl (32.0-35.9); MEAN CELL VOLUME 89.1 fl (80-96); MEAN PLT VOLUME 9.3 fl (7.5-11.1); RBC 4.28 M/mm3 (4.00-5.60); RDW 15.2 % (11.9-15.9); WHITE BLOOD COUNT 7.5 K/mm3 (4.0-10.0)
[2018-11-05 07:34] LABS: ALBUMIN 3.7 g/dl (3.4-5.0); BILIRUBIN,TOTAL 0.6 mg/dL (0.2-1); BLOOD UREA NITROGEN 26.1 mg/dL (7-18); CALCIUM 8.8 mg/dL (8.5-10.1); CREATININE 1.4 mg/dL (0.55-1.3); POTASSIUM 4.3 mmol/L (3.5-5.1); TOT PROT 6.6 g/dl (6.4-8.2)
[2018-11-05 08:24] LABS: PLATELET COUNT 166 K/MM3 (134-434)
[2018-11-05] MEDS ORDERED: ISOSORBIDE MONONITRATE 30 MG TAB.SR.24H (FP) PO ONE (10:37)
[2018-11-05] MEDS ORDERED: ISOSORBIDE MONONITRATE 60 MG TAB.SR.24H (FP) PO ONE (10:37)
[2018-11-05] MEDS: CLOPIDOGREL BISULFATE 75 MG TABLET (FP) PO SCH (10:49)
[2018-11-05] MEDS: FUROSEMIDE 40 MG TABLET (FP) PO SCH (10:49)
[2018-11-05] MEDS: ISOSORBIDE MONONITRATE 30 MG, ISOSORBIDE MONONITRATE 60 MG PO SCH (10:49)
[2018-11-05] MEDS: oxyCODONE HCL 10 MG SUSTAINED ACTING TABLET PO SCH ×2 (10:49→17:12)
[2018-11-05] MEDS: METOPROLOL TARTRATE 25 MG TABLET (FP) PO SCH ×2 (10:49→21:45)
[2018-11-05] MEDS: ASPIRIN COATED 81 MG TABLET.EC PO SCH (10:50)
[2018-11-05] MEDS: DOCUSATE SODIUM 100 MG CAPSULE (FP) PO SCH (10:50)
--- NOTE | 2018-11-05 13:30 | PN ---
Progress Note, Physician History of Present Illness: Pt w/o fever, chills, legs pain, CP, SOB, abd pain, diarrhea. - Current Medication List Current Medications: Active Medications Acetaminophen (Tylenol -) 650 mg PO Q6H PRN PRN Reason: FEVER Last Admin: 11/04/18 19:46 Dose: 650 mg Aspirin (Ecotrin -) 81 mg PO DAILY [facility] Last Admin: 11/05/18 10:50 Dose: 81 mg Atorvastatin Calcium (Lipitor -) 40 mg PO HS [facility] Last Admin: 11/04/18 21:53 Dose: 40 mg Clopidogrel Bisulfate (Plavix -) 75 mg PO DAILY [facility] Last Admin: 11/05/18 10:49 Dose: 75 mg Docusate Sodium (Colace -) 100 mg PO DAILY [facility] Last Admin: 11/05/18 10:50 Dose: 100 mg Furosemide (Lasix -) 40 mg PO DAILY [facility] Last Admin: 11/05/18 10:49 Dose: 40 mg Vancomycin HCl (Vancomycin (Pre-Docked)) 1,000 mg in 250 mls @ 166.667 mls/hr IVPB Q24H [facility]; Protocol Last Admin: 11/04/18 11:20 Dose: 166.667 mls/hr Sodium Chloride (Normal Saline -) 1,000 mls @ 42 mls/hr IV ASDIR [facility] Last Admin: 11/05/18 06:18 Dose: 42 mls/hr Isosorbide Mononitrate 30 mg/ (Isosorbide Mononitrate 60 mg) 90 mg PO DAILY [facility] Last Admin: 11/05/18 10:49 Dose: 90 mg Levothyroxine Sodium (Synthroid -) 125 mcg PO DAILY@0700 [facility] Last Admin: 11/05/18 06:18 Dose: 125 mcg Metoprolol Tartrate (Lopressor -) 25 mg PO BID [facility] Last Admin: 11/05/18 10:49 Dose: 25 mg Multivitamins/Minerals/Vitamin C (Tab-A-Vit -) 1 tab PO HS [facility] Last Admin: 11/04/18 21:53 Dose: 1 tab Oxycodone HCl (Oxycontin -) 30 mg PO BID@1000,1800 [facility] Last Admin: 11/05/18 10:49 Dose: 30 mg - Objective Vital Signs: Vital Signs Temperature 97.7 F 11/05/18 06:00 Pulse Rate 60 11/05/18 10:00 Respiratory Rate 20 11/05/18 10:00 Blood Pressure 120/60 11/05/18 10:00 O2 Sat by Pulse Oximetry (%) 98 11/05/18 09:00 Constitutional: Yes: No Distress, Calm Cardiovascular: Yes: Regular Rate and Rhythm, S1, S2 Respiratory: Yes: Regular, CTA Bilaterally, Rales Gastrointestinal: Yes: Normal Bowel Sounds, Soft, Abdomen, Obese. No: Tenderness Extremities: Yes: Erythema ((on right leg) improved, minmal calor; improved pain with palpation.), Other (bilateral papular, 2-5 mm, lessions, w/o pain with palpation, no bleed, no oozing- under dermatology care.) Neurological: Yes: Alert, Oriented Labs: CBC, BMP 11/05/18 06:00 11/05/18 06:00 Problem List - Problems (1) Cellulitis Code(s): L03.90 - CELLULITIS, UNSPECIFIED (2) ИРИНА (acute kidney injury) Code(s): N17.9 - ACUTE KIDNEY FAILURE, UNSPECIFIED (3) MRSA (methicillin resistant staph aureus) culture positive Code(s): Z22.322 - CARRIER OR SUSPECTED CARRIER OF METHICILLIN RESIS STAPH (4) Back pain Code(s): M54.9 - DORSALGIA, UNSPECIFIED (5) Coronary artery disease Code(s): I25.10 - ATHSCL HEART DISEASE OF [place] CORONARY ARTERY W/O ANG PCTRS (6) Wound infection Code(s): T14.8XXA - OTHER INJURY OF UNSPECIFIED BODY REGION, INITIAL ENCOUNTER; L08.9 - LOCAL INFECTION OF THE SKIN AND SUBCUTANEOUS TISSUE, UNSP Assessment/Plan IV abtx ID, Vasc Sx consults are appreciated IVF AM labs [facility], walk in the room Case was d/w pt's nurse.
[2018-11-05] MEDS: VANCOMYCIN 1 GRAM (PRE-DOCKED) 1,000 MG/250 ML BAG IVPB SCH (14:10)
[2018-11-05] MEDS: ACETAMINOPHEN 325 MG TABLET (FP) PO PRN (16:40)
--- NOTE | 2018-11-05 17:16 | EKG ---
Test Reason : Blood Pressure : / mmHG Vent. Rate : 069 BPM Atrial Rate : 069 BPM P-R Int : 226 ms QRS Dur : 124 ms QT Int : 446 ms P-R-T Axes : 053 -49 025 degrees QTc Int : 477 ms SINUS RHYTHM WITH 1ST DEGREE A-V BLOCK LEFT ANTERIOR FASCICULAR BLOCK LEFT VENTRICULAR HYPERTROPHY WITH QRS WIDENING NONSPECIFIC ST AND T WAVE ABNORMALITY ABNORMAL ECG WHEN COMPARED WITH ECG OF 14-APR-2018 08:59, MINIMAL CRITERIA FOR SEPTAL INFARCT ARE NO LONGER PRESENT Confirmed by MD JULAINO, TOMMY ([id number]) on 11/05/2018 5:16:05 PM Referred By: Confirmed By:TOMMY HENAO MD
[2018-11-05] MEDS: ATORVASTATIN CA 40 MG TABLET (FP) PO SCH (21:44)
[2018-11-05] MEDS: MULTIVITAMINS (DAILY MVI) TABLET (FP) PO SCH (21:44)
[2018-11-06] MEDS: SODIUM CHLORIDE 1,000 ML IV SCH ×3 (02:24→21:00)
[2018-11-06] MEDS: LEVOTHYROXINE NA 125 MCG TABLET (FP) PO SCH (06:11)
[2018-11-06 08:01] LABS: HEMATOCRIT 36.3 % (35.4-49); HEMOGLOBIN 12.4 GM/dL (11.7-16.9); MCH 30.2 pg (25.7-33.7); MCHC 34.1 g/dl (32.0-35.9); MEAN CELL VOLUME 88.7 fl (80-96); RBC 4.09 M/mm3 (4.00-5.60); RDW 14.8 % (11.9-15.9); WHITE BLOOD COUNT 5.8 K/mm3 (4.0-10.0)
[2018-11-06 08:30] LABS: BLOOD UREA NITROGEN 26.3 mg/dL (7-18); CALCIUM 8.3 mg/dL (8.5-10.1); CREATININE 1.3 mg/dL (0.55-1.3); POTASSIUM 4.4 mmol/L (3.5-5.1)
[2018-11-06 09:10] LABS: PLATELET COUNT 141 K/MM3 (134-434)
[2018-11-06] MEDS ORDERED: ISOSORBIDE MONONITRATE 60 MG TAB.SR.24H (FP) PO ONE (09:18)
[2018-11-06] MEDS ORDERED: ISOSORBIDE MONONITRATE 30 MG TAB.SR.24H (FP) PO ONE (09:18)
[2018-11-06] MEDS: METOPROLOL TARTRATE 25 MG TABLET (FP) PO SCH ×2 (09:20→21:27)
[2018-11-06] MEDS: CLOPIDOGREL BISULFATE 75 MG TABLET (FP) PO SCH (09:23)
[2018-11-06] MEDS: DOCUSATE SODIUM 100 MG CAPSULE (FP) PO SCH (09:23)
[2018-11-06] MEDS: ISOSORBIDE MONONITRATE 30 MG, ISOSORBIDE MONONITRATE 60 MG PO SCH (09:23)
[2018-11-06] MEDS: FUROSEMIDE 40 MG TABLET (FP) PO SCH (09:23)
[2018-11-06] MEDS: ASPIRIN COATED 81 MG TABLET.EC PO SCH (09:23)
[2018-11-06] MEDS: oxyCODONE HCL 10 MG SUSTAINED ACTING TABLET PO SCH ×2 (09:24→17:45)
[2018-11-06] MEDS: VANCOMYCIN 1 GRAM (PRE-DOCKED) 1,000 MG/250 ML BAG IVPB SCH (09:24)
--- NOTE | 2018-11-06 11:43 | PN ---
Progress Note, Physician History of Present Illness: Pt w/o fever, chills, legs pain, CP, SOB, cough, abd pain, diarrhea. - Current Medication List Current Medications: Active Medications Acetaminophen (Tylenol -) 650 mg PO Q6H PRN PRN Reason: FEVER Last Admin: 11/05/18 16:40 Dose: 650 mg Aspirin (Ecotrin -) 81 mg PO DAILY [facility] Last Admin: 11/06/18 09:23 Dose: 81 mg Atorvastatin Calcium (Lipitor -) 40 mg PO HS [facility] Last Admin: 11/05/18 21:44 Dose: 40 mg Clopidogrel Bisulfate (Plavix -) 75 mg PO DAILY [facility] Last Admin: 11/06/18 09:23 Dose: 75 mg Docusate Sodium (Colace -) 100 mg PO DAILY [facility] Last Admin: 11/06/18 09:23 Dose: 100 mg Furosemide (Lasix -) 40 mg PO DAILY [facility] Last Admin: 11/06/18 09:23 Dose: 40 mg Vancomycin HCl (Vancomycin (Pre-Docked)) 1,000 mg in 250 mls @ 166.667 mls/hr IVPB Q24H [facility]; Protocol Last Admin: 11/06/18 09:24 Dose: 166.667 mls/hr Sodium Chloride (Normal Saline -) 1,000 mls @ 42 mls/hr IV ASDIR [facility] Last Admin: 11/06/18 06:14 Dose: 42 mls/hr Isosorbide Mononitrate 30 mg/ (Isosorbide Mononitrate 60 mg) 90 mg PO DAILY [facility] Last Admin: 11/06/18 09:23 Dose: 90 mg Levothyroxine Sodium (Synthroid -) 125 mcg PO DAILY@0700 [facility] Last Admin: 11/06/18 06:11 Dose: 125 mcg Metoprolol Tartrate (Lopressor -) 25 mg PO BID [facility] Last Admin: 11/06/18 09:20 Dose: Not Given Multivitamins/Minerals/Vitamin C (Tab-A-Vit -) 1 tab PO HS [facility] Last Admin: 11/05/18 21:44 Dose: 1 tab Oxycodone HCl (Oxycontin -) 30 mg PO BID@1000,1800 [facility] Last Admin: 11/06/18 09:24 Dose: 30 mg - Objective Vital Signs: Vital Signs Temperature 97.8 F 11/06/18 08:37 Pulse Rate 54 L 11/06/18 08:37 Respiratory Rate 20 11/06/18 08:37 Blood Pressure 129/71 11/06/18 08:37 O2 Sat by Pulse Oximetry (%) 98 11/05/18 21:00 Constitutional: Yes: No Distress, Calm Cardiovascular: Yes: Regular Rate and Rhythm, S1, S2 Respiratory: Yes: Regular, CTA Bilaterally. No: Rales Gastrointestinal: Yes: Normal Bowel Sounds, Soft. No: Tenderness Extremities: Yes: Erythema (improved in right leg; bilat unchanged macular lessions, L < R.) Neurological: Yes: Alert, Oriented Labs: CBC, BMP 11/06/18 07:15 11/06/18 07:15 Problem List - Problems (1) Cellulitis Code(s): L03.90 - CELLULITIS, UNSPECIFIED (2) ИРИНА (acute kidney injury) Code(s): N17.9 - ACUTE KIDNEY FAILURE, UNSPECIFIED (3) MRSA (methicillin resistant staph aureus) culture positive Code(s): Z22.322 - CARRIER OR SUSPECTED CARRIER OF METHICILLIN RESIS STAPH (4) Back pain Code(s): M54.9 - DORSALGIA, UNSPECIFIED (5) Coronary artery disease Code(s): I25.10 - ATHSCL HEART DISEASE OF [place] CORONARY ARTERY W/O ANG PCTRS (6) Wound infection Code(s): T14.8XXA - OTHER INJURY OF UNSPECIFIED BODY REGION, INITIAL ENCOUNTER; L08.9 - LOCAL INFECTION OF THE SKIN AND SUBCUTANEOUS TISSUE, UNSP Assessment/Plan Continue IV abtx; to f/u with ID ID, Vasc Sx consults are appreciated IVF AM labs OOBTC, walk in the room Case was d/w Dr Louise. Case was d/w pt's nurse.
--- NOTE | 2018-11-06 15:28 | PN ---
Progress Note (short form) - Note Progress Note: leg is improved he has a papular scattered rash both legs-unchanged Vital Signs Period Temp Pulse Resp BP Sys/Kaufman Pulse Ox Last 24 Hr 97.6 F-98.5 F 54-68 20-20 112-129/57-71 95-98 cor-rrr lungs decreased bs at bases abd protuberant, obese, nt ext open ulcers much smaller in size, rash unchanged, small papular lesions both lower extremities wound culture [employer] CBC, BMP 11/06/18 07:15 11/06/18 07:15 Microbiology 11/03/18 10:30 Blood - Peripheral Venous Blood Culture - Preliminary NO GROWTH OBTAINED AFTER 72 HOURS, INCUBATION TO CONTINUE FOR 2 DAYS. 11/03/18 10:15 Blood - Peripheral Venous Blood Culture - Preliminary NO GROWTH OBTAINED AFTER 72 HOURS, INCUBATION TO CONTINUE FOR 2 DAYS. 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 for him switch to po clindamycin 300 tid for 7 days with probiotics for one month avoid bactrim with renal insuff (now resolved) f/u labs vascular f/u as outpt Problem List - Problems (1) Cellulitis Code(s): L03.90 - CELLULITIS, UNSPECIFIED (2) ИРИНА (acute kidney injury) Code(s): N17.9 - ACUTE KIDNEY FAILURE, UNSPECIFIED (3) Venous stasis ulcer Code(s): I83.009 - VARICOSE VEINS OF UNSP LOWER EXTREMITY W ULCER OF UNSP SITE; L97.909 - NON-PRS CHRONIC ULC UNSP PRT OF UNSP LOW LEG W UNSP SEVERITY (4) MRSA (methicillin resistant Staphylococcus aureus) colonization Code(s): Z22.322 - CARRIER OR SUSPECTED CARRIER OF METHICILLIN RESIS STAPH
[2018-11-06] MEDS: MULTIVITAMINS (DAILY MVI) TABLET (FP) PO SCH (21:27)
[2018-11-06] MEDS: HYDROCORTISONE 0.5% TOPICAL CREAM 30 GM TUBE TP SCH (21:27)
[2018-11-06] MEDS: ATORVASTATIN CA 40 MG TABLET (FP) PO SCH (21:27)
[2018-11-07] MEDS: LEVOTHYROXINE NA 125 MCG TABLET (FP) PO SCH (06:16)
[2018-11-07] MEDS: oxyCODONE HCL 10 MG SUSTAINED ACTING TABLET PO SCH (06:16)
[2018-11-07 09:20] LABS: BLOOD UREA NITROGEN 25.2 mg/dL (7-18); CALCIUM 8.8 mg/dL (8.5-10.1); CREATININE 1.3 mg/dL (0.55-1.3); POTASSIUM 4.1 mmol/L (3.5-5.1)
[2018-11-07] MEDS ORDERED: ISOSORBIDE MONONITRATE 30 MG TAB.SR.24H (FP) PO ONE (10:17)
[2018-11-07] MEDS ORDERED: ISOSORBIDE MONONITRATE 60 MG TAB.SR.24H (FP) PO ONE (10:17)
[2018-11-07] MEDS: CLOPIDOGREL BISULFATE 75 MG TABLET (FP) PO SCH (10:24)
[2018-11-07] MEDS: VANCOMYCIN 1 GRAM (PRE-DOCKED) 1,000 MG/250 ML BAG IVPB SCH (10:24)
[2018-11-07] MEDS: FUROSEMIDE 40 MG TABLET (FP) PO SCH (10:25)
[2018-11-07] MEDS: METOPROLOL TARTRATE 25 MG TABLET (FP) PO SCH (10:25)
[2018-11-07] MEDS: ISOSORBIDE MONONITRATE 30 MG, ISOSORBIDE MONONITRATE 60 MG PO SCH (10:25)
[2018-11-07] MEDS: DOCUSATE SODIUM 100 MG CAPSULE (FP) PO SCH (10:25)
[2018-11-07] MEDS: ASPIRIN COATED 81 MG TABLET.EC PO SCH (10:25)
[2018-11-07] MEDS: HYDROCORTISONE 0.5% TOPICAL CREAM 30 GM TUBE TP SCH (11:12)
[2018-11-07 13:10] VITALS: BP 133/78; PULSE 71; TEMP 98.6
--- NOTE | 2018-11-07 13:44 | DS ---
Physical Examination Vital Signs: Vital Signs Temperature 98.6 F 11/07/18 10:00 Pulse Rate 71 11/07/18 10:00 Respiratory Rate 18 11/07/18 10:00 Blood Pressure 133/78 11/07/18 10:00 O2 Sat by Pulse Oximetry (%) 96 11/07/18 09:00 Findings/Remarks: Pt w/o fever, chills, CG, SOB, CP, palp, abd pain, legs pain Constitutional: Yes: No Distress, Calm Cardiovascular: Yes: Regular Rate and Rhythm, S1, S2 Respiratory: Yes: Regular, CTA Bilaterally. No: Rales Gastrointestinal: Yes: Normal Bowel Sounds, Soft, Abdomen, Obese. No: Tenderness Extremities: Yes: Erythema (of right leg, improved, fading) Neurological: Yes: Alert, Oriented Labs: CBC, BMP 11/06/18 07:15 11/07/18 08:05 Discharge Summary Reason For Visit: CELLULITIS Current Active Problems Cellulitis (Acute) MRSA (methicillin resistant Staphylococcus aureus) colonization (Acute) MRSA (methicillin resistant staph aureus) culture positive (Acute) Procedures: Principal: Leg US,. Leg XR Hospital Course: Pt was sent from [facility] Center for right leg cellulitis; Pt was started On IV abtx (Vanco), was seen by ID (Dr. Shirley), and Vasc Sx (Dr. Louise). Pt improved with treatment and wound by DC'ed home on PO abtx. Condition: Improved - Instructions Diet, Activity, Other Instructions: resume diet Disposition: HOME - Home Medications Comprehensive Discharge Medication List: Ambulatory Orders see Patient discharge instructions
== END 2018-11-07 17:55 | disposition home or self-care (01) | DRG 603 ==
LOC: JER 07:56 → JERBED 09:49 → J6S 15:45
PROVIDERS: ADMIT Specialist; ATTEND Specialist
DX: L03.115 Cellulitis of right lower limb (principal); N17.9 Acute kidney failure, unspecified; I25.10 Atherosclerotic heart disease of native coronary artery without angina pectoris; I50.9 Heart failure, unspecified; M43.10 Spondylolisthesis, site unspecified; E66.9 Obesity, unspecified; Z68.37 Body mass index [BMI] 37.0-37.9, adult; Z98.61 Coronary angioplasty status; E78.5 Hyperlipidemia, unspecified
CPT/HCPCS: 11042; 36415; 73590-TC-RT-FY; 80048; 80053; 83690; 83880; 85025; 85027; 85651; 87040; 87070; 87077; 87081; 87186; 87205; 93005; 93010; 93971-TC; 99282-25; G0463-25; J7030

== ENCOUNTER 2019-02-28 12:33 | Inpatient (IN) | payer OTHER, MEDICARE ==
[2019-02-28] MEDS ORDERED: SODIUM CHLORIDE 500 ML IV STA (15:33)
--- NOTE | 2019-02-28 15:46 | PDOC ---
History of Present Illness - General Chief Complaint: Wound Stated Complaint: CELLULITIS Time Seen by Provider: 02/28/19 13:30 - History of Present Illness Initial Comments: 02/28/19 15:44 This is a 69 year old male with PMH significant for Rt sided lower extremity cellulitis (3x MRSA infections within the past year), PVD, [place], and HTN. He presents to the ER after being referred from wound care (Dr. Louise) with complaints of left lower extremity edema that began gradually 1 month ago. He also has associated SOB for the past 3-4 months, as well as incomplete voiding. He denies fevers, chills, nausea, vomiting, headache, chest pain, cough, abdominal pain, dysuria, hematuria, or polyuria. He does not walk at home. He does not take any anticoagulants. He states that he completed a 10 day course of Amoxicillin and Prednisone 2 weeks ago, which he believes was for his cellulitis. He was last admitted to [facility] in October, and visits Dr. Louise for wound care regularly. Past History - Past Medical History Allergies/Adverse Reactions: Allergies Allergy/AdvReac Type Severity Reaction Status Date / Time No Known Allergies Allergy Verified 02/28/19 12:44 Home Medications: Ambulatory Orders Aspirin [Aspirin EC] 81 mg PO DAILY 01/06/18 Isosorbide Mononitrate [Imdur -] 90 mg PO DAILY 01/06/18 Levothyroxine [Synthroid -] 125 mcg PO DAILY 01/06/18 Metoprolol Tartrate [Lopressor -] 25 mg PO BID 01/06/18 Atorvastatin Ca [Lipitor] 40 mg PO HS 04/14/18 Clopidogrel Bisulfate [Plavix -] 75 mg PO DAILY 04/14/18 Multivitamin [Multiple Vitamins] 1 each PO HS 04/14/18 Docusate Sodium [Colace] 100 mg PO BID 11/03/18 Furosemide [Lasix -] 40 mg PO DAILY 11/03/18 Hydrocortisone 0.5% Cream [Hytone 0.5% Cream -] 1 applic TP BID #1 tube Oxycodone HCl [Oxycontin] 30 mg PO BID MDD 2 02/16/19 Cancer: No Cardiac Disorders: Yes (mi x2 in 1997 and 2010 cardiac stents, venous insufficiency) CVA: No COPD: No Dementia: No Diabetes: No GI Disorders: Yes (gerd, lactose intoloerance) Disorders: No HTN: Yes Hypercholesterolemia: Yes Liver Disease: No Seizures: No Thyroid Disease: Yes (hypothyroidism) Other medical history: B calf wounds, fx discs - Surgical History Abdominal Surgery: No Appendectomy: No Cardiac Surgery: Yes (cardiac stents) Cholecystectomy: No Lung Surgery: No Orthopedic Surgery: Yes (injections for back pain b./l knee torn miniscus surgery repair) - Immunization History Immunization Up to Date: Yes - Psycho Social/Smoking Cessation Hx Smoking History: Never smoked Have you smoked in the past 12 months: No Number of Cigarettes Smoked Daily: 0 If you are a former smoker, when did you quit?: jun 2010 Cigars Per Day: 0 'Breaking Loose' booklet given: 01/07/18 Hx Alcohol Use: No Drug/Substance Use Hx: No Substance Use Type: None Hx Substance Use Treatment: No Review of Systems - Review of Systems Constitutional: Yes: See HPI HEENTM: Yes: See HPI Respiratory: Yes: See HPI ABD/GI: Yes: See HPI : Yes: See HPI Musculoskeletal: Yes: See HPI Integumentary: Yes: See HPI Neurological: Yes: See HPI Endocrine: Yes: See HPI Hematologic/Lymphatic: Yes: See HPI *Physical Exam - Vital Signs Last Vital Signs Temp Pulse Resp BP Pulse Ox 98.1 F 77 20 105/50 L 97 02/28/19 12:45 02/28/19 12:45 02/28/19 12:45 02/28/19 12:45 02/28/19 12:45 - Physical Exam Comments: 02/28/19 16:31 General: AOx3, lying comfortable in bed, pleasant and cooperative Eyes: HAIM, EOM intact Oropharynx: Normal mucosa, no lesions Lungs: Decreased breath sounds B/L CVS: RRR, no murmurs GI: Soft, non tender, non distended, normoactive bowel sounds Right lower extremity: Erythema, 2+ pitting edema, multiple purulent first degree ulcers, no calf tenderness Left lower extremity: 2+ pitting edema, no erythema, multiple purulent first degree ulcers, no calf tenderness Neuro: Motor 5/5 B/L, sensations intact ED Treatment Course - LABORATORY CBC & Chemistry Diagram: 02/28/19 15:54 02/28/19 15:54 Medical Decision Making - Medical Decision Making 02/28/19 16:36 - Likely cellulitis, will r/o DVT - BNP - Lactate - Lower extremity US - CXR portable - EKG - 500cc N/S bolus - Started on Vanco 2g 02/28/19 19:19 - Patient admitted, spoke with Dr. Salas - Consults for Dr. Souza and placed Discharge - Discharge Information Problems reviewed: Yes Clinical Impression/Diagnosis: Cellulitis - Admission Yes - Follow up/Referral - Patient Discharge Instructions - Post Discharge Activity
[2019-02-28 16:05] LABS: BASO % 0.4 % (0-2.0); EOS % 6.4 % (0-4.5); HEMATOCRIT 33.9 % (35.4-49); HEMOGLOBIN 11.4 GM/dL (11.7-16.9); LYMPH % 10.5 % (8-40); MCH 30.1 pg (25.7-33.7); MCHC 33.6 g/dl (32.0-35.9); MEAN CELL VOLUME 89.5 fl (80-96); MEAN PLT VOLUME 8.5 fl (7.5-11.1); MONO % 9.6 % (3.8-10.2); NEUT % 73.1 % (42.8-82.8); PLATELET COUNT 146 K/MM3 (134-434); RBC 3.79 M/mm3 (4.00-5.60); RDW 14.1 % (11.9-15.9); WHITE BLOOD COUNT 6.7 K/mm3 (4.0-10.0)
[2019-02-28] MEDS ORDERED: VANCOMYCIN HCL 2,000 MG in DEXTROSE 5%-WATER - 500 ML IVPB ONE (16:11)
[2019-02-28 16:31] LABS: ALBUMIN 3.3 g/dl (3.4-5.0); BILIRUBIN,TOTAL 0.5 mg/dL (0.2-1); BLOOD UREA NITROGEN 19.2 mg/dL (7-18); CALCIUM 8.4 mg/dL (8.5-10.1); CREATININE 1.2 mg/dL (0.55-1.3); POTASSIUM 4.5 mmol/L (3.5-5.1)
--- NOTE | 2019-02-28 16:32 | PDOC ---
Attending Attestation - Resident Resident Name: Nic Barba - ED Attending Attestation I have performed the following: I have examined & evaluated the patient, The case was reviewed & discussed with the resident, I agree w/resident's findings & plan, Exceptions are as noted - HPI HPI: 02/28/19 16:30 69-year-old male with multiple comorbidities, history of previous MRSA related cellulitis treated with vancomycin presents with atraumatic erythema and pain to the right lower extremity that is not effectively treated by outpatient wound care. Erythema has extended proximally and now involves numerous fluid- filled lesions some of which have ruptured and now are draining serous liquid. - Physicial Exam PE: 02/28/19 16:30 Patient is awake and alert, obese, in no distress Normocephalic and atraumatic PERRLA, EOMI CTA RRR Right lower extremity: Extensive erythema with numerous fluid-filled vesicles involving the entire extremity extending proximally to the mid thighs; blanching , warm to touch, minimally tender; dorsalis pedis and tibialis posterior decreased due to body habitus - Medical Decision Making 02/28/19 16:31 Patient is 69-year-old male with multiple comorbidities, history of recurrent MRSA related cellulitis who presents with signs and symptoms of acute right lower extremity cellulitis. Will obtain lower extremity Doppler to rule out DVT. Will obtain blood cultures. Will administer bank at 15 to 20 mg/kg IV. Will admit with vascular surgery consultation.
[2019-02-28] MEDS ORDERED: DOCUSATE NA 100 MG/10 ML UNIT-DOSE CUPS PO PRN (21:01)
[2019-02-28] MEDS ORDERED: ATORVASTATIN CA 40 MG TABLET (FP) ONE (23:13)
[2019-02-28] MEDS: DOCUSATE SODIUM 100 MG CAPSULE (FP) PO SCH (23:29)
[2019-02-28] MEDS: ATORVASTATIN CA 40 MG TABLET (FP) PO SCH (23:29)
[2019-02-28] MEDS: oxyCODONE HCL 10 MG SUSTAINED ACTING TABLET PO SCH (23:30)
[2019-02-28] MEDS: METOPROLOL TARTRATE 25 MG TABLET (FP) PO SCH (23:30)
[2019-02-28] MEDS: HYDROCORTISONE 0.5% TOPICAL CREAM 30 GM TUBE TP SCH (23:30)
[2019-03-01] MEDS: LEVOTHYROXINE NA 125 MCG TABLET (FP) PO SCH (06:56)
--- NOTE | 2019-03-01 07:13 | PN ---
Progress Note (short form) - Note Progress Note: Mr Coyne is my outpatient. He is now admitted for worsening wounds. Had been calling office for an appt recently but he was unable to obtain transportation; reported chest pain symptoms recently. Has hx of CAD s/p multivessel PCI. Would recommend our team assess him prior to any intervention and determine if cardiac work up appropriate. Dr. Perez rounding today. Please call if any questions.
[2019-03-01 07:22] LABS: HEMATOCRIT 35.9 % (35.4-49); HEMOGLOBIN 11.9 GM/dL (11.7-16.9); MCH 30.2 pg (25.7-33.7); MCHC 33.3 g/dl (32.0-35.9); MEAN CELL VOLUME 90.9 fl (80-96); MEAN PLT VOLUME 9.1 fl (7.5-11.1); PLATELET COUNT 137 K/MM3 (134-434); RBC 3.95 M/mm3 (4.00-5.60); RDW 14.3 % (11.9-15.9); WHITE BLOOD COUNT 6.9 K/mm3 (4.0-10.0)
[2019-03-01 07:49] LABS: CALCIUM 8.4 mg/dL (8.5-10.1); CREATININE 1.2 mg/dL (0.55-1.3); POTASSIUM 4.3 mmol/L (3.5-5.1)
[2019-03-01] MEDS: ASPIRIN COATED 81 MG TABLET.EC PO SCH (10:10)
[2019-03-01] MEDS: DOCUSATE SODIUM 100 MG CAPSULE (FP) PO SCH ×2 (10:10→22:29)
[2019-03-01] MEDS: CLOPIDOGREL BISULFATE 75 MG TABLET (FP) PO SCH (10:10)
[2019-03-01] MEDS: METOPROLOL TARTRATE 25 MG TABLET (FP) PO SCH ×2 (10:10→22:29)
[2019-03-01] MEDS: FUROSEMIDE 40 MG TABLET (FP) PO SCH (10:10)
[2019-03-01] MEDS: ISOSORBIDE MONONITRATE 30 MG TAB.SR.24H (FP) PO SCH (10:10)
[2019-03-01] MEDS ORDERED: oxyCODONE HCL 10 MG SUSTAINED ACTING TABLET ONE (10:26)
[2019-03-01] MEDS: oxyCODONE HCL 10 MG SUSTAINED ACTING TABLET PO SCH ×2 (10:30→22:29)
[2019-03-01] MEDS: HYDROCORTISONE 0.5% TOPICAL CREAM 30 GM TUBE TP SCH ×2 (11:17→22:29)
--- NOTE | 2019-03-01 12:20 | EKG ---
Test Reason : Blood Pressure : / mmHG Vent. Rate : 064 BPM Atrial Rate : 064 BPM P-R Int : 220 ms QRS Dur : 118 ms QT Int : 446 ms P-R-T Axes : 037 -36 237 degrees QTc Int : 460 ms SINUS RHYTHM WITH 1ST DEGREE A-V BLOCK WITH PREMATURE ATRIAL COMPLEXES LEFT AXIS DEVIATION LEFT VENTRICULAR HYPERTROPHY WITH QRS WIDENING CANNOT RULE OUT SEPTAL INFARCT , AGE UNDETERMINED ABNORMAL ECG WHEN COMPARED WITH ECG OF 03-NOV-2018 15:08, PREMATURE ATRIAL COMPLEXES ARE NOW PRESENT MINIMAL CRITERIA FOR SEPTAL INFARCT ARE NOW PRESENT NONSPECIFIC T WAVE ABNORMALITY NOW EVIDENT IN INFERIOR LEADS T WAVE INVERSION MORE EVIDENT IN LATERAL LEADS Confirmed by RAMYA MCNALLY, RELL ([id number]) on 03/01/2019 12:20:16 PM Referred By: Confirmed By:RELL BUI MD
--- NOTE | 2019-03-01 13:11 | PN ---
Progress Note (short form) - Note Progress Note: ID consult reports legs have worsened recently with erythema and drainage no fevers prior history of MRSA recent vascular insufficiency procedures with dr jara at wound care reports legs looked great prior to the procedure takes lasix 60 or 80 daily no drainage or weeping venous stasis changes with cellulitis RLE lLLE looks bug bites and scratches - he denies both- no erythema got 2 g vanco in ED last night will continue vanco for cellulitis history of MRSA Problem List - Problems (1) Cellulitis Code(s): L03.90 - CELLULITIS, UNSPECIFIED (2) Venous stasis dermatitis of both lower extremities Code(s): I87.2 - VENOUS INSUFFICIENCY (CHRONIC) (PERIPHERAL) (3) Obesity Code(s): E66.9 - OBESITY, UNSPECIFIED (4) MRSA (methicillin resistant Staphylococcus aureus) colonization Code(s): Z22.322 - CARRIER OR SUSPECTED CARRIER OF METHICILLIN RESIS STAPH
--- NOTE | 2019-03-01 15:13 | CONSULT ---
- Consultation REQUESTING PROVIDER: CONSULT REQUEST: We have been asked to surgically evaluate this patient for le cellulitis. PCP:Zac Salas HISTORY OF PRESENT ILLNESS: 69 y/o M w/ PMhx RLE cellulitis (3x MRSA infections within the past year), lymphadema, h/o MN in the , morbid obesity and HTN. Pt presents to ER for examination of le cellulitis. Reports he has been seeing Dr Louise for the past year and a half for RLE edema. Has had 3 prior admission to the hospital for cellulitis c/b MRSA requiring IV abx and PICC line. States edema has been only in RLE, however over the past few weeks has begun to occur in his LLE. Has had 4 procedures in the past few weeks for ? vein ablation in his right and left lower extremities with Dr Louise. Last visit to Wound care with Dr Louise was 2 weeks ago. States he has been having worsening edema, erythema and bullae over the past few days. Denies cp, fevers/ chills, n/v/d. At baseline, pt lives home alone ( a year ago). Has been out of work since October 2017. Is able to complete some adls, however has a difficult time cooking for himself as he cannot stand for long periods of time due to sob. Currently pt ambulates less than half a block due to sob, uses walker. Uses lymphadema pump at home and compression socks. Elevates his legs as often as possible per pt. Has remote h/o tobacco abuse, years ago, no known PAD per pt. PMHx: as above PSHx: as above Home Medications Medication Instructions Recorded Aspirin [Aspirin EC] 81 mg PO DAILY 01/06/18 Isosorbide Mononitrate [Imdur -] 90 mg PO DAILY 01/06/18 Levothyroxine [Synthroid -] 125 mcg PO DAILY 01/06/18 Metoprolol Tartrate [Lopressor -] 25 mg PO BID 01/06/18 Atorvastatin Ca [Lipitor] 40 mg PO HS 04/14/18 Clopidogrel Bisulfate [Plavix -] 75 mg PO DAILY 04/14/18 Multivitamin [Multiple Vitamins] 1 each PO HS 04/14/18 Docusate Sodium [Colace] 100 mg PO BID 11/03/18 Furosemide [Lasix -] 40 mg PO DAILY 11/03/18 Hydrocortisone 0.5% Cream [Hytone 1 applic TP BID #1 tube 11/07/18 0.5% Cream -] Oxycodone HCl [Oxycontin] 30 mg PO BID MDD 2 02/16/19 Allergies Allergy/AdvReac Type Severity Reaction Status Date / Time No Known Allergies Allergy Verified 02/28/19 12:44 REVIEW OF SYSTEMS: CONSTITUTIONAL: Absent: fever, chills CARDIOVASCULAR: Absent: chest pain RESPIRATORY: Absent: cough GASTROINTESTINAL: Absent: abdominal pain PHYSICAL EXAM: GENERAL: Awake, alert, and fully oriented, in no acute distress. HEAD: Normal with no signs of trauma. LOWER EXTREMITIES: RLE with 3+ pitting edema from foot to knee, + circumferential erythema from just above malleolus to mid madrid, no open ulcers. + hyperpigmentation, stasis papillomatosis. LLE with excoriations over anterior madrid, 2+edema to mid calf, no erythema. Bilateral feet warm no ulcers. + onychomycosis. Vital Signs Temperature 98 F 03/01/19 10:10 Pulse Rate 68 03/01/19 10:10 Respiratory Rate 18 03/01/19 10:10 Blood Pressure 135/58 L 03/01/19 10:10 O2 Sat by Pulse Oximetry (%) 98 03/01/19 10:10 Lab Results WBC 6.9 K/mm3 (4.0-10.0) 03/01/19 06:35 RBC 3.95 M/mm3 (4.00-5.60) L 03/01/19 06:35 Hgb 11.9 GM/dL (11.7-16.9) 03/01/19 06:35 Hct 35.9 % (35.4-49) 03/01/19 06:35 MCV 90.9 fl (80-96) 03/01/19 06:35 MCHC 33.3 g/dl (32.0-35.9) 03/01/19 06:35 RDW 14.3 % (11.9-15.9) 03/01/19 06:35 Plt Count 137 K/MM3 (134-434) 03/01/19 06:35 Sodium 138 mmol/L (136-145) 03/01/19 06:35 Potassium 4.3 mmol/L (3.5-5.1) 03/01/19 06:35 Chloride 106 mmol/L (98-107) 03/01/19 06:35 Carbon Dioxide 29 mmol/L (21-32) 03/01/19 06:35 Anion Gap 4 MMOL/L (8-16) L 03/01/19 06:35 BUN 21.0 mg/dL (7-18) H 03/01/19 06:35 Creatinine 1.2 mg/dL (0.55-1.3) 03/01/19 06:35 Random Glucose 104 mg/dL (74-106) 03/01/19 06:35 Calcium 8.4 mg/dL (8.5-10.1) L 03/01/19 06:35 A/P: 69 y/o M w/ PMhx RLE cellulitis (3x MRSA infections within the past year), lymphadema, h/o MN in the 90s, morbid obesity and HTN. Pt presents to ER for examination of le cellulitis. Vascular consulted. Afebrile, vss. No Leukocytosis -Pt requesting to see Dr Louise in house, attending aware -IV abx per primary team -LE elevation while at rest -Local skin care with moisturizer or vaseline -Recommend PT (pt reports getting deconditioned during each hospital admission) -Agree with Cards evaluation as new LLE edema may be due to dCHF d/w attending Dr Louise
--- NOTE | 2019-03-01 15:41 | CON.CARD ---
Consult Consult Specialty:: Cardiology Referred by:: Medicine Reason for Consultation:: edema, dyspnea - History of Present Illness Chief Complaint: lower ext ulcers History of Present Illness: 69M h/o RLE cellulitis, MRSA infections, PVD, [place] and HTN p/w worsening lower ext edema, cellulitis. Patient of Dr. Olmos, has been complaining of worsening dyspnea on exertion in the 3-4 months with minimal activity and lower extremity edema over the last month. no orthopnea, chest pain, palps, dizziness. - Past Medical History Cardio/Vascular: Yes: CAD, HTN, Hyperlipdemia, HI Infectious Disease: Yes: MRSA (RLE wounds) Musculoskeletal: Yes: Other (L1 vertebral fracture) Dermatology: Yes: Other (facial rash). 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 History of Recent Travel: No Home Medications - Allergies Allergies/Adverse Reactions: Allergies Allergy/AdvReac Type Severity Reaction Status Date / Time No Known Allergies Allergy Verified 02/28/19 12:44 - Home Medications Home Medications: Ambulatory Orders Aspirin [Aspirin EC] 81 mg PO DAILY 01/06/18 Isosorbide Mononitrate [Imdur -] 90 mg PO DAILY 01/06/18 Levothyroxine [Synthroid -] 125 mcg PO DAILY 01/06/18 Metoprolol Tartrate [Lopressor -] 25 mg PO BID 01/06/18 Atorvastatin Ca [Lipitor] 40 mg PO HS 04/14/18 Clopidogrel Bisulfate [Plavix -] 75 mg PO DAILY 04/14/18 Multivitamin [Multiple Vitamins] 1 each PO HS 04/14/18 Docusate Sodium [Colace] 100 mg PO BID 11/03/18 Furosemide [Lasix -] 40 mg PO DAILY 11/03/18 Hydrocortisone 0.5% Cream [Hytone 0.5% Cream -] 1 applic TP BID #1 tube Oxycodone HCl [Oxycontin] 30 mg PO BID MDD 2 02/16/19 Family Medical History Family History: Unremarkable Review of Systems - Review of Systems Constitutional: reports: No Symptoms Eyes: reports: No Symptoms HENT: reports: No Symptoms Neck: reports: No Symptoms Cardiovascular: reports: No Symptoms Respiratory: reports: No Symptoms Gastrointestinal: reports: No Symptoms Genitourinary: reports: No Symptoms Musculoskeletal: reports: No Symptoms Integumentary: reports: No Symptoms Neurological: reports: No Symptoms Endocrine: reports: No Symptoms Hematology/Lymphatic: reports: No Symptoms Psychiatric: reports: No Symptoms Vital Signs: Vital Signs Temperature 98 F 03/01/19 10:10 Pulse Rate 68 03/01/19 10:10 Respiratory Rate 18 03/01/19 10:10 Blood Pressure 135/58 L 03/01/19 10:10 O2 Sat by Pulse Oximetry (%) 98 03/01/19 10:10 Constitutional: Yes: No Distress, Calm Eyes: Yes: Conjunctiva Clear, EOM Intact HENT: Yes: Atraumatic, Normocephalic Neck: Yes: Supple, Trachea Midline Respiratory: Yes: Regular, CTA Bilaterally Gastrointestinal: Yes: Normal Bowel Sounds, Soft Cardiovascular: Yes: Regular Rate and Rhythm JVD: No Heart Sounds: Yes: S1, S2 Edema: Yes Edema: LLE: 2+, RLE: 2+ Integumentary: No: Jaundice Neurological: Yes: Alert, Oriented Psychiatric: No: Agitated - Other Data Labs, Other Data: CBC, BMP 03/01/19 06:35 03/01/19 06:35 Troponin, BNP 02/28/19 15:54 B-Natriuretic Peptide 314.6 H Troponin, BNP 02/28/19 15:54 B-Natriuretic Peptide 314.6 H Assessment/Plan EKG: sinus, first deg AVB, PACs, old septal infarct lower ext ultrasound: no DVT CXR: no acute process lower ext cellulitis, edema - manage per vascular, ID shortness of breath - EKG no ischemic changes - BNP ~300, CXR no congestion less likely HF - echo and mibi ordered for further evaluation CAD - cont aspirin, statin, imdur, plavix, bb chronic diastolic HF - echo as above - cont PO lasix HTN - continue current meds
[2019-03-01] MEDS: VANCOMYCIN HCL 1,250 MG in DEXTROSE 5%-WATER - 250 ML IVPB SCH (16:38)
--- NOTE | 2019-03-01 18:51 | HP ---
Admitting History and Physical - Primary Care Physician PCP: Zac Salas - Admission Chief Complaint: Legs swelling and rash History of Present Illness: Pt with known Hx/o leg MRSA cellulitis, venous insufficiency, seen in would care , noticed to have leg skin rash , was recommended to come to ER. History Source: Patient Limitations to Obtaining History: No Limitations - Past Medical History Cardiovascular: Yes: CAD, HTN, Hyperlipdemia, NM Infectious Disease: Yes: MRSA (RLE wounds) Musculoskeletal: Yes: Other (L1 vertebral fracture) Dermatology: Yes: Other (facial rash). 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 History of Recent Travel: No Home Medications - Allergies Allergies/Adverse Reactions: Allergies Allergy/AdvReac Type Severity Reaction Status Date / Time No Known Allergies Allergy Verified 02/28/19 12:44 - Home Medications Home Medications: Ambulatory Orders Aspirin [Aspirin EC] 81 mg PO DAILY 01/06/18 Isosorbide Mononitrate [Imdur -] 90 mg PO DAILY 01/06/18 Levothyroxine [Synthroid -] 125 mcg PO DAILY 01/06/18 Metoprolol Tartrate [Lopressor -] 25 mg PO BID 01/06/18 Atorvastatin Ca [Lipitor] 40 mg PO HS 04/14/18 Clopidogrel Bisulfate [Plavix -] 75 mg PO DAILY 04/14/18 Multivitamin [Multiple Vitamins] 1 each PO HS 04/14/18 Docusate Sodium [Colace] 100 mg PO BID 11/03/18 Furosemide [Lasix -] 40 mg PO DAILY 11/03/18 Hydrocortisone 0.5% Cream [Hytone 0.5% Cream -] 1 applic TP BID #1 tube Oxycodone HCl [Oxycontin] 30 mg PO BID MDD 2 02/16/19 Pramipexole Di-HCl [Mirapex] 0.5 mg PO BID 03/01/19 Review of Systems - Review of Systems Constitutional: denies: Chills, Fever Eyes: denies: Double Vision HENT: denies: Ear Discharge, Nasal Congestion, Throat Pain Neck: denies: Lumps, Stiffness Cardiovascular: reports: Chest Pain (occasionally), Edema. denies: Palpitations Respiratory: denies: Cough, SOB, Wheezing Gastrointestinal: denies: Abdominal Pain, Diarrhea, Nausea Genitourinary: denies: Burning, Dysuria Musculoskeletal: reports: Back Pain (occsionally) Integumentary: reports: Pruritis, Rash. denies: Bruising Neurological: denies: Change in LOC, Numbness, Tremors Endocrine: denies: Excessive Sweating, Intolerance to Cold Hematology/Lymphatic: denies: Easily Bruised, Excessive Bleeding Psychiatric: reports: Anxiety. denies: Depression Physical Examination Vital Signs: Vital Signs Temperature 97.7 F 03/01/19 18:00 Pulse Rate 69 03/01/19 18:00 Respiratory Rate 18 03/01/19 18:00 Blood Pressure 128/69 03/01/19 18:00 O2 Sat by Pulse Oximetry (%) 98 03/01/19 18:00 Constitutional: Yes: No Distress, Calm Eyes: Yes: Conjunctiva Clear, EOM Intact, PERRL HENT: Yes: Pharyngeal Erythema. No: Epistaxis, Rhinnorhea Neck: Yes: Trachea Midline. No: Lymphadenopathy Cardiovascular: Yes: Regular Rate and Rhythm, S1, S2 Respiratory: Yes: Regular, CTA Bilaterally. No: Rales Gastrointestinal: Yes: Normal Bowel Sounds, Soft, Abdomen, Obese. No: Tenderness ...Rectal Exam: Yes: Deferred Renal/: No: CVA Tenderness - Left, CVA Tenderness - Right Edema: Yes Edema: LLE: 2+, RLE: 2+ Integumentary: Yes: Rash (in right leg, above ankle; + calor; + oozing, serous; + tenderness with palpation. + papular lessions scattered over both legs) Neurological: Yes: Alert, Oriented, Other (motor and sensory examination is symmetric in UE/ LE.) Labs: CBC, BMP 03/01/19 06:35 03/01/19 06:35 Imaging - Results X-ray: Report Reviewed Ultrasound: Report Reviewed EKG: Report Reviewed Problem List - Problems (1) Cellulitis Code(s): L03.90 - CELLULITIS, UNSPECIFIED (2) Venous stasis dermatitis of both lower extremities Code(s): I87.2 - VENOUS INSUFFICIENCY (CHRONIC) (PERIPHERAL) (3) Coronary artery disease Code(s): I25.10 - ATHSCL HEART DISEASE OF [place] CORONARY ARTERY W/O ANG PCTRS (4) Back pain Code(s): M54.9 - DORSALGIA, UNSPECIFIED (5) Obesity Code(s): E66.9 - OBESITY, UNSPECIFIED Assessment/Plan IV abtx. ID consult Vasc Sx consult. Cardio consult. keep legs elevated AM labs
[2019-03-01] MEDS ORDERED: PT OWN MED DRAWER 7, Y5N ONE ×2 (19:14→22:28)
[2019-03-01] MEDS ORDERED: MULTIVITAMINS (DAILY MVI) TABLET (FP) PO SCH (22:00)
[2019-03-01] MEDS: ATORVASTATIN CA 40 MG TABLET (FP) PO SCH (22:29)
[2019-03-01] MEDS: PRAMIPEXOLE DIHYDROCHLORIDE 0.5 MG TABLET PO SCH (23:10)
--- NOTE | 2019-03-01 23:39 | CONS ---
DATE OF CONSULTATION: DATE OF DICTATION: 03/01/2019 INFECTIOUS DISEASE CONSULTATION HISTORY OF PRESENT ILLNESS: A 69-year-old man with prior history in 2018 of M history of chronic venous stasis, coronary artery disease, hypertension, he presented to the ER complaining that at wound care he was told to come for increasing erythema and weeping from his leg wounds. He denies any fevers or chills. PAST MEDICAL HISTORY: Notable for coronary artery disease, hypertension, hyperlipidemia, status post AR. History of MRSA of the wounds of his leg. He has had elbow and vertebral fracture and has venous stasis. He also has a stent and he reports that over the course of the last month he has been having multiple Lasix surgeries of his leg veins with Dr. Louise. SOCIAL HISTORY: He quit smoking in 2010. He is independent. 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 There is no history of any recent travel. REVIEW OF SYSTEMS: He denies fevers, chills, nausea, vomiting, diarrhea, dysuria, shortness of breath or cough or chest pain. PHYSICAL EXAMINATION: Vital Signs: Temperature 98, pulse 68, blood pressure 135/58, respiratory rate 18. HEENT: Normocephalic. Eyes are anicteric. Neck: Supple. Lungs: Clear to auscultation. Heart: Regular rate and rhythm. Abdomen: Soft, nontender. It is protuberant. I cannot appreciate any organomegaly. Extremities: Notable for venous stasis changes to the right leg with some mild erythema. The left leg has minimal erythema. He has multiple lesions that look like bug bites and scratches though he says he has not had any bug bites or scratches. LABORATORY: Notable for white count of 6.9, hemoglobin 11.9, platelets 137. His BUN and creatinine are 4 and 21. Liver function tests are normal. chest x-ray that shows no congestion and duplex of his legs that has been no DVT. IMPRESSION: In summary, this is a 69-year-old man admitted for cellulitis of his legs. He has no drainage or weeping. He has venous stasis changes with cellulitis to the right lower extremity, left lower extremity looks like bug bites and scratches, and there is no erythema. He had 2 g vancomycin in the emergency room, will continue vancomycin for cellulitis, contact isolation for methicillin-resistant Staphylococcus aureus. Further recommendations to follow. Tiara [id number] MTDD
[2019-03-02 03:40] VITALS: BMI 44.3
[2019-03-02] MEDS: LEVOTHYROXINE NA 125 MCG TABLET (FP) PO SCH (06:07)
[2019-03-02] MEDS: VANCOMYCIN HCL 1,250 MG in DEXTROSE 5%-WATER - 250 ML IVPB SCH ×2 (06:08→16:53)
--- NOTE | 2019-03-02 07:10 | PN ---
Progress Note, Physician Chief Complaint: wounds Known CAD, recent chest pain sx; planned for stress test today History of Present Illness: stress shows moderate anterior/anteroseptal ischemia. Evidence of TID Normal EF. Has been chest pain free since admission. - Current Medication List Current Medications: Active Medications Aspirin (Ecotrin -) 81 mg PO DAILY [facility] Last Admin: 03/01/19 10:10 Dose: 81 mg Atorvastatin Calcium (Lipitor -) 40 mg PO HS [facility] Last Admin: 03/01/19 22:29 Dose: 40 mg Clopidogrel Bisulfate (Plavix -) 75 mg PO DAILY [facility] Last Admin: 03/01/19 10:10 Dose: 75 mg Docusate Sodium (Colace Liquid -) 200 mg PO DAILY PRN PRN Reason: CONSTIPATION Docusate Sodium (Colace -) 100 mg PO BID [facility] Last Admin: 03/01/19 22:29 Dose: 100 mg Furosemide (Lasix -) 40 mg PO DAILY [facility] Last Admin: 03/01/19 10:10 Dose: 40 mg Hydrocortisone (Hytone 0.5% Cream -) 1 applic TP BID [facility] Last Admin: 03/01/19 22:29 Dose: 1 applic Vancomycin HCl 1,250 mg/ (Dextrose) 250 mls @ 166.667 mls/hr IVPB Q12H [facility]; Protocol Last Admin: 03/02/19 06:08 Dose: 166.667 mls/hr Influenza Virus Vaccine Quadrival (Flulaval Quad ) 60 mcg IM .ONCE ONE Stop: 03/02/19 03:41 Isosorbide Mononitrate (Imdur -) 90 mg PO DAILY [facility] Last Admin: 03/01/19 10:10 Dose: 90 mg Levothyroxine Sodium (Synthroid -) 125 mcg PO DAILY@0700 [facility] Last Admin: 03/02/19 06:07 Dose: 125 mcg Metoprolol Tartrate (Lopressor -) 25 mg PO BID [facility] Last Admin: 03/01/19 22:29 Dose: 25 mg Multivitamins/Minerals/Vitamin C (Tab-A-Vit -) 1 tab PO [facility] Last Admin: 03/01/19 22:29 Dose: 1 tab Oxycodone HCl (Oxycontin -) 30 mg PO BID [facility] Last Admin: 03/01/19 22:29 Dose: 30 mg Pramipexole Dihydrochloride (Mirapex -) 0.5 mg PO BID [facility] Last Admin: 03/01/19 23:10 Dose: 0.5 mg - Objective Vital Signs: Vital Signs Temperature 98.6 F 03/01/19 19:02 Pulse Rate 74 03/01/19 19:02 Respiratory Rate 18 03/01/19 21:00 Blood Pressure 126/62 03/01/19 19:02 O2 Sat by Pulse Oximetry (%) 96 03/01/19 21:00 Constitutional: Yes: No Distress, Calm Cardiovascular: Yes: Regular Rate and Rhythm Respiratory: Yes: CTA Bilaterally Gastrointestinal: Yes: Soft, Abdomen, Obese Edema: Yes Edema: LLE: 1+, RLE: 1+ Neurological: Yes: Alert, Oriented Labs: Laboratory Tests 02/28/19 03/02/19 03/02/19 15:54 06:40 06:40 WBC 5.5 Hgb 11.5 L Plt Count 128 L Sodium 138 Potassium 4.1 Creatinine 1.2 B-Natriuretic Peptide 314.6 H Assessment/Plan IMP: LE cellulitis CAD s/p multivessel PCI with recent increased RODNEY, stress test today w/ moderate anterior/anteroseptal ischemia REC: 1. Treatment of LE cellulitis in anticipation for transfer to [place] early next week for cath. 2. To continue ASA/Plavix/ high intensity statin , Metoprolol and Max dose Imdur 3. Telemetry.
[2019-03-02 07:17] LABS: HEMATOCRIT 33.9 % (35.4-49); HEMOGLOBIN 11.5 GM/dL (11.7-16.9); MCH 30.5 pg (25.7-33.7); MEAN CELL VOLUME 89.5 fl (80-96); MEAN PLT VOLUME 8.9 fl (7.5-11.1); PLATELET COUNT 128 K/MM3 (134-434); RBC 3.78 M/mm3 (4.00-5.60); RDW 14.2 % (11.9-15.9); WHITE BLOOD COUNT 5.5 K/mm3 (4.0-10.0)
[2019-03-02 07:46] LABS: ALBUMIN 3.2 g/dl (3.4-5.0); BLOOD UREA NITROGEN 19.4 mg/dL (7-18); CALCIUM 8.1 mg/dL (8.5-10.1); CREATININE 1.2 mg/dL (0.55-1.3); POTASSIUM 4.1 mmol/L (3.5-5.1); TOT PROT 5.7 g/dl (6.4-8.2)
[2019-03-02] MEDS ORDERED: REGADENOSON 0.4 MG/5 ML PRE-FILLED SYRINGE IVPUSH ONE ×2 (10:18→11:15)
--- NOTE | 2019-03-02 10:31 | ECHO ---
Name: RELL LOPES Exam:Adult Echocardiogram Study Date: 03/02/2019 08:52 AM Age: 69 yrs Reason For Study: EDEMA Height: 67 in Weight: 240 lb BSA: 2.2 m2 MMode/2D Measurements & Calculations IVSd: 1.2 cm Ao root diam: 3.2 cm LVIDd: 5.2 cm LA dimension: 3.6 cm LVIDs: 3.5 cm LVPWd: 1.2 cm LVPWs: 1.9 cm EDV(Teich): 129.9 ml ESV(Teich): 52.5 ml LVOT diam: 2.7 cm Doppler Measurements & Calculations MV E max mathew: 90.8 cm/sec Ao V2 max: 152.4 cm/sec MV A max mathew: 111.6 cm/sec Ao max P.4 mmHg MV E/A: 0.81 Ao V2 mean: 121.2 cm/sec MV dec time: 0.26 sec Ao mean P.3 mmHg Ao V2 VTI: 38.4 cm SUNDEEP(I,D): 3.4 cm2 SUNDEEP(V,D): 4.0 cm2 LV V1 max P.2 mmHg SV(LVOT): 129.7 ml LV V1 mean P.4 mmHg LV V1 max: 110.6 cm/sec LV V1 mean: 71.1 cm/sec LV V1 VTI: 23.3 cm TR max mathew: 232.7 cm/sec PA V2 max: 153.4 cm/sec TR max P.7 mmHg PA max P.4 mmHg Med Peak E' Mathew: 6.7 cm/sec Med E/e': 13.6 Lat Peak E' Mathew: 8.3 cm/sec Lat E/e': 10.9 Tech Comments PT SHORT OF BREATH WINDOWS AT TIMES LIMITED DUE TO PATIENT BEING SHORT OF BREATH AND TAKING DEEP BREATHS IN ABUNDANTLY. Left Ventricle Left ventricular systolic function is normal. Ejection Fraction = 55-60%. The transmitral spectral Do ppler flow pattern is suggestive of impaired LV relaxation. Right Ventricle The right ventricle is grossly normal size. The right ventricular systolic function is grossly normal . Atria Normal left and right atrial size and function. Mitral Valve The mitral valve is normal in structure and function. There is no mitral valve stenosis. There is mil d mitral regurgitation. Tricuspid Valve The tricuspid valve is normal in structure and function. There is mild tricuspid regurgitation. Right ventricular systolic pressure is normal. Aortic Valve There is mild aortic sclerosis.;. No hemodynamically significant valvular aortic stenosis. No aortic regurgitation is present. Pulmonic Valve The pulmonic valve is not well seen, but is grossly normal. There is no pulmonic valvular stenosis. T here is no pulmonic valvular regurgitation. Great Vessels The aortic root is normal size. Mildly dilated ascending aorta. Pericardium/Pleura There is no pericardial effusion. Interpretation Summary Left ventricular systolic function is normal. Ejection Fraction = 55-60%. There is mild mitral regurgitation. There is mild tricuspid regurgitation. There is mild aortic sclerosis.; Mildly dilated ascending aorta. There is no pericardial effusion. MD Dorsey *Amarilis 03/02/2019 10:31 AM
[2019-03-02] MEDS: ASPIRIN COATED 81 MG TABLET.EC PO SCH (12:41)
[2019-03-02] MEDS: DOCUSATE SODIUM 100 MG CAPSULE (FP) PO SCH ×2 (12:41→18:29)
[2019-03-02] MEDS: METOPROLOL TARTRATE 25 MG TABLET (FP) PO SCH ×2 (12:42→18:30)
[2019-03-02] MEDS: FUROSEMIDE 40 MG TABLET (FP) PO SCH (12:42)
[2019-03-02] MEDS: CLOPIDOGREL BISULFATE 75 MG TABLET (FP) PO SCH (12:42)
[2019-03-02] MEDS: oxyCODONE HCL 10 MG SUSTAINED ACTING TABLET PO SCH ×2 (12:43→18:30)
[2019-03-02] MEDS: ISOSORBIDE MONONITRATE 30 MG TAB.SR.24H (FP) PO SCH (12:43)
[2019-03-02] MEDS: PRAMIPEXOLE DIHYDROCHLORIDE 0.5 MG TABLET PO SCH ×2 (12:44→18:30)
[2019-03-02] MEDS ORDERED: FLU VACCINE QUAD 60 MCG/0.5 ML (MDV 19-20) IM ONE (14:00)
[2019-03-02] MEDS: HYDROCORTISONE 0.5% TOPICAL CREAM 30 GM TUBE TP SCH ×2 (14:00→22:01)
--- NOTE | 2019-03-02 16:27 | PN ---
Progress Note, Physician History of Present Illness: No fever, chills, SOB, CP, palpitations, abd pain, diarrhea. Pt want s all meds to 6 AM and 6 PM - Current Medication List Current Medications: Active Medications Aspirin (Ecotrin -) [address] [facility] Last Admin: 03/02/19 12:41 Dose: 81 mg Atorvastatin Calcium (Lipitor -) [address] [facility] Last Admin: 03/01/19 22:29 Dose: 40 mg Clopidogrel Bisulfate (Plavix -) [address] [facility] Last Admin: 03/02/19 12:42 Dose: 75 mg Docusate Sodium (Colace Liquid -) 200 mg PO DAILY PRN PRN Reason: CONSTIPATION Docusate Sodium (Colace -) [address] [facility] Last Admin: 03/02/19 12:41 Dose: 100 mg Furosemide (Lasix -) [address] [facility] Last Admin: 03/02/19 12:42 Dose: 40 mg Hydrocortisone (Hytone 0.5% Cream -) [address] [facility] Last Admin: 03/01/19 22:29 Dose: 1 applic Vancomycin HCl 1,250 mg/ (Dextrose) 250 mls @ 166.667 mls/hr IVPB Q12H [facility]; Protocol Last Admin: 03/02/19 06:08 Dose: 166.667 mls/hr Isosorbide Mononitrate (Imdur -) [address] [facility] Last Admin: 03/02/19 12:43 Dose: 90 mg Levothyroxine Sodium (Synthroid -) 125 mcg PO DAILY@0700 [facility] Last Admin: 03/02/19 06:07 Dose: 125 mcg Metoprolol Tartrate (Lopressor -) [address] [facility] Last Admin: 03/02/19 12:42 Dose: 25 mg Multivitamins/Minerals/Vitamin C (Tab-A-Vit -) [address] [facility] Last Admin: 03/01/19 22:29 Dose: 1 tab Oxycodone HCl (Oxycontin -) [address] [facility] Last Admin: 03/02/19 12:43 Dose: 30 mg Pramipexole Dihydrochloride (Mirapex -) 0.[address] [facility] Last Admin: 03/02/19 12:44 Dose: 0.5 mg - Objective Vital Signs: Vital Signs Temperature 98.7 F 03/02/19 13:59 Pulse Rate 72 03/02/19 13:59 Respiratory Rate 20 03/02/19 13:59 Blood Pressure 143/61 03/02/19 13:59 O2 Sat by Pulse Oximetry (%) 95 03/02/19 09:00 Constitutional: Yes: No Distress, Calm Cardiovascular: Yes: Regular Rate and Rhythm, S1, S2 Respiratory: Yes: Regular, CTA Bilaterally. No: Rales Gastrointestinal: Yes: Normal Bowel Sounds, Soft, Abdomen, Obese. No: Tenderness Edema: Yes Neurological: Yes: Alert, Oriented Labs: CBC, BMP 03/02/19 06:40 03/02/19 06:40 Problem List - Problems (1) Cellulitis Code(s): L03.90 - CELLULITIS, UNSPECIFIED (2) Venous stasis dermatitis of both lower extremities Code(s): I87.2 - VENOUS INSUFFICIENCY (CHRONIC) (PERIPHERAL) (3) Coronary artery disease Code(s): I25.10 - ATHSCL HEART DISEASE OF [place] CORONARY ARTERY W/O ANG PCTRS (4) Back pain Code(s): M54.9 - DORSALGIA, UNSPECIFIED (5) Obesity Code(s): E66.9 - OBESITY, UNSPECIFIED Assessment/Plan IV abtx. ID consult, VascSx, Cardio consult are appreciated. Pt.s nurse to find out from Pharmacy is meds can be changed to 6AM and 6 PM keep legs elevated AM labs
[2019-03-02] MEDS ORDERED: PT OWN MED DRAWER 7, Y5N ONE ×4 (16:40→18:47)
[2019-03-02] MEDS: ATORVASTATIN CA 40 MG TABLET (FP) PO SCH (18:29)
[2019-03-02] MEDS: MULTIVITAMINS (DAILY MVI) TABLET (FP) PO SCH (18:30)
[2019-03-03] MEDS ORDERED: PT OWN MED DRAWER 7, Y5N ONE ×4 (06:21→17:38)
[2019-03-03] MEDS: oxyCODONE HCL 10 MG SUSTAINED ACTING TABLET PO SCH ×2 (06:28→18:03)
[2019-03-03] MEDS: DOCUSATE SODIUM 100 MG CAPSULE (FP) PO SCH ×2 (06:28→18:05)
[2019-03-03] MEDS: PRAMIPEXOLE DIHYDROCHLORIDE 0.5 MG TABLET PO SCH ×2 (06:28→18:03)
[2019-03-03] MEDS: LEVOTHYROXINE NA 125 MCG TABLET (FP) PO SCH (06:28)
[2019-03-03] MEDS: METOPROLOL TARTRATE 25 MG TABLET (FP) PO SCH ×2 (06:28→18:04)
[2019-03-03 06:39] LABS: HEMATOCRIT 33.9 % (35.4-49); HEMOGLOBIN 11.4 GM/dL (11.7-16.9); MCH 30.1 pg (25.7-33.7); MCHC 33.6 g/dl (32.0-35.9); MEAN CELL VOLUME 89.7 fl (80-96); MEAN PLT VOLUME 9.1 fl (7.5-11.1); PLATELET COUNT 124 K/MM3 (134-434); RBC 3.78 M/mm3 (4.00-5.60); WHITE BLOOD COUNT 6.2 K/mm3 (4.0-10.0)
[2019-03-03] MEDS: VANCOMYCIN HCL 1,250 MG in DEXTROSE 5%-WATER - 250 ML IVPB SCH ×2 (06:41→18:05)
[2019-03-03 06:54] LABS: BLOOD UREA NITROGEN 22.7 mg/dL (7-18); CALCIUM 8.3 mg/dL (8.5-10.1); CREATININE 1.3 mg/dL (0.55-1.3); POTASSIUM 4.2 mmol/L (3.5-5.1)
--- NOTE | 2019-03-03 10:02 | PN ---
Progress Note, Physician Chief Complaint: in bed NAD no new c/o legs cellulitis - Current Medication List Current Medications: Active Medications Aspirin (Ecotrin -) 81 mg PO DAILY [facility] Last Admin: 03/02/19 12:41 Dose: 81 mg Atorvastatin Calcium (Lipitor -) 40 mg PO DAILY@1800 [facility] Last Admin: 03/02/19 18:29 Dose: 40 mg Clopidogrel Bisulfate (Plavix -) 75 mg PO DAILY [facility] Last Admin: 03/02/19 12:42 Dose: 75 mg Docusate Sodium (Colace Liquid -) 200 mg PO DAILY PRN PRN Reason: CONSTIPATION Docusate Sodium (Colace -) 100 mg PO BID@0600,1800 [facility] Last Admin: 03/03/19 06:28 Dose: 100 mg Furosemide (Lasix -) 40 mg PO DAILY [facility] Last Admin: 03/02/19 12:42 Dose: 40 mg Hydrocortisone (Hytone 0.5% Cream -) 1 applic TP BID [facility] Last Admin: 03/02/19 22:01 Dose: 1 applic Vancomycin HCl 1,250 mg/ (Dextrose) 250 mls @ 166.667 mls/hr IVPB Q12H [facility]; Protocol Last Admin: 03/03/19 06:41 Dose: 166.667 mls/hr Isosorbide Mononitrate (Imdur -) 90 mg PO DAILY [facility] Last Admin: 03/02/19 12:43 Dose: 90 mg Levothyroxine Sodium (Synthroid -) 125 mcg PO DAILY@0700 [facility] Last Admin: 03/03/19 06:28 Dose: 125 mcg Metoprolol Tartrate (Lopressor -) 25 mg PO BID@0600,1800 [facility] Last Admin: 03/03/19 06:28 Dose: 25 mg Multivitamins/Minerals/Vitamin C (Tab-A-Vit -) 1 tab PO DAILY@1800 [facility] Last Admin: 03/02/19 18:30 Dose: 1 tab Oxycodone HCl (Oxycontin -) 30 mg PO BID@0600,1800 [facility] Last Admin: 03/03/19 06:28 Dose: 30 mg Pramipexole Dihydrochloride (Mirapex -) 0.5 mg PO BID@0600,1800 [facility] Last Admin: 03/03/19 06:28 Dose: 0.5 mg - Objective Vital Signs: Vital Signs Temperature 98.1 F 03/03/19 06:00 Pulse Rate 90 03/03/19 06:00 Respiratory Rate 20 03/03/19 06:00 Blood Pressure 138/95 03/03/19 06:00 O2 Sat by Pulse Oximetry (%) 100 03/02/19 21:00 Constitutional: Yes: No Distress, Calm Eyes: Yes: Conjunctiva Clear HENT: Yes: Atraumatic Neck: Yes: Supple Cardiovascular: Yes: Regular Rate and Rhythm Respiratory: Yes: CTA Bilaterally Gastrointestinal: Yes: Soft. No: Tenderness Genitourinary: No: Hematuria Musculoskeletal: No: Joint Stiffness, Joint Swelling Extremities: Yes: Erythema. No: Cold, Cool Edema: Yes Integumentary: Yes: Rash (both legs), Venous Stasis Changes Neurological: Yes: WNL, Alert, Oriented ...Motor Strength: WNL Psychiatric: Yes: WNL, Alert, Oriented. No: Agitated, Suicidal Ideation Labs: CBC, BMP 03/03/19 05:23 03/03/19 05:23 - ....Imaging Other: Report Reviewed Assessment/Plan 69 YOM ASHD chronic venous insufficiency legs cellulitis h/o MRSA IV ATB per IDvascular surgery and cardiology f/u f/u labs; cont meds; topical steoird cream; OOB to chair d/w pt and staff
[2019-03-03] MEDS: ISOSORBIDE MONONITRATE 30 MG TAB.SR.24H (FP) PO SCH (10:55)
[2019-03-03] MEDS: FUROSEMIDE 40 MG TABLET (FP) PO SCH (10:55)
[2019-03-03] MEDS: ASPIRIN COATED 81 MG TABLET.EC PO SCH (10:55)
[2019-03-03] MEDS: CLOPIDOGREL BISULFATE 75 MG TABLET (FP) PO SCH (10:56)
[2019-03-03] MEDS: HYDROCORTISONE 0.5% TOPICAL CREAM 30 GM TUBE TP SCH (11:11)
--- NOTE | 2019-03-03 13:05 | PN ---
Progress Note (short form) - Note Progress Note: s: feels short of breath intermittently, amx when going to bathroom. no chest pain, palps, dizziness Current Medications Aspirin (Ecotrin -) 81 mg PO DAILY@0600 [facility] Atorvastatin Calcium (Lipitor -) 40 mg PO DAILY@1800 [facility] Last Admin: 03/02/19 18:29 Dose: 40 mg Clopidogrel Bisulfate (Plavix -) 75 mg PO DAILY@0600 [facility] Docusate Sodium (Colace Liquid -) 200 mg PO DAILY PRN PRN Reason: CONSTIPATION Docusate Sodium (Colace -) 100 mg PO BID@0600,1800 [facility] Last Admin: 03/03/19 06:28 Dose: 100 mg Furosemide (Lasix -) 40 mg PO DAILY@0600 [facility] Hydrocortisone (Hytone 0.5% Cream -) 1 applic TP DAILY [facility] Vancomycin HCl 1,250 mg/ (Dextrose) 250 mls @ 166.667 mls/hr IVPB Q12H [facility]; Protocol Last Admin: 03/03/19 06:41 Dose: 166.667 mls/hr Isosorbide Mononitrate (Imdur -) 90 mg PO DAILY@0600 [facility] Levothyroxine Sodium (Synthroid -) 125 mcg PO DAILY@0700 [facility] Last Admin: 03/03/19 06:28 Dose: 125 mcg Metoprolol Tartrate (Lopressor -) 25 mg PO BID@0600,1800 [facility] Last Admin: 03/03/19 06:28 Dose: 25 mg Multivitamins/Minerals/Vitamin C (Tab-A-Vit -) 1 tab PO DAILY@1800 [facility] Last Admin: 03/02/19 18:30 Dose: 1 tab Oxycodone HCl (Oxycontin -) 30 mg PO BID@0600,1800 [facility] Last Admin: 03/03/19 06:28 Dose: 30 mg Pramipexole Dihydrochloride (Mirapex -) 0.5 mg PO BID@0600,1800 [facility] Last Admin: 03/03/19 06:28 Dose: 0.5 mg Vital Signs Period Temp Pulse Resp BP Sys/Kaufman Pulse Ox Last 24 Hr 97.8 F-98.7 F 59-90 20-20 121-143/59-95 95-100 Constitutional: Yes: No Distress, Calm Cardiovascular: Yes: Regular Rate and Rhythm Respiratory: Yes: CTA Bilaterally Gastrointestinal: Yes: Soft, Abdomen, Obese Edema: Yes Edema: LLE: 1+, RLE: 1+ Neurological: Yes: Alert, Oriented no jaundice, diaphoresis not agitated Assessment/Plan IMP: LE cellulitis CAD s/p multivessel PCI with recent increased RODNEY chronic diastolic HF HTN REC: - IV abx per primary - plan for transfer to [place] early next week for cath (stress test w/ moderate anterior/anteroseptal ischemia) - continue ASA/Plavix/ high intensity statin , Metoprolol and Max dose Imdur, PO lasix - monitor on tele
--- NOTE | 2019-03-03 15:48 | PN ---
Progress Note, Physician History of Present Illness: REPORTS IMPROVEMENT IN LE ERYTHEMA NO DRAINAGE REPORTED N/O F/C - Current Medication List Current Medications: Active Medications Aspirin (Ecotrin -) 81 mg PO DAILY@0600 [facility] Atorvastatin Calcium (Lipitor -) 40 mg PO DAILY@1800 [facility] Last Admin: 03/02/19 18:29 Dose: 40 mg Clopidogrel Bisulfate (Plavix -) 75 mg PO DAILY@0600 [facility] Docusate Sodium (Colace Liquid -) 200 mg PO DAILY PRN PRN Reason: CONSTIPATION Docusate Sodium (Colace -) 100 mg PO BID@0600,1800 [facility] Last Admin: 03/03/19 06:28 Dose: 100 mg Furosemide (Lasix -) 40 mg PO DAILY@0600 [facility] Hydrocortisone (Hytone 0.5% Cream -) 1 applic TP DAILY [facility] Vancomycin HCl 1,250 mg/ (Dextrose) 250 mls @ 166.667 mls/hr IVPB Q12H [facility]; Protocol Last Admin: 03/03/19 06:41 Dose: 166.667 mls/hr Isosorbide Mononitrate (Imdur -) 90 mg PO DAILY@0600 [facility] Levothyroxine Sodium (Synthroid -) 125 mcg PO DAILY@0700 [facility] Last Admin: 03/03/19 06:28 Dose: 125 mcg Metoprolol Tartrate (Lopressor -) 25 mg PO BID@0600,1800 [facility] Last Admin: 03/03/19 06:28 Dose: 25 mg Multivitamins/Minerals/Vitamin C (Tab-A-Vit -) 1 tab PO DAILY@1800 [facility] Last Admin: 03/02/19 18:30 Dose: 1 tab Oxycodone HCl (Oxycontin -) 30 mg PO BID@0600,1800 [facility] Last Admin: 03/03/19 06:28 Dose: 30 mg Pramipexole Dihydrochloride (Mirapex -) 0.5 mg PO BID@0600,1800 [facility] Last Admin: 03/03/19 06:28 Dose: 0.5 mg - Objective Vital Signs: Vital Signs Temperature 98.0 F 03/03/19 14:20 Pulse Rate 60 03/03/19 14:20 Respiratory Rate 16 03/03/19 14:20 Blood Pressure 154/71 03/03/19 14:20 O2 Sat by Pulse Oximetry (%) 95 03/03/19 09:00 Constitutional: Yes: No Distress, Obese Cardiovascular: Yes: Regular Rate and Rhythm, S1, S2 Respiratory: Yes: CTA Bilaterally Gastrointestinal: Yes: Normal Bowel Sounds, Soft, Abdomen, Obese Extremities: Yes: Other (+ ERYTHEMA LE B/L R>L NO WEEPAGE) Edema: Yes Edema: LLE: 3+, RLE: 3+ Labs: CBC, BMP 03/03/19 05:23 03/03/19 05:23 Assessment/Plan CELLULITIS LE B/L CHRONIC VENOUS STASIS DERMATITIS LE HX MRSA OBESITY CONTINUE EMPIRIC VANCOMYCIN CHECK LEVEL
[2019-03-03] MEDS: MULTIVITAMINS (DAILY MVI) TABLET (FP) PO SCH (18:04)
[2019-03-03] MEDS: ATORVASTATIN CA 40 MG TABLET (FP) PO SCH (18:05)
[2019-03-04] MEDS ORDERED: PT OWN MED DRAWER 7, Y5N ONE ×5 (06:09→16:04)
[2019-03-04] MEDS: METOPROLOL TARTRATE 25 MG TABLET (FP) PO SCH ×2 (06:49→18:04)
[2019-03-04] MEDS: VANCOMYCIN HCL 1,250 MG in DEXTROSE 5%-WATER - 250 ML IVPB SCH ×2 (06:49→16:08)
[2019-03-04] MEDS: oxyCODONE HCL 10 MG SUSTAINED ACTING TABLET PO SCH ×2 (06:50→18:04)
[2019-03-04] MEDS: ASPIRIN COATED 81 MG TABLET.EC PO SCH (06:50)
[2019-03-04] MEDS: LEVOTHYROXINE NA 125 MCG TABLET (FP) PO SCH (06:51)
[2019-03-04] MEDS: ISOSORBIDE MONONITRATE 30 MG TAB.SR.24H (FP) PO SCH (06:51)
[2019-03-04] MEDS: CLOPIDOGREL BISULFATE 75 MG TABLET (FP) PO SCH (06:52)
[2019-03-04] MEDS: FUROSEMIDE 40 MG TABLET (FP) PO SCH (06:52)
[2019-03-04] MEDS: PRAMIPEXOLE DIHYDROCHLORIDE 0.5 MG TABLET PO SCH ×2 (07:06→18:06)
[2019-03-04] MEDS: DOCUSATE SODIUM 100 MG CAPSULE (FP) PO SCH ×2 (07:06→18:04)
--- NOTE | 2019-03-04 07:08 | PN ---
Progress Note, Physician Chief Complaint: OOB to chair feeling better; stable; VSS - Current Medication List Current Medications: Active Medications Aspirin (Ecotrin -) 81 mg PO DAILY@0600 [facility] Last Admin: 03/04/19 06:50 Dose: 81 mg Atorvastatin Calcium (Lipitor -) 40 mg PO DAILY@1800 [facility] Last Admin: 03/03/19 18:05 Dose: 40 mg Clopidogrel Bisulfate (Plavix -) 75 mg PO DAILY@0600 [facility] Last Admin: 03/04/19 06:52 Dose: 75 mg Docusate Sodium (Colace Liquid -) 200 mg PO DAILY PRN PRN Reason: CONSTIPATION Docusate Sodium (Colace -) 100 mg PO BID@0600,1800 [facility] Last Admin: 03/04/19 07:06 Dose: 100 mg Furosemide (Lasix -) 40 mg PO DAILY@0600 [facility] Last Admin: 03/04/19 06:52 Dose: 40 mg Hydrocortisone (Hytone 0.5% Cream -) 1 applic TP DAILY [facility] Vancomycin HCl 1,250 mg/ (Dextrose) 250 mls @ 166.667 mls/hr IVPB Q12H [facility]; Protocol Last Admin: 03/04/19 06:49 Dose: 166.667 mls/hr Isosorbide Mononitrate (Imdur -) 90 mg PO DAILY@0600 [facility] Last Admin: 03/04/19 06:51 Dose: 90 mg Levothyroxine Sodium (Synthroid -) 125 mcg PO DAILY@0700 [facility] Last Admin: 03/04/19 06:51 Dose: 125 mcg Metoprolol Tartrate (Lopressor -) 25 mg PO BID@0600,1800 [facility] Last Admin: 03/04/19 06:49 Dose: 25 mg Multivitamins/Minerals/Vitamin C (Tab-A-Vit -) 1 tab PO DAILY@1800 [facility] Last Admin: 03/03/19 18:04 Dose: 1 tab Oxycodone HCl (Oxycontin -) 30 mg PO BID@0600,1800 [facility] Last Admin: 03/04/19 06:50 Dose: 30 mg Pramipexole Dihydrochloride (Mirapex -) 0.5 mg PO BID@0600,1800 [facility] Last Admin: 03/04/19 07:06 Dose: 0.5 mg - Objective Vital Signs: Vital Signs Temperature 98.1 F 03/04/19 02:00 Pulse Rate 57 L 03/04/19 02:00 Respiratory Rate 18 03/04/19 02:00 Blood Pressure 132/58 L 03/04/19 02:00 O2 Sat by Pulse Oximetry (%) 97 03/03/19 21:00 Constitutional: Yes: No Distress, Calm Eyes: Yes: Conjunctiva Clear HENT: Yes: Atraumatic Neck: Yes: Supple Cardiovascular: Yes: Regular Rate and Rhythm Respiratory: Yes: CTA Bilaterally Gastrointestinal: Yes: Soft. No: Tenderness Genitourinary: No: Hematuria Musculoskeletal: No: Joint Stiffness, Joint Swelling Extremities: No: Cold, Cool, Cyanosis Edema: Yes Integumentary: Yes: Rash, Venous Stasis Changes Neurological: Yes: WNL, Alert, Oriented ...Motor Strength: WNL Psychiatric: Yes: WNL, Alert, Oriented. No: Agitated, Suicidal Ideation Labs: CBC, BMP 03/03/19 05:23 03/03/19 05:23 - ....Imaging Other: Report Reviewed Assessment/Plan 69 YOM ASHD chronic venous insufficiency legs cellulitis h/o MRSA IV ATB per ID vascular surgery and cardiology f/u f/u labs; cont meds; topical steoird cream; OOB to chair d/w pt and staff
[2019-03-04] MEDS ORDERED: HYDROCORTISONE 0.5% TOPICAL CREAM 30 GM TUBE TP SCH (10:00)
[2019-03-04] MEDS: HYDROCORTISONE 0.5% TOPICAL CREAM 30 GM TUBE TP SCH ×2 (11:53→22:34)
[2019-03-04] MEDS: MUPIROCIN 2% TOPICAL OINTMENT 22 GM TUBE TP SCH ×2 (12:16→22:34)
--- NOTE | 2019-03-04 13:09 | PN ---
Progress Note (short form) - Note Progress Note: s: stable sob with exertion. no chest pain, palps, dizziness Current Medications Aspirin (Ecotrin -) 81 mg PO DAILY@0600 [facility] Last Admin: 03/04/19 06:50 Dose: 81 mg Atorvastatin Calcium (Lipitor -) 40 mg PO DAILY@1800 [facility] Last Admin: 03/03/19 18:05 Dose: 40 mg Clopidogrel Bisulfate (Plavix -) 75 mg PO DAILY@0600 [facility] Last Admin: 03/04/19 06:52 Dose: 75 mg Docusate Sodium (Colace Liquid -) 200 mg PO DAILY PRN PRN Reason: CONSTIPATION Docusate Sodium (Colace -) 100 mg PO BID@0600,1800 [facility] Last Admin: 03/04/19 07:06 Dose: 100 mg Furosemide (Lasix -) 40 mg PO DAILY@0600 [facility] Last Admin: 03/04/19 06:52 Dose: 40 mg Hydrocortisone (Hytone 0.5% Cream -) 1 applic TP BID [facility] Last Admin: 03/04/19 11:53 Dose: 1 applic Vancomycin HCl 1,250 mg/ (Dextrose) 250 mls @ 166.667 mls/hr IVPB Q12H [facility]; Protocol Last Admin: 03/04/19 06:49 Dose: 166.667 mls/hr Isosorbide Mononitrate (Imdur -) 90 mg PO DAILY@0600 [facility] Last Admin: 03/04/19 06:51 Dose: 90 mg Levothyroxine Sodium (Synthroid -) 125 mcg PO DAILY@0700 [facility] Last Admin: 03/04/19 06:51 Dose: 125 mcg Metoprolol Tartrate (Lopressor -) 25 mg PO BID@0600,1800 [facility] Last Admin: 03/04/19 06:49 Dose: 25 mg Multivitamins/Minerals/Vitamin C (Tab-A-Vit -) 1 tab PO DAILY@1800 [facility] Last Admin: 03/03/19 18:04 Dose: 1 tab Mupirocin (Bactroban 2% Ointment -) 1 applic TP BID [facility] Last Admin: 03/04/19 12:16 Dose: 1 applic Oxycodone HCl (Oxycontin -) 30 mg PO BID@0600,1800 [facility] Last Admin: 03/04/19 06:50 Dose: 30 mg Pramipexole Dihydrochloride (Mirapex -) 0.5 mg PO BID@0600,1800 [facility] Last Admin: 03/04/19 07:06 Dose: 0.5 mg Vital Signs Period Temp Pulse Resp BP Sys/Kaufman Pulse Ox Last 24 Hr 97.8 F-98.9 F 57-63 16-18 132-155/53-82 97 Constitutional: Yes: No Distress, Calm Cardiovascular: Yes: Regular Rate and Rhythm Respiratory: Yes: CTA Bilaterally Gastrointestinal: Yes: Soft, Abdomen, Obese Edema: Yes Edema: LLE: 1+, RLE: 1+ Neurological: Yes: Alert, Oriented no jaundice, diaphoresis not agitated tele: sinus Assessment/Plan IMP: LE cellulitis CAD s/p multivessel PCI with recent increased RODNEY chronic diastolic HF HTN REC: - IV abx per primary - plan for transfer to [place] early next week for cath (stress test w/ moderate anterior/anteroseptal ischemia) - continue ASA/Plavix/ high intensity statin , Metoprolol and Max dose Imdur, PO lasix - monitor on tele
[2019-03-04] MEDS: ATORVASTATIN CA 40 MG TABLET (FP) PO SCH (18:04)
[2019-03-04] MEDS: MULTIVITAMINS (DAILY MVI) TABLET (FP) PO SCH (18:05)
[2019-03-05] MEDS ORDERED: PT OWN MED DRAWER 7, Y5N ONE ×2 (06:07→22:05)
[2019-03-05] MEDS: VANCOMYCIN HCL 1,250 MG in DEXTROSE 5%-WATER - 250 ML IVPB SCH (06:31)
[2019-03-05] MEDS: PRAMIPEXOLE DIHYDROCHLORIDE 0.5 MG TABLET PO SCH ×2 (06:32→17:35)
[2019-03-05] MEDS: CLOPIDOGREL BISULFATE 75 MG TABLET (FP) PO SCH (06:32)
[2019-03-05] MEDS: oxyCODONE HCL 10 MG SUSTAINED ACTING TABLET PO SCH ×2 (06:32→17:37)
[2019-03-05] MEDS: ISOSORBIDE MONONITRATE 30 MG TAB.SR.24H (FP) PO SCH (06:32)
[2019-03-05] MEDS: ASPIRIN COATED 81 MG TABLET.EC PO SCH (06:32)
[2019-03-05] MEDS: LEVOTHYROXINE NA 125 MCG TABLET (FP) PO SCH (06:32)
[2019-03-05] MEDS: METOPROLOL TARTRATE 25 MG TABLET (FP) PO SCH ×2 (06:32→17:37)
[2019-03-05] MEDS: DOCUSATE SODIUM 100 MG CAPSULE (FP) PO SCH ×3 (06:32→22:59)
[2019-03-05] MEDS: FUROSEMIDE 40 MG TABLET (FP) PO SCH (06:32)
[2019-03-05] MEDS: HYDROCORTISONE 0.5% TOPICAL CREAM 30 GM TUBE TP SCH ×2 (10:27→23:00)
[2019-03-05] MEDS: MUPIROCIN 2% TOPICAL OINTMENT 22 GM TUBE TP SCH ×2 (10:27→23:00)
--- NOTE | 2019-03-05 11:08 | PN ---
Progress Note (short form) - Note Progress Note: s: stable sob with exertion. no chest pain, palps, dizziness Current Medications Generic Name Dose Route Start Last Admin Trade Name Aldairq PRN Reason Stop Dose Admin Aspirin 81 mg 03/04/19 06:00 03/05/19 06:32 Ecotrin - PO 81 mg DAILY@0600 [facility] Administration Atorvastatin Calcium 40 mg 03/02/19 18:00 03/04/19 18:04 Lipitor - PO 40 mg DAILY@1800 [facility] Administration Clopidogrel Bisulfate 75 mg 03/04/19 06:00 03/05/19 06:32 Plavix - PO 75 mg DAILY@0600 [facility] Administration Docusate Sodium 200 mg 02/28/19 21:01 Colace Liquid - PO DAILY PRN CONSTIPATION Docusate Sodium 100 mg 03/02/19 18:00 03/05/19 06:32 Colace - PO 100 mg BID@0600,1800 [facility] Administration Furosemide 40 mg 03/03/19 11:35 03/05/19 06:32 Lasix - PO 40 mg DAILY@0600 [facility] Administration Hydrocortisone 1 applic 03/04/19 10:00 03/04/19 22:34 Hytone 0.5% Cream - TP 1 applic BID [facility] Administration Vancomycin HCl 1,250 mg/ 250 mls @ 166.667 mls/hr 03/01/19 16:00 03/05/19 06: 31 Dextrose IVPB 166.667 mls/hr Q12H [facility] Administration Protocol Isosorbide Mononitrate 90 mg 03/04/19 06:00 03/05/19 06:32 Imdur - PO 90 mg DAILY@0600 [facility] Administration Levothyroxine Sodium 125 mcg 03/01/19 07:00 03/05/19 06:32 Synthroid - PO 125 mcg DAILY@0700 [facility] Administration Metoprolol Tartrate 25 mg 03/02/19 18:00 03/05/19 06:32 Lopressor - PO 25 mg BID@0600,1800 [facility] Administration Multivitamins/Minerals/Vitamin C 1 tab 03/02/19 18:00 03/04/19 18:05 Tab-A-Vit - PO 1 tab DAILY@1800 [facility] Administration Mupirocin 1 applic 03/04/19 10:30 03/04/19 22:34 Bactroban 2% Ointment - TP 1 applic BID [facility] Administration Oxycodone HCl 30 mg 03/02/19 18:00 03/05/19 06:32 Oxycontin - PO 30 mg BID@0600,1800 [facility] Administration Pramipexole Dihydrochloride 0.5 mg 03/02/19 18:00 03/05/19 06:32 Mirapex - PO 0.5 mg BID@0600,1800 [facility] Administration Vital Signs Period Temp Pulse Resp BP Sys/Kaufman Pulse Ox Last 24 Hr 97.5 F-98.9 F 57-62 17-20 124-155/58-73 97 Constitutional: Yes: No Distress, Calm Cardiovascular: Yes: Regular Rate and Rhythm Respiratory: Yes: CTA Bilaterally Gastrointestinal: Yes: Soft, Abdomen, Obese Edema: Yes Edema: LLE: 1+, RLE:trace Neurological: Yes: Alert, Oriented no jaundice, diaphoresis not agitated CBC, BMP 03/03/19 05:23 03/03/19 05:23 tele: sinus Assessment/Plan IMP: LE cellulitis CAD s/p multivessel PCI with recent increased RODNEY chronic diastolic HF HTN REC: - IV abx per primary - plan for transfer to [place] for cath (stress test w/ moderate anterior/ anteroseptal ischemia) once cellulitis improved - continue ASA/Plavix/ high intensity statin , Metoprolol and Max dose Imdur, PO lasix - monitor on tele
--- NOTE | 2019-03-05 11:14 | PN ---
Progress Note, Physician Chief Complaint: OOB to chair some constipation, will increase colace afebrile no CP/SOB - Current Medication List Current Medications: Active Medications Aspirin (Ecotrin -) 81 mg PO DAILY@0600 [facility] Last Admin: 03/05/19 06:32 Dose: 81 mg Atorvastatin Calcium (Lipitor -) 40 mg PO DAILY@1800 [facility] Last Admin: 03/04/19 18:04 Dose: 40 mg Clopidogrel Bisulfate (Plavix -) 75 mg PO DAILY@0600 [facility] Last Admin: 03/05/19 06:32 Dose: 75 mg Docusate Sodium (Colace Liquid -) 200 mg PO DAILY PRN PRN Reason: CONSTIPATION Docusate Sodium (Colace -) 100 mg PO BID@0600,1800 [facility] Last Admin: 03/05/19 06:32 Dose: 100 mg Furosemide (Lasix -) 40 mg PO DAILY@0600 [facility] Last Admin: 03/05/19 06:32 Dose: 40 mg Hydrocortisone (Hytone 0.5% Cream -) 1 applic TP BID [facility] Last Admin: 03/04/19 22:34 Dose: 1 applic Vancomycin HCl 1,250 mg/ (Dextrose) 250 mls @ 166.667 mls/hr IVPB Q12H [facility]; Protocol Last Admin: 03/05/19 06:31 Dose: 166.667 mls/hr Isosorbide Mononitrate (Imdur -) 90 mg PO DAILY@0600 [facility] Last Admin: 03/05/19 06:32 Dose: 90 mg Levothyroxine Sodium (Synthroid -) 125 mcg PO DAILY@0700 [facility] Last Admin: 03/05/19 06:32 Dose: 125 mcg Metoprolol Tartrate (Lopressor -) 25 mg PO BID@0600,1800 [facility] Last Admin: 03/05/19 06:32 Dose: 25 mg Multivitamins/Minerals/Vitamin C (Tab-A-Vit -) 1 tab PO DAILY@1800 [facility] Last Admin: 03/04/19 18:05 Dose: 1 tab Mupirocin (Bactroban 2% Ointment -) 1 applic TP BID [facility] Last Admin: 03/04/19 22:34 Dose: 1 applic Oxycodone HCl (Oxycontin -) 30 mg PO BID@0600,1800 [facility] Last Admin: 03/05/19 06:32 Dose: 30 mg Pramipexole Dihydrochloride (Mirapex -) 0.5 mg PO BID@0600,1800 [facility] Last Admin: 03/05/19 06:32 Dose: 0.5 mg - Objective Vital Signs: Vital Signs Temperature 97.5 F L 03/05/19 06:52 Pulse Rate 62 03/05/19 06:52 Respiratory Rate 20 03/05/19 06:52 Blood Pressure 138/64 03/05/19 06:52 O2 Sat by Pulse Oximetry (%) 97 03/04/19 20:57 Constitutional: Yes: No Distress, Calm Eyes: Yes: Conjunctiva Clear HENT: Yes: Atraumatic Neck: Yes: Supple Cardiovascular: Yes: Regular Rate and Rhythm Respiratory: Yes: CTA Bilaterally Gastrointestinal: Yes: Soft. No: Tenderness Genitourinary: No: Hematuria Musculoskeletal: No: Joint Stiffness, Joint Swelling Extremities: No: Cold, Cool Integumentary: Yes: Rash, Venous Stasis Changes Neurological: Yes: WNL, Alert, Oriented ...Motor Strength: WNL Psychiatric: Yes: WNL, Alert, Oriented. No: Agitated Labs: CBC, BMP 03/03/19 05:23 03/03/19 05:23 - ....Imaging Other: Report Reviewed Assessment/Plan 69 YOM ASHD chronic venous insufficiency legs cellulitis h/o MRSA IV ATB per ID vascular surgery and cardiology f/u to transfer for cath when cleared by ID f/u labs; cont meds; topical steroid cream; colace bid- tid prn; fiber and water po OOB to chair d/w pt and staff
--- NOTE | 2019-03-05 12:44 | PN ---
Progress Note (short form) - Note Progress Note: legs improved plans for cardiac cath this admission Vital Signs Period Temp Pulse Resp BP Sys/Kaufman Pulse Ox Last 24 Hr 97.5 F-98.9 F 57-67 17-20 124-155/58-73 97-97 cor-rrr lungs decreased bs at bases abd soft,nt ext no erythema LLE, mild erythema/venous stasis changes RLE no warmth CBC, BMP 03/03/19 05:23 03/03/19 05:23 a/p mild cellulitils/lvenous stasis changes RLE history MRSA' CAD with postive stress test obesity HTN will switch to clindamycin for 7 days please call back if needed
[2019-03-05] MEDS: LACTOBACILLUS ACIDOPHILUS 1 TABLET PO SCH (14:02)
[2019-03-05] MEDS: CLINDAMYCIN HCL 150 MG CAPSULE (FP) PO SCH ×2 (14:02→22:59)
[2019-03-05] MEDS: MULTIVITAMINS (DAILY MVI) TABLET (FP) PO SCH (17:37)
[2019-03-05] MEDS: ATORVASTATIN CA 40 MG TABLET (FP) PO SCH (18:54)
[2019-03-06] MEDS: FUROSEMIDE 40 MG TABLET (FP) PO SCH (06:03)
[2019-03-06] MEDS: METOPROLOL TARTRATE 25 MG TABLET (FP) PO SCH ×2 (06:03→18:22)
[2019-03-06] MEDS: DOCUSATE SODIUM 100 MG CAPSULE (FP) PO SCH ×3 (06:03→22:08)
[2019-03-06] MEDS: CLINDAMYCIN HCL 150 MG CAPSULE (FP) PO SCH ×3 (06:04→22:08)
[2019-03-06] MEDS: ASPIRIN COATED 81 MG TABLET.EC PO SCH (06:04)
[2019-03-06] MEDS: LEVOTHYROXINE NA 125 MCG TABLET (FP) PO SCH (06:04)
[2019-03-06] MEDS: CLOPIDOGREL BISULFATE 75 MG TABLET (FP) PO SCH (06:04)
[2019-03-06] MEDS: ISOSORBIDE MONONITRATE 30 MG TAB.SR.24H (FP) PO SCH (06:04)
[2019-03-06] MEDS: PRAMIPEXOLE DIHYDROCHLORIDE 0.5 MG TABLET PO SCH ×2 (06:05→18:22)
[2019-03-06] MEDS: oxyCODONE HCL 10 MG SUSTAINED ACTING TABLET PO SCH ×2 (06:05→19:09)
--- NOTE | 2019-03-06 09:28 | PN ---
Progress Note, Physician Chief Complaint: no legs pains rash better but still with legs venous stasis dermatitis changes d.w pt he saw derm in the past; will place derm consult here but he should also f/u with derm outpt - skin biopsy? d/w pt also d.w pt switched by ID to po ATB; will d/w ID and cardio if OK to transfer for cath - Current Medication List Current Medications: Active Medications Aspirin (Ecotrin -) 81 mg PO DAILY@0600 [facility] Last Admin: 03/06/19 06:04 Dose: 81 mg Atorvastatin Calcium (Lipitor -) 40 mg PO DAILY@1800 [facility] Last Admin: 03/05/19 18:54 Dose: 40 mg Clindamycin HCl (Cleocin -) 300 mg PO TID [facility] Last Admin: 03/06/19 06:04 Dose: 300 mg Clopidogrel Bisulfate (Plavix -) 75 mg PO DAILY@0600 [facility] Last Admin: 03/06/19 06:04 Dose: 75 mg Docusate Sodium (Colace -) 100 mg PO TID [facility] Last Admin: 03/06/19 06:03 Dose: 100 mg Furosemide (Lasix -) 40 mg PO DAILY@0600 [facility] Last Admin: 03/06/19 06:03 Dose: 40 mg Hydrocortisone (Hytone 0.5% Cream -) 1 applic TP BID [facility] Last Admin: 03/05/19 23:00 Dose: 1 applic Isosorbide Mononitrate (Imdur -) 90 mg PO DAILY@0600 [facility] Last Admin: 03/06/19 06:04 Dose: 90 mg Lactobacillus Acidophilus (Bacid -) 1 tab PO DAILY [facility] Last Admin: 03/05/19 14:02 Dose: 1 tab Levothyroxine Sodium (Synthroid -) 125 mcg PO DAILY@0700 [facility] Last Admin: 03/06/19 06:04 Dose: 125 mcg Metoprolol Tartrate (Lopressor -) 25 mg PO BID@0600,1800 [facility] Last Admin: 03/06/19 06:03 Dose: 25 mg Multivitamins/Minerals/Vitamin C (Tab-A-Vit -) 1 tab PO DAILY@1800 [facility] Last Admin: 03/05/19 17:37 Dose: 1 tab Mupirocin (Bactroban 2% Ointment -) 1 applic TP BID [facility] Last Admin: 03/05/19 23:00 Dose: 1 applic Oxycodone HCl (Oxycontin -) 30 mg PO BID@0600,1800 [facility] Last Admin: 03/06/19 06:05 Dose: 30 mg Pramipexole Dihydrochloride (Mirapex -) 0.5 mg PO BID@0600,1800 [facility] Last Admin: 03/06/19 06:05 Dose: 0.5 mg - Objective Vital Signs: Vital Signs Temperature 98.9 F 03/06/19 06:00 Pulse Rate 55 L 03/06/19 06:00 Respiratory Rate 18 03/06/19 06:00 Blood Pressure 148/73 03/06/19 06:00 O2 Sat by Pulse Oximetry (%) 97 03/05/19 21:00 Constitutional: Yes: No Distress, Calm Eyes: Yes: Conjunctiva Clear HENT: Yes: Atraumatic Neck: Yes: Supple Cardiovascular: Yes: Regular Rate and Rhythm Respiratory: Yes: CTA Bilaterally Gastrointestinal: Yes: Soft. No: Tenderness Genitourinary: No: Hematuria Extremities: No: Cold, Cool Integumentary: Yes: Rash, Venous Stasis Changes Neurological: Yes: WNL, Alert, Oriented ...Motor Strength: WNL Psychiatric: Yes: WNL, Alert, Oriented. No: Agitated Labs: CBC, BMP 03/03/19 05:23 03/03/19 05:23 - ....Imaging Other: Report Reviewed Assessment/Plan 69 YOM ASHD chronic venous insufficiency legs cellulitis h/o MRSA po ATB per ID; bacid po for Cdiff colitis pfx while on clinda vascular surgery and cardiology f/u derm eval; ? skin biopsy? if not able to have it inpt he should f/u with derm outpt to transfer for cath when cleared by ID f/u labs; cont meds; topical steroid cream; colace bid- tid prn; fiber and water po OOB to chair d/w pt all the above he agreed with plan.
--- NOTE | 2019-03-06 11:29 | PN ---
Progress Note (short form) - Note Progress Note: s: dyspnea on exertion stable. no chest pain, palps, dizziness. stable edema. Current Medications Aspirin (Ecotrin -) 81 mg PO DAILY@0600 [facility] Last Admin: 03/06/19 06:04 Dose: 81 mg Atorvastatin Calcium (Lipitor -) 40 mg PO DAILY@1800 [facility] Last Admin: 03/05/19 18:54 Dose: 40 mg Clindamycin HCl (Cleocin -) 300 mg PO TID [facility] Last Admin: 03/06/19 06:04 Dose: 300 mg Clopidogrel Bisulfate (Plavix -) 75 mg PO DAILY@0600 [facility] Last Admin: 03/06/19 06:04 Dose: 75 mg Docusate Sodium (Colace -) 100 mg PO TID [facility] Last Admin: 03/06/19 06:03 Dose: 100 mg Furosemide (Lasix -) 40 mg PO DAILY@0600 [facility] Last Admin: 03/06/19 06:03 Dose: 40 mg Hydrocortisone (Hytone 0.5% Cream -) 1 applic TP BID [facility] Last Admin: 03/05/19 23:00 Dose: 1 applic Isosorbide Mononitrate (Imdur -) 90 mg PO DAILY@0600 [facility] Last Admin: 03/06/19 06:04 Dose: 90 mg Lactobacillus Acidophilus (Bacid -) 1 tab PO DAILY [facility] Last Admin: 03/05/19 14:02 Dose: 1 tab Levothyroxine Sodium (Synthroid -) 125 mcg PO DAILY@0700 [facility] Last Admin: 03/06/19 06:04 Dose: 125 mcg Metoprolol Tartrate (Lopressor -) 25 mg PO BID@0600,1800 [facility] Last Admin: 03/06/19 06:03 Dose: 25 mg Multivitamins/Minerals/Vitamin C (Tab-A-Vit -) 1 tab PO DAILY@1800 [facility] Last Admin: 03/05/19 17:37 Dose: 1 tab Mupirocin (Bactroban 2% Ointment -) 1 applic TP BID [facility] Last Admin: 03/05/19 23:00 Dose: 1 applic Oxycodone HCl (Oxycontin -) 30 mg PO BID@0600,1800 [facility] Last Admin: 03/06/19 06:05 Dose: 30 mg Pramipexole Dihydrochloride (Mirapex -) 0.5 mg PO BID@0600,1800 [facility] Last Admin: 03/06/19 06:05 Dose: 0.5 mg Vital Signs Period Temp Pulse Resp BP Sys/Kaufman Pulse Ox Last 24 Hr 97.4 F-98.9 F 55-67 18-18 112-154/53-73 97 Constitutional: Yes: No Distress, Calm Cardiovascular: Yes: Regular Rate and Rhythm Respiratory: Yes: CTA Bilaterally Gastrointestinal: Yes: Soft, Abdomen, Obese Edema: Yes Edema: LLE: 1+, RLE:trace Neurological: Yes: Alert, Oriented no jaundice, diaphoresis not agitated tele: sinus Assessment/Plan IMP: LE cellulitis CAD s/p multivessel PCI with recent increased RODNEY chronic diastolic HF HTN REC: - abx per primary - plan for transfer to [place] for cath (stress test w/ moderate anterior/ anteroseptal ischemia) once cellulitis improved - continue ASA/Plavix/ high intensity statin , Metoprolol and Max dose Imdur, PO lasix - complains of edema, appears stable. cont PO lasix, net negative I/O, advised fluid restriction (drinking >1 gallon of water/day at home, less here). daily weights. - monitoring on tele
[2019-03-06] MEDS: LACTOBACILLUS ACIDOPHILUS 1 TABLET PO SCH (12:27)
[2019-03-06] MEDS: HYDROCORTISONE 0.5% TOPICAL CREAM 30 GM TUBE TP SCH ×2 (12:28→22:09)
[2019-03-06] MEDS: MUPIROCIN 2% TOPICAL OINTMENT 22 GM TUBE TP SCH ×2 (12:29→22:08)
[2019-03-06] MEDS ORDERED: PT OWN MED DRAWER 7, Y5N ONE ×2 (18:03→21:31)
[2019-03-06] MEDS: ATORVASTATIN CA 40 MG TABLET (FP) PO SCH (18:21)
[2019-03-06] MEDS: MULTIVITAMINS (DAILY MVI) TABLET (FP) PO SCH (18:22)
[2019-03-07] MEDS: ASPIRIN COATED 81 MG TABLET.EC PO SCH (06:39)
[2019-03-07] MEDS: METOPROLOL TARTRATE 25 MG TABLET (FP) PO SCH (06:39)
[2019-03-07] MEDS: LEVOTHYROXINE NA 125 MCG TABLET (FP) PO SCH (06:39)
[2019-03-07] MEDS: CLINDAMYCIN HCL 150 MG CAPSULE (FP) PO SCH (06:39)
[2019-03-07] MEDS: ISOSORBIDE MONONITRATE 30 MG TAB.SR.24H (FP) PO SCH (06:40)
[2019-03-07] MEDS: DOCUSATE SODIUM 100 MG CAPSULE (FP) PO SCH (06:41)
[2019-03-07] MEDS: PRAMIPEXOLE DIHYDROCHLORIDE 0.5 MG TABLET PO SCH (06:41)
[2019-03-07] MEDS: FUROSEMIDE 40 MG TABLET (FP) PO SCH (06:41)
[2019-03-07] MEDS: oxyCODONE HCL 10 MG SUSTAINED ACTING TABLET PO SCH (06:42)
[2019-03-07] MEDS: CLOPIDOGREL BISULFATE 75 MG TABLET (FP) PO SCH (06:43)
--- NOTE | 2019-03-07 09:34 | DS ---
Physical Examination Vital Signs: Vital Signs Temperature 98.1 F 03/07/19 06:48 Pulse Rate 61 03/07/19 06:48 Respiratory Rate 18 03/07/19 06:48 Blood Pressure 128/57 L 03/07/19 06:48 O2 Sat by Pulse Oximetry (%) 96 03/06/19 09:00 Findings/Remarks: in bed NAD no new c/o; legs better less red less swollen, he is urinating a lot ; no legs pain no CP/SOB, afebrile NL WBC; no abdominal pain no N/V/C/D/ ate well and slept OK consults and tests and meds reviewed and d/w pt; seen inpt by ID, vascular surgery, cardiology; legs US no DVT but superficial veins thromboses on ASA & Plavix - d/w cardio and vasc sx positive stress test needs cardiac cath per cardio, pt aware - he is awaiting transfer to [facility] when bed available; cleared by ID for cath and switched to po ATB per ID (and po bacid) dermatology NA for H consults at this point (dr Newsome, dr Fraga) d/w pt to see dermatology outpt Constitutional: Yes: No Distress, Calm Eyes: Yes: Conjunctiva Clear HENT: Yes: Atraumatic Neck: Yes: Supple Cardiovascular: Yes: Regular Rate and Rhythm Respiratory: Yes: CTA Bilaterally Gastrointestinal: Yes: Soft, Abdomen, Obese. No: Tenderness Renal/: No: Hematuria Musculoskeletal: No: Joint Stiffness, Joint Swelling Extremities: No: Cold, Cool Edema: Yes (less than before) Integumentary: Yes: Rash (much improved), Venous Stasis Changes (both legs stasis dermatitis bilat). No: Pressure Ulcer Neurological: Yes: WNL, Alert, Oriented ...Motor Strength: WNL Psychiatric: Yes: WNL, Alert, Oriented. No: Agitated, Suicidal Ideation Labs: CBC, BMP 03/03/19 05:23 03/03/19 05:23 Discharge Summary Problems reviewed: Yes Reason For Visit: CELLULITIS Current Active Problems Cellulitis (Acute) Procedures: Principal: 69 YOM ASHD CHF HTN venous insuficinecy stasis dermatitis legs edema admitted with legs cellulitis; legs US no DVT but superficial veins thromboses; Other Procedures: seen by ID, cardiology and vascular surgery; had antibiotics treatment per ID; had cardiac meds per cardiology and cellulitis tx per vascular sx; improved with above; had echo and stress test + for cardiac ischemia and cardiology recommeded transfer to [facility] for cardiac catheterization, d/w pt and he agreed with his plan of treatment. Hospital Course: improved with above; cellulitis and legs edema improved but pt had signs of cardiac ischemia on stress test and plan is to transfer pt for cardiac cath. d/w pt f/u needed after DC from : PCP, cardiology, ID, vascular surgery, dermatology and pain management; health maintenance (GI colonoscopy, ) per PCP outpt Plan of Treatment: transfer to [facility] for cardiac cath Condition: Stable - Instructions Diet, Activity, Other Instructions: f/u PCP, cardiology, vascular surgery and ID in 1-2 weeks after DC from Hospital ; f/u pain management and dermatology outpt; health maintenance per PCP; falls pfx; RTER if worse or recurrent c/o Referrals: Zac Salas MD [Primary Care Provider] - Willian Olmos MD [Staff Physician] - Kacy Newsome MD [Staff Physician] - Dell Louise DO [Staff Physician] - Willian Souza MD [Staff Physician] - Disposition: TRANSFER ACUTE CARE/OTHER HOSP - Home Medications Comprehensive Discharge Medication List: Ambulatory Orders Aspirin [Aspirin EC] 81 mg PO DAILY 01/06/18 Isosorbide Mononitrate [Imdur -] 90 mg PO DAILY 01/06/18 Levothyroxine [Synthroid -] 125 mcg PO DAILY 01/06/18 Metoprolol Tartrate [Lopressor -] 25 mg PO BID 01/06/18 Atorvastatin Ca [Lipitor] 40 mg PO HS 04/14/18 Clopidogrel Bisulfate [Plavix -] 75 mg PO DAILY 04/14/18 Multivitamin [Multiple Vitamins] 1 each PO HS 04/14/18 Docusate Sodium [Colace] 100 mg PO BID 11/03/18 Furosemide [Lasix -] 40 mg PO DAILY 11/03/18 Hydrocortisone 0.5% Cream [Hytone 0.5% Cream -] 1 applic TP BID #1 tube Oxycodone HCl [Oxycontin] 30 mg PO BID [facility] 2 02/16/19 Pramipexole Di-HCl [Mirapex] 0.5 mg PO BID 10/10/19 po clinda see DC lemds list
[2019-03-07] MEDS: LACTOBACILLUS ACIDOPHILUS 1 TABLET PO SCH (10:12)
[2019-03-07] MEDS: HYDROCORTISONE 0.5% TOPICAL CREAM 30 GM TUBE TP SCH (10:19)
[2019-03-07] MEDS: MUPIROCIN 2% TOPICAL OINTMENT 22 GM TUBE TP SCH (10:19)
--- NOTE | 2019-03-07 10:55 | PN ---
Progress Note (short form) - Note Progress Note: s: no chest pain, palps, dizziness. stable edema, dyspnea Current Medications Aspirin (Ecotrin -) 81 mg PO DAILY@0600 [facility] Last Admin: 03/07/19 06:39 Dose: 81 mg Atorvastatin Calcium (Lipitor -) 40 mg PO DAILY@1800 [facility] Last Admin: 03/06/19 18:21 Dose: 40 mg Clindamycin HCl (Cleocin -) 300 mg PO TID [facility] Last Admin: 03/07/19 06:39 Dose: 300 mg Clopidogrel Bisulfate (Plavix -) 75 mg PO DAILY@0600 [facility] Last Admin: 03/07/19 06:43 Dose: 75 mg Docusate Sodium (Colace -) 100 mg PO TID [facility] Last Admin: 03/07/19 06:41 Dose: 100 mg Furosemide (Lasix -) 40 mg PO DAILY@0600 [facility] Last Admin: 03/07/19 06:41 Dose: 40 mg Hydrocortisone (Hytone 0.5% Cream -) 1 applic TP BID [facility] Last Admin: 03/07/19 10:19 Dose: 1 applic Isosorbide Mononitrate (Imdur -) 90 mg PO DAILY@0600 [facility] Last Admin: 03/07/19 06:40 Dose: 90 mg Lactobacillus Acidophilus (Bacid -) 1 tab PO DAILY [facility] Last Admin: 03/07/19 10:12 Dose: 1 tab Levothyroxine Sodium (Synthroid -) 125 mcg PO DAILY@0700 [facility] Last Admin: 03/07/19 06:39 Dose: 125 mcg Metoprolol Tartrate (Lopressor -) 25 mg PO BID@0600,1800 [facility] Last Admin: 03/07/19 06:39 Dose: 25 mg Multivitamins/Minerals/Vitamin C (Tab-A-Vit -) 1 tab PO DAILY@1800 [facility] Last Admin: 03/06/19 18:22 Dose: 1 tab Mupirocin (Bactroban 2% Ointment -) 1 applic TP BID [facility] Last Admin: 03/07/19 10:19 Dose: 1 applic Oxycodone HCl (Oxycontin -) 30 mg PO BID@0600,1800 [facility] Last Admin: 03/07/19 06:42 Dose: 30 mg Pramipexole Dihydrochloride (Mirapex -) 0.5 mg PO BID@0600,1800 [facility] Last Admin: 03/07/19 06:41 Dose: 0.5 mg Vital Signs Period Temp Pulse Resp BP Sys/Kaufman Pulse Ox Last 24 Hr 97.8 F-98.4 F 59-70 16-18 116-155/52-86 Constitutional: Yes: No Distress, Calm Cardiovascular: Yes: Regular Rate and Rhythm Respiratory: Yes: CTA Bilaterally Gastrointestinal: Yes: Soft, Abdomen, Obese Edema: Yes Edema: LLE: 1+, RLE:trace Neurological: Yes: Alert, Oriented no jaundice, diaphoresis not agitated tele: sinus Assessment/Plan IMP: LE cellulitis CAD s/p multivessel PCI with recent increased RODNEY chronic diastolic HF HTN REC: - abx per primary, now on PO - transfer to [place] for cath (stress test w/ moderate anterior/anteroseptal ischemia) today - continue ASA/Plavix/ high intensity statin , metoprolol and max dose Imdur, PO lasix - monitoring on tele
[2019-03-07 13:12] VITALS: BP 116/55; PULSE 58; TEMP 97.7
--- NOTE | 2019-03-07 18:21 | CONS ---
DATE OF CONSULTATION: DATE OF DICTATION: 03/07/2019 REQUESTING PHYSICIAN: Dell Louise M.D., and Zac Salas M.D. REASON FOR CONSULTATION: Requesting biopsy lesions lower extremities. Patient was seen on Consultation Reason for consultation BIOPSIES SKIN LESIONS : HISTORY OF PRESENT ILLNESS: 69-year-old male seen at [facility] regarding skin lesions Multiple skin growths localized to both lower extremities . Cardiac disease , History is obtained from the patient and chart reviewed . PAST HISTORY: Relevant for cardiac disease on Plavix. Course in Hospital : Vascular problems lower extremities. DVT Negative echo and stress test done which were positive for cardiac ischemia. He had echo and stress test done which were positive for cardiac ischemia. [employer]dp Displays Analyst recommended to transfer [facility] to [facility] for cardiac catheterization. During the hospital course, his cellulitis and leg edema has improved. Patient is to undergo Stents placement at [facility] sometime today, waiting to be transferred today. Medication : Vancomycin for cellulitis of the lower extremities. Medications at present: aspirin, he is on 81 mg, isosorbide/Imdur 90 mg, metoprolol tartrate/Lopressor 35 mg b.i.d., atorvastatin/Lipitor 40 mg hour of sleep, clopidogrel/Plavix 75 mg daily, multivitamins, furosemide 40 mg daily, hydrocortisone cream being applied on the lower extremities, OxyContin 30 mg b.i.d. for pain as needed, Mirapex 0.5 mg p.o. b.i.d., and clindamycin p.o. Examination : Lower extremities: 4+ Pitting odema/swelling Right leg 3+ pitting odema/swelling L Leg 4+ pitting edema on the right, 3+ pitting edema on the left leg, significant skin pigmented changes, erythema, tense swelling/ firm, no calf tenderness I called back Dr. Salas and explained to him my reason for avoiding interventional biopsy at this time, until his condition is stabilized at [facility] for the stent procedure. He can return back to [facility] for a biopsy or it can be done at the main hospital at [facility].Discussion with Dr. Salas was made for the need for biopsies, especially while patient is waiting to undergo cardiac stent procedure at [facility] to be transferred. Open biopsy at this stage the lower extremities may introduce bacteria / swelling may result in infection delaying necessary urgent Stent procedure. amount of bacteria which may, in view of this significant swelling, may be more detrimental for his general health. All Questions answered. . It was advised to hold off any skin biopsy while the patient is being transferred. This can be done as an elective procedure at [facility]. Other : infectious disease, Dr Louise / vascular surgery, as well as cardiology. I have spoken with Primary care Physician Dr Salas and given my recommendation, he agrees. Biopsies can be performed at the Hospital patient planning to treated after general condition improves and he is in stable condition for Local Anaesthesia Counseling patient had several questions regarding his general medical condition and as well about swelling in his lower extremities. Extended time spend ,He was given all the time for questioning /answers given Risks explained, including delay biopsy till medically stable. FINAL DIAGNOSIS: Cardiac Insufficiency, needing Stent BETTIE, Lower extremity swelling, pitting edema, vascular insufficiency, obesity, and cardiac disease. Total time: History, Examination, review of chart including Counselling 30 minutes. PEACE HURD M.D. [id number] MTDD
== END 2019-03-07 15:22 | disposition short-term general hospital (02) | DRG 603 ==
LOC: JER 12:33 → JERBED 19:00 → J4S 03-01 19:00 → JERBED 03-03 13:44 → J4S 03-03 13:46
PROVIDERS: ADMIT Specialist; ATTEND Specialist
DX: L03.115 Cellulitis of right lower limb (principal); Z68.41 Body mass index [BMI] 40.0-44.9, adult; I50.32 Chronic diastolic (congestive) heart failure; E66.01 Morbid (severe) obesity due to excess calories; L03.116 Cellulitis of left lower limb; I25.10 Atherosclerotic heart disease of native coronary artery without angina pectoris; Z98.61 Coronary angioplasty status; I11.0 Hypertensive heart disease with heart failure; I87.2 Venous insufficiency (chronic) (peripheral); K59.00 Constipation, unspecified; I73.9 Peripheral vascular disease, unspecified; I89.0 Lymphedema, not elsewhere classified
CPT/HCPCS: 29581-LT; 29581-RT; 36415; 71045-TC-FY; 78452-TC; 80048; 80053; 83605; 83880; 85025; 85027; 93005; 93010; 93017; 93306-TC; 93970-TC; 94660; 99285-25; A6197; A6210; A9502; G0008; G0463-25; G0480; J1245; Q2036

== ENCOUNTER 2019-04-18 07:27 | Emergency (ER) | payer OTHER, MEDICARE ==
[2019-04-18 07:53] VITALS: TEMP 98; BMI 44.2
--- NOTE | 2019-04-18 08:21 | PDOC ---
*Physical Exam - Vital Signs Last Vital Signs Temp Pulse Resp BP Pulse Ox 98 F 79 19 131/62 95 04/18/19 07:34 04/18/19 07:34 04/18/19 07:34 04/18/19 07:34 04/18/19 07:34 - Physical Exam Comments: 04/18/19 08:20 The patient was examined by [AMERICO lutz] under my direct supervision. I personally evaluated the patient. I concur with the above findings and the plan of care. Discharge - Discharge Information Problems reviewed: Yes Clinical Impression/Diagnosis: Leg swelling Condition: Stable Disposition: HOME - Additional Discharge Information Prescriptions: Clindamycin [Cleocin -] 300 mg PO TID #21 capsule - Follow up/Referral Referrals: Zac Salas MD [Primary Care Provider] - - Patient Discharge Instructions Additional Instructions: Take clindamycin 300 mg 1 tablet every 8 hours for 7 days Keep your appointment scheduled with the home care associate today at 2 PM Return to ED if fever, chills, chest pain, shortness of breath or any worsening symptoms - Post Discharge Activity
--- NOTE | 2019-04-18 09:55 | PDOC ---
History of Present Illness - General Chief Complaint: Pain Stated Complaint: R/O DVT, LEG SWELLING Time Seen by Provider: 04/18/19 08:03 History Source: Patient Exam Limitations: No Limitations - History of Present Illness Initial Comments: 04/18/19 09:49 69-year-old male with multiple medical problems including CHF, CAD x5 stents on Plavix, obstructive sleep apnea on CPAP, 2 weeks ago treated at an outside hospital for cellulitis to lower extremities, restless leg syndrome, chronic low back pain, chronic knee pain presents complaining of bilateral lower extremity swelling x2 months worsening over the last month. Denies new chest pain, shortness of breath, dizziness, fever, chills or any other symptoms. Patient ambulates using a walker. Has an appointment with dermatology today at [address] to the emergency room. ROS: GENERAL/CONSTITUTIONAL: No fever, chills, weakness, dizziness HEAD, EYES, EARS, NOSE AND THROAT: No changes in vision, No ear pain or discharge, No sore throat CARDIOVASCULAR: No chest pain RESPIRATORY: No shortness of breath or cough GASTROINTESTINAL: No pain, nausea, vomiting, diarrhea or constipation GENITOURINARY: No dysuria MUSCULOSKELETAL: Bilateral lower extremity pain and swelling SKIN: No rash NEUROLOGIC: No headache, vertigo, loss of consciousness, or loss of sensation PE: GENERAL: well-appearing, NAD, obese HEAD: NCAT EYES: Pupils equal, round and reactive to light, sclera anicteric, conjunctiva clear ENT: pharynx: no erythema, no exudate, uvula midline NECK: supple CHEST: nontender RESP: clear, no w/r/r CARDIO: rrr, no m/g/r ABD: +BS, soft, nontender, non distended BACK: no midline spinal ttp, no CVAT EXTREMITIES: Normal range of motion, +2 edema bilaterally, few scattered small draining vesicles, nontender, mild erythema, minimal warmth to right lower extremity NEUROLOGICAL: Normal speech, ambulating with walker assistance SKIN: Warm, Dry Past History - Past Medical History Allergies/Adverse Reactions: Allergies Allergy/AdvReac Type Severity Reaction Status Date / Time No Known Allergies Allergy Verified 04/18/19 07:36 Home Medications: Ambulatory Orders Aspirin [Aspirin EC] 81 mg PO DAILY 01/06/18 Isosorbide Mononitrate [Imdur -] 90 mg PO DAILY 01/06/18 Levothyroxine [Synthroid -] 125 mcg PO DAILY 01/06/18 Metoprolol Tartrate [Lopressor -] 25 mg PO BID 01/06/18 Atorvastatin Ca [Lipitor] 40 mg PO HS 04/14/18 Clopidogrel Bisulfate [Plavix -] 75 mg PO DAILY 04/14/18 Multivitamin [Multiple Vitamins] 1 each PO HS 04/14/18 Docusate Sodium [Colace] 100 mg PO BID 11/03/18 Furosemide [Lasix -] 40 mg PO DAILY 11/03/18 Hydrocortisone 0.5% Cream [Hytone 0.5% Cream -] 1 applic TP BID #1 tube Oxycodone HCl [Oxycontin] 30 mg PO BID MDD 2 02/16/19 Clindamycin [Cleocin -] 300 mg PO TID capsule 03/07/19 Lactobacillus Acidophilus [Bacid -] 1 tab PO DAILY tab 03/07/19 Pramipexole Dihydrochloride [Mirapex -] 0.5 mg PO BID@0600,1800 tablet Clindamycin [Cleocin -] 300 mg PO TID #21 capsule 04/18/19 Cancer: No Cardiac Disorders: Yes (mi x2 in 1997 and 2010 cardiac stents, venous insufficiency) CVA: No COPD: No Dementia: No Diabetes: No GI Disorders: Yes (gerd, lactose intoloerance) Disorders: No HTN: Yes Hypercholesterolemia: Yes Liver Disease: No Seizures: No Thyroid Disease: Yes (hypothyroidism) - Surgical History Abdominal Surgery: No Appendectomy: No Cardiac Surgery: Yes (cardiac 5 stents) Cholecystectomy: No Lung Surgery: No Orthopedic Surgery: Yes (injections for back pain b./l knee torn miniscus surgery repair) - Immunization History Immunization Up to Date: Yes - Psycho Social/Smoking Cessation Hx Smoking History: Never smoked Have you smoked in the past 12 months: No Number of Cigarettes Smoked Daily: 0 If you are a former smoker, when did you quit?: jun 2010 Cigars Per Day: 0 Information on smoking cessation initiated: No 'Breaking Loose' booklet given: 01/07/18 Hx Alcohol Use: No Drug/Substance Use Hx: No Substance Use Type: None Hx Substance Use Treatment: No *Physical Exam - Vital Signs Last Vital Signs Temp Pulse Resp BP Pulse Ox 98 F 79 19 131/62 95 11/27/19 07:34 04/18/19 07:34 04/18/19 07:34 04/18/19 07:34 04/18/19 07:34 ED Treatment Course - RADIOLOGY Radiology Studies Ordered: Category Date Time Status DUPLEX VASCUL [id number] [US] Stat Ultrasound 04/18/19 08:15 Taken Medical Decision Making - Medical Decision Making 04/18/19 09:54 69-year-old male with multiple medical problems including CAD on Plavix, CHF, GABBY, restless leg syndrome, history of cellulitis to bilateral lower extremities presents complaining of bilateral lower extremity pain and swelling for several months worsening over the past month. Awaiting bilateral lower extremity venous Dopplers to rule out DVT 04/18/19 10:25 Bilateral lower extremity ultrasounds negative, discussed these results with patient and I called his physician and left these results with the paralegal legal secretary. Will order clindamycin to treat for an early cellulitis. Stable for discharge, patient will see his software developer mid level today at 2 PM Return precautions discussed Discharge - Discharge Information Problems reviewed: Yes Clinical Impression/Diagnosis: Leg swelling Condition: Stable Disposition: HOME - Additional Discharge Information Prescriptions: Clindamycin [Cleocin -] 300 mg PO TID #21 capsule - Follow up/Referral Referrals: Zac Salas MD [Primary Care Provider] - - Patient Discharge Instructions Additional Instructions: Take clindamycin 300 mg 1 tablet every 8 hours for 7 days Keep your appointment scheduled with the software developer mid level today at 2 PM Return to ED if fever, chills, chest pain, shortness of breath or any worsening symptoms - Post Discharge Activity
[2019-04-18 11:03] VITALS: BP 122/65; PULSE 62
== END 2019-04-18 11:03 | disposition home or self-care (01) ==
LOC: JER 07:27
DX: M79.89 Other specified soft tissue disorders (principal); Z99.89 Dependence on other enabling machines and devices; I25.10 Atherosclerotic heart disease of native coronary artery without angina pectoris; Z79.01 Long term (current) use of anticoagulants; I50.9 Heart failure, unspecified; G47.33 Obstructive sleep apnea (adult) (pediatric); G25.81 Restless legs syndrome; L03.90 Cellulitis, unspecified
CPT/HCPCS: 93970-TC; 99283-25

== ENCOUNTER 2020-10-17 04:20 | Day surgery (SDC) | payer OTHER, MEDICARE ==
[2020-10-16 11:46] VITALS: BMI 36.8
[2020-10-17] MEDS ORDERED: LIDOCAINE HCL/PF 2% SDV 5ML VIAL ONE (07:49)
[2020-10-17] MEDS ORDERED: LIDOCAINE 1% P/F 10 MG/ML VIAL PNB ONE (14:37)
[2020-10-17 17:48] VITALS: BP 124/63; PULSE 69
[2020-10-17 17:53] VITALS: TEMP 98.4
== END 2020-10-17 17:48 | disposition home or self-care (01) ==
LOC: JASU-SURG 04:20
PROVIDERS: ATTEND Pain Medicine Pain Medicine
PROC: 01HY3MZ Insertion of Neurostimulator Lead into Peripheral Nerve, Percutaneous Approach (ICD-10-PCS; principal; 2020-10-17 14:00)
DX: G89.4 Chronic pain syndrome (principal); M25.511 Pain in right shoulder
CPT/HCPCS: 64555; C1778

== ENCOUNTER 2020-11-14 04:22 | Day surgery (SDC) | payer OTHER, MEDICARE ==
[2020-11-14] MEDS ORDERED: LIDOCAINE HCL 1%, 10 MG/ML (20ML VIAL) INF ONE (17:23)
[2020-11-14 18:14] VITALS: TEMP 97.9
[2020-11-14 19:24] VITALS: BP 105/38; PULSE 56
== END 2020-11-14 19:20 | disposition home or self-care (01) ==
LOC: JASU-SURG 04:22
PROVIDERS: ATTEND Pain Medicine Pain Medicine
PROC: 01HY3MZ Insertion of Neurostimulator Lead into Peripheral Nerve, Percutaneous Approach (ICD-10-PCS; principal; 2020-11-14 16:00)
DX: G89.4 Chronic pain syndrome (principal); M25.511 Pain in right shoulder; I10 Essential (primary) hypertension; E78.00 Pure hypercholesterolemia, unspecified; E03.9 Hypothyroidism, unspecified
CPT/HCPCS: 64555; C1778

== ENCOUNTER 2021-02-17 04:46 | Day surgery (SDC) | payer OTHER, MEDICARE ==
[2021-02-16 15:42] VITALS: BMI 35.2
[2021-02-17] MEDS ORDERED: LIDOCAINE HCL 1% PRESERVATIVE FREE - 30ML VIAL IJ ONE (12:53)
[2021-02-17 15:39] VITALS: TEMP 97.8
[2021-02-17 15:50] VITALS: BP 120/70; PULSE 60
== END 2021-02-17 14:50 | disposition home or self-care (01) ==
LOC: JASU-SURG 04:46
PROVIDERS: ATTEND Pain Medicine Pain Medicine
PROC: 4B01XVZ Measurement of Peripheral Nervous Stimulator, External Approach (ICD-10-PCS; 2021-02-17)
PROC: 01HY3MZ Insertion of Neurostimulator Lead into Peripheral Nerve, Percutaneous Approach (ICD-10-PCS; principal; 2021-02-17 10:30)
DX: G89.4 Chronic pain syndrome (principal); M25.511 Pain in right shoulder
CPT/HCPCS: 64555; C1897

== ENCOUNTER 2021-03-24 04:34 | Day surgery (SDC) | payer OTHER, MEDICARE ==
[2021-03-23 17:05] VITALS: BMI 36.3
[2021-03-24] MEDS ORDERED: DEXAMETHASONE SOD PHOSPHATE 10 MG/1 ML VIAL ONE (07:07)
[2021-03-24] MEDS ORDERED: LIDOCAINE HCL/PF 1% SDV 5ML VIAL ONE (07:07)
[2021-03-24] MEDS ORDERED: TRIAMCINOLONE ACET 40MG/1ML VIAL ONE (07:07)
[2021-03-24] MEDS ORDERED: BUPIVACAINE HCL/PF 0.5% (5MG/ML) 10 ML VIAL ONE (07:08)
[2021-03-24] MEDS ORDERED: LIDOCAINE HCL 1% PRESERVATIVE FREE - 30ML VIAL IJ ONE (10:48)
[2021-03-24 14:02] VITALS: BP 124/64; PULSE 71; TEMP 98
== END 2021-03-24 13:30 | disposition home or self-care (01) ==
LOC: JASU-SURG 04:34
PROVIDERS: ATTEND Pain Medicine Pain Medicine
PROC: 01HY3MZ Insertion of Neurostimulator Lead into Peripheral Nerve, Percutaneous Approach (ICD-10-PCS; principal; 2021-03-24 10:00)
DX: G89.4 Chronic pain syndrome (principal); M25.511 Pain in right shoulder
CPT/HCPCS: 64555; C1897; J1100